=== PATIENT | male | born 1945 | race Caucasian/White ===

== ENCOUNTER → 2019-10-08 14:14 | Outpatient (CLI) | payer MEDICARE, OTHER, SELFPAY ==
[2019-10-08 18:52] LABS: Absolute Lymphocyte Count 2.04 X10^3/uL (0.83-4.51); Basophil# 0.02 X10^3/uL; Basophil% 0.3 % (0-1); Eosinophil# 0.02 X10^3/uL; Eosinophils% 0.3 % (0-5); Hematocrit 42.6 % (40-54); Hemoglobin 13.4 g/dL (13.0-16.5); Lymphocyte # 2.04 X10^3/ul (4.0); Lymphocyte % 26.1 % (19-41); Mean Corp Hgb Conc 31.5 g/dL (32-36); Mean Corpuscular Hgb 31.2 pg (27.0-32.0); Mean Corpuscular Volume 99.3 fL (80-94); Mean Platelet Vol. 9.5 fl (6.2-12.0); Monocyte# 0.77 X10^3/uL; Monocyte% 9.8 % (0-10); NRBC Flagged by Analyzer 0 % (0-5); Neutrophil # 4.95 X10^3/uL (2.7-7.7); Neutrophil % 63.2 % (47-70); Platelet Count 407 K/mm3 (150-450); RBC Distribution Width CV 12.7 % (11.6-14.6); Red Blood Count 4.29 M/mm3 (4.6-6.2); White Blood Count 7.8 K/mm3 (4.4-11.0)
[2019-10-08 18:56] LABS: ALB/GLOB Ratio 0.9 RATIO (0.9-2.4); AST(SGOT) 22 U/L (15-37); Alanine Aminotransfer ALT/SGPT 36 U/L (16-61); Albumin, Serum 3.8 g/dL (3.2-5.0); Alkaline Phosphatase 73 U/L (45-117); Anion Gap 8 (5-15); BUN 25 mg/dL (7-18); BUN/Creat Ratio 21.6 RATIO (10-20); Calcium,Total 9.7 mg/dL (8.5-10.1); Chloride 99 mmol/L (98-107); Creatinine, Serum 1.16 mg/dL (0.70-1.30); EST Glomerular Filtration Rate 66 mL/min (>60); Est Glom Filt Rate - Afr Amer 79 mL/min (>60); Globulin 4.4 g/dL (2.2-4.2); Glucose 112 mg/dL (74-106); Potassium 3.8 mmol/L (3.5-5.1); Protein, Total 8.2 g/dL (6.4-8.2); Rheumatoid Factor < 10.0 IU/mL (<15); Sodium Level 138 mmol/L (136-145)
[2019-10-09 09:12] LABS: Hepatitis B Surface Antibody Reactive; Hepatitis B Surface Antigen Non-Reactive (Nonreactive); Hepatitis C Antibody Non-Reactive (Nonreactive)
[2019-10-11 09:14] LABS: CCP IgG Antibodies 5 units (0-19); Hepatitis B Core AB IgM Negative (Negative)
== END ==
PROVIDERS: PCP Family Medicine; Referring Provider Internal Medicine Rheumatology; Visit Provider Internal Medicine Rheumatology
DX: M06.4 Inflammatory polyarthropathy (principal); M47.897 Other spondylosis, lumbosacral region; M21.41 Flat foot [pes planus] (acquired), right foot; K21.9 Gastro-esophageal reflux disease without esophagitis; I10 Essential (primary) hypertension; E78.5 Hyperlipidemia, unspecified; N40.1 Benign prostatic hyperplasia with lower urinary tract symptoms; G47.33 Obstructive sleep apnea (adult) (pediatric); I87.2 Venous insufficiency (chronic) (peripheral); Z98.84 Bariatric surgery status
CPT/HCPCS: 36415; 80053; 85025; 86140; 86200; 86431; 86705; 86706; 86803; 87340

== ENCOUNTER → 2019-12-03 09:08 | Outpatient (CLI) | payer MEDICARE, OTHER, SELFPAY ==
[2019-12-03 12:05] LABS: Absolute Neutrophil Count 4.1 X10^3/uL (2.0-7.7); Basophil# 0.02 X10^3/uL; Basophil% 0.3 % (0-1); Eosinophil# 0.18 X10^3/uL; Eosinophils% 2.4 % (0-5); Hematocrit 42.5 % (40-54); Hemoglobin 13.2 g/dL (13.0-16.5); Lymphocyte % 35.4 % (19-41); Mean Corp Hgb Conc 31.1 g/dL (32-36); Mean Corpuscular Hgb 31.4 pg (27.0-32.0); Mean Corpuscular Volume 101.2 fL (80-94); Mean Platelet Vol. 9.8 fl (6.2-12.0); Monocyte# 0.66 X10^3/uL; Monocyte% 8.7 % (0-10); NRBC Flagged by Analyzer 0 % (0-5); Neutrophil # 4.06 X10^3/uL (2.7-7.7); Neutrophil % 53.1 % (47-70); Platelet Count 295 K/mm3 (150-450); RBC Distribution Width SD 52.4 fl (35.1-43.9); White Blood Count 7.6 K/mm3 (4.4-11.0)
[2019-12-03 12:39] LABS: ALB/GLOB Ratio 1.1 RATIO (0.9-2.4); AST(SGOT) 28 U/L (15-37); Alanine Aminotransfer ALT/SGPT 42 U/L (16-61); Albumin, Serum 3.9 g/dL (3.2-5.0); Alkaline Phosphatase 58 U/L (45-117); Anion Gap 4 (5-15); BUN 23 mg/dL (7-18); Calcium,Total 9.1 mg/dL (8.5-10.1); Chloride 108 mmol/L (98-107); Creatinine, Serum 0.88 mg/dL (0.70-1.30); EST Glomerular Filtration Rate 90 mL/min (>60); Est Glom Filt Rate - Afr Amer 109 mL/min (>60); Globulin 3.7 g/dL (2.2-4.2); Glucose 89 mg/dL (74-106); Potassium 4.1 mmol/L (3.5-5.1); Protein, Total 7.6 g/dL (6.4-8.2); Sodium Level 140 mmol/L (136-145)
== END ==
PROVIDERS: PCP Family Medicine; Referring Provider Internal Medicine Rheumatology; Visit Provider Internal Medicine Rheumatology
DX: M06.4 Inflammatory polyarthropathy (principal); M47.897 Other spondylosis, lumbosacral region; M21.41 Flat foot [pes planus] (acquired), right foot; K21.9 Gastro-esophageal reflux disease without esophagitis; I10 Essential (primary) hypertension; E78.5 Hyperlipidemia, unspecified; N40.1 Benign prostatic hyperplasia with lower urinary tract symptoms; G47.33 Obstructive sleep apnea (adult) (pediatric); I87.2 Venous insufficiency (chronic) (peripheral); Z98.84 Bariatric surgery status
CPT/HCPCS: 36415; 80053; 85025

== ENCOUNTER → 2020-01-31 10:11 | Outpatient (CLI) | payer MEDICARE, OTHER, SELFPAY ==
[2020-01-31 12:16] LABS: Absolute Lymphocyte Count 2.38 X10^3/uL (0.83-4.51); Absolute Neutrophil Count 4.9 X10^3/uL (2.0-7.7); Basophil# 0.03 X10^3/uL; Basophil% 0.4 % (0-1); Eosinophil# 0.13 X10^3/uL; Eosinophils% 1.6 % (0-5); Hematocrit 42.9 % (40-54); Hemoglobin 13.8 g/dL (13.0-16.5); Lymphocyte # 2.38 X10^3/ul (4.0); Lymphocyte % 29.3 % (19-41); Mean Corp Hgb Conc 32.2 g/dL (32-36); Mean Corpuscular Hgb 32.5 pg (27.0-32.0); Mean Corpuscular Volume 100.9 fL (80-94); Mean Platelet Vol. 9.7 fl (6.2-12.0); Monocyte# 0.69 X10^3/uL; Monocyte% 8.5 % (0-10); NRBC Flagged by Analyzer 0.2 % (0-5); Neutrophil # 4.88 X10^3/uL (2.7-7.7); Platelet Count 321 K/mm3 (150-450); RBC Distribution Width CV 13.9 % (11.6-14.6); RBC Distribution Width SD 51.7 fl (35.1-43.9); Red Blood Count 4.25 M/mm3 (4.6-6.2); White Blood Count 8.1 K/mm3 (4.4-11.0)
[2020-01-31 12:32] LABS: AST(SGOT) 23 U/L (15-37); Alanine Aminotransfer ALT/SGPT 38 U/L (16-61); Alkaline Phosphatase 66 U/L (45-117); Anion Gap 6 (5-15); BUN 24 mg/dL (7-18); BUN/Creat Ratio 25.2 RATIO (10-20); Calcium,Total 9.7 mg/dL (8.5-10.1); Chloride 104 mmol/L (98-107); Creatinine, Serum 0.95 mg/dL (0.70-1.30); EST Glomerular Filtration Rate 82 mL/min (>60); Est Glom Filt Rate - Afr Amer 100 mL/min (>60); Glucose 98 mg/dL (74-106); Potassium 4.5 mmol/L (3.5-5.1); Sodium Level 141 mmol/L (136-145)
== END ==
PROVIDERS: PCP Family Medicine; Referring Provider Internal Medicine Rheumatology; Visit Provider Internal Medicine Rheumatology
DX: M06.4 Inflammatory polyarthropathy (principal); M47.897 Other spondylosis, lumbosacral region; M21.41 Flat foot [pes planus] (acquired), right foot; K21.9 Gastro-esophageal reflux disease without esophagitis; I10 Essential (primary) hypertension; E78.5 Hyperlipidemia, unspecified; N40.1 Benign prostatic hyperplasia with lower urinary tract symptoms; G47.33 Obstructive sleep apnea (adult) (pediatric); I87.2 Venous insufficiency (chronic) (peripheral); Z79.899 Other long term (current) drug therapy; Z98.84 Bariatric surgery status
CPT/HCPCS: 36415; 80053; 85025

== ENCOUNTER → 2020-04-13 06:17 | Outpatient (CLI) | payer MEDICARE, OTHER, SELFPAY ==
[2020-04-01 10:33] VITALS: BMI 44.7
--- NOTE | 2020-04-13 06:19 | ECHOCS_ITS ---
Reason For Study: AFib/Flutter Procedure This was a 2D Doppler, Color Flow transthoracic echocardiogram. Technically difficult study due to patient body habitus. Contrast injection performed. Exam performed in department. Left Ventricle Normal left ventricle. Mild concentric left ventricular hypertrophy. Left ventricular systolic function is normal. The estimated ejection fraction is 60 %. Right Ventricle Normal RV size. Normal systolic function. Atria Normal left atrium. Normal right atrium. Mitral Valve Normal mitral valve. Tricuspid Valve Normal tricuspid valve. Aortic Valve Trisinus/trileaflet aortic valve. Pulmonic Valve Normal pulmonic valve. Great Vessels Normal aortic root. The pulmonary artery is normal size. Normal inferior vena cava. Pericardium/Pleural No pericardial effusion. Medication 22 gauge I.V. with prn adaptor inserted into left arm. Diluted definity 3ml given slow IV push to enhance endocardial definition. MMode/2D Measurements & Calculations LVIDd: 4.8 cm IVSd: 1.3 cm Ao root diam: 4.0 cm LVIDs: 3.7 cm LVPWd: 1.3 cm LA dimension: 4.3 cm FS: 23.4 % LAV(MOD-bp): 84.4 ml LA A4 area: 27.3 cm2 RA A4 area: 18.5 cm2 LAV(MOD-bp) Indexed: 31.3 ml/m2 LAV(MOD-sp2): 73.7 ml LAV(MOD-sp4): 87.9 ml Time Measurements MV dec time: 0.23 sec Doppler Measurements & Calculations MV E max danielle: 116.1 cm/sec MV V2 max: 110.7 cm/sec MV P1/2t max danielle: 111.3 cm/sec MV A max danielle: 34.0 cm/sec MV max P.9 mmHg MV P1/2t: 112.8 msec MV E/A: 3.4 MV V2 mean: 53.7 cm/sec MV dec slope: 288.9 cm/sec2 MV mean P.4 mmHg MV V2 VTI: 32.7 cm MVA(P1/2t): 2.0 cm2 Ao V2 max: 167.3 cm/sec LV V1 max: 104.5 cm/sec PA V2 max: 87.6 cm/sec Ao max P.3 mmHg LV V1 max P.4 mmHg Interpretation Summary Normal left ventricle. Left ventricular systolic function is normal. The estimated ejection fraction is 60 %. Mild concentric left ventricular hypertrophy. Contrast injection was performed. Ordering Physician: Jayden Rodrigues Referring Physician: Arturo Turner Performed By: Mariusz Maier RCS
--- NOTE | 2020-04-13 15:43 | STRESSREP ---
Stress Test Report Pharmacologic myocardial perfusion stress test. 74-year-old man with a history of hypertension, premature ventricular complexes and atrial fibrillation. Stress protocol: Resting EKG demonstrates atrial fibrillation with a rate of 79 bpm occasional premature ventricular complexes noted. Resting blood pressure is 138/70 mmHg. 0.4 mg of regadenoson was infused per usual protocol followed by rapid intravenous and flush injection continuous EKG monitoring was performed. The maximum heart rate attained was 111 bpm which was 75% of max impacted heart rate the maximum workload was [address] changes were noted. Myocardial perfusion protocol. 14.8 mCi of technetium 99m sestamibi was injected at rest. 0.4 mg of regadenoson was infused per usual protocol peak infusion 44.6 mCi of technetium 99m sestamibi was injected stress images were obtained stress and rest images were reconstructed and compared in the short axis vertical long horizontal long axis. Gated images were also obtained for Perfusion SPECT analysis: Review of the stress images demonstrate normal uptake of tracer noted in all areas of the myocardium the resting images similarly demonstrate normal uptake of tracer noted in all areas of the myocardium. No reversibility is noted suggest ischemia no previous infarct is noted. Gated SPECT analysis: The gated ejection fraction is noted to be 51%. Conclusion: Normal pharmacologic myocardial perfusion stress test. Preserved ejection fraction.
== END ==
PROVIDERS: PCP Family Medicine; Referring Provider Internal Medicine Cardiovascular Disease; Visit Provider Internal Medicine Cardiovascular Disease
DX: I48.19 Other persistent atrial fibrillation (principal); R60.0 Localized edema; R94.31 Abnormal electrocardiogram [ECG] [EKG]
CPT/HCPCS: 78452; 93017; 93306; A9500; Q9957; A4216; C8929; J2785

== ENCOUNTER → 2020-04-22 10:08 | Outpatient (CLI) | payer MEDICARE, OTHER, SELFPAY ==
[2020-04-01 10:33] VITALS: BMI 44.7
[2020-04-22 12:19] LABS: Absolute Neutrophil Count 3.6 X10^3/uL (2.0-7.7); Basophil# 0.04 X10^3/uL; Basophil% 0.6 % (0-1); Eosinophil# 0.12 X10^3/uL; Eosinophils% 1.9 % (0-5); Hematocrit 39.7 % (40-54); Hemoglobin 12.7 g/dL (13.0-16.5); Mean Corpuscular Hgb 32.5 pg (27.0-32.0); Mean Corpuscular Volume 101.5 fL (80-94); Mean Platelet Vol. 10.8 fl (6.2-12.0); Monocyte# 0.67 X10^3/uL; Monocyte% 10.6 % (0-10); NRBC Flagged by Analyzer 0 % (0-5); Neutrophil # 3.59 X10^3/uL (2.7-7.7); Neutrophil % 56.6 % (47-70); Platelet Count 277 K/mm3 (150-450); RBC Distribution Width SD 47.8 fl (35.1-43.9); Red Blood Count 3.91 M/mm3 (4.6-6.2); White Blood Count 6.3 K/mm3 (4.4-11.0)
[2020-04-22 12:46] LABS: AST(SGOT) 20 U/L (15-37); Alanine Aminotransfer ALT/SGPT 27 U/L (16-61); Albumin, Serum 3.7 g/dL (3.2-5.0); Alkaline Phosphatase 72 U/L (45-117); Anion Gap 6 (5-15); BUN 17 mg/dL (7-18); BUN/Creat Ratio 19.4 RATIO (10-20); Calcium,Total 9.1 mg/dL (8.5-10.1); Chloride 109 mmol/L (98-107); Creatinine, Serum 0.88 mg/dL (0.70-1.30); EST Glomerular Filtration Rate 91 mL/min (>60); Est Glom Filt Rate - Afr Amer 110 mL/min (>60); Globulin 3.8 g/dL (2.2-4.2); Glucose 96 mg/dL (74-106); Potassium 3.9 mmol/L (3.5-5.1); Protein, Total 7.5 g/dL (6.4-8.2); Sodium Level 140 mmol/L (136-145)
== END ==
PROVIDERS: PCP Family Medicine; Referring Provider Internal Medicine Rheumatology; Visit Provider Internal Medicine Rheumatology
DX: M06.4 Inflammatory polyarthropathy (principal); M47.897 Other spondylosis, lumbosacral region; M21.41 Flat foot [pes planus] (acquired), right foot; K21.9 Gastro-esophageal reflux disease without esophagitis; I10 Essential (primary) hypertension; E78.5 Hyperlipidemia, unspecified; N40.1 Benign prostatic hyperplasia with lower urinary tract symptoms; G47.33 Obstructive sleep apnea (adult) (pediatric); I87.2 Venous insufficiency (chronic) (peripheral); Z79.899 Other long term (current) drug therapy
CPT/HCPCS: 36415; 80053; 85025

== ENCOUNTER → 2020-07-10 10:35 | Outpatient (CLI) | payer MEDICARE, OTHER, SELFPAY ==
[2020-04-01 10:33] VITALS: BMI 44.7
[2020-07-10 12:46] LABS: Absolute Lymphocyte Count 2.31 X10^3/uL (0.83-4.51); Absolute Neutrophil Count 4.8 X10^3/uL (2.0-7.7); Basophil# 0.05 X10^3/uL; Basophil% 0.6 % (0-1); Eosinophil# 0.15 X10^3/uL; Eosinophils% 1.8 % (0-5); Hematocrit 44.7 % (40-54); Hemoglobin 13.9 g/dL (13.0-16.5); Lymphocyte # 2.31 X10^3/ul (4.0); Lymphocyte % 28.1 % (19-41); Mean Corp Hgb Conc 31.1 g/dL (32-36); Mean Corpuscular Hgb 32.3 pg (27.0-32.0); Mean Corpuscular Volume 103.7 fL (80-94); Mean Platelet Vol. 10.1 fl (6.2-12.0); Monocyte# 0.86 X10^3/uL; Monocyte% 10.5 % (0-10); NRBC Flagged by Analyzer 0 % (0-5); Neutrophil # 4.82 X10^3/uL (2.7-7.7); Neutrophil % 58.6 % (47-70); Platelet Count 262 K/mm3 (150-450); RBC Distribution Width SD 50.1 fl (35.1-43.9); Red Blood Count 4.31 M/mm3 (4.6-6.2); White Blood Count 8.2 K/mm3 (4.4-11.0)
[2020-07-10 12:56] LABS: AST(SGOT) 28 U/L (15-37); Alanine Aminotransfer ALT/SGPT 28 U/L (16-61); Albumin, Serum 3.8 g/dL (3.2-5.0); Alkaline Phosphatase 74 U/L (45-117); Anion Gap 6 (5-15); BUN 31 mg/dL (7-18); Chloride 109 mmol/L (98-107); EST Glomerular Filtration Rate 78 mL/min (>60); Est Glom Filt Rate - Afr Amer 94 mL/min (>60); Globulin 3.8 g/dL (2.2-4.2); Glucose 89 mg/dL (74-106); Potassium 4.2 mmol/L (3.5-5.1); Protein, Total 7.6 g/dL (6.4-8.2); Sodium Level 141 mmol/L (136-145)
== END ==
PROVIDERS: PCP Family Medicine; Referring Provider Internal Medicine Rheumatology; Visit Provider Internal Medicine Rheumatology
DX: M06.4 Inflammatory polyarthropathy (principal); M47.897 Other spondylosis, lumbosacral region; M21.41 Flat foot [pes planus] (acquired), right foot; K21.9 Gastro-esophageal reflux disease without esophagitis; I10 Essential (primary) hypertension; E78.5 Hyperlipidemia, unspecified; N40.1 Benign prostatic hyperplasia with lower urinary tract symptoms; G47.33 Obstructive sleep apnea (adult) (pediatric); I87.2 Venous insufficiency (chronic) (peripheral); Z79.899 Other long term (current) drug therapy; Z98.84 Bariatric surgery status
CPT/HCPCS: 36415; 80053; 85025

== ENCOUNTER → 2020-10-10 10:00 | Outpatient (CLI) | payer MEDICARE, OTHER, SELFPAY ==
[2020-09-29 09:28] VITALS: BMI 44.7
[2020-10-10 10:27] LABS: Absolute Lymphocyte Count 1.85 X10^3/uL (0.83-4.51); Absolute Neutrophil Count 3.7 X10^3/uL (2.0-7.7); Basophil# 0.03 X10^3/uL; Basophil% 0.5 % (0-1); Eosinophil# 0.08 X10^3/uL; Eosinophils% 1.3 % (0-5); Hematocrit 41.1 % (40-54); Lymphocyte # 1.85 X10^3/ul (0.83-4.51); Lymphocyte % 29.1 % (19-41); Mean Corp Hgb Conc 31.6 g/dL (32-36); Mean Corpuscular Hgb 33.2 pg (27.0-32.0); Mean Corpuscular Volume 104.8 fL (80-94); Mean Platelet Vol. 9.3 fl (6.2-12.0); Monocyte# 0.63 X10^3/uL; Monocyte% 9.9 % (0-10); NRBC Flagged by Analyzer 0 % (0-5); Neutrophil # 3.74 X10^3/uL (2.7-7.7); Neutrophil % 58.7 % (47-70); Platelet Count 318 K/mm3 (150-450); RBC Distribution Width CV 13.8 % (11.6-14.6); RBC Distribution Width SD 53.1 fl (35.1-43.9); Red Blood Count 3.92 M/mm3 (4.6-6.2); White Blood Count 6.4 K/mm3 (4.4-11.0)
[2020-10-10 10:57] LABS: AST(SGOT) 24 U/L (15-37); Alanine Aminotransfer ALT/SGPT 34 U/L (16-61); Albumin, Serum 3.9 g/dL (3.2-5.0); Alkaline Phosphatase 71 U/L (45-117); Anion Gap 1 (5-15); BUN 23 mg/dL (7-18); BUN/Creat Ratio 23.9 RATIO (10-20); Calcium,Total 9.2 mg/dL (8.5-10.1); Chloride 110 mmol/L (98-107); Creatinine, Serum 0.96 mg/dL (0.70-1.30); EST Glomerular Filtration Rate 81 mL/min (>60); Est Glom Filt Rate - Afr Amer 98 mL/min (>60); Globulin 3.9 g/dL (2.2-4.2); Glucose 81 mg/dL (74-106); Potassium 4.1 mmol/L (3.5-5.1); Protein, Total 7.8 g/dL (6.4-8.2); Sodium Level 143 mmol/L (136-145)
== END ==
PROVIDERS: PCP Family Medicine; Visit Provider Internal Medicine Rheumatology
DX: M06.4 Inflammatory polyarthropathy (principal); M47.897 Other spondylosis, lumbosacral region; M21.41 Flat foot [pes planus] (acquired), right foot; K21.9 Gastro-esophageal reflux disease without esophagitis; I10 Essential (primary) hypertension; E78.5 Hyperlipidemia, unspecified; N40.1 Benign prostatic hyperplasia with lower urinary tract symptoms; G47.33 Obstructive sleep apnea (adult) (pediatric); I87.2 Venous insufficiency (chronic) (peripheral); Z79.899 Other long term (current) drug therapy; Z98.84 Bariatric surgery status
CPT/HCPCS: 36415; 80053; 85025

== ENCOUNTER → 2020-12-30 11:14 | Outpatient (CLI) | payer MEDICARE, OTHER, SELFPAY ==
[2020-09-29 09:28] VITALS: BMI 44.7
[2020-12-30 12:40] LABS: Absolute Lymphocyte Count 1.87 X10^3/uL (0.83-4.51); Absolute Neutrophil Count 6.8 X10^3/uL (2.0-7.7); Basophil# 0.03 X10^3/uL; Basophil% 0.3 % (0-1); Eosinophil# 0.12 X10^3/uL; Eosinophils% 1.2 % (0-5); Hemoglobin 13.3 g/dL (13.0-16.5); Lymphocyte # 1.87 X10^3/ul (0.83-4.51); Lymphocyte % 19.4 % (19-41); Mean Corp Hgb Conc 32.4 g/dL (32-36); Mean Corpuscular Hgb 32.8 pg (27.0-32.0); Mean Platelet Vol. 9.8 fl (6.2-12.0); Monocyte# 0.78 X10^3/uL; Monocyte% 8.1 % (0-10); NRBC Flagged by Analyzer 0 % (0-5); Neutrophil # 6.84 X10^3/uL (2.7-7.7); Neutrophil % 70.8 % (47-70); Platelet Count 247 K/mm3 (150-450); RBC Distribution Width CV 13.1 % (11.6-14.6); RBC Distribution Width SD 48.9 fl (35.1-43.9); Red Blood Count 4.06 M/mm3 (4.6-6.2); White Blood Count 9.7 K/mm3 (4.4-11.0)
[2020-12-30 13:12] LABS: AST(SGOT) 31 U/L (15-37); Alanine Aminotransfer ALT/SGPT 50 U/L (16-61); Albumin, Serum 4.1 g/dL (3.2-5.0); Alkaline Phosphatase 73 U/L (45-117); Anion Gap 7 (5-15); BUN 20 mg/dL (7-18); BUN/Creat Ratio 22.9 RATIO (10-20); Calcium,Total 9.7 mg/dL (8.5-10.1); Chloride 103 mmol/L (98-107); Creatinine, Serum 0.87 mg/dL (0.70-1.30); EST Glomerular Filtration Rate 91 mL/min (>60); Est Glom Filt Rate - Afr Amer 110 mL/min (>60); Glucose 98 mg/dL (74-106); Potassium 4.1 mmol/L (3.5-5.1); Protein, Total 8.1 g/dL (6.4-8.2); Sodium Level 141 mmol/L (136-145)
== END ==
PROVIDERS: PCP Family Medicine; Referring Provider Internal Medicine Rheumatology; Visit Provider Internal Medicine Rheumatology
DX: M06.4 Inflammatory polyarthropathy (principal); M47.897 Other spondylosis, lumbosacral region; M21.41 Flat foot [pes planus] (acquired), right foot; K21.9 Gastro-esophageal reflux disease without esophagitis; I10 Essential (primary) hypertension; E78.5 Hyperlipidemia, unspecified; N40.1 Benign prostatic hyperplasia with lower urinary tract symptoms; G47.33 Obstructive sleep apnea (adult) (pediatric); I87.2 Venous insufficiency (chronic) (peripheral); Z79.899 Other long term (current) drug therapy
CPT/HCPCS: 36415; 80053; 85025

== ENCOUNTER 2021-08-17 10:19 | Outpatient (CLI) | payer MEDICARE, OTHER, SELFPAY ==
[2021-08-17 12:03] LABS: Absolute Lymphocyte Count 1.86 X10^3/uL (0.83-4.51); Absolute Neutrophil Count 4.1 X10^3/uL (2.0-7.7); Basophil# 0.02 X10^3/uL; Basophil% 0.3 % (0-1); Eosinophil# 0.12 X10^3/uL; Eosinophils% 1.8 % (0-5); Hematocrit 42.9 % (40-54); Hemoglobin 13.9 g/dL (13.0-16.5); Lymphocyte # 1.86 X10^3/ul (0.83-4.51); Lymphocyte % 27.4 % (19-41); Mean Corp Hgb Conc 32.4 g/dL (32-36); Mean Corpuscular Hgb 33.1 pg (27.0-32.0); Mean Corpuscular Volume 102.1 fL (80-94); Mean Platelet Vol. 9.9 fl (6.2-12.0); Monocyte# 0.66 X10^3/uL; Monocyte% 9.7 % (0-10); NRBC Flagged by Analyzer 0 % (0-5); Neutrophil % 60.5 % (47-70); Platelet Count 253 K/mm3 (150-450); RBC Distribution Width CV 13.2 % (11.6-14.6); RBC Distribution Width SD 49.8 fl (35.1-43.9); White Blood Count 6.8 K/mm3 (4.4-11.0)
[2021-08-17 12:26] LABS: AST(SGOT) 28 U/L (15-37); Alanine Aminotransfer ALT/SGPT 41 U/L (16-61); Albumin, Serum 3.9 g/dL (3.2-5.0); Alkaline Phosphatase 69 U/L (45-117); Anion Gap 2 (5-15); BUN 27 mg/dL (7-18); BUN/Creat Ratio 26.7 RATIO (10-20); Calcium,Total 9.5 mg/dL (8.5-10.1); Chloride 108 mmol/L (98-107); Creatinine, Serum 1.01 mg/dL (0.70-1.30); EST Glomerular Filtration Rate 77 mL/min (>60); Est Glom Filt Rate - Afr Amer 93 mL/min (>60); Glucose 96 mg/dL (74-106); Potassium 4.4 mmol/L (3.5-5.1); Protein, Total 7.9 g/dL (6.4-8.2); Sodium Level 139 mmol/L (136-145)
== END 2021-08-17 23:59 | disposition home or self-care (01) ==
LOC: MTLAB 10:22
PROVIDERS: PCP Family Medicine; Referring Provider Internal Medicine Rheumatology; Visit Provider Internal Medicine Rheumatology
DX: M06.4 Inflammatory polyarthropathy (principal); M47.892 Other spondylosis, cervical region; M47.897 Other spondylosis, lumbosacral region; M65.342 Trigger finger, left ring finger; M21.41 Flat foot [pes planus] (acquired), right foot; I10 Essential (primary) hypertension; E78.5 Hyperlipidemia, unspecified; N40.1 Benign prostatic hyperplasia with lower urinary tract symptoms; G47.33 Obstructive sleep apnea (adult) (pediatric); I87.2 Venous insufficiency (chronic) (peripheral); K21.9 Gastro-esophageal reflux disease without esophagitis; Z79.899 Other long term (current) drug therapy
CPT/HCPCS: 36415; 80053; 85025

== ENCOUNTER → 2021-11-17 | Outpatient (CLI) | payer MEDICARE, OTHER, SELFPAY ==
[2021-11-17 12:03] LABS: Absolute Lymphocyte Count 1.49 X10^3/uL (0.83-4.51); Absolute Neutrophil Count 6.2 X10^3/uL (2.0-7.7); Basophil# 0.02 X10^3/uL; Basophil% 0.2 % (0-1); Eosinophil# 0.11 X10^3/uL; Eosinophils% 1.3 % (0-5); Hematocrit 39.5 % (40-54); Hemoglobin 12.6 g/dL (13.0-16.5); Lymphocyte # 1.49 X10^3/ul (0.83-4.51); Lymphocyte % 17.7 % (19-41); Mean Corp Hgb Conc 31.9 g/dL (32-36); Mean Corpuscular Hgb 33.1 pg (27.0-32.0); Mean Corpuscular Volume 103.7 fL (80-94); Mean Platelet Vol. 9.5 fl (6.2-12.0); Monocyte# 0.53 X10^3/uL; Monocyte% 6.3 % (0-10); NRBC Flagged by Analyzer 0 % (0-5); Neutrophil # 6.24 X10^3/uL (2.7-7.7); Neutrophil % 74.1 % (47-70); Platelet Count 249 K/mm3 (150-450); RBC Distribution Width CV 13.5 % (11.6-14.6); RBC Distribution Width SD 51.8 fl (35.1-43.9); Red Blood Count 3.81 M/mm3 (4.6-6.2); White Blood Count 8.4 K/mm3 (4.4-11.0)
[2021-11-17 12:37] LABS: AST(SGOT) 30 U/L (15-37); Alanine Aminotransfer ALT/SGPT 45 U/L (16-61); Albumin, Serum 3.5 g/dL (3.2-5.0); Alkaline Phosphatase 63 U/L (45-117); Anion Gap 3 (5-15); BUN 25 mg/dL (7-18); BUN/Creat Ratio 24.3 RATIO (10-20); Calcium,Total 8.9 mg/dL (8.5-10.1); Chloride 111 mmol/L (98-107); Creatinine, Serum 1.03 mg/dL (0.70-1.30); EST Glomerular Filtration Rate 75 mL/min (>60); Est Glom Filt Rate - Afr Amer 91 mL/min (>60); Globulin 3.6 g/dL (2.2-4.2); Glucose 102 mg/dL (74-106); Potassium 4.4 mmol/L (3.5-5.1); Protein, Total 7.1 g/dL (6.4-8.2); Sodium Level 141 mmol/L (136-145)
== END | disposition home or self-care (01) ==
PROVIDERS: PCP Family Medicine; Referring Provider Internal Medicine Rheumatology; Visit Provider Internal Medicine Rheumatology
DX: M06.4 Inflammatory polyarthropathy (principal); M47.892 Other spondylosis, cervical region; M47.897 Other spondylosis, lumbosacral region; M65.342 Trigger finger, left ring finger; M21.41 Flat foot [pes planus] (acquired), right foot; I10 Essential (primary) hypertension; E78.5 Hyperlipidemia, unspecified; N40.1 Benign prostatic hyperplasia with lower urinary tract symptoms; G47.33 Obstructive sleep apnea (adult) (pediatric); I87.2 Venous insufficiency (chronic) (peripheral); K21.9 Gastro-esophageal reflux disease without esophagitis; Z79.899 Other long term (current) drug therapy; Z98.84 Bariatric surgery status
CPT/HCPCS: 36415; 80053; 85025

== ENCOUNTER → 2022-02-15 | Outpatient (CLI) | payer MEDICARE, OTHER, SELFPAY ==
[2022-02-15 12:19] LABS: Absolute Lymphocyte Count 1.82 X10^3/uL (0.83-4.51); Absolute Neutrophil Count 6.6 X10^3/uL (2.0-7.7); Basophil# 0.02 X10^3/uL; Basophil% 0.2 % (0-1); Eosinophil# 0.07 X10^3/uL; Eosinophils% 0.8 % (0-5); Hematocrit 40.2 % (40-54); Hemoglobin 13.1 g/dL (13.0-16.5); Lymphocyte # 1.82 X10^3/ul (0.83-4.51); Lymphocyte % 19.7 % (19-41); Mean Corp Hgb Conc 32.6 g/dL (32-36); Mean Corpuscular Hgb 34.6 pg (27.0-32.0); Mean Corpuscular Volume 106.1 fL (80-94); Mean Platelet Vol. 9.8 fl (6.2-12.0); Monocyte# 0.71 X10^3/uL; Monocyte% 7.7 % (0-10); NRBC Flagged by Analyzer 0 % (0-5); Neutrophil # 6.61 X10^3/uL (2.7-7.7); Neutrophil % 71.4 % (47-70); Platelet Count 245 K/mm3 (150-450); RBC Distribution Width CV 13.1 % (11.6-14.6); RBC Distribution Width SD 50.8 fl (35.1-43.9); Red Blood Count 3.79 M/mm3 (4.6-6.2); White Blood Count 9.3 K/mm3 (4.4-11.0)
[2022-02-15 12:45] LABS: AST(SGOT) 26 U/L (15-37); Alanine Aminotransfer ALT/SGPT 35 U/L (16-61); Albumin, Serum 3.7 g/dL (3.2-5.0); Alkaline Phosphatase 59 U/L (45-117); Anion Gap 5 (5-15); BUN 35 mg/dL (7-18); BUN/Creat Ratio 33.3 RATIO (10-20); Calcium,Total 9.3 mg/dL (8.5-10.1); Chloride 109 mmol/L (98-107); Creatinine, Serum 1.05 mg/dL (0.70-1.30); EST Glomerular Filtration Rate 73 mL/min (>60); Est Glom Filt Rate - Afr Amer 89 mL/min (>60); Globulin 3.8 g/dL (2.2-4.2); Glucose 108 mg/dL (74-106); Potassium 4.6 mmol/L (3.5-5.1); Protein, Total 7.5 g/dL (6.4-8.2); Sodium Level 141 mmol/L (136-145)
== END | disposition home or self-care (01) ==
LOC: MTLAB 10:40
PROVIDERS: PCP Family Medicine; Referring Provider Internal Medicine Rheumatology; Visit Provider Internal Medicine Rheumatology
DX: M06.4 Inflammatory polyarthropathy (principal); M47.892 Other spondylosis, cervical region; M47.897 Other spondylosis, lumbosacral region; M65.342 Trigger finger, left ring finger; M21.41 Flat foot [pes planus] (acquired), right foot; I10 Essential (primary) hypertension; E78.5 Hyperlipidemia, unspecified; N40.1 Benign prostatic hyperplasia with lower urinary tract symptoms; G47.33 Obstructive sleep apnea (adult) (pediatric); I87.2 Venous insufficiency (chronic) (peripheral); K21.9 Gastro-esophageal reflux disease without esophagitis; Z79.899 Other long term (current) drug therapy; Z98.84 Bariatric surgery status
CPT/HCPCS: 36415; 80053; 85025

== ENCOUNTER → 2022-07-18 | Outpatient (CLI) | payer MEDICARE, OTHER, SELFPAY ==
[2022-07-18 09:58] LABS: Absolute Lymphocyte Count 2.66 X10^3/uL (0.83-4.51); Absolute Neutrophil Count 4.9 X10^3/uL (2.0-7.7); Basophil# 0.04 X10^3/uL; Basophil% 0.5 % (0-1); Eosinophil# 0.12 X10^3/uL; Eosinophils% 1.4 % (0-5); Hemoglobin 13.2 g/dL (13.0-16.5); Lymphocyte # 2.66 X10^3/ul (0.83-4.51); Lymphocyte % 31.5 % (19-41); Mean Corp Hgb Conc 31.4 g/dL (32-36); Mean Corpuscular Hgb 32.3 pg (27.0-32.0); Mean Corpuscular Volume 102.7 fL (80-94); Mean Platelet Vol. 9.1 fl (6.2-12.0); Monocyte# 0.74 X10^3/uL; Monocyte% 8.8 % (0-10); NRBC Flagged by Analyzer 0 % (0-5); Neutrophil # 4.86 X10^3/uL (2.7-7.7); Neutrophil % 57.6 % (47-70); Platelet Count 258 K/mm3 (150-450); RBC Distribution Width SD 49.6 fl (35.1-43.9); Red Blood Count 4.09 M/mm3 (4.6-6.2); White Blood Count 8.4 K/mm3 (4.4-11.0)
[2022-07-18 10:50] LABS: AST(SGOT) 36 U/L (15-37); Alanine Aminotransfer ALT/SGPT 53 U/L (16-61); Albumin, Serum 4.1 g/dL (3.2-5.0); Alkaline Phosphatase 64 U/L (45-117); Anion Gap 8 (5-15); BUN 43 mg/dL (7-18); BUN/Creat Ratio 29.7 RATIO (10-20); Calcium,Total 9.3 mg/dL (8.5-10.1); Chloride 105 mmol/L (98-107); Creatinine, Serum 1.45 mg/dL (0.70-1.30); EST Glomerular Filtration Rate 50 mL/min (>60); Est Glom Filt Rate - Afr Amer 61 mL/min (>60); Globulin 4.1 g/dL (2.2-4.2); Glucose 113 mg/dL (74-106); Potassium 4.8 mmol/L (3.5-5.1); Protein, Total 8.2 g/dL (6.4-8.2); Sodium Level 137 mmol/L (136-145)
== END | disposition home or self-care (01) ==
PROVIDERS: PCP Family Medicine; Referring Provider Internal Medicine Rheumatology; Visit Provider Internal Medicine Rheumatology
DX: M06.4 Inflammatory polyarthropathy (principal); Z79.899 Other long term (current) drug therapy
CPT/HCPCS: 36415; 80053; 85025

== ENCOUNTER → 2022-11-23 | Outpatient (CLI) | payer MEDICARE, OTHER, SELFPAY ==
[2022-11-23 13:06] LABS: Absolute Lymphocyte Count 2.21 X10^3/uL (0.83-4.51); Absolute Neutrophil Count 4.2 X10^3/uL (2.0-7.7); Basophil# 0.02 X10^3/uL; Basophil% 0.3 % (0-1); Eosinophil# 0.16 X10^3/uL; Eosinophils% 2.2 % (0-5); Hematocrit 41.3 % (40-54); Hemoglobin 13.1 g/dL (13.0-16.5); Lymphocyte # 2.21 X10^3/ul (0.83-4.51); Lymphocyte % 30.4 % (19-41); Mean Corp Hgb Conc 31.7 g/dL (32-36); Mean Corpuscular Hgb 33.1 pg (27.0-32.0); Mean Corpuscular Volume 104.3 fL (80-94); Mean Platelet Vol. 10.1 fl (6.2-12.0); Monocyte# 0.64 X10^3/uL; Monocyte% 8.8 % (0-10); NRBC Flagged by Analyzer 0 % (0-5); Neutrophil # 4.24 X10^3/uL (2.7-7.7); Neutrophil % 58.2 % (47-70); Platelet Count 271 K/mm3 (150-450); RBC Distribution Width CV 12.7 % (11.6-14.6); RBC Distribution Width SD 49.1 fl (35.1-43.9); Red Blood Count 3.96 M/mm3 (4.6-6.2); White Blood Count 7.3 K/mm3 (4.4-11.0)
[2022-11-23 13:31] LABS: AST(SGOT) 36 U/L (15-37); Alanine Aminotransfer ALT/SGPT 44 U/L (16-61); Albumin, Serum 4.1 g/dL (3.2-5.0); Alkaline Phosphatase 64 U/L (45-117); Anion Gap 5 (5-15); BUN 37 mg/dL (7-18); BUN/Creat Ratio 28.9 RATIO (10-20); Calcium,Total 9.7 mg/dL (8.5-10.1); Chloride 107 mmol/L (98-107); Creatinine, Serum 1.28 mg/dL (0.70-1.30); EST Glomerular Filtration Rate 58 mL/min (>60); Est Glom Filt Rate - Afr Amer 70 mL/min (>60); Glucose 100 mg/dL (74-106); Potassium 4.4 mmol/L (3.5-5.1); Protein, Total 8.1 g/dL (6.4-8.2); Sodium Level 140 mmol/L (136-145)
== END | disposition home or self-care (01) ==
LOC: MTLAB 10:40
PROVIDERS: Nurse Practitioner Family; PCP Family Medicine; Referring Provider Internal Medicine Rheumatology; Visit Provider Internal Medicine Rheumatology
DX: M06.4 Inflammatory polyarthropathy (principal); Z79.899 Other long term (current) drug therapy
CPT/HCPCS: 36415; 80053; 85025

== ENCOUNTER → 2023-01-26 | Outpatient (CLI) | payer MEDICARE, OTHER, SELFPAY ==
[2023-01-26 15:07] LABS: Absolute Lymphocyte Count 2.01 X10^3/uL (0.83-4.51); Absolute Neutrophil Count 3.7 X10^3/uL (2.0-7.7); Basophil# 0.02 X10^3/uL; Basophil% 0.3 % (0-1); Eosinophil# 0.16 X10^3/uL; Eosinophils% 2.5 % (0-5); Hematocrit 37.7 % (40-54); Hemoglobin 11.8 g/dL (13.0-16.5); Lymphocyte # 2.01 X10^3/ul (0.83-4.51); Lymphocyte % 30.8 % (19-41); Mean Corp Hgb Conc 31.3 g/dL (32-36); Mean Corpuscular Hgb 32.8 pg (27.0-32.0); Mean Corpuscular Volume 104.7 fL (80-94); Monocyte# 0.65 X10^3/uL; NRBC Flagged by Analyzer 0 % (0-5); Neutrophil # 3.67 X10^3/uL (2.7-7.7); Neutrophil % 56.2 % (47-70); Platelet Count 242 K/mm3 (150-450); RBC Distribution Width CV 13.2 % (11.6-14.6); RBC Distribution Width SD 50.7 fl (35.1-43.9); White Blood Count 6.5 K/mm3 (4.4-11.0)
[2023-01-26 15:49] LABS: ALB/GLOB Ratio 1.1 RATIO (0.9-2.4); AST(SGOT) 30 U/L (15-37); Alanine Aminotransfer ALT/SGPT 38 U/L (16-61); Alkaline Phosphatase 59 U/L (45-117); Anion Gap 4 (5-15); BUN 23 mg/dL (7-18); BUN/Creat Ratio 18.3 RATIO (10-20); Chloride 109 mmol/L (98-107); Creatinine, Serum 1.26 mg/dL (0.70-1.30); EST Glomerular Filtration Rate 59 mL/min (>60); Est Glom Filt Rate - Afr Amer 72 mL/min (>60); Globulin 3.5 g/dL (2.2-4.2); Glucose 98 mg/dL (74-106); Potassium 4.5 mmol/L (3.5-5.1); Protein, Total 7.5 g/dL (6.4-8.2); Sodium Level 138 mmol/L (136-145)
== END | disposition home or self-care (01) ==
LOC: MTLAB 12:44
PROVIDERS: PCP Family Medicine; Visit Provider Internal Medicine Rheumatology
DX: M06.4 Inflammatory polyarthropathy (principal); Z79.899 Other long term (current) drug therapy
CPT/HCPCS: 36415; 80053; 85025

== ENCOUNTER → 2023-04-18 | Outpatient (CLI) | payer MEDICARE, OTHER, SELFPAY ==
[2023-04-18 12:23] LABS: Absolute Lymphocyte Count 1.77 X10^3/uL (0.83-4.51); Absolute Neutrophil Count 4.1 X10^3/uL (2.0-7.7); Basophil# 0.01 X10^3/uL; Basophil% 0.1 % (0-1); Eosinophil# 0.09 X10^3/uL; Eosinophils% 1.3 % (0-5); Hematocrit 40.6 % (40-54); Hemoglobin 12.8 g/dL (13.0-16.5); Lymphocyte # 1.77 X10^3/ul (0.83-4.51); Lymphocyte % 26.3 % (19-41); Mean Corp Hgb Conc 31.5 g/dL (32-36); Mean Corpuscular Hgb 32.9 pg (27.0-32.0); Mean Corpuscular Volume 104.4 fL (80-94); Mean Platelet Vol. 9.5 fl (6.2-12.0); Monocyte% 10.4 % (0-10); NRBC Flagged by Analyzer 0 % (0-5); Neutrophil # 4.14 X10^3/uL (2.7-7.7); Neutrophil % 61.6 % (47-70); Platelet Count 287 K/mm3 (150-450); RBC Distribution Width SD 49.1 fl (35.1-43.9); Red Blood Count 3.89 M/mm3 (4.6-6.2); White Blood Count 6.7 K/mm3 (4.4-11.0)
[2023-04-18 13:06] LABS: ALB/GLOB Ratio 0.9 RATIO (0.9-2.4); AST(SGOT) 31 U/L (15-37); Alanine Aminotransfer ALT/SGPT 39 U/L (16-61); Albumin, Serum 3.6 g/dL (3.2-5.0); Alkaline Phosphatase 67 U/L (45-117); Anion Gap 4 (5-15); BUN 27 mg/dL (7-18); Calcium,Total 9.4 mg/dL (8.5-10.1); Chloride 112 mmol/L (98-107); Creatinine, Serum 1.35 mg/dL (0.70-1.30); EST Glomerular Filtration Rate 55 mL/min (>60); Est Glom Filt Rate - Afr Amer 66 mL/min (>60); Glucose 53 mg/dL (74-106); Potassium 4.5 mmol/L (3.5-5.1); Protein, Total 7.6 g/dL (6.4-8.2); Sodium Level 140 mmol/L (136-145)
== END | disposition home or self-care (01) ==
LOC: MTLAB 10:46
PROVIDERS: PCP Family Medicine; Referring Provider Internal Medicine Rheumatology; Visit Provider Internal Medicine Rheumatology
DX: M06.4 Inflammatory polyarthropathy (principal); I10 Essential (primary) hypertension; Z79.899 Other long term (current) drug therapy
CPT/HCPCS: 36415; 80053; 85025

== ENCOUNTER → 2023-11-15 | Outpatient (CLI) | payer MEDICARE, OTHER, SELFPAY ==
--- NOTE | 2023-11-15 13:41 | ECHOCS_ITS ---
Reason For Study: DYSPNEA Procedure This was a 2D Doppler, Color Flow transthoracic echocardiogram. The study was technically difficult. Exam performed in department. Left Ventricle Normal LV size. Left ventricular systolic function is normal. The left ventricular ejection fraction is 60 %. No regional wall motion abnormalities noted. Right Ventricle Normal RV size. Normal systolic function. Atria Normal left atrium. Normal right atrium. Mitral Valve Normal mitral valve. Tricuspid Valve Normal tricuspid valve. Aortic Valve Trisinus/trileaflet aortic valve. Mild focal aortic valve calcification. Pulmonic Valve Normal pulmonic valve. Great Vessels Normal aortic root. The pulmonary artery is normal size. Normal inferior vena cava. Pericardium/Pleural No pericardial effusion. Medication 22 gauge I.V. with prn adaptor inserted into right arm. Diluted definity 3ml given slow IV push to enhance endocardial definition. MMode/2D Measurements & Calculations LVIDd: 5.2 cm IVSd: 1.1 cm Ao root diam: 3.5 cm LVIDs: 3.7 cm LVPWd: 1.2 cm RVDd: 3.8 cm FS: 29.4 % LAV(MOD-bp): 58.6 ml LVAd ap4: 34.7 cm2 SV(MOD-sp4): 62.1 ml LAV(MOD-bp) Indexed: 21.6 ml/m2 LVLd ap4: 8.5 cm LAV(MOD-sp2): 57.1 ml EDV(MOD-sp4): 117.5 ml LAV(MOD-sp4): 61.5 ml EDV(sp4-el): 119.9 ml LVAs ap4: 21.6 cm2 LVLs ap4: 6.8 cm ESV(MOD-sp4): 55.4 ml ESV(sp4-el): 58.2 ml EF(MOD-sp4): 52.9 % EF(sp4-el): 51.4 % SV(sp4-el): 61.6 ml LA A4 area: 22.2 cm2 LA dimension(2D): 3.9 cm RA A4 area: 20.6 cm2 TAPSE: 2.1 cm Doppler Measurements & Calculations MV E max dustin: 112.5 cm/sec Lat Peak E' Dustin: 16.6 cm/sec Med Peak E' Dustin: 10.8 cm/sec E/E' lat: 6.8 E/E' med: 10.4 Ao V2 max: 196.8 cm/sec LV V1 max: 121.9 cm/sec PA V2 max: 98.3 cm/sec Ao max P.5 mmHg LV V1 max P.9 mmHg ECHO/Echo Complete W/ Contrast Interpretation Summary Normal LV size. Left ventricular systolic function is normal. The left ventricular ejection fraction is 60 %. Contrast injection was performed. Structurally normal valves. Ordering Physician: Jem Pathak/Jayden Rodrigues Referring Physician: PRICILA HARMON Performed By: Mary Crow RDCS
== END | disposition home or self-care (01) ==
LOC: CVS 13:40
PROVIDERS: PCP Family Medicine; Referring Provider Nurse Practitioner Family; Visit Provider Nurse Practitioner Family
DX: R06.09 Other forms of dyspnea (principal); I48.19 Other persistent atrial fibrillation
CPT/HCPCS: 93306; Q9957; A4216; C8929

== ENCOUNTER → 2025-01-17 | Outpatient (CLI) | payer MEDICARE, OTHER, SELFPAY ==
[2025-01-17 15:32] LABS: Hematocrit 37.2 % (40-54); Hemoglobin 11.8 g/dL (13.0-16.5); Immature Granulocytes Count 0.010 X10^3/uL (0.0-0.0); Mean Corp Hgb Conc 31.7 g/dL (32-36); Mean Corpuscular Volume 103.9 fL (80-94); Mean Platelet Vol. 10.0 fl (6.2-12.0); NRBC Flagged by Analyzer 0 % (0-5); Platelet Count 263 K/mm3 (150-450); RBC Distribution Width CV 13.6 % (11.6-14.6); RBC Distribution Width SD 52.1 fl (35.1-43.9); Red Blood Count 3.58 M/mm3 (4.6-6.2); White Blood Count 8.0 K/mm3 (4.4-11.0)
[2025-01-17 18:40] LABS: AST(SGOT) 38 U/L (<=37); Alanine Aminotransfer ALT/SGPT 34 U/L (<=46); Albumin, Serum 4.4 g/dL (3.4-4.8); Alkaline Phosphatase 64 U/L (40-129); Anion Gap 13 (5-15); BUN 24 mg/dL (4-19); BUN/Creat Ratio 22.0 RATIO (10-20); Calcium,Total 9.6 mg/dL (7.6-11.0); Carbon Dioxide 21.7 mmol/L (21.0-32.0); Chloride 105 mmol/L (98-108); Globulin 3.3 g/dL (2.2-4.2); Glucose 92 mg/dL (70-99); Potassium 4.6 mmol/L (3.3-5.1)
== END | disposition home or self-care (01) ==
LOC: MTLAB 12:40
PROVIDERS: PCP Family Medicine; Referring Provider Internal Medicine Rheumatology; Visit Provider Internal Medicine Rheumatology
DX: M06.4 Inflammatory polyarthropathy (principal); Z79.899 Other long term (current) drug therapy
CPT/HCPCS: 36415; 80053; 85025

== ENCOUNTER → 2025-04-12 | Outpatient (CLI) | payer MEDICARE, OTHER, SELFPAY ==
--- OUTSIDE RECORDS SUMMARY | 2025-04-12 09:56 | XMS RPT_ITS | CCD ---
Author Organization [facility] Care Team Providers Care Speed Reading Teacher Name Role Phone PROVIDER, UNKNOWN Referring Unavailable Harshad Spaulding Primary Care Unavailable Jem Rowland Attending Unavailable PROVIDER, UNKNOWN Referring Unavailable Harshad Spaulding Primary Care Unavailable Jem Rowland Attending Unavailable PROVIDER, UNKNOWN Referring Unavailable Harshad Spaulding Primary Care Unavailable Choco Mendoza Attending Unavailable Harshad Spaulding MD Primary Care Provider Dr. Harshad Spaulding Referring Provider Manish WILDLIFE TECHNICIAN, WILDLIFE TECHNICIAN-C Linda Attending Provider Dr. Josiah hCristine Primary Care Provider Dr. Josiah Christine Primary Care Provider Dr. Josiah Christine Referring Provider Lawson WILDLIFE TECHNICIAN, WILDLIFE TECHNICIAN-C Jem Leal Attending Provider Dr. Josiah Christine Primary Care Provider Dr. Josiah Christine Referring Provider Dr. Jayden Rodrigues Attending Provider Dr. Josiah Christine Primary Care Provider Dr. Josiah Christine Referring Provider Lawson WILDLIFE TECHNICIAN, WILDLIFE TECHNICIAN-C Jem Leal Attending Provider Josiah Christine MD Unavailable Dr. Montse Haynes MD Unavailable Bariatric, Summa Unavailable [facility] Unavailable Real HENRIQUEZ, Dr. Krishna ([facility]) A Unavail able Dr. Mariah Rodrigues MD Unavailable Gogoi (scribe), Hemanta Unavailable Unavaila ble [place] SUPERVISOR COLOR MAKING, Susie Unavailable Unavailable Johnny HENRIQUEZ, Harshad hCerry Unavailable Sindi WATSON, Ulises E Unavailable [phone] Shaw ARTHUR, Nikkie Unavailable Unavailable Gadiel SUPERVISOR COLOR MAKING, Elisha Unavailable Unavailable Alanna SERRANO, Elda Cherry Unavailable Unavaila ble Ramón FOOTWEAR SALES LEADER, Dominga Unavailable Unavailable Reggie SUPERVISOR COLOR MAKING, Lori M Unavailable Unavailab le [place] SUPERVISOR COLOR MAKING, Judy Campbell Unavailable Unavailab le Lisette SUPERVISOR COLOR MAKING, Pat N Unavailable Unavaila ble Zaugg SUPERVISOR COLOR MAKING, Hilary Unavailable Unavailable Unavailable Unavailable Mp SUPERVISOR COLOR MAKING, Erickson Unavailable Unavailable [facility] Unavailable [phone] MONTSE HAYNES MD Admitting Unavailable JOSIAH CHRISTINE Consulting Unavailable JOSIAH CHRISTINE Referring Unavailable MONTSE HAYNES MD Primary Care Unavailable MONTSE HAYNES MD Attending Unavailable PROVIDER, UNKNOWN Consulting Unavailable PROVIDER, UNKNOWN Consulting Unavailable PROVIDER, UNKNOWN Consulting Unavailable MONTSE HAYNES MD Attending Unavailable MONTSE HAYNES MD Admitting Unavailable MONTSE HAYNES MD Primary Care Unavailable JOSIAH CHRISTINE Consulting Unavailable ARASELI BUTLER DR Primary Care Unavailable ARASELI BUTLER DR Attending Unavailable ARASELI BUTLER DR Admitting Unavailable PROVIDER, UNKNOWN Consulting Unavailable PROVIDER, UNKNOWN Consulting Unavailable PROVIDER, UNKNOWN Consulting Unavailable KHARI CAMERON Admitting Unavailable KHARI CAMERON Primary Care Unavailable KHARI CAMERON Attending Unavailable JOSIAH CHRISTINE Primary Care Unavailable EDEN, JOSIAH Consulting Unavailable JOSIAH CHRISTINE Attending Unavailable JOSIAH CHRISTINE Admitting Unavailable PROVIDER, UNKNOWN Consulting Unavailable PROVIDER, UNKNOWN Consulting Unavailable PROVIDER, UNKNOWN Consulting Unavailable EDEN, JOSIAH Consulting Unavailable JOSIAH CHRISTINE Attending Unavailable EDEN, JOSIAH Admitting Unavailable JOSIAH CHRISTINE Primary Care Unavailable PROVIDER, UNKNOWN Consulting Unavailable PROVIDER, UNKNOWN Consulting Unavailable PROVIDER, UNKNOWN Consulting Unavailable EDEN, JOSIAH Consulting Unavailable JOSIAH CHRISTINE Attending Unavailable EDEN, JOSIAH Admitting Unavailable JOSIAH CHRISTINE Primary Care Unavailable PROVIDER, UNKNOWN Consulting Unavailable PROVIDER, UNKNOWN Consulting Unavailable PROVIDER, UNKNOWN Consulting Unavailable MONTSE HAYNES MD Primary Care Unavailable MONTSE HAYNES MD Attending Unavailable MONTSE HAYNES MD Admitting Unavailable MONTSE HAYNES MD Admitting Unavailable MONTSE HAYNES MD Primary Care Unavailable MONTSE HAYNES MD Attending Unavailable MONTSE HAYNES MD Admitting Unavailable MONTSE HAYNES MD Primary Care Unavailable MONTSE HAYNES MD Attending Unavailable MONTSE HAYNES MD Admitting Unavailable JOSIAH CHRISTINE Consulting Unavailable MONTSE HAYNES MD Primary Care Unavailable MONTSE HAYNES MD Attending Unavailable PROVIDER, UNKNOWN Consulting Unavailable PROVIDER, UNKNOWN Consulting Unavailable PROVIDER, UNKNOWN Consulting Unavailable Beba Kaplan Unavailable Unavailable Jayden Rodrigues Attending Unavailable Josiah Christine Primary Care Unavailable Josiah Christine Referring Unavailable Montse Haynes Attending Unavailable Montse Haynes Referring Unavailable Josiah Christine Primary Care Unavailable Eden HENRIQUEZ, Dr. Rahman Primary Care Physician [place] HENRIQUEZ, Dr. Willard Attending Physician [place] HENRIQUEZ, Dr. Willard Referring Provider Allergies Allergy Classification Reported Allergen(s) Allergy Type Date of Onset Reaction(s) Facility (1 source) Adhesive Tape Propensity to adverse reactions to drug 7 Rash [facility] (1 source) HYDROcodone Drug Allergy 7 Itching [facility] (20 sources) oxyCODONE Drug Allergy 6 Itching [facility] (1 source) oxybutynin Drug Allergy [facility] (1 source) oxyCODONE Drug Allergy [facility] (1 source) oxyCODONE Drug Allergy 5 [facility] Repository Medications Current Medications Medication Drug Class(es) Dates Sig (Normalized) Sig (Original) acetaminophen 500 mg oral tablet (20 sources) Start: 04-24-2023 take 2 tablets by mouth every six hours as needed Start: 04-24-2023 take 1000 mg by mout h every six hours Acetaminophen Active 1000 MG PO EVERY 6 HOURS April 24, 2023 11:22am Start: 03-30-2020 End: 04-24-2023 take 1 tablet by mouth every six hours as needed Acetaminophen 500 mg tablet Discontinued 500 mg PO EVERY 6 HOURS as needed March 30, 2020 1:00am April 24, 2023 12:23pm take 2 tablets by mo uth every six hours as needed for pain acetaminophen (TYLENOL) 325 MG tablet Take 650 mg by mouth every 6 hours as needed for Pain 0 Active Comment on above: Medication taken as needed. amoxicillin 500 mg oral capsule (3 sources) Penicillin-class Antibacterial Start: 04-24-2023 take 4 capsules by mouth once as needed Start: 04-24-2023 take 2000 mg by mouth once Kaylin xicillin Active 2000 MG PO ONCE April 24, 2023 12:00am take 1 capsule by mo [facility] three times daily amoxicillin (AMOXIL) 500 MG capsule Indications: BEFORE DENTAL PROCEDURE Take 500 mg by mouth 3 times daily Indications: BEFORE DENTAL PROCEDURE 0 Active atorvastatin 40 mg oral tablet (20 sources) HMG-CoA Reductase Inhibitor Start: 12-23-2024 atorvastatin 40 mg tablet ; 1 (one) Tablet daily for 0 days Quantity: 90 {Tablet} Refills: 0 Ordered: 23-Dec-2024 MD Josiah Christine Start: 23-Dec-2024 Comments: Mail order. Start: 09-23-2024 atorvastatin 4 0 mg tablet ; 1 (one) Tablet daily for 0 days Quantity: 90 {Tablet} Refills: 0 Ordered: 23-Sep-2024 MD Josiah Christine Start: 23-Sep-2024 Comments: Mail order. Start: 06-24-2024 atorvastatin 4 0 mg tablet ; 1 (one) Tablet daily for 0 days Quantity: 90 {Tablet} Refills: 0 Ordered: 24-Jun-2024 MD Josiah Christine Start: 24-Jun-2024 Comments: Mail order. Start: 03-25-2024 atorvastatin 4 0 mg tablet ; 1 (one) Tablet daily for 0 days Quantity: 90 {Tablet} Refills: 0 Ordered: 25-Mar-2024 MD Josiah Christine Start: 25-Mar-2024 Comments: Mail order. Start: 12-25-2023 atorvastatin 4 0 mg tablet ; 1 (one) Tablet daily for 0 days Quantity: 90 {Tablet} Refills: 0 Ordered: 25-Dec-2023 MD Josiah Christine Start: 25-Dec-2023 Comments: Mail order. Start: 03-30-2020 atorvastatin 4 0 mg tablet ; 1 (one) Tablet daily for 0 days Quantity: 90 {Tablet} Refills: 0 Ordered: 26-Sep-2023 MD Josiah Christine Start: 26-Sep-2023 Comments: [facility] at[facility] (LIPITOR) 40 MG tablet Indications: cholesterol Take 40 mg by mouth daily Indications: cholesterol 0 Active Comment on above: Mail order. biotin 5 mg oral capsule (20 sources) Start: 03-30-2020 take 1 capsule by mo [facility] once daily Start: 05-30-2017 take 5000 ug by mout once daily BIOTIN PO Indications: Supplement Take 5,000 mcg by mouth daily 0 05/30/2017 Active take 1 capsule by [facility] once daily Biotin 5000 MCG Oral Capsule ; 1 daily (5000 MCG) calcium citrate 1040 mg oral tablet (10 sources) Start: 06-25-2024 take 2 tablets by [facility] once daily Start: 03-30-2020 End: 06-25-2024 take 2 tablets by mouth three times daily Calcium Citrate 250 mg calcium tablet Discontinued 500 mg PO THREE TIMES A DAY March 30, 2020 1:00am June 25, 2024 12:07pm Start: 03-30-2020 take 500 mg by mouth three times daily Calcium Citrate Active 500 MG PO THREE TIMES A DAY March 30, 2020 12:00am Start: 05-30-2017 take 500 mg by mouth three times daily CALCIUM CITRATE PO Indications: Supplement Take 500 mg by mouth 3 times daily 0 05/30/2017 Active cholecalciferol 0.125 mg ora l capsule (20 sources) Vitamin D Start: 06-25-2024 take 1 capsule by [facility] twice daily Start: 09-29-2020 End: 06-25-2024 take 1 capsule by mouth once daily Cholecalciferol (Vitamin D3) 125 mcg (5,000 unit) capsule Discontinued 125 ug PO DAILY September 29, 2020 12:00am June 25, 2024 12:07pm take 1 tablet by mouth once Sugar min D3 1.25 MG (36090 UT) Oral Tablet ; 1 daily (1.25 MG (84470 UT)) CPAP Machine MISC (1 source) CPAP Machine MIS C Indications: NEIL 12.6 by Does not apply route Indications: NEIL 12.6 0 Active 24 hr dilTIAZem hydrochloride 240 mg extended release oral capsule (20 sources) Calcium Channel Diamond Start: End: take 1 capsule by mouth once daily Start: 04-01-2020 End: 06-20-2022 take 1 capsule by mouth once daily Diltiazem Hcl 180 mg capsule,extended release 24hr Discontinued 180 mg PO DAILY 90 March 07, 2022 1:18pm June 20, 2022 2:26pm enalapril maleate 20 mg oral tablet (20 sources) Angiotensin Converting Enzyme Inhibitor Start: 12-25-2024 enalapril maleate 20 mg tablet ; 1 (one) Tablet two times daily for 0 days Quantity: 180 {Tablet} Refills: 1 Ordered: 25-Dec-2024 MD Josiah Christine Start: 25-Dec-2024 Comments: Mail order. Start: 07-24-2023 enalapril male ate 20 mg tablet ; 1 (one) Tablet two times daily for 0 days Quantity: 180 {Tablet} Refills: 1 Ordered: 28-Jun-2024 MD Josiah Christine Start: 28-Jun-2024 Comments: Mail order. Start: 04-24-2023 End: 10-24-2023 take 1 tablet by mouth once daily in the evening Enalapril Maleate 20 mg tablet Discontinued 20 mg PO EVERY EVENING April 24, 2023 12:17pm October 24, 2023 11:03am Start: 03-30-2020 End: 04-24-2023 take 1 tablet by mouth twice daily Enalapril Maleate 20 mg tablet Discontinued 20 mg PO TWICE A DAY March 30, 2020 1:00am April 24, 2023 12:23pm take 1 tablet by asim th twice daily enalapril (VASOTEC) 20 MG tablet Indications: HTN Take 20 mg by mouth 2 times daily Indications: HTN 0 Active Comment on above: Mail order. famotidine 20 mg oral tablet (20 sources) Histamine-2 Receptor Antagonist Start: 03-30-2020 famotidine 20 mg tablet ; 1 (one) Tablet two times daily for 0 days Quantity: 180 {Tablet} Refills: 3 Ordered: 26-Jan-2024 MD Josiah Christine Start: 26-Jan-2024 Comments: Mail order. End: 10-28-2021 take 1 tablet by mouth once daily Famotidine 40 MG Oral Tablet ; 1 daily (40 MG) End: 28-Oct-2021 Status: Discontinued Comment on above: Mail order. folic acid 1 mg oral tablet (20 sources) Start: 10-24-2023 take 1 tablet by asim th twice daily Start: 04-24-2023 End: 10-24-2023 take 1 tablet by mouth once daily Folic Acid 1 mg tablet Discontinued 1 mg PO DAILY April 24, 2023 1:00am October 24, 2023 11:03am Start: 03-30-2020 End: 06-20-2022 take 2 tablets by mouth once daily Folic Acid 1 mg tablet Discontinued 2 mg PO DAILY March 30, 2020 1:00am June 20, 2022 2:02pm Start: 03-30-2020 End: 06-20-2022 take 2 mg by mouth once daily Folic Acid Discontinued 2 MG PO DAILY March 30, 2020 12:00am June 20, 2022 1:02pm furosemide 20 mg oral tablet (20 sources) Loop Diuretic Start: 04-24-2023 End: 08-22-2023 take 1 tablet by mouth once daily Start: 06-20-2022 End: 04-24-2023 take 2 tablets by mouth once daily Furosemide 20 mg tablet Discontinued 40 mg PO DAILY 180 90 June 20, 2022 2:28pm April 24, 2023 12:35pm Start: 06-20-2022 End: 04-24-2023 take 40 mg by mouth once daily Furosemide Discontinued 40 MG PO DAILY 180 90 June 20, 2022 1:28pm April 24, 2023 11:35am Start: 06-20-2022 End: 06-20-2022 take 2 tablets by mouth every other day Furosemide Discontinued 40 MG PO DAILY June 20, 2022 1:17pm June 20, 2022 1:29pm take 2 tabs qod Start: 06-20-2022 End: 06-20-2022 take 2 tablets by mouth every other day Furosemide 20 mg tablet Discontinued 40 mg PO DAILY June 20, 2022 2:17pm June 20, 2022 2:29pm take 2 tabs qod Start: 06-03-2022 End: 06-20-2022 take 1 tablet by mouth every other day Furosemide 20 mg tablet Discontinued 20 mg PO every other day June 03, 2022 1:00am June 20, 2022 2:03pm pt takes at night due to BPH: decreased by PCP Start: 04-01-2020 End: 06-03-2022 Furosemide (Lasix) 40 mg tab let Discontinued 40 mg PO .COMPLEX 90 3 September 29, 2020 9:46am June 03, 2022 4:39pm 40 mg PO; Alternating 40mg and 20mg every other day; Start: 03-30-2020 End: 04-01-2020 take 1 tablet by mouth three times daily as needed Furosemide 20 mg tablet Discontinued 20 mg PO THREE TIMES A DAY as needed March 30, 2020 1:00am April 01, 2020 12:08pm Start: 03-08-2017 End: 03-08-2017 take 1 tablet by mouth twice daily Furosemide 20 MG Oral Tablet ; 1 (one) Tablet two times daily for 0 days Quantity: 180 {Tablet} Refills: 3 Ordered: 08-Mar-2017 MD Harshad Spaulding Start: 08-Mar-2017 End: 08-Mar-2017 Status: Discontinued Comments: Mail order. Start: 07-09-2014 End: 07-23-2014 take 1 tablet by mouth twice daily FUROSEMIDE, 20MG (Oral Tablet) ; 1 (one) Tablet two times daily for 0 days Quantity: 180 {Tablet} Refills: 3 Ordered: 09-Jul-2014 MD Harshad Spaulding Start: 09-Jul-2014 End: 23-Jul-2014 Status: Inactive Comments: Mail order. Comment on above: Medication taken as needed. Mail order. hydroxychloroquine sulfate 200 mg oral tablet (20 sources) Antimalarial, Antirheumatic Agent Start: 023 take 1 tablet by mouth twice daily mecobalamin 5 mg oral lozenge (7 sources) Start: 020 take 5000 ug by mouth every week Mecobalamin (Vitamin B12) Active 5000 MCG PO EVERY WEEK March 30, 2020 12:00am allow to dissolve in mouth OR may chew lightly before swallowing Mecobalamin (Vitamin B12) 5,000 mcg lozenge (2 sources) Start: 025 take 5000 ug by mouth once Start: 03-30-2020 End: 06-25-2024 take 5000 ug by mouth every week Mecobalamin (Vitamin B12) 5,000 mcg lozenge Discontinued 5000 ug PO EVERY WEEK March 30, 2020 1:00am June 25, 2024 12:07pm allow to dissolve in mouth OR may chew lightly before swallowing methotrexate 2.5 mg oral tab let (20 sources) Folate Analog Metabolic Inhibitor Start: 04-24-2023 Start: 04-24-2023 take 15 mg by mouth every week Methotrexate Sodium Active 15 MG PO EVERY WEEK April 24, 2023 12:00am Start: 03-30-2020 End: 06-20-2022 Methotrexate Sodium 2.5 mg t ablet Discontinued 15 mg PO EVERY WEEK March 30, 2020 1:00am June 20, 2022 2:02pm Start: 03-30-2020 End: 06-20-2022 take 15 mg by mouth every week Methotrexate Sodium Dis continued 15 MG PO EVERY WEEK March 30, 2020 12:00am June 20, 2022 1:02pm take 6 tablets by mo ut every week Methotrexate 2.5 MG Oral Tablet ; 6 weekly on Mondays (2.5 MG) Ijhwvevo-Vnf-Jbslm-Vit K-Lycop (Men's 50 Plus Multivitamin) 400-20-370 mcg tablet (8 sources) Start: 03-30-2020 take 50-400 tablets by mouth twice daily Mhljnrff-Gde-Shjtn-Vit K-Lycop (Men's 50 Plus Multivitamin) 400-20-370 mcg tablet Active 1 TABLET PO TWICE A DAY March 30, 2020 11:54am give with meal/snack Start: 03-30-2020 take 50-400 tablets by mouth twice daily Start: 03-30-2020 take 50-400 tablets by mouth twice daily Czdbiuhu-Ybs-Jiqcb-Vit K-Lycop (Men's 50 Plus Multivitamin) 400-20-370 mcg tablet Active 1 TABLET PO TWICE A DAY March 30, 2020 12:00am give with meal/snack Start: 03-30-2020 take 50-400 tablets by mouth twice daily Spckypgp-Hqe-Vnvso-Vit K-Lycop (Men's 50 Plus Multivitamin) 400-20-370 mcg tablet Active 1 TABLET PO TWICE A DAY March 30, 2020 1:00am give with meal/snack Multivitamins Oral Tablet (20 sources) take 1 tablet by mouth twice daily Multivitamins Oral Tablet ; 1 two times daily Comments: Mens 50+ Comment on above: Mens 50+ oxyCODONE hydrochloride 5 mg oral tablet (20 sources) Opioid Agonist Start: 02-22-2024 oxyCODONE 5 mg tablet ; 1 (one) tablet q 6hrs prn pain for 0 days Quantity: 40 {Tablet} Refills: 0 Ordered: 25-Nov-2024 MD Josiah Christine Start: 25-Nov-2024 Comments: OARRS11/25/2024 oxyCODONE 5 mg t ablet ; (5 mg) Status: Inactive Comments: 1-2 every 4 hrs as needed Comment on above: OARRS1 1-2 every 4 hrs as n eeded OARRS11/25/2024 Pediatric Multivitamins-Iron (MULTIPLE VITAMINS-IRON PO) (1 source) take 2 tablets by mouth once daily Pediatric Multivitamins-Iron (MULTIPLE VITAMINS-IRON PO) Indications: Supplement Take 2 tablets by mouth daily 0 Active PEDIATRIC MULTIVITAMINS-IRON PO (1 source) Start: 7 take 1 tablet by mouth twice daily PEDIATRIC MULTIVITAMINS-IRON PO Indications: supplement Take 1 tablet by mouth 2 times daily 0 03/02/2017 Active predniSONE 10 mg oral tablet (20 sources) Start: 3 take 1 tablet by mouth once daily as needed Start: 09-09-2019 End: 09-16-2019 take 2 tablets by mouth twice daily predniSONE 10 MG Oral Tablet ; 2 (two) Tablet two times daily for 7 days Quantity: 14 {Tablet} Refills: 0 Ordered: 09-Sep-2019 MD Harshad Spaulding Start: 09-Sep-2019 End: 16-Sep-2019 Status: Inactive predniSONE Comme nts: RA- PRN Comment on above: RA- PRN spironolactone 25 mg oral tablet (20 sources) Aldosterone Antagonist Start: 07-30-2021 End: 07-22-2024 terazosin 5 mg oral capsule (20 sources) alpha-Adrenergic Diamond Start: 11-24-2021 End: 10-27-2022 Terazosin Active 0 .ROUTE .COMPLEX 180 October 27, 2022 8:22am TAKE 2 CAPSULES (10 MG) AT BEDTIME Start: 09-29-2020 End: 10-16-2024 Start: 09-29-2020 End: 11-24-2021 take 10 mg by mouth at bedtime Terazosin Discontinued 10 MG PO AT BEDTIME 180 September 29, 2020 8:53am November 24, 2021 12:06pm Start: 03-05-2020 End: 10-27-2022 take 1 capsule by mouth at bedtime Terazosin 5 mg capsule Discontinued 5 mg PO AT BEDTIME March 30, 2020 1:00am September 29, 2020 9:52am Start: 08-12-2015 End: 08-12-2015 take 1 capsule by mouth once daily TERAZOSIN HCL, 10MG (Oral Capsule) ; 1 (one) Capsule daily for 0 days Quantity: 90 {Capsule} Refills: 3 Ordered: 12-Aug-2015 MD Harshad Spaulding Start: 12-Aug-2015 End: 12-Aug-2015 Status: Discontinued Comments: Mail order. future fill take 1 capsule by [facility] once daily terazosin (HYTRIN) 5 MG capsule Indications: BPH Take 5 mg by mouth nightly Indications: BPH 0 Active Comment on above: Mail order. Mail order. future f ill traMADol hydrochloride 50 mg oral tablet (20 sources) Opioid Agonist Start: 11-01-19 End: 10-29-19 take 1 tablet by mouth every six hours as needed Comment on above: Medication taken as needed. Medication taken as needed. RA vitamin b12 1 mg sublingual tablet (20 sources) Vitamin B12 Start: 03-02-20 Cyanocobalamin (VITAMIN B-12) 1000 MCG SUBL Indications: supplement Place 1,000 mcg under the tongue once a week 0 03/02/2017 Active Vitamin B-12 500 MCG Oral Lozenge ; 1 per week on Monday (500 MCG) VITAMIN D, CHOLECALCIFEROL, PO (1 source) Start: 03-23-2017 VITAMIN D, CHO LECALCIFEROL, PO Indications: SUPPLEMENT Take 4,000 Int'l Units by mouth daily 0 03/23/2017 Active Completed/Discontinued Medications Medication Drug Class(es) Dates Sig (Normalized) Sig (Original) amLODIPine 10 mg oral tablet (20 sources) Dihydropyridine Calcium Channel Diamond Start: 02-20-2020 End: 09-02-2020 take 1 tablet by mouth once daily Amlodipine 10 mg tablet Discontinued 10 mg PO DAILY March 30, 2020 1:00am April 01, 2020 12:01pm take 1 tablet by mouth once ambar y amLODIPine (NORVASC) 10 MG tablet Indications: HTN Take 10 mg by mouth daily Indications: HTN 0 Active Comment on above: Mail order. apixaban 5 mg oral tablet (20 sources) Factor Xa Inhibitor Start: 0 End: 5 take 1 tablet by mouth twice daily Apixaban (Eliquis) 5 mg tablet Discontinued 5 mg PO TWICE A DAY 180 3 July 31, 2023 8:00am September 05, 2024 2:27pm aspirin 81 mg delayed release oral tablet (20 sources) Platelet Aggregation Inhibitor, Nonsteroidal Anti-inflammatory Drug Start: 0 End: 0 Aspirin (Adult Low Dose Aspirin) 81 mg tablet,delayed release (DR/EC) Discontinued 81 mg PO DAILY March 30, 2020 1:00am April 01, 2020 12:08pm take 1 tablet by mouth once ambar y BABY ASPIRIN, 81MG (Oral Tablet Chewable) ; 1 daily (81 MG) Status: Inactive celecoxib 200 mg oral capsule (20 sources) Nonsteroidal Anti-inflammatory Drug Start: 03-08-2017 End: 03-08-2017 take 1 capsule by mouth once daily CeleBREX 200 MG Oral Capsule ; 1 (one) Capsule daily for 0 days Quantity: 1 {Capsule} Refills: 0 Ordered: 08-Mar-2017 MD Harshad Spaulding Start: 08-Mar-2017 End: 08-Mar-2017 Status: Discontinued Comments: Mail order. PLEASE CANCEL THIS RX AND ALL REFILLS Comment on above: Mail order. PLEASE CANCEL THIS RX AND AL L REFILLS cephalexin 500 mg oral capsule (12 sources) Cephalosporin Antibacterial Start: 07-15-2024 End: 07-25-2024 cephALEXin 500 mg capsule ; 2 (two) capsule bid for 10 days Quantity: 40 {Capsule} Refills: 0 Ordered: 15-Jul-2024 MD Josiah Christine Start: 15-Jul-2024 End: 25-Jul-2024 Status: Inactive diclofenac sodium 0.01 mg/mg topical gel (20 sources) Nonsteroidal Anti-inflammatory Drug Start: 03-30-2020 End: 04-01-2020 apply 2 g topically four times daily as needed Diclofenac Sodium 1 % gel Discontinued 2 g TOPICAL 4 TIMES DAILY as needed March 30, 2020 1:00am April 01, 2020 11:36am apply to single elbow, wrist or hand; for hand includes palm/fingers/back of hand Start: 03-30-2020 End: 04-01-2020 apply 2 g topically four times daily Diclofenac Sodium Discontinued 2 GM TOPICAL 4 TIMES DAILY March 30, 2020 12:00am April 01, 2020 10:36am apply to single elbow, wrist or hand; for hand includes palm/fingers/back of hand Start: 11-01-2019 End: 10-28-2021 Diclofenac Sodium 1 % Transd ermal Gel ; 1 (one) Application four times daily, as needed for 0 days Quantity: 1 {Tube} Refills: 5 Ordered: 01-Nov-2019 MD Josiah Christine Start: 01-Nov-2019 End: 28-Oct-2021 Status: Discontinued Comments: Medication taken as needed. This order discontinued per [facility]. Comment on above: Medication taken as needed. This order discontinued per [facility]. docusate sodium 100 mg oral capsule (20 sources) DOCUSATE SODIUM, 100MG (Oral Capsule) ; 1 as needed (100 MG) Status: Inactive Comments: Medication taken as needed. take 2 capsules by mouth once da [facility] docusate sodium (COLACE) 100 MG capsule Indications: constipation Take 200 mg by mouth daily 0 Active Comment on above: Medication taken as needed. FISH OIL + D3, [id number] (Oral Capsule) (20 sources) take 1 capsule by mouth once daily FISH OIL + D3, [id number] (Oral Capsule) ; 1 daily (2344-9651 MG-UNIT) Status: Inactive fluconazole 100 mg oral tablet (20 sources) Azole Antifungal Start: 03-09-20 End: 03-14-20 16 take 1 tablet by mouth once daily Fluconazole 100 MG Oral Tablet ; 1 (one) Tablet daily for 5 days Quantity: 5 {Tablet} Refills: 0 Ordered: 09-Mar-2016 MD Harshad Spaulding Start: 09-Mar-2016 End: 14-Mar-2016 Status: Inactive Comments: CANCEL THIS RX -- WRONG PATIENT Comment on above: CANCEL THIS RX -- WR KHUSHI PATIENT GLUCOSAMINE CHONDROITIN COMPLX (Oral Tablet) (20 sources) take 1 tablet by mouth twice daily GLUCOSAMINE CHONDROITIN COMPLX (Oral Tablet) ; 1 two times daily Status: Inactive leflunomide 10 mg oral tablet (5 sources) Antirheumatic Agent Start: 06-20-19 23 End: 09-24-19 23 take 1 tablet by mouth once daily Leflunomide (Arava) 10 mg tablet Discontinued 10 mg PO DAILY June 20, 2022 1:00am September 23, 2022 1:16pm losartan potassium 100 mg oral tablet (20 sources) Angiotensin 2 Receptor Diamond Start: 03-09-20 16 End: 03-09-20 16 take 1 tablet by mouth once daily Losartan Potassium 100 MG Oral Tablet ; 1 (one) Tablet daily for 0 days Quantity: 90 {Tablet} Refills: 3 Ordered: 09-Mar-2016 MD Harshad Spaulding Start: 09-Mar-2016 End: 09-Mar-2016 Status: Discontinued Comments: Mail order. future fill Comment on above: Mail order. future f ill nizatidine 300 mg oral capsule (20 sources) Histamine-2 Receptor Antagonist Start: 09-09-19 20 End: 09-26-19 20 take 1 capsule by mouth once daily Nizatidine 300 MG Oral Capsule ; 1 (one) Capsule daily for 0 days Quantity: 90 {Capsule} Refills: 2 Ordered: 26-Sep-2019 MAGGIE Mondragon Start: 09-Sep-2019 End: 26-Sep-2019 Status: Inactive Comments: Mail order. pharmacist: requested replacement for famotidine Comment on above: Mail order. pharmaci st: requested replacement for famotidine oxybutynin chloride 5 mg oral tablet (20 sources) Cholinergic Muscarinic Antagonist Start: 11-09-19 18 End: 11-19-19 18 take 1 tablet by mouth three times daily as needed Oxybutynin Chloride 5 MG Oral Tablet ; 1 (one) Tablet three times daily PRN overactive for 10 days Quantity: 30 {Tablet} Refills: 0 Ordered: 08-Nov-2017 MD Harshad Spaulding Start: 08-Nov-2017 End: 18-Nov-2017 Status: Inactive pantoprazole 40 mg delayed release oral tablet (20 sources) Proton Pump Inhibitor Start: 09-26-19 End: 03-05-20 take 1 tablet by mouth once daily Pantoprazole Sodium 40 MG Oral Tablet Delayed Release ; 1 (one) Tablet DR daily for 0 days Quantity: 90 {Tablet} Refills: 3 Ordered: 05-Mar-2020 MAGGIE Mondragon Start: 26-Sep-2019 End: 05-Mar-2020 Status: Inactive Comments: Mail order. take 40 mg by mouth once daily before breakfast pantoprazole sodium (PROTONIX) 40 MG PAC K packet Indications: GERD Take 40 mg by mouth every morning (before breakfast) Indications: GERD 0 Active Comment on above: Mail order. phentermine hydrochloride 37.5 mg oral tablet (20 sources) Sympathomimetic Amine Anorectic Start: 08-12-19 16 End: 08-12-19 16 take 1 tablet by mouth once daily PHENTERMINE HCL, 37.5MG (Oral Tablet) ; 1 (one) Tablet once daily for 0 days Quantity: 28 {Tablet} Refills: 0 Ordered: 12-Aug-2015 MD Harshad Spaulding Start: 12-Aug-2015 End: 12-Aug-2015 Status: Discontinued Comments: weeks - of , BMI=51OV 05/27/2015 Comment on above: weeks -, BMI =51OV 05/27/2015 psyllium 400 mg oral capsule (20 sources) Psyllium 400 MG Oral Capsule ; 200mg two times daily (400 MG) Status: Inactive tamsulosin hydrochloride 0.4 mg oral capsule (20 sources) alpha-Adrenergic Diamond Start: 09-26-19 End: 09-26-19 19 take 1 capsule by mouth once daily in the evening Tamsulosin HCl 0.4 MG Oral Capsule ; 1 (one) Capsule daily in the evening for 0 days Quantity: 90 {Capsule} Refills: 3 Ordered: 25-Sep-2018 MD Harshad Spaulding Start: 25-Sep-2018 End: 25-Sep-2018 Status: Discontinued Comments: Mail order. rimma Comment on above: Mail order. rimma Problems Active Problems Problem Classification Problem Date Documented Da te Episodic/Chronic Cardiac dysrhythmias (20 sources) Atrial fibrillation; Translations: [Unspecified atrial fibrillation] Onset: Chronic Cardiac dysrhythmias (20 sources) Palpitations; Translations: [Palpitations] 10-27-2022 Episodic Chronic kidney disease (20 sources) Chronic kidney disease stage 3; Translations: [Chronic kidney disease, Stage III (moderate)] 05-23-2024 Chronic Conditions associated with dizziness or vertigo (20 sources) Dizziness; Translations: [Dizziness and giddiness] 09-02-2020 Episodic Diabetes mellitus without complication (2 sources) Prediabetes; Translations: [Prediabetes] Onset: 8 Disorders of lipid metabolism (20 sources) Other hyperlipidemia; Translations: [Hyperlipidemia] Onset: 8 04-06-2016 Chronic Esophageal disorders (20 sources) Gastroesophageal reflux disease; Translations: [Gastro-esophageal reflux disease without esophagitis] Onset: 6 05-05-2016 Chronic Essential hypertension (20 sources) Essential (primary) hypertension; Translations: [Essential hypertension] Onset: 7 11-02-2016 Chronic Gastritis and duodenitis (20 sources) Gastritis; Translations: [Gastritis, unspecified, without bleeding] 03-28-2019 Episodic Genitourinary symptoms and ill-defined conditions (20 sources) Delay when starting to pass urine; Translations: [Hesitancy of micturition] 09-25-2018 Episodic Hemorrhoids (20 sources) External hemorrhoids; Translations: [Residual hemorrhoidal skin tags] 08-31-2023 Episodic Hyperplasia of prostate (20 sources) Benign prostatic hyperplasia; Translations: [Benign prostatic hyperplasia without lower urinary tract symptoms] 10-27-2022 Chronic Immunizations and screening for infectious disease (20 sources) Needs influenza immunization; Translations: [Encounter for immunization] 02-19-2015 Episodic Osteoarthritis (20 sources) Arthritis; Translations: [Unspecified osteoarthritis, unspecified site] Onset: 09-25-2018 Chronic Other diseases of bladder and urethra (20 sources) Overactive bladder; Translations: [Overactive bladder] 03-28-2019 Chronic Other diseases of veins and lymphatics (8 sources) Lymphedema; Translations: [Lymphedema, not elsewhere classified] 04-01-2020 Chronic Other gastrointestinal disorders (2 sources) Intestinal malabsorption, unspecified; Translations: [Intestinal malabsorption, unspecified] Onset: 8 Chronic Other gastrointestinal disorders (1 source) Intestinal malabsorption 02-22-2017 Chronic Other gastrointestinal disorders (20 sources) History of bypass of stomach; Translations: [Bariatric surgery status] 10-27-2022 Episodic Other lower respiratory disease (20 sources) Orthopnea; Translations: [Orthopnea] 10-27-2022 Episodic Other lower respiratory disease (20 sources) Dyspnea; Translations: [Shortness of breath] 10-27-2022 Episodic Other non-traumatic joint disorders (20 sources) Polyarthropathy; Translations: [Polyarthritis, unspecified] 10-27-2022 Chronic Other non-traumatic joint disorders (20 sources) Swelling of hand; Translations: [Effusion, left hand] 10-27-2022 Episodic Other non-traumatic joint disorders (20 sources) Hip pain; Translations: [Pain in unspecified hip] 02-01-2024 Episodic Other nutritional; endocrine; and metabolic disorders (2 sources) Morbid (severe) obesity due to excess calories; Translations: [Morbid (severe) obesity due to excess calories] Onset: 8 Chronic Other nutritional; endocrine; and metabolic disorders (2 sources) Body mass index (BMI) 36.0-36.9, adult; Translations: [Body mass index (BMI) 36.0-36.9, adult] Onset: 8 Chronic Other nutritional; endocrine; and metabolic disorders (20 sources) Morbid obesity; Translations: [Morbid (severe) obesity due to excess calories] 04-06-2016 Chronic Comment on above: s/p Gastric Bypass 1 Other nutritional; endocrine; and metabolic disorders (20 sources) Body mass index 30+ - obesity; Translations: [Body mass index (BMI) 39.0-39.9, adult] Onset: 9 09-20-2018 Chronic Other nutritional; endocrine; and metabolic disorders (20 sources) Obesity; Translations: [Obesity, unspecified] 03-28-2019 Chronic Other screening for suspected conditions (not mental disorders or infectious disease) (20 sources) Patient encounter status; Translations: [Encounter for screening for malignant neoplasm of prostate] 09-24-2019 Episodic Residual codes; unclassified (2 sources) Dependence on other enabling machines and devices; Translations: [Dependence on other enabling machines and devices] Onset: 8 Chronic Residual codes; unclassified (2 sources) Obstructive sleep apnea (adult) (pediatric); Translations: [Obstructive sleep apnea (adult) (pediatric)] Onset: 8 Chronic Residual codes; unclassified (20 sources) Obstructive sleep apnea syndrome; Translations: [Obstructive sleep apnea (adult) (pediatric)] Onset: 7 07-18-2016 Chronic Residual codes; unclassified (20 sources) Edema of foot; Translations: [Localized edema] 03-28-2019 Episodic Rheumatoid arthritis and related disease (20 sources) Rheumatoid arthritis; Translations: [Rheumatoid arthritis, unspecified] Onset: 5 10-27-2022 Chronic Skin and subcutaneous tissue infections (20 sources) Cellulitis; Translations: [Cellulitis, unspecified] 07-15-2024 Episodic Spondylosis; intervertebral disc disorders; other back problems (20 sources) Lumbar radiculopathy; Translations: [Radiculopathy, lumbar region] Onset: 4 10-27-2022 Episodic Unclassified (2 sources) Other hyperlipidemia; Translations: [Other hyperlipidemia] Onset: 8 Unclassified (20 sources) Status post gastric bypass for obesity (Z98.84) 02-14-2018 Unclassified (20 sources) [facility] Well Adult - In general the patient feels well with minor complaints, has good energy level and is sleeping well. The patient has a balanced diet. The patient exercises 3 - 4 times per week (active w yard work) and sleeps 8 (7-9) hours per night. The patient denies having trouble with bathing, dressing/grooming, toileting, preparing meals and ambulating. The patient denies having trouble with grocery shopping, driving, use of telephone, housework, laundry, preparing/taking medications and finances. The patient has a Healthcare Power of [employer] and a Living Will. Note for [facility] Well Adult: down 9 lbs reviewed by [facility] 10-27-2022 Unclassified (20 sources) Breathing trouble - The onset of the breathing trouble has been sudden and has been occurring in an intermittent pattern for 2 days. The course has been constant. The breathing trouble is mild to moderate. It is described as shortness of breath. The breathing trouble occurs with normal activities, occurs at rest, occurs when lying down and wakes the patient from sleep. There has been no associated anxiety, aspiration of food/foreign body, chest pain, coughing, cyanosis, fever / chills, hemoptysis, hives, kyphosis, mucoid/mucopurulent sputum, muscle weakness, orthopnea, pallor, palpitations, paroxysmal nocturnal dyspnea, past history of allergies, past history of anemia, past history of chronic lung disease, past history of cigarette smoking, past history of endotracheal intubation, past history of heart disease, past history of hypertension, pink frothy sputum, scoliosis, swelling of calf, swelling of feet, tingling and numbness in fingers, trauma, weight loss or wheezing. Note for Breathing trouble: did home coivd this am and was negative 05-19-2022 Unclassified (20 sources) [facility] Routine follow-up - The patient is here for follow-up of hypertension, hyperlipidemia, obesity, GERD and BPH. The patient always takes the prescribed medications. No side effects noted. The patient has low activity level and no regular program (been trying to do more yard work lately, does do some stretches). The patient's out of office blood pressure checks occur rarely and dietary compliance is fairly good usually adhering to recommendations (trying to watch his diet more). The patient states that there is no recent angina or dyspnea, there are no vision changes or weakness, weight has decreased (2 lb since ALEJANDRA) and headaches have been noticed occasionally. Note for Routine chronic follow-up: ALEJANDRA 09/09/2019Last KAMRAN, RF, CBC, ESR, Uric Acid 09/09/2019.PSA 09/25/2018.CMP and Lipid 03/14/2019. 09-26-2019 Unclassified (20 sources) [facility] Routine follow-up - The patient is here for follow-up of hypertension, hyperlipidemia, obesity and NEIL. The patient has low activity level and no regular program. The patient's out of office blood pressure checks occur rarely and dietary compliance is fairly good usually adhering to recommendations. The patient states that there is no recent angina or dyspnea, weight has increased (2lbs) and they do not have headaches. Note for Routine chronic follow-up: ALEJANDRA 09/25/18last labs 09/25/18 psa07/20/18 lip 03-28-2019 Unclassified (20 sources) Obesity follow-up - The patient is compliant with diet. The patient has no structured exercise. The patient occasionally keeps a food diary. The patient does not take any weight loss medication.. The patient is pleased with progress on their diet. 11-09-2017 Unclassified (20 sources) [facility] Rout[facility] Follow up - The patient is here for follow-up of hypertension, hyperlipidemia, arthritis and BPH. The patient always takes the prescribed medications. No side effects noted. (Does not need refills.) The patient has low activity level and no regular program. The patient's out of office blood pressure checks occur rarely and dietary compliance is fairly good usually adhering to recommendations. The patient states that weight has increased (Up 9 pounds.). Note for Routine chronic follow-up: Last routine office visit, cmp and cbc 12/2014. Last lipid 08/2014. Up to date with pneumococcal and influenza vaccines. 04-16-2015 Unclassified (18 sources) Follow up for multiple chronic conditions - The patient is here for follow-up of a-fib, arthritis (RA), GERD, hyperlipidemia, hypertension and other condition(s) (BPH). The patient always takes the prescribed medications. No side effects noted. The patient has low activity level and no regular exercise program. The patient's out of office blood pressure checks occur rarely and dietary compliance is fairly good usually adhering to recommendations. The patient states that there is no recent angina or dyspnea, weight has decreased (down 1 lb) and headaches are rarely noted (sinus DAMON sometimes). Note for Multiple chronic conditions follow-up: reviewed by B 05-23-2024 Unclassified (4 sources) [facility] Well Adult - In general the patient feels well with no complaints. The patient has a balanced diet. The patient exercises 3 - 4 times per week ([place] fit program through [facility]) and sleeps 8 hours per night. The patient denies having trouble with bathing, dressing/grooming, toileting, preparing meals and ambulating. The patient denies having trouble with grocery shopping, driving, use of telephone, housework, laundry, preparing/taking medications and finances. Note for [facility] Well Adult: reviewed by [facility] 11-25-2024 Past or Other Problems Problem Classification Problem Date Documented Da te Episodic/Chronic Diabetes mellitus with complications (1 source) Type 2 diabetes mellitus in obese Onset: 01-18-2017 Resolved: 02-09-2017 02-09-2017 Chronic Diabetes mellitus without complication (1 source) Prediabetes 04-06-2016 Episodic Nutritional deficiencies (5 sources) Deficiency of multiple nutrient elements; Translations: [Deficiency of nutrient element, unspecified] Onset: 09-26-2017 02-22-2017 Episodic Other gastrointestinal disorders (2 sources) Bariatric surgery status; Translations: [Bariatric surgery status] Onset: 09-26-2017 Episodic Other non-traumatic joint disorders (1 source) Knee pain 04-06-2016 Episodic Other non-traumatic joint disorders (1 source) Pain in left hip; Translations: [Pain in left hip] Onset: 02-20-2024 Episodic Other nutritional; endocrine; and metabolic disorders (1 source) Body mass index 40+ - severely obese Onset: 06-20-2016 Resolved: 03-17-2017 03-17-2017 Chronic Unclassified (20 sources) [facility] Well Adult - In general the patient feels well with no complaints, has good energy level and is sleeping well. The patient has a balanced diet and takes supplemental vitamins. The patient exercises weekly (1 to 2) and sleeps 7 (8) hours per night. The patient denies having trouble with bathing, dressing/grooming, toileting, preparing meals and ambulating (uses a cane.). The patient denies having trouble with grocery shopping, driving, use of telephone, housework, laundry, preparing/taking medications and finances. The patient has a Healthcare Power of Rail[employer] and a Living Will. Note for [facility] Well Adult: reviewed by [facility] 10-28-2021 Unclassified (20 sources) Follow up consultation - The patient is here to follow-up after Emergency Room/Urgent [facility] ([facility]) on : (08/30/20). Follow up visit with no current symptoms. 09-02-2020 Unclassified (20 sources) [ADDITIONAL REASON] Transition into care - The patient is transitioning into care from an emergency room and a summary of care was reviewed. 09-02-2020 Unclassified (20 sources) [facility] Well Adult - In general the patient feels well with minor complaints (arthritis pain-is improving with methotrexate, feels tired), has decreased energy level and is sleeping well. The patient has a balanced diet and takes supplemental vitamins. The patient does not exercise and sleeps 8 hours per night. The patient denies having trouble with bathing, dressing/grooming, toileting, preparing meals and ambulating. The patient denies having trouble with grocery shopping, driving, use of telephone, housework, laundry, preparing/taking medications and finances. The patient has a Healthcare Power of [employer] and a Living Will. Note for [facility] Well Adult: ALEJANDRA 09/26/2019Labs printed to review today. 03-05-2020 Unclassified (20 sources) [ADDITIONAL REASON] Transition into care - The patient is transitioning into care from another physician (Rheumatology 10/08/2019) and a summary of care was reviewed. 03-05-2020 Unclassified (20 sources) Hand pain - The onset of the hand pain has been gradual and has been occurring in an intermittent pattern for 1 week. The course has been increasing. The hand pain is characterized as a mild to moderate sharp stabbing. The hand pain is described as being located in the long finger (in between and around). The hand pain is aggravated by any movement. The pain has been relieved by nothing (tried putting heat on it which helps some). The symptoms have been associated with painful ROM, decreased ROM and difficulty with grasping. There have been no previous diagnostic tests. There has been no previous evaluations. There has been no previous occupational therapy. There have been no previous surgeries. Note for Hand pain: pt thinks carpal tunnelnumbness in hands as wellsaid they have been uncomfortable for months but the pain just started a week ago 09-09-2019 Unclassified (20 sources) [facility] Well Adult - In general the patient feels well with minor complaints, has good energy level and is sleeping well. The patient has a balanced diet and takes supplemental vitamins. The patient does not exercise and sleeps 8 hours per night. The patient denies having trouble with bathing, dressing/grooming, toileting, preparing meals and ambulating. The patient denies having trouble with grocery shopping, driving, use of telephone, housework, laundry, preparing/taking medications and finances. The patient has a Healthcare Power of Rail[employer] and a Living Will. Note for [facility] Well Adult: ALEJANDRA 04/18/2018His last cmp and lipid panel was checked back in 2015. 20lb weight gain since 04/2018.Patient had his colonoscopy back in 2013. Which was normal. His blood pressure today is elevated at 148/70. Patient reports of a normal hearing level. Denies any unusual chest pain or SOB. He reports of normal bowel movements. Otherwise, no other questions or concerns. 09-25-2018 Unclassified (20 sources) Obesity follow-up - The patient is partially compliant with diet. The patient exercises through a walking program. The patient exercises 2 times per week. The patient does not keep a food diary. The patient does not take any weight loss medication.. 04-20-2018 Unclassified (20 sources) Post-operative - Patient is 4 months post-operative. There have been no post operative complications. Post-operative pain has been mild. Pain medications include Percocet (hardly ever took them). The patient is not taking any prophylaxis for DVT as DVT prophylaxis treatment. Weight-bearing status: 100% weight-bearing. Patient has been compliant with post-operative instructions. 07-12-2017 Unclassified (20 sources) Obesity follow-up - The patient is compliant with diet. The patient's current diet is the LCD 1200 (pt does protein count). The patient has no structured exercise (pt walks some, pt is less than 3 weeks post surgery). The patient does not take any weight loss medication.. The patient is pleased with progress on their diet. 03-09-2017 Unclassified (20 sources) Obesity follow-up - The patient is compliant with diet. The patient's current diet is the LCD 1500. The patient has no structured exercise. The patient does not keep a food diary. The patient does not take any weight loss medication.. The patient is pleased with progress on their diet. Note for Obesity follow-up: Pt is waiting to get approved for gastric bypass surgery. 06-23-2016 Unclassified (20 sources) Obesity follow-up - The patient is partially compliant with diet. The patient has no structured exercise. The patient does not keep a food diary. The patient does not take any weight loss medication.. 03-10-2016 Unclassified (20 sources) Obesity follow-up - The patient is partially compliant with diet. The patient's current diet is the LCD 1200. The patient exercises at home (tries to work outside more). The patient has no structured exercise. The patient does not keep a food diary. The patient does not take any weight loss medication.. 11-12-2015 Unclassified (20 sources) Obesity follow-up - The patient is partially compliant with diet. The patient's current diet is the LCD 1500. The patient has no structured exercise (starting to work outside a lot). The patient does not keep a food diary. The patient currently takes phentermine. The patient takes their medication every day (ran out of meds 2 weeks ago). The patient is pleased with progress on their diet. 08-13-2015 Unclassified (20 sources) Obesity follow-up - The patient is partially compliant with diet. The patient's current diet is the VLCD. The patient has no structured exercise. The patient does not keep a food diary. The patient currently takes phentermine. The patient takes their medication every day. The patient is pleased with progress on their diet. Note for Obesity follow-up: Tolerating the phentermine well at this time. Still have some insomnia and evening. 06-24-2015 Unclassified (20 sources) Obesity follow-up - The patient is not compliant with diet. The patient's current diet is the LCD 1500. The patient has no structured exercise. The patient does not keep a food diary. The patient does not take any weight loss medication.. 05-28-2015 Unclassified (20 sources) [facility] Routine Follow up - The patient is here for follow-up of hypertension (Last rtn visit 08/12/14. Lipid and CMP 08/22/14.), hyperlipidemia, arthritis and BPH. The patient always takes the prescribed medications. No side effects noted. The patient has low activity level and no regular program. The patient's out of office blood pressure checks occur rarely and dietary compliance is fairly good usually adhering to recommendations. The patient states that breathing effort is stable, there is no recent angina or dyspnea, there are no vision changes or weakness, pain is generally stable, weight has increased (4#), mood is unchanged and they do not have headaches. 12-16-2014 Unclassified (20 sources) [ADDITIONAL REASON] Preoperative Clearance - Surgical procedure(s) planned: other (Septoplasty; submucous resection turbinate). Date of procedure: (12/23/14) Surgeon: (Dr. Fadi Russ) and Location of procedure: ([facility]) There have been no problems with general anesthesia or blood/blood products. Prosthetics include eye glasses. Note for Pre-operative clearance: Patient needs to have an antibiotic prescribed to take prior to the surgery. 12-16-2014 Unclassified (20 sources) New Patient - Patient is a former patient of Dr. Hearn. He is here to establish care today. 08-14-2014 Unclassified (20 sources) [ADDITIONAL REASON] [facility] Routine Follow up - The patient is here for follow-up of hypertension (Lipid and CMP 08/21/13. ), hyperlipidemia and arthritis. The patient always takes the prescribed medications. No side effects noted. The patient has a sedentary lifestyle. The patient's out of office blood pressure checks occur rarely and dietary compliance is fairly good usually adhering to recommendations. The patient states that breathing effort is stable, there is no recent angina or dyspnea, there are no vision changes or weakness, mood is unchanged and they do not have headaches. 08-14-2014 Unclassified (20 sources) [ADDITIONAL REASON] Transition into care - The patient is transitioning into care from another physician and a summary of care was reviewed . 08-14-2014 Unclassified (14 sources) Transition into care - The patient is transitioning into care from an emergency room and a summary of care was reviewed. 09-02-2020 Unclassified (14 sources) [ADDITIONAL REASON] Follow up consultation - The patient is here to follow-up after Emergency Room[facility] on : (08/30/20). Follow up visit with no current symptoms. 09-02-2020 Unclassified (12 sources) Transition into care - The patient is transitioning into care from another physician (Rheumatology 10/08/2019) and a summary of care was reviewed. 03-05-2020 Unclassified (12 sources) [ADDITIONAL REASON] MCR Well Adult - In general the patient feels well with minor complaints (arthritis pain-is improving with methotrexate, feels tired), has decreased energy level and is sleeping well. The patient has a balanced diet and takes supplemental vitamins. The patient does not exercise and sleeps 8 hours per night. The patient denies having trouble with bathing, dressing/grooming, toileting, preparing meals and ambulating. The patient denies having trouble with grocery shopping, driving, use of telephone, housework, laundry, preparing/taking medications and finances. The patient has a Healthcare Power of [employer] and a Living Will. Note for MCR Well Adult: ALEJANDRA 09/26/2019Labs printed to review today. 03-05-2020 Unclassified (12 sources) Preoperative Clearance - Surgical procedure(s) planned: other (Septoplasty; submucous resection turbinate). Date of procedure: (12/23/14) Surgeon: (Dr. Fadi Russ) and Location of procedure: ([facility]) There have been no problems with general anesthesia or blood/blood products. Prosthetics include eye glasses. Note for Pre-operative clearance: Patient needs to have an antibiotic prescribed to take prior to the surgery. 12-16-2014 Unclassified (12 sources) [ADDITIONAL REASON] [facility] Routine Follow up - The patient is here for follow-up of hypertension (Last rtn visit 08/12/14. Lipid and CMP 08/22/14.), hyperlipidemia, arthritis and BPH. The patient always takes the prescribed medications. No side effects noted. The patient has low activity level and no regular program. The patient's out of office blood pressure checks occur rarely and dietary compliance is fairly good usually adhering to recommendations. The patient states that breathing effort is stable, there is no recent angina or dyspnea, there are no vision changes or weakness, pain is generally stable, weight has increased (4#), mood is unchanged and they do not have headaches. 12-16-2014 Unclassified (8 sources) Transition into care - The patient is transitioning into care from another physician and a summary of care was reviewed . 08-14-2014 Unclassified (10 sources) [ADDITIONAL REASON] New Patient - Patient is a former patient of Dr. Hearn. He is here to establish care today. 08-14-2014 Unclassified (20 sources) Rectal pain - Pt voicing c/o hemorrhoids. No bleeding, no pain. He had previous hemorrhoid surgery. 08-31-2023 Unclassified (20 sources) MCR Well Adult - In general the patient feels well with no complaints, has good energy level and is sleeping well. The patient has a balanced diet and takes supplemental vitamins. The patient exercises weekly ([employer] [facility] twice a week.) and sleeps 7 hours per night. The patient denies having trouble with bathing, dressing/grooming, toileting, preparing meals and ambulating. The patient denies having trouble with grocery shopping, driving, use of telephone, housework, laundry, preparing/taking medications and finances. The patient has a Healthcare Power of [employer] and a Living Will. 11-21-2023 Unclassified (2 sources) [facility] Routine Follow up - The patient is here for follow-up of hypertension (Lipid and CMP 08/21/13. ), hyperlipidemia and arthritis. The patient always takes the prescribed medications. No side effects noted. The patient has a sedentary lifestyle. The patient's out of office blood pressure checks occur rarely and dietary compliance is fairly good usually adhering to recommendations. The patient states that breathing effort is stable, there is no recent angina or dyspnea, there are no vision changes or weakness, mood is unchanged and they do not have headaches. 08-14-2014 Unclassified (20 sources) Hip pain - The onset of the hip pain has been gradual following no specific incident and has been occurring in a persistent pattern for 1 month. The course has been gradually worsening. The hip pain is described as being a mild to moderate dull aching located in the hip (left). The hip pain radiates to the left groin. The pain is aggravated by general physical activity. Relieving factors include medication. The symptoms have been associated with limping and difficulty arising from chair. There have been no previous diagnostic tests. Note for Hip pain: patient states he had left groin pain but was told by araseli butler in the past that means hip pain reviewed by [facility] 02-01-2024 Unclassified (20 sources) Hip pain - Note for Hip pain: Pt seen in office 02/01/[address] Butler, does not feel it is a hip problem per xray. Sent to PT. Pt just started this week. Monday started w/ pain on right side. reviewed by [facility] 02-22-2024 Unclassified (12 sources) Edema - The edema has been occurring for 1 month . The edema occurs gradually. It affects the right lower extremity. There were no precipitating factors. Associated symptoms include redness (tight). Note for Edema: reviewed by [facility] 07-15-2024 Results Test Name Value Interpretation Reference Range Facility Absolute lymphocyte countOrd ered By: Montse Haynes on 01-17-2025 Lymphocytes Auto (Unsp spec) [#/Vol] 1.80 10*3/uL 0.83-4.51 [facility] Absolute neutrophil countOrd ered By: Montse Haynes on 01-17-2025 Neutrophils (Bld) [#/Vol] 5.3 10*3/uL 2.0-7.7 [facility] Anion gap in Serum or Plasma Ordered By: Montse Haynes on 01-17-2025 Anion gap [Moles/Vol] 13 mmol/L 5-15 [facility] Automated lymphocyte count a s percentage of total leukocytesOrdered By: Montse Haynes on 01-17-2025 Lymphocytes/100 WBC Auto (Unsp spec) 22.6 % - [facility] BUN/creatinine ratioOrdered By: Montse Haynes on 01-17-2025 Urea nitrogen/Creatinine [Mass ratio] 22.0 mg/mg High 10-20 [facility] Basophil percentageOrdered B y: Montse Haynes on 01-17-2025 Basophils/100 WBC (Bld) 0.4 % 0-1 [facility] Bilirubin, totalOrdered By: Montse Haynes on 01-17-2025 Bilirubin [Mass/Vol] 0.71 mg/dL 0.00-1.30 [facility] CBC W/Diff, Automatedon 09-0 5-2024 Absolute Lymph 1.80 X10 3/uL Normal 0.83-4.51 [facility] Comment on above: Performed By: #### L 500.4050, L100.0100 #### [facility] [address] [place], [address] Absolute Neut 5.3 X10 3/uL Normal 2.0-7.7 [facility] Comment on above: Performed By: #### L 500.4050, L100.0100 #### [facility] [address] [place], [address] Basophils/100 WBC (Bld) 0.4 % Normal 0-1 [facility] Comment on above: Performed By: #### L 500.4050, L100.0100 #### [facility] [address] [place], [address] Eosinophils/100 WBC (Bld) 1.3 % Normal 0-5 [facility] Comment on above: Performed By: #### L 500.4050, L100.0100 #### [facility] [address] [place], [address] Erythrocyte distribution width (RBC) [Ratio] 13.6 % Normal 11.6-14.6 [facility] Comment on above: Performed By: #### L 500.4050, L100.0100 #### [facility] [address] [place], [address] Hematocrit (Bld) [Volume fraction] 37.2 % Low 40-54 [facility] Comment on above: Performed By: #### L 500.4050, L100.0100 #### [facility] [address] [place], [address] Hemoglobin (Bld) [Mass/Vol] 11.8 g/dL Low 13.0-16.5 [facility] Comment on above: Performed By: #### L 500.4050, L100.0100 #### [facility] [address] [place], [address] IG% 0.100 Normal 0.0-0.9 [facility] Comment on above: Result Comment: IG% - Immature Granulocytes (promyelocytes, myelocytes and metamyelocytes) > 1% indicates that a LEFT SHIFT is Present. Performed By: #### L 500.4050, L100.0100 #### [facility] [address] [place], [address] Lymphocytes/100 WBC (Bld) 22.6 % Normal 19-41 [facility] Comment on above: Performed By: #### L 500.4050, L100.0100 #### [facility] [address] [place], [address] MCH (RBC) [Entitic mass] 33.0 pg High 27.0-32.0 [facility] Comment on above: Performed By: #### L 500.4050, L100.0100 #### [facility] [address] [place], [address] MCHC (RBC) [Mass/Vol] 31.7 g/dL Low 32-36 [facility] Comment on above: Performed By: #### L 500.4050, L100.0100 #### [facility] [address] [place], [address] MCV (RBC) [Entitic vol] 103.9 fL High 80-94 [facility] Comment on above: Performed By: #### L 500.4050, L100.0100 #### [facility] [address] [place], [address] Monocytes/100 WBC (Bld) 8.9 % Normal 0-10 [facility] Comment on above: Performed By: #### L 500.4050, L100.0100 #### [facility] [address] [place], [address] Neutrophils/100 WBC (Bld) 66.7 % Normal 47-70 [facility] Comment on above: Performed By: #### L 500.4050, L100.0100 #### [facility] [address] [place], [address] Nucleated RBC (Bld) [#/Vol] 0 10*3/uL Normal 0-5 [facility] Comment on above: Performed By: #### L 500.4050, L100.0100 #### [facility] [address] [place], [address] Platelet mean volume (Bld) [Entitic vol] 10.0 fL Normal 6.2-12.0 [facility] Comment on above: Performed By: #### L 500.4050, L100.0100 #### [facility] [address] [place], [address] Platelets (Bld) [#/Vol] 263 10*3/uL Normal 150-450 [facility] Comment on above: Performed By: #### L 500.4050, L100.0100 #### [facility] [address] [place], [address] RBC (Bld) [#/Vol] 3.58 10*6/uL Low 4.6-6.2 [facility] Comment on above: Performed By: #### L 500.4050, L100.0100 #### [facility] [address] [place], [address] RDW SD 52.1 fl High 35.1-43.9 [facility] Comment on above: Performed By: #### L 500.4050, L100.0100 #### [facility] [address] [place], [address] WBC (Bld) [#/Vol] 8.0 10*3/uL Normal 4.4-11.0 [facility] Comment on above: Performed By: #### L 500.4050, L100.0100 #### [facility] [address] [place], [address] Carbon dioxide, total [Moles /volume] in Central venous bloodOrdered By: Montse Haynes on 01-17-2025 CO2 [Moles/Vol] 21.7 mmol/L 21.0-32.0 [facility] Chloride assayOrdered By: Roscoe Haynes on 01-17-2025 Chloride [Moles/Vol] 105 mmol/L 98-108 [facility] Comprehensive Metabolic Prof ilon 01-17-2025 Albumin [Mass/Vol] 4.4 g/dL Normal 3.4-4.8 [facility] Comment on above: Performed By: #### L 500.4050, L100.0100 #### [facility] [address] [place], [address] Albumin/Globulin [Mass ratio] 1.3 {ratio} Normal 0.9-2.4 [facility] Comment on above: Performed By: #### L 500.4050, L100.0100 #### [facility] [address] [place], [address] ALK PHOS 64 U/L Normal 40-129 [facility] Comment on above: Performed By: #### L 500.4050, L100.0100 #### [facility] [address] [place], [address] ALT [Catalytic activity/Vol] 34 U/L Normal <=46 [facility] Comment on above: Performed By: #### L 500.4050, L100.0100 #### [facility] [address] [place], [address] AST [Catalytic activity/Vol] 38 U/L Normal <=37 [facility] Comment on above: Performed By: #### L 500.4050, L100.0100 #### [facility] [address] [place], [address] Bilirubin [Mass/Vol] 0.71 mg/dL Normal 0.00-1.30 [facility] Comment on above: Performed By: #### L 500.4050, L100.0100 #### [facility] [address] [place], [address] BUN/CRE 22.0 RATIO High 10-20 [facility] Comment on above: Performed By: #### L 500.4050, L100.0100 #### [facility] [address] [place], [address] Calcium [Mass/Vol] 9.6 mg/dL Normal 7.6-11.0 [facility] Comment on above: Performed By: #### L 500.4050, L100.0100 #### [facility] [address] [place], [address] Chloride [Moles/Vol] 105 mmol/L Normal 98-108 [facility] Comment on above: Performed By: #### L 500.4050, L100.0100 #### [facility] [address] [place], [address] CO2 [Moles/Vol] 21.7 mmol/L Normal 21.0-32.0 [facility] Comment on above: Performed By: #### L 500.4050, L100.0100 #### [facility] [address] [place], [address] Creatinine [Mass/Vol] 1.08 mg/dL Normal 0.70-1.20 [facility] Comment on above: Performed By: #### L 500.4050, L100.0100 #### [facility] [address] [place], [address] GAP 13 Normal 5-15 [facility] Comment on above: Performed By: #### L 500.4050, L100.0100 #### [facility] [address] [place], [address] GFR/1.73 sq M.predicted among non-blacks MDRD (S/P/Bld) [Vol rate/Area] 70 mL/min/{1.73_m2} Normal >60 [facility] Comment on above: Result Comment: mL/m in/1.73m2 CKD-EPI Creatinine Equation (2020) Performed By: #### L 500.4050, L100.0100 #### [facility] [address] [place], [address] Globulin (S) [Mass/Vol] 3.3 g/dL Normal 2.2-4.2 [facility] Comment on above: Performed By: #### L 500.4050, L100.0100 #### [facility] [address] [place], [address] Glucose [Mass/Vol] 92 mg/dL Normal 70-99 [facility] Comment on above: Performed By: #### L 500.4050, L100.0100 #### [facility] [address] [place], [address] Potassium [Moles/Vol] 4.6 mmol/L Normal 3.3-5.1 [facility] Comment on above: Performed By: #### L 500.4050, L100.0100 #### [facility] [address] [place], [address] Sodium [Moles/Vol] 140 mmol/L Normal 133-145 [facility] Comment on above: Performed By: #### L 500.4050, L100.0100 #### [facility] [address] [place], [address] T PROT 7.6 g/dL Normal 5.9-8.4 [facility] Comment on above: Performed By: #### L 500.4050, L100.0100 #### [facility] [address] [place], [place], [address] Urea nitrogen [Mass/Vol] 24 mg/dL High 4-19 [facility] Comment on above: Performed By: #### L 500.4050, L100.0100 #### [facility] [address] [place], [address] Eosinophil percentageOrdered By: Montse Haynes on 01-17-2025 Eosinophils/100 WBC (Bld) 1.3 % 0-5 [facility] Erythrocyte distribution wid th ratioOrdered By: Montse Haynes on 01-17-2025 Erythrocyte distribution width (RBC) [Ratio] 13.6 % 11.6-14.6 [facility] Erythrocyte distribution wid th standard deviationOrdered By: Montse Haynes on 01-17-2025 Erythrocyte distribution width (RBC) [Ratio] 52.1 fl High 35.1-43.9 [facility] Glomerular filtration rate ( GFR) estimation/1.73 sq m using serum, plasma, or whole bOrdered By: Montse Haynes on 01-17-2025 GFR/1.73 sq M.predicted among non-blacks MDRD (S/P/Bld) [Vol rate/Area] 70 mL/min/{1.73_m2} >60 [facility] Comment on above: mL/min/1.73m2 CKD-EP I Creatinine Equation (2020) Hematocrit Auto (Bld) [Volum e fraction]Ordered By: Montse Haynes on 01-17-2025 Hematocrit (Bld) [Volume fraction] 37.2 % Low 40-54 [facility] Hemoglobin measurementOrdere d By: Montse Haynes on 01-17-2025 Hemoglobin (Bld) [Mass/Vol] 11.8 g/dL Low 13.0-16.5 [facility] Immature granulocytes/100 WB C Auto (Bld)Ordered By: Montse Haynes on 01-17-2025 Immature granulocytes/100 WBC (Bld) 0.100 % 0.0-0.9 [facility] Comment on above: IG% - Immature Granu locytes (promyelocytes, myelocytes and metamyelocytes) > 1% indicates that a LEFT SHIFT is Present. Laboratory - Chemistry and C hemistry - challengeOrdered By: Montse Haynes on 01-17-2025 AST [Catalytic activity/Vol] 38 U/L <38 [facility] MCV (mean corpuscular volume ) determinationOrdered By: Montse Haynes on 01-17-2025 MCV (RBC) [Entitic vol] 103.9 fL High 80-94 [facility] Mean corpuscular hemoglobin (MCH) determinationOrdered By: Montse Haynes on 01-17-2025 MCH (RBC) [Entitic mass] 33.0 pg High 27.0-32.0 [facility] Mean corpuscular hemoglobin concentration (MCHC) determinationOrdered By: Montse Haynes on 01-17-2025 MCHC (RBC) [Mass/Vol] 31.7 g/dL Low 32-36 [facility] Mean platelet volume determi nationOrdered By: Montse Haynes on 01-17-2025 Platelet mean volume (Bld) [Entitic vol] 10.0 fL 6.2-12.0 [facility] Monocyte percentageOrdered B y: Montse Haynes on 01-17-2025 Monocytes/100 WBC (Bld) 8.9 % 0-10 [facility] Neutrophil percentageOrdered By: Montse Haynes on 01-17-2025 Neutrophils/100 WBC (Bld) 66.7 % 47-70 [facility] Nucleated red blood cell per centageOrdered By: Montse Haynes on 01-17-2025 Nucleated RBC/100 WBC (Bld) [Ratio] 0 % 0-5 [facility] Platelet countOrdered By: Roscoe Haynes on 01-17-2025 Platelets (Bld) [#/Vol] 263 10*3/uL 150-450 [facility] Potassium measurement (mass/ volume)Ordered By: Montse Haynes on 01-17-2025 Potassium (Unsp spec) [Mass/Vol] 4.6 mmol/L 3.3-5.1 [facility] RBC Auto (Bld) [#/Vol]Ordere d By: Montse Haynes on 01-17-2025 RBC (Bld) [#/Vol] 3.58 10*6/uL Low 4.6-6.2 [facility] Serum creatinine measurement (mass/volume)Ordered By: Montse Haynes on 01-17-2025 Creatinine [Mass/Vol] 1.08 mg/dL 0.70-1.20 [facility] Serum globulin measurementOr dered By: Montse Haynes on 01-17-2025 Globulin (S) [Mass/Vol] 3.3 g/dL 2.2-4.2 [facility] Serum glucose measurement (m ass/volume)Ordered By: Montse Haynes on 01-17-2025 Glucose [Mass/Vol] 92 mg/dL 70-99 [facility] Serum or plasma alanine zavala otransferase (ALT) measurementOrdered By: Montse Haynes on 01-17-2025 ALT [Catalytic activity/Vol] 34 U/L <47 [facility] Serum or plasma albumin kale urement (mass/volume)Ordered By: Montse Haynes on 01-17-2025 Albumin [Mass/Vol] 4.4 g/dL 3.4-4.8 [facility] Serum or plasma albumin/glob ulin mass ratioOrdered By: Montse Haynes on 01-17-2025 Albumin/Globulin [Mass ratio] 1.3 {ratio} 0.9-2.4 [facility] Serum or plasma alkaline marlen sphatase measurementOrdered By: Montse Haynes on 01-17-2025 ALP [Catalytic activity/Vol] 64 U/L 40-129 [facility] Serum or plasma calcium kale urement (mass/volume)Ordered By: Montse Haynes on 01-17-2025 Calcium [Mass/Vol] 9.6 mg/dL 7.6-11.0 [facility] Serum or plasma urea nitroge n measurement (mass/volume)Ordered By: Montse Haynes on 01-17-2025 Urea nitrogen [Mass/Vol] 24 mg/dL High 4-19 [facility] Sodium levelOrdered By: Jess Haynes on 01-17-2025 Sodium [Moles/Vol] 140 mmol/L 133-145 [facility] Total proteinOrdered By: Mabel Haynes on 01-17-2025 Protein [Mass/Vol] 7.6 g/dL 5.9-8.4 [facility] White blood cell (WBC) count Ordered By: Montse Haynes on 01-17-2025 WBC (Bld) [#/Vol] 8.0 10*3/uL 4.4-11.0 [facility] COMPREHENSIVE METABOLIC PANE Matthieu 11-19-2024 Albumin [Mass/Vol] 4.3 g/dL Normal 3.6-5.1 [facility] Comment on above: Performed By: #### 1 0231, 5363, 7600 #### [facility] [place] [address] [employer] Specialist: Ethan Calixto MD Albumin/Globulin [Mass ratio] 1.5 {ratio} Normal 1.0-2.5 [facility] Comment on above: Performed By: #### 1 0231, 5363, 7600 #### [facility] [place] [address] [employer] Specialist: Ethan Calixto MD ALP [Catalytic activity/Vol] 50 U/L Normal 35-144 [facility] Comment on above: Performed By: #### 1 0231, 5363, 7600 #### [facility] [place] [address] [employer] Specialist: Ethan Calixto MD ALT [Catalytic activity/Vol] 33 U/L Normal 9-46 [facility] Comment on above: Performed By: #### 1 0231, 5363, 7600 #### [facility] [place] [address] [employer] Specialist: Ethan Calixto MD AST [Catalytic activity/Vol] 39 U/L High 10-35 [facility] Comment on above: Performed By: #### 1 0231, 5363, 7600 #### [facility] [place] [address] [employer] Specialist: Ethan Calixto MD Bilirubin [Mass/Vol] 0.8 mg/dL Normal 0.2-1.2 [facility] Comment on above: Performed By: #### 1 230, 5363, 7600 #### [facility] [address], [address] [place], [place] [address] Accounts Receivable Specialist: Ethan Calixto MD BUN/CREATININE RATIO SEE NOTE: Normal 6-22 [facility] Comment on above: Result Comment: Not Reported: BUN and Creatinine are within reference range. Performed By: #### 1 230, 5363, 7600 #### [facility] [place] [address] [employer] Rece[employer] Specialist: Ethan Calixto MD Calcium [Mass/Vol] 9.2 mg/dL Normal 8.6-10.3 [facility] Comment on above: Performed By: #### 1 230, 5363, 7600 #### [facility] [place] [address] [employer] Receivable Specialist: Ethan Calixto MD Chloride [Moles/Vol] 107 mmol/L Normal 98-110 Q[facility] t [facility] Comment on above: Performed By: #### 1 230, 5363, 7600 #### [facility] [place] [address] [employer] Rece[employer] Specialist: Ethan Calixto MD CO2 [Moles/Vol] 23 mmol/L Normal 20-32 [facility] Comment on above: Performed By: #### 1 230, 5363, 7600 #### [facility] of [place] [address] [employer] Rece[employer] Specialist: Ethan Calixto MD Creatinine [Mass/Vol] 1.10 mg/dL Normal 0.70-1.[address] [facility] Comment on above: Performed By: #### 1 023, 5363, 7600 #### [facility] of [place] [address] [employer] Rece[employer] Specialist: Ethan Calixto MD GFR/1.73 sq M.predicted among non-blacks MDRD (S/P/Bld) [Vol rate/Area] 69 mL/min/{1.73_m2} Normal > OR = 60 [facility] Comment on above: Performed By: #### 1 0231, 5363, 7600 #### [facility] of [address], [address] [place] [address] Accounts Receivable Specialist: Ethan Calixto MD Globulin (S) [Mass/Vol] 2.8 g/dL Normal 1.9-3.7 [facility] Comment on above: Performed By: #### 1 023, 5363, 7600 #### [facility] [place] [address] [employer] Receivable Specialist: Ethan Calixto MD Glucose [Mass/Vol] 91 mg/dL Normal 65-99 [facility] Comment on above: Result Comment: Fasting reference interval Performed By: #### 1 230, 5363, 7600 #### [facility] [place] [address] [employer] Receivable Specialist: Ethan Calixto MD Potassium [Moles/Vol] 4.3 mmol/L Normal 3.5-5.[address] [facility] [address] [facility] [address] [facility] Comment on above: Performed By: #### 1 023, 5363, 7600 #### [facility] [place] [address] Accounts Receivable Specialist: Ethan Calixto MD Protein [Mass/Vol] 7.1 g/dL Normal 6.1-8.1 [facility] Comment on above: Performed By: #### 1 023, 5363, 7600 #### [facility] [place] [address] Accounts Receivable Specialist: Ethan Calixto MD Sodium [Moles/Vol] 140 mmol/L Normal 135-146 [facility] Comment on above: Performed By: #### 1 023, 5363, 7600 #### [facility] [place] [address] Accounts Receivable Specialist: Ethan Calixto MD Urea nitrogen [Mass/Vol] 24 mg/dL Normal 7-25 [facility] Comment on above: Performed By: #### 1 0231, 5363, 7600 #### [facility] [address], [address] [place] [address] Account[employer] Receivable Specialist: Ethan Calixto MD LIPID PANEL, [facility] 07-0 Cholesterol [Mass/Vol] 139 mg/dL Normal <200 Qu est [facility] Comment on above: Performed By: #### 1 0231, 5363, 7600 #### [facility] [address], [address] [place] [address] Account[employer] Receivable Specialist: Ethan Calixto MD Cholesterol in HDL [Mass/Vol] 76 mg/dL Normal > OR = 40 [facility] Comment on above: Performed By: #### 1 0231, 5363, 7600 #### [facility] [address], [address] [place] [address] Account[employer] Rece[employer] Specialist: Ethan Calixto MD Cholesterol in LDL [Mass/Vol] 50 mg/dL Normal [facility] Comment on above: Result Comment: Refe rence range: <100 Desirable range <100 mg/dL for primary prevention; <70 mg/dL for patients with CHD or diabetic patients with > or = 2 CHD risk factors. LDL-C is now calculated using the Gary-Trupti calculation, which is a validated novel method providing better accuracy than the Friedewald equation in the estimation of LDL-C. Gary GARCIA et al. MARYLIN. 2013;310(19): 1149-8152 (http://education.NeuroQuest.ArtSetters/faq/NOS709) Performed By: #### 1 0231, 5363, 7600 #### [facility] [address], [address] [place] [address] Accounts Receivable Specialist: Ethan Calixto MD Cholesterol.total/Chol esterol in HDL [Mass ratio] 1.8 {ratio} Normal <5.0 [facility] Comment on above: Performed By: #### 1 0231, 5363, 7600 #### [facility] [address], [address] [place] [address] Accounts Receivable Specialist: Ethan Calixto MD NON HDL CHOLESTEROL 63 mg/dL (calc) Normal <130 [facility] Comment on above: Result Comment: For patients with diabetes plus 1 major ASCVD risk factor, treating to a non-HDL-C goal of <100 mg/dL (LDL-C of <70 mg/dL) is considered a therapeutic option. Performed By: #### 1 0231, 5310, 3330 #### [facility] [address], [address] [place] [address] Accounts Receivable Specialist: Ethan Calixto MD Triglyceride [Mass/Vol] 51 mg/dL Normal <150 [facility] Comment on above: Performed By: #### 1 0231, 5381, 7530 #### [facility] [address], [address] [place] [address] Account[employer] Receivable Specialist: Ethan Calixto MD PSA, TOTALon 11-19-2024 PSA, TOTAL 1.88 ng/mL Normal < OR = 4.00 [facility] Comment on above: Result Comment: The total PSA value from this assay system is standardized against the WHO standard. The test result will be approximately 20% lower when compared to the equimolar-standardized total PSA (Josiah Jesse). Comparison of serial PSA results should be interpreted with this fact in mind. This test was performed using the Siemens chemiluminescent method. Values obtained from different assay methods cannot be used interchangeably. PSA levels, regardless of value, should not be interpreted as absolute evidence of the presence or absence of disease. Performed By: #### 1 0231, 5319, 7380 #### [facility] [address], [address] [place] [address] Accounts Receivable Specialist: Ethan Calixto MD Laboratory - Chemistry and C hemistry - challengeon 11-18-2024 Albumin [Mass/Vol] 4.3 g/dL Normal 3.6 - 5.1 g/dL [facility] Albumin/Globulin [Mass ratio] 1.5 {ratio} Normal 1.0 - 2.5 [facility], [facility] ALP [Catalytic activity/Vol] 50 U/L Normal 35 - 144 U/L [facility], [facility]. ALT [Catalytic activity/Vol] 33 U/L Normal 9 - 46 U/L [facility], [facility].; [facility], [facility]. AST [Catalytic activity/Vol] 39 U/L Abnormal 10 - 35 U/L [facility], [facility].; [facility], [facility]. Bilirubin [Mass/Vol] 0.8 mg/dL Normal 0.2 - 1 .2 mg/dL [facility], [facility].; [facility], [facility]. Calcium [Mass/Vol] 9.2 mg/dL Normal 8.6 - 10. 3 mg/dL [facility], [facility].; [facility], [facility]. Chloride [Moles/Vol] 107 mmol/L Normal 98 - 11 0 mmol/L [facility], [facility].; [facility], [facility]. Cholesterol [Mass/Vol] 139 mg/dL Normal [facility], [facility].; [facility], [facility] Cholesterol in HDL [Mass/Vol] 76 mg/dL Normal [facility], [facility].; [facility], [facility]. Cholesterol in LDL [Mass/Vol] 50 mg/dL Normal [facility], [facility].; [facility], [facility]. CO2 [Moles/Vol] 23 mmol/L Normal 20 - 32 mmol/L [facility], [facility].; [facility], [facility]. Creatinine [Mass/Vol] 1.10 mg/dL Normal 0.70 - 1.28 mg/dL [facility], [facility].; [facility], [facility]. GFR/1.73 sq M.predicted among non-blacks MDRD (S/P/Bld) [Vol rate/Area] 69 mL/min/{1.73_m2} Normal [facility], [facility].; [place] [employer] [facility] Glucose [Mass/Vol] 91 mg/dL Normal 65 - 99 mg/dL [facility], [facility].; [facility], [facility]. Potassium [Moles/Vol] 4.3 mmol/L Normal 3.5 - 5.3 mmol/L [facility], [facility].; [facility], [facility]. Protein [Mass/Vol] 7.1 g/dL Normal 6.1 - 8.1 g/dL [facility] [employer] [employer] [facility] [place] [facility] [facility]. Sodium [Moles/Vol] 140 mmol/L Normal 135 - 146 mmol/L [facility] [employer] [employer] [facility].; [place] [facility] [facility] [employer] [employer] [facility]. Triglyceride [Mass/Vol] 51 mg/dL Normal [facility] [employer] [facility].; [place] [employer] [facility], [employer]. Urea nitrogen [Mass/Vol] 24 mg/dL Normal 7 - 25 mg/dL [facility] [employer] [employer] [facility].; [facility] [employer] [facility]. No Panel Informationon 11-18 BUN/CREATININE RATIO SEE NOTE: Normal 6 - 22 [facility].; [place] [facility] [facility] [employer] [employer] [facility]. CHOL/HDLC RATIO 1.8 Normal [facility] [employer] [employer] [facility]. GLOBULIN 2.8 Normal 1.9 - 3.7 [facility] [employer] [employer] [facility] [place] [facility] [facility] [employer] [employer] [facility]. NON HDL CHOLESTEROL 63 Normal [facility].; [place] [facility] [facility] HospitalC[facility]ando PSA, TOTAL 1.88 ng/mL Normal [facility] [employer] [employer] [facility].; [place] [employer] [facility] [employer] [facility]. CBC + DIFFon 10-25-2024 Baso # 0.01 x10EE3/UL Normal 0.00 - 0.10 [facility] Comment on above: Performed By: #### 2 14586 #### [facility],[address] [place] [address] Basophils/100 WBC (Bld) 0.2 % Normal 0.0 - 2.0 [facility] Comment on above: Performed By: #### 2 74993 #### [facility],[address] [place] [address] CBC + DIFF Normal [facility] Comment on above: Result Comment: CBC- COMPLETE BLOOD COUNT Performed By: #### 2 80257 #### [place] [address] EO # 0.17 x10EE3/UL Normal 0.00 - 0.50 [facility] Comment on above: Performed By: #### 2 71428 #### [facility],[address] [place], [place] [id number] Eosinophils/100 WBC (Bld) 2.8 % Normal 0.0 - 7.0 [facility] Comment on above: Performed By: #### 2 05456 #### [facility],[address] [place] [address] Erythrocyte distribution width (RBC) [Ratio] 13.8 % Normal 12.0 - 15.6 [facility] Comment on above: Performed By: #### 2 33928 #### [facility],[address] [place] [address] Hematocrit (Bld) [Volume fraction] 37.3 % Low 40.0 - 52.0 [facility] Comment on above: Performed By: #### 2 96214 #### [facility],[address] [place] [address] Hemoglobin (Bld) [Mass/Vol] 12.6 g/dL Low 13.0 - 17.5 [facility] Comment on above: Performed By: #### 2 97242 #### [facility],[address] [place] [address]262 Lymph # 1.96 x10EE3/UL Normal 0.80 - 2.80 [facility] Comment on above: Performed By: #### 2 30350 #### [address] [address] Lymphocytes/100 WBC (Bld) 32.9 % Normal 20.0 - 45.0 [facility] Comment on above: Performed By: #### 2 77315 #### [address] [address] MANUAL DIFF N/A Normal [facility] Comment on above: Performed By: #### 2 86931 #### [facility],[address] [place] [address]337 MCH (RBC) [Entitic mass] 35 pg High 27 - 33 [facility] Comment on above: Performed By: #### 2 37502 #### [facility],[address] [place] [address] 18401 MCHC 34 X10 3 Normal 32 - 36 [facility] Comment on above: Performed By: #### 2 01360 #### [facility],[address] [place] [address] 93869 MCV (RBC) [Entitic vol] 102 fL High 81 - 98 [facility] Comment on above: Performed By: #### 2 98512 #### [facility],[address] [place] [address] 11033 [place] # 0.64 x10EE3/UL Normal 0.20 - 1.00 [facility] Comment on above: Performed By: #### 2 64568 #### [facility],[address] [place] [address] 08221 MONOS % 10.7 % High 0.0 - 10.0 [facility] Comment on above: Performed By: #### 2 46364 #### [facility],[address] [place] [address] 99328 Morphology German (Bld) [Interp] N/A Normal [facility] Comment on above: Performed By: #### 2 91170 #### [facility],[address] [place] [address]7521 Neut # 3.18 x10EE3/UL Normal 1.50 - 7.10 [facility] Comment on above: Performed By: #### 2 78777 #### [facility],[address] [place] [address]28[address] Neutrophils/100 WBC (Bld) 53.3 % Normal 46.0 - 76.0 [facility] Comment on above: Performed By: #### 2 06665 #### [facility],[address] [place] [address] 49002 PLATELET 288 x10EE3/UL Normal 150 - 450 [facility] Comment on above: Performed By: #### 2 85776 #### [facility],[address] [place] [address] 54787 Platelet mean volume (Bld) [Entitic vol] 7.6 fL Normal 6.4 - 10.5 [facility] Comment on above: Result Comment: AUTO MATED DIFFERENTIAL Performed By: #### 2 26932 #### [facility],[address] [place] [address] 94047 RBC 3.64 x 10EE6/UL Low 4.50 - 6.00 [facility] Comment on above: Performed By: #### 2 82582 #### [facility],[address] [place] [address] 23159 WBC 6.0 x 10EE3/UL Normal 4.5 - 10.8 [facility] Comment on above: Performed By: #### 2 50367 #### [facility],[address] [place], [place] [phone] CMP with eGFRon 10-25-2024 AGE 78 years Normal [facility] Comment on above: Performed By: #### 2 99958 #### [facility],[address] [place] [address] 67810 Albumin [Mass/Vol] 3.9 g/dL Normal 3.4 - 5.0 [facility] Comment on above: Performed By: #### 2 96334 #### [facility],[address] [place] [address] 47957 Albumin/Globulin [Mass ratio] 1.0 {ratio} Normal 0.9 - 1.6 [facility] Comment on above: Performed By: #### 2 68834 #### [facility],[address] [place] [address] 70621 ALK PHOS 63 U/L Normal 46 - 116 [facility] Comment on above: Performed By: #### 2 97057 #### [facility],[address] [place] [address] 08805 ALT [Catalytic activity/Vol] 41 U/L Normal 16 - 63 [facility] Comment on above: Performed By: #### 2 26608 #### [facility],[address] [place] [address] 28789 Anion gap [Moles/Vol] 15 mmol/L Normal 10 - 20 [facility] Comment on above: Performed By: #### 2 38242 #### [facility],[address] [place] [address] 27097 AST [Catalytic activity/Vol] 31 U/L Normal 15 - 37 [facility] Comment on above: Performed By: #### 2 31020 #### [facility],[address] [place] [address] 20646 B/C RATIO 22 ratio Normal 0 - 30 [facility] Comment on above: Performed By: #### 2 61125 #### [facility],[address] [place] [address] 09166 Bilirubin [Mass/Vol] 0.8 mg/dL Normal 0.2 - 1.0 [facility] Comment on above: Performed By: #### 2 32653 #### [facility],[address] [place] [address] 21262 Calcium [Mass/Vol] 8.9 mg/dL Normal 8.5 - 10.1 [facility] Comment on above: Performed By: #### 2 86208 #### [facility],[address] [place] [address] 58215 Chloride [Moles/Vol] 107 mmol/L Normal 98 - 107 [facility] Comment on above: Performed By: #### 2 40089 #### [facility],[address] [place] [address] 95903 CMP with eGFR Normal [facility] Comment on above: Result Comment: COMP REHENSIVE METABOLIC PANEL Performed By: #### 2 09412 #### [facility],[address] [place] [address] 28711 CO2 [Moles/Vol] 24.2 mmol/L Normal 21.0 - 32.0 [facility] Comment on above: Performed By: #### 2 70438 #### [facility],[address] [place] [address] 02743 Creatinine [Mass/Vol] 1.19 mg/dL Normal 0.70 - 1.30 [facility] Comment on above: Performed By: #### 2 47565 #### [facility],[address] [place] [address] 48144 eGFR 59 ML/MINUTE Low 60 - 999 [facility] Comment on above: Performed By: #### 2 16774 #### [facility],[address] [place] [address] 36849 GFR/1.73 sq M.predicted among non-blacks MDRD (S/P/Bld) [Vol rate/Area] mL/min/{1.73_m2} Normal 60 - 999 [facility] Comment on above: Result Comment: ACCO RDING TO THE NATIONAL KIDNEY DISEASE EDUCATION PROGRAM(NKDE), A NORMAL eGFR IS A VALUE GREATER THAN OR EQUAL TO 60 ML/MIN/1.73 SQ METERS. CHRONIC KIDNEY DISEASE: <60mL/MIN/1.73 SQ METERS KIDNEY FAILURE: <15mL/MIN/1.73 SQ METERS THIS TEST SHOULD ONLY BE USED FOR PATIENTS 18 YEARS OF AGE AND OLDER. Performed By: #### 2 11201 #### [facility],[address] [place] [address] 57043 Globulin (S) [Mass/Vol] 4.0 g/dL High 1.5 - 3.8 [facility] Comment on above: Performed By: #### 2 98630 #### [facility],[address] [place] [address] 47999 Glucose [Mass/Vol] 66 mg/dL Low 74 - 106 [facility] Comment on above: Performed By: #### 2 92990 #### [facility],[address] [place] [address] 65331 Potassium [Moles/Vol] 4.2 mmol/L Normal 3.5 - 5.1 [facility] Comment on above: Performed By: #### 2 03750 #### [facility],[address] [place] [address] 13097 Protein [Mass/Vol] 7.9 g/dL Normal 6.4 - 8.2 [facility] Comment on above: Performed By: #### 2 24842 #### [facility],[address] [place] [address] Sodium [Moles/Vol] 142 mmol/L Normal 136 - 145 [facility] Comment on above: Performed By: #### 2 02247 #### [facility],[address] [place] [address] Urea nitrogen [Mass/Vol] 26 mg/dL High 7 - 18 [facility] Comment on above: Performed By: #### 2 38852 #### [facility],[address] [place] [address] CBC + DIFFon 07-26-2024 Baso # 0.01 x10EE3/UL Normal 0.00 - 0.10 [facility] Comment on above: Performed By: #### 2 57449 #### [facility],[address] [place] [address] 39378 Basophils/100 WBC (Bld) 0.2 % Normal 0.0 - 2.0 [facility] Comment on above: Performed By: #### 2 53488 #### [facility],[address] [place] [address] 67648 CBC + DIFF Normal [facility] Comment on above: Result Comment: CBC- COMPLETE BLOOD COUNT Performed By: #### 2 76653 #### [facility],[address] [place] [address] 93927 EO # 0.16 x10EE3/UL Normal 0.00 - 0.50 [facility] Comment on above: Performed By: #### 2 96967 #### [facility],[address] [place] [address] 47063 Eosinophils/100 WBC (Bld) 2.8 % Normal 0.0 - 7.0 [facility] Comment on above: Performed By: #### 2 03876 #### [facility],[address] [place] [address] Erythrocyte distribution width (RBC) [Ratio] 14.1 % Normal 12.0 - 15.6 [facility] Comment on above: Performed By: #### 2 76973 #### [facility],[address] [place] [address] 65078 Hematocrit (Bld) [Volume fraction] 37.4 % Low 40.0 - 52.0 [facility] Comment on above: Performed By: #### 2 54187 #### [place] [address] Hemoglobin (Bld) [Mass/Vol] 12.2 g/dL Low 13.0 - 17.5 [facility] Comment on above: Performed By: #### 2 08127 #### [facility],[address] [place] [address] 38208 Lymph # 1.67 x10EE3/UL Normal 0.80 - 2.80 [facility] Comment on above: Performed By: #### 2 91711 #### [facility],[address] [place] [address] 69729 Lymphocytes/100 WBC (Bld) 30.1 % Normal 20.0 - 45.0 [facility] Comment on above: Performed By: #### 2 72630 #### [facility],[address] [place] [address] 99305 MANUAL DIFF N/A Normal [facility] Comment on above: Performed By: #### 2 03699 #### [facility],[address] [place] [address] 99950 MCH (RBC) [Entitic mass] 33 pg Normal 27 - 33 [facility] Comment on above: Performed By: #### 2 47208 #### [facility],[address] [place] [address] 81648 MCHC 33 X10 3 Normal 32 - 36 [facility] Comment on above: Performed By: #### 2 95634 #### [facility],[address] [place] [address] 51235 MCV (RBC) [Entitic vol] 102 fL High 81 - 98 [facility] Comment on above: Performed By: #### 2 16919 #### [facility],[address] [place] [address] 15299 [place] # 0.27 x10EE3/UL Normal 0.20 - 1.00 [facility] [facility] Comment on above: Performed By: #### 2 27342 #### [facility],[address] [place] [address] 62529 MONOS % 4.9 % Normal 0.0 - 10.0 [facility] Comment on above: Performed By: #### 2 56469 #### [facility],[address] [place] [address] 61141 Morphology German (Bld) [Interp] N/A Normal [facility] Comment on above: Performed By: #### 2 81323 #### [facility],[address] [place] [address] 33194 Neut # 3.43 x10EE3/UL Normal 1.50 - 7.10 [facility] Comment on above: Performed By: #### 2 99752 #### [facility],[address] [place] [address] 50698 Neutrophils/100 WBC (Bld) 61.9 % Normal 46.0 - 76.0 [facility] Comment on above: Performed By: #### 2 76669 #### [facility],[address] [place] [address] 80793 PLATELET 302 x10EE3/UL Normal 150 - 450 [facility] Comment on above: Performed By: #### 2 03511 #### [facility],[address] [place] [address] 06240 Platelet mean volume (Bld) [Entitic vol] 7.2 fL Normal 6.4 - 10.5 [facility] Comment on above: Result Comment: AUTO MATED DIFFERENTIAL Performed By: #### 2 15269 #### [facility],[address] [place] [address] 34683 RBC 3.68 x 10EE6/UL Low 4.50 - 6.00 [facility] Comment on above: Performed By: #### 2 96149 #### [facility],[address] [place] [address] 36197 WBC 5.5 x 10EE3/UL Normal 4.5 - 10.8 [facility] Comment on above: Performed By: #### 2 05854 #### [facility],[address] [place] [address] 67674 CMP with eGFRon 07-26-2024 AGE 78 years Normal [facility] Comment on above: Performed By: #### 2 91945 #### [facility],[address] [place] [address] 64471 Albumin [Mass/Vol] 3.8 g/dL Normal 3.4 - 5.0 [facility] Comment on above: Performed By: #### 2 49015 #### [facility],[address] [place] [address] 43030 Albumin/Globulin [Mass ratio] 1.1 {ratio} Normal 0.9 - 1.6 [facility] Comment on above: Performed By: #### 2 26626 #### [facility],[address] [place] [address] 91627 ALK PHOS 68 U/L Normal 46 - 116 [facility] Comment on above: Performed By: #### 2 23598 #### [facility],[address] [place] [address] 27064 ALT [Catalytic activity/Vol] 47 U/L Normal 16 - 63 [facility] Comment on above: Performed By: #### 2 30252 #### [facility],[address] [place] [address] 39965 Anion gap [Moles/Vol] 11 mmol/L Normal 10 - 20 [facility] Comment on above: Performed By: #### 2 63537 #### [facility],[address] [place] [address] 10869 AST [Catalytic activity/Vol] 39 U/L High 15 - 37 [facility] Comment on above: Performed By: #### 2 14293 #### [facility],[address] [place] [address] 06876 B/C RATIO 18 ratio Normal 0 - 30 [facility] Comment on above: Performed By: #### 2 87754 #### [facility],[address] [place] [address] 22933 Bilirubin [Mass/Vol] 0.8 mg/dL Normal 0.2 - 1.0 [facility] Comment on above: Performed By: #### 2 33472 #### [facility],[address] [place] [address] 30658 Calcium [Mass/Vol] 8.8 mg/dL Normal 8.5 - 10.1 [facility] Comment on above: Performed By: #### 2 66546 #### [facility],[address] [place] [address] 69623 Chloride [Moles/Vol] 108 mmol/L High 98 - 107 [facility] Comment on above: Performed By: #### 2 47674 #### [facility],[address] [place] [address] 43460 CMP with eGFR Normal [facility] Comment on above: Result Comment: COMP REHENSIVE METABOLIC PANEL Performed By: #### 2 44422 #### [facility],[address] [place] [address] 43612 CO2 [Moles/Vol] 25.6 mmol/L Normal 21.0 - 32.0 [facility] Comment on above: Performed By: #### 2 32777 #### [facility],[address] [place] [address] 88354 Creatinine [Mass/Vol] 1.24 mg/dL Normal 0.70 - 1.30 [facility] Comment on above: Performed By: #### 2 78928 #### [facility],[address] [place] [address] 55467 eGFR 57 ML/MINUTE Low 60 - 999 [facility] Comment on above: Performed By: #### 2 46860 #### [facility],[address] [place] [address] 17928 GFR/1.73 sq M.predicted among non-blacks MDRD (S/P/Bld) [Vol rate/Area] mL/min/{1.73_m2} Normal 60 - 999 [facility] Comment on above: Result Comment: ACCO RDING TO THE NATIONAL KIDNEY DISEASE EDUCATION PROGRAM(NKDE), A NORMAL eGFR IS A VALUE GREATER THAN OR EQUAL TO 60 ML/MIN/1.73 SQ METERS. CHRONIC KIDNEY DISEASE: <60mL/MIN/1.73 SQ METERS KIDNEY FAILURE: <15mL/MIN/1.73 SQ METERS THIS TEST SHOULD ONLY BE USED FOR PATIENTS 18 YEARS OF AGE AND OLDER. Performed By: #### 2 76040 #### [facility],[address] [place] [address] 57356 Globulin (S) [Mass/Vol] 3.6 g/dL Normal 1.5 - 3.8 [facility] Comment on above: Performed By: #### 2 18146 #### [facility],[address] [place] [address] 02611 Glucose [Mass/Vol] 142 mg/dL High 74 - 106 [facility] Comment on above: Performed By: #### 2 56204 #### [facility],[address] [place] [address] 31744 Potassium [Moles/Vol] 4.7 mmol/L Normal 3.5 - 5.1 [facility] Comment on above: Performed By: #### 2 08066 #### [facility],[address] [place] [address] 19514 Protein [Mass/Vol] 7.4 g/dL Normal 6.4 - 8.2 [facility] Comment on above: Performed By: #### 2 98176 #### [facility],[address] [place], [place] [phone] Sodium [Moles/Vol] 140 mmol/L Normal 136 - 145 [facility] Comment on above: Performed By: #### 2 04370 #### [facility],[address] [place], [place] [phone] Urea nitrogen [Mass/Vol] 22 mg/dL High 7 - 18 [facility] Comment on above: Performed By: #### 2 36188 #### [facility],[address] [place] [address] 92945 Cardiology Visit Reporton Cardiology Visit Report [facility] [address] [place] [address] OFFICE VISIT Date of Service: 06/25/24 MR#: [id number] Acct: [id number] Name: HERIBERTO HUYNH II Rep #: [id number] : 1945 Provider: Dr. Jayden Rodrigues MD Age/Sex: 78/M Location: [facility] Status: Signed HPI HPI History of Present Illness Details: This is a pleasant 78-year-old man that presents to the office today for a cardiovascular visit. He has a history of persistent atrial fibrillation, hypertension, hyperlipidemia, rheumatoid arthritis and previous history of PVCs and gastric bypass surgery. In 2003, he had a nuclear stress test which was abnormal and he underwent a right and left heart catheterization and renal arteriogram all of which were normal. He was seen PCP and was noted to have an irregular heartbeat which was unbeknownst to him. He was noted to be in atrial fibrillation with a ventricular response rate of 94 bpm. He was started on Eliquis. He has done quite well on the above regimen since his last echocardiogram in November 2023 demonstrated an ejection fraction of 60%. He denies chest, arm, jaw, or neck discomfort. He denies palpitations. He states bilateral lower extremity edema. He denies claudication. He continues shortness of breath with activity, but improved since April 2022. This is an ongoing issue and not worsening. He denies shortness of breath at rest, orthopnea, or PND. He denies chronic cough. He denies significant, sudden weight gain. He denies lightheadedness, dizziness, near-syncope, or syncope. He denies blood in urine, blood in stool, or epistaxis. He denies fever or chills. He denies myalgia. He states fatigue and weakness that he attributes to history of rheumatoid arthritis. Intake Vital Signs 04/24/23 11:11 10/24/23 10:55 06/25/24 10:58 Height 6 ft 1 in 6 ft 1 in 6 ft 1 in Weight: 344 lb 329 lb BMI 45.3 43.4 BP 144/82 H 120/84 H Blood Pressure Location Lt brachial Lt brachial Position Sitting Sitting Respiration 18 16 Pulse 95 110 H Pulse Source NIBP Monitor Intake Visit Reasons: 1 Y FU [employer] Required: No Accompanied by: Self Is patient in pain?: No Allergies oxycodone (From OxyContin) Allergy (Intermediate, Verified 06/25/24 11:03) itching Medications ???Medication ???Instructions ???Recorded ???Confirmed ???Type atorvastatin 40 mg tablet 40 mg PO QHS 03/30/20 06/25/24 His tory biotin 5 mg capsule 5 mg PO DAILY 03/30/20 06/25/24 Hi story famotidine 20 mg tablet 20 mg PO BID 03/30/20 06/25/24 His tory raolphotkkzw-npl-ltupx acid-vit 1 tab PO BID 03/30/20 06/25/24 His tory K-lycop 400 mcg-20 mcg-370 mcg tablet (Men's 50 Plus Multivitamin) tramadol 50 mg tablet 50 mg PO Q6H PRN 03/30/20 06/25/24 History hydroxychloroquine 200 mg tablet 200 mg PO BID 09/23/22 06/25/24 Hi story acetaminophen 500 mg tablet 1,000 mg PO Q6H PRN 04/24/2306/25 History amoxicillin 500 mg capsule 2,000 mg PO ONCE PRN 04/24/2306/15 History methotrexate sodium 2.5 mg tablet 15 mg PO QWEEK 04/24/23 06/25/24 History prednisone 10 mg tablet 10 mg PO DAILY PRN 04/24/23 History spironolactone 25 mg tablet See Rx Instructions .Route 4 06/25/24 Rx .COMPLEX #90 tabs apixaban 5 mg tablet (Eliquis) 5 mg PO BID #180 TABLETS 07/31/23 06/25/24 Rx furosemide 20 mg tablet 20 mg PO DAILY 90 days #90 tabs 06/25/24 Rx diltiazem HCl 240 mg 240 mg PO DAILY #90 caps 10/04/23 06/25/24 Rx capsule,extended release 24 hr enalapril maleate 20 mg tablet 20 mg PO BID 10/24/23 06/25/24 His tory folic acid 1 mg tablet 1 mg PO BID 10/24/23 06/25/24 Hist ory terazosin 5 mg capsule See Rx Instructions .Route 4 06/25/24 Rx .COMPLEX #180 caps calcium citrate 500 mg PO QDAY 06/25/24 06/25/24 H istory cholecalciferol (vitamin D3) 125 125 mcg PO BID 06/25/24 06/25/24 H istory mcg (5,000 unit) capsule mecobalamin (vitamin B12) 5,000 5,000 mcg PO .3x/week 06/25/2404/08 History mcg lozenge oxycodone 5 mg tablet 5 mg PO Q6 PRN pain 06/25/2406/25 History Have you fallen in the past year?: No PFSH Medical History New onset atrial fibrillation (03/05/20) Morbid obesity Hyperlipidemia Essential hypertension Polyarticular arthritis BPH (benign prostatic hyperplasia) NEIL on CPAP GERD (gastroesophageal reflux disease) Surgical History History of right and left heart catheterization (01/22/04) History of gastric bypass (02/20/17) History of nasal septoplasty History of total right knee replacement (2017) History of total left knee replacement (2010) History of cholecystectomy History of r (more content not included)... Normal [facility] CBC + DIFFon 06-07-2024 Baso # 0.02 x10EE3/UL Normal 0.00 - 0.10 [facility] Comment on above: Performed By: #### 2 52555 #### [facility],[address] [place] [address] Basophils/100 WBC (Bld) 0.3 % Normal 0.0 - 2.0 [facility] Comment on above: Performed By: #### 2 16539 #### [facility],[address] [place] [address] CBC + DIFF Normal [facility] Comment on above: Result Comment: CBC- COMPLETE BLOOD COUNT Performed By: #### 2 96890 #### [facility],[address] [place] [address] EO # 0.20 x10EE3/UL Normal 0.00 - 0.50 [facility] Comment on above: Performed By: #### 2 95397 #### [facility],[address] [place] [address] 84375 Eosinophils/100 WBC (Bld) 2.5 % Normal 0.0 - 7.0 [facility] Comment on above: Performed By: #### 2 78387 #### [facility],[address] [place] [address] Erythrocyte distribution width (RBC) [Ratio] 13.4 % Normal 12.0 - 15.6 [facility] Comment on above: Performed By: #### 2 36215 #### [facility],[address] [place] [address] Hematocrit (Bld) [Volume fraction] 37.7 % Low 40.0 - 52.0 [facility] Comment on above: Performed By: #### 2 46005 #### [facility],[address] [place] [address] 12353 Hemoglobin (Bld) [Mass/Vol] 12.3 g/dL Low 13.0 - 17.5 [facility] Comment on above: Performed By: #### 2 32986 #### [facility],[address] [place], [place] [phone] Lymph # 2.20 x10EE3/UL Normal 0.80 - 2.80 [facility] Comment on above: Performed By: #### 2 01134 #### [facility],[address] [place] [address] Lymphocytes/100 WBC (Bld) 27.4 % Normal 20.0 - 45.0 [facility] Comment on above: Performed By: #### 2 15336 #### [facility],[address] [place], [place] [phone] MANUAL DIFF N/A Normal [facility] Comment on above: Performed By: #### 2 05222 #### [facility],[address] [place] [address] 46650 MCH (RBC) [Entitic mass] 34 pg High 27 - 33 [facility] Comment on above: Performed By: #### 2 75521 #### [facility],[address] [place] [address] 35815 MCHC 33 X10 3 Normal 32 - 36 [facility] Comment on above: Performed By: #### 2 99741 #### [facility],[address] [place] [address] 89353 MCV (RBC) [Entitic vol] 103 fL High 81 - 98 [facility] Comment on above: Performed By: #### 2 00260 #### [facility],[address] [place] [address] 92949 [place] # 0.72 x10EE3/UL Normal 0.20 - 1.00 [facility] Comment on above: Performed By: #### 2 58002 #### [facility],[address] [place] [address] 27928 MONOS % 8.9 % Normal 0.0 - 10.0 [facility] Comment on above: Performed By: #### 2 21664 #### [facility],[address] [place] [address] 09644 Morphology German (Bld) [Interp] N/A Normal [facility] Comment on above: Performed By: #### 2 80131 #### [facility],[address] [place] [address] 64363 Neut # 4.91 x10EE3/UL Normal 1.50 - 7.10 [facility] Comment on above: Performed By: #### 2 11822 #### [facility],[address] [place], [place] [phone] Neutrophils/100 WBC (Bld) 60.9 % Normal 46.0 - 76.0 [facility] Comment on above: Performed By: #### 2 00871 #### [facility],[address] [place], [place] [phone] PLATELET 303 x10EE3/UL Normal 150 - 450 [facility] Comment on above: Performed By: #### 2 05018 #### [facility],[address] [place] [address] 75979 Platelet mean volume (Bld) [Entitic vol] 7.9 fL Normal 6.4 - 10.5 [facility] Comment on above: Result Comment: AUTO MATED DIFFERENTIAL Performed By: #### 2 37016 #### [facility],[address] [place] [address] 49125 RBC 3.67 x 10EE6/UL Low 4.50 - 6.00 [facility] Comment on above: Performed By: #### 2 21799 #### [facility],[address] [place] [address] 33262 WBC 8.1 x 10EE3/UL Normal 4.5 - 10.8 [facility] Comment on above: Performed By: #### 2 12795 #### [facility],[address] [place] [address] 98557 CMP with eGFRon 06-07-2024 AGE 78 years Normal [facility] Comment on above: Performed By: #### 2 78429 #### [facility],[address] [place] [address] 54598 Albumin [Mass/Vol] 3.8 g/dL Normal 3.4 - 5.0 [facility] Comment on above: Performed By: #### 2 60759 #### [facility],[address] [place] [address] 81336 Albumin/Globulin [Mass ratio] 1.0 {ratio} Normal 0.9 - 1.6 [facility] Comment on above: Performed By: #### 2 06232 #### [facility],[address] [place] [address] 47703 ALK PHOS 87 U/L Normal 46 - 116 [facility] Comment on above: Performed By: #### 2 48153 #### [facility],[address] [place] [address] 42327 ALT [Catalytic activity/Vol] 39 U/L Normal 16 - 63 [facility] Comment on above: Performed By: #### 2 83782 #### [facility],[address] [place] [address] 57299 Anion gap [Moles/Vol] 14 mmol/L Normal 10 - 20 [facility] Comment on above: Performed By: #### 2 88263 #### [facility],[address] [place] [address] 54429 AST [Catalytic activity/Vol] 42 U/L High 15 - 37 [facility] Comment on above: Performed By: #### 2 89022 #### [facility],[address] [place], [place] [phone] B/C RATIO 19 ratio Normal 0 - 30 [facility] Comment on above: Performed By: #### 2 95603 #### [facility],[address] [place] [address] 15244 Bilirubin [Mass/Vol] 0.9 mg/dL Normal 0.2 - 1.0 [facility] Comment on above: Performed By: #### 2 30157 #### [facility],[address] [place], [place] [phone] Calcium [Mass/Vol] 8.8 mg/dL Normal 8.5 - 10.1 [facility] Comment on above: Performed By: #### 2 77652 #### [facility],[address] [place], [place] [phone] Chloride [Moles/Vol] 107 mmol/L Normal 98 - 107 [facility] Comment on above: Performed By: #### 2 13417 #### [facility],[address] [place], [place] [phone] CMP with eGFR Normal [facility] Comment on above: Result Comment: COMP REHENSIVE METABOLIC PANEL Performed By: #### 2 36974 #### [facility],[address] [place] [address] 17006 CO2 [Moles/Vol] 27.0 mmol/L Normal 21.0 - 32.0 [facility] Comment on above: Performed By: #### 2 18181 #### [facility],[address] [place] [address] 72121 Creatinine [Mass/Vol] 1.23 mg/dL Normal 0.70 - 1.30 [facility] Comment on above: Performed By: #### 2 25200 #### [facility],[address] [place], [place] [phone] eGFR 57 ML/MINUTE Low 60 - 999 [facility] Comment on above: Performed By: #### 2 31631 #### [facility],[address] [place] [address] 01374 GFR/1.73 sq M.predicted among non-blacks MDRD (S/P/Bld) [Vol rate/Area] mL/min/{1.73_m2} Normal 60 - 999 [facility] Comment on above: Result Comment: ACCO RDING TO THE NATIONAL KIDNEY DISEASE EDUCATION PROGRAM(NKDE), A NORMAL eGFR IS A VALUE GREATER THAN OR EQUAL TO 60 ML/MIN/1.73 SQ METERS. CHRONIC KIDNEY DISEASE: <60mL/MIN/1.73 SQ METERS KIDNEY FAILURE: <15mL/MIN/1.73 SQ METERS THIS TEST SHOULD ONLY BE USED FOR PATIENTS 18 YEARS OF AGE AND OLDER. Performed By: #### 2 95983 #### [facility],[address] [place] [address] 11372 Globulin (S) [Mass/Vol] 3.8 g/dL Normal 1.5 - 3.8 [facility] Comment on above: Performed By: #### 2 54556 #### [facility],[address] [place] [address] 60021 Glucose [Mass/Vol] 97 mg/dL Normal 74 - 106 [facility] Comment on above: Performed By: #### 2 77703 #### [facility],[address] [place] [address] 41195 Potassium [Moles/Vol] 4.6 mmol/L Normal 3.5 - 5.1 [facility] Comment on above: Performed By: #### 2 22394 #### [facility],[address] [place] [address] 07905 Protein [Mass/Vol] 7.6 g/dL Normal 6.4 - 8.2 [facility] Comment on above: Performed By: #### 2 01926 #### [facility],[address] [place] [address] 85201 Sodium [Moles/Vol] 143 mmol/L Normal 136 - 145 [facility] Comment on above: Performed By: #### 2 47475 #### [facility],[address] [place] [address] 56250 Urea nitrogen [Mass/Vol] 23 mg/dL High 7 - 18 [facility] Comment on above: Performed By: #### 2 31104 #### [facility],[address] [place] [address] 33745 CBC + DIFFon 04-04-2024 Baso # 0.01 x10EE3/UL Normal 0.00 - 0.10 [facility] Comment on above: Performed By: #### 2 08425 #### [facility],[address] [place] [address] 44365 Basophils/100 WBC (Bld) 0.2 % Normal 0.0 - 2.0 [facility] Comment on above: Performed By: #### 2 71553 #### [facility],[address] [place] [address] 13921 CBC + DIFF Normal [facility] Comment on above: Result Comment: CBC- COMPLETE BLOOD COUNT Performed By: #### 2 08913 #### [facility],[address] [place] [address] 40130 EO # 0.15 x10EE3/UL Normal 0.00 - 0.50 [facility] Comment on above: Performed By: #### 2 65497 #### [facility],[address] [place] [address] 21532 Eosinophils/100 WBC (Bld) 2.2 % Normal 0.0 - 7.0 [facility] Comment on above: Performed By: #### 2 22698 #### [facility],[address] [place] [address] 24201 Erythrocyte distribution width (RBC) [Ratio] 13.3 % Normal 12.0 - 15.6 [facility] Comment on above: Performed By: #### 2 83319 #### [facility],[address] [place] [address] 97022 Hematocrit (Bld) [Volume fraction] 39.4 % Low 40.0 - 52.0 [facility] Comment on above: Performed By: #### 2 41329 #### [facility],[address] [place] [address] Hemoglobin (Bld) [Mass/Vol] 12.6 g/dL Low 13.0 - 17.5 [facility] Comment on above: Performed By: #### 2 30616 #### [facility],[address] [place] [address] Lymph # 2.27 x10EE3/UL Normal 0.80 - 2.80 [facility] Comment on above: Performed By: #### 2 41778 #### [facility],[address] [place] [address] Lymphocytes/100 WBC (Bld) 33.1 % Normal 20.0 - 45.0 [facility] Comment on above: Performed By: #### 2 43571 #### [facility],[address] [place] [address] MANUAL DIFF N/A Normal [facility] Comment on above: Performed By: #### 2 02036 #### [facility],[address] [place] [address] MCH (RBC) [Entitic mass] 33 pg Normal 27 - 33 [facility] Comment on above: Performed By: #### 2 07051 #### [facility],[address] [place] [address] MCHC 32 X10 3 Normal 32 - 36 [facility] Comment on above: Performed By: #### 2 68438 #### [facility],[address] [place], [place] [id number] MCV (RBC) [Entitic vol] 103 fL High 81 - 98 [facility] Comment on above: Performed By: #### 2 87596 #### [facility],[address] [place] [address] [place] # 0.48 x10EE3/UL Normal 0.20 - 1.00 [facility] Comment on above: Performed By: #### 2 32827 #### [facility],[address] [place] [address] 61051 MONOS % 7.0 % Normal 0.0 - 10.0 [facility] Comment on above: Performed By: #### 2 04152 #### [facility],[address] [place] [address] 27213 Morphology German (Bld) [Interp] N/A Normal [facility] Comment on above: Performed By: #### 2 18106 #### [facility],[address] [place] [address] 36413 Neut # 3.94 x10EE3/UL Normal 1.50 - 7.10 [facility] Comment on above: Performed By: #### 2 53109 #### [facility],[address] [place] [address] 48903 Neutrophils/100 WBC (Bld) 57.6 % Normal 46.0 - 76.0 [facility] Comment on above: Performed By: #### 2 24536 #### [facility],[address] [place] [address] 70939 PLATELET 270 x10EE3/UL Normal 150 - 450 [facility] Comment on above: Performed By: #### 2 32570 #### [facility],[address] [place] [address] 68315 Platelet mean volume (Bld) [Entitic vol] 7.9 fL Normal 6.4 - 10.5 [facility] Comment on above: Result Comment: AUTO MATED DIFFERENTIAL Performed By: #### 2 99065 #### [facility],[address] [place] [address] 78797 RBC 3.82 x 10EE6/UL Low 4.50 - 6.00 [facility] Comment on above: Performed By: #### 2 08051 #### [facility],[address] [place] [address] 06727 WBC 6.9 x 10EE3/UL Normal 4.5 - 10.8 [facility] Comment on above: Performed By: #### 2 13200 #### [facility],[address] [place] [address] 82545 CMP with eGFRon 04-04-2024 AGE 78 years Normal [facility] Comment on above: Performed By: #### 2 27987 #### [facility],[address] [place] [address] 53627 Albumin [Mass/Vol] 4.1 g/dL Normal 3.4 - 5.0 [facility] Comment on above: Performed By: #### 2 23809 #### [facility],[address] [place], [place] [phone] Albumin/Globulin [Mass ratio] 1.1 {ratio} Normal 0.9 - 1.6 [facility] Comment on above: Performed By: #### 2 54065 #### [facility],[address] [place] [address] 54292 ALK PHOS 68 U/L Normal 46 - 116 [facility] Comment on above: Performed By: #### 2 05649 #### [facility],[address] [place] [address] 40671 ALT [Catalytic activity/Vol] 37 U/L Normal 16 - 63 [facility] Comment on above: Performed By: #### 2 75632 #### [facility],[address] [place] [address] 10002 Anion gap [Moles/Vol] 16 mmol/L Normal 10 - 20 [facility] Comment on above: Performed By: #### 2 29531 #### [facility],[address] [place] [address] 54807 AST [Catalytic activity/Vol] 37 U/L Normal 15 - 37 [facility] Comment on above: Performed By: #### 2 44530 #### [facility],[address] [place] [address] 18092 B/C RATIO 19 ratio Normal 0 - 30 [facility] Comment on above: Performed By: #### 2 82825 #### [facility],[address] [place], [place] [phone] Bilirubin [Mass/Vol] 0.9 mg/dL Normal 0.2 - 1.0 [facility] Comment on above: Performed By: #### 2 26887 #### [facility],[address] [place] [address] Calcium [Mass/Vol] 9.7 mg/dL Normal 8.5 - 10.1 [facility] Comment on above: Performed By: #### 2 16026 #### [facility],[address] [place] [address] Chloride [Moles/Vol] 105 mmol/L Normal 98 - 107 [facility] Comment on above: Performed By: #### 2 12090 #### [facility],[address] [place] [address] CMP with eGFR Normal [facility] Comment on above: Result Comment: COMP REHENSIVE METABOLIC PANEL Performed By: #### 2 18406 #### [facility],[address] [place], [place] [phone] CO2 [Moles/Vol] 25.2 mmol/L Normal 21.0 - 32.0 [facility] Comment on above: Performed By: #### 2 48989 #### [facility],[address] [place], [place] [phone] Creatinine [Mass/Vol] 1.37 mg/dL High 0.70 - 1.30 [facility] Comment on above: Performed By: #### 2 41788 #### [facility],[address] [place], [place] [phone] eGFR 50 ML/MINUTE Low 60 - 999 [facility] Comment on above: Performed By: #### 2 17151 #### [facility],[address] [place] [address] 09163 GFR/1.73 sq M.predicted among non-blacks MDRD (S/P/Bld) [Vol rate/Area] mL/min/{1.73_m2} Normal 60 - 999 [facility] Comment on above: Result Comment: ACCO RDING TO THE NATIONAL KIDNEY DISEASE EDUCATION PROGRAM(NKDE), A NORMAL eGFR IS A VALUE GREATER THAN OR EQUAL TO 60 ML/MIN/1.73 SQ METERS. CHRONIC KIDNEY DISEASE: <60mL/MIN/1.73 SQ METERS KIDNEY FAILURE: <15mL/MIN/1.73 SQ METERS THIS TEST SHOULD ONLY BE USED FOR PATIENTS 18 YEARS OF AGE AND OLDER. Performed By: #### 2 51577 #### [address] [address] Globulin (S) [Mass/Vol] 3.9 g/dL High 1.5 - 3.8 [facility] Comment on above: Performed By: #### 2 83910 #### [address] [address] Glucose [Mass/Vol] 128 mg/dL High 74 - 106 [facility] Comment on above: Performed By: #### 2 19372 #### [address] [address] Potassium [Moles/Vol] 4.4 mmol/L Normal 3.5 - 5.1 [facility] Comment on above: Performed By: #### 2 11079 #### [address] [address] Protein [Mass/Vol] 8.0 g/dL Normal 6.4 - 8.2 [facility] Comment on above: Performed By: #### 2 55383 #### [address] [address] Sodium [Moles/Vol] 142 mmol/L Normal 136 - 145 [facility] Comment on above: Performed By: #### 2 72194 #### [address],[place] [address] Urea nitrogen [Mass/Vol] 26 mg/dL High 7 - 18 [facility] Comment on above: Performed By: #### 2 48406 #### [facility],[address] [place] [address] 97285 MR LUMBAR SP WO CONTRASTon 1 MR LUMBAR SP WO CONTRAST [address] [address] Patient: HERIBERTO HUYNH Phone#: : 1945 Age: 78 Gender: M Pt. Type: Out Account: [id number] Location: [facility] Ordering: JOSIAH CHRISTINE Exam Date: 03/05/2024/13:24 Family Phys: Charge Code: [id number] Physician: Laurel Order #: [id number] Dose#: PROCEDURE: MRI LUMBAR SPINE WITHOUT CONTRAST COMPARISON: None. INDICATIONS: Chronic lumbar radiculopathy TECHNIQUE: A variety of imaging planes and parameters were utilized for visualization of suspected pathology. FINDINGS: PARASPINAL AREA: Normal with no visible mass. BONES: No fracture, pars defect, or osseous lesion. Bony hypertrophy is present at the articular facets at multiple levels. CORD/CAUDA EQUINA: Normal caliber, contour, and signal intensity. LUMBAR DISC LEVELS: L1-L2: Mild annular disc bulging is present. There is mild bilateral foraminal narrowing. L2-L3: Disc degeneration disc space narrowing is present. There is annular disc bulging. There is moderate right foraminal narrowing. There is moderate to severe left foraminal narrowing. There is moderate to severe spinal canal narrowing. There is bony hypertrophy at the articular facettes. L3-L4: Disc degeneration is present. There is annular disc bulging. Articular facet hypertrophy is present. There is thickening of the ligamentum flavum. There is severe narrowing of the spinal canal. There is moderate bilateral foraminal narrowing. L4-L5: Annular disc bulging is present. There is focal broad-based disc bulging centrally and to the right. Bony hypertrophy is present at the articular facettes. There is thickening of the ligamentum flavum. There is moderate narrowing of the foramina bilaterally. L5-S1: Broad-based disc bulging is present centrally and to the right. There is bony hypertrophy at the articular facettes. There is moderate to severe right foraminal narrowing. There is moderate left foraminal narrowing. CONCLUSION: 1. Severe degenerative changes are present at multiple levels. 2. Foraminal stenosis is present most severe at L2-3, L3-4 and L4-5. 3. Right foraminal narrowing is most marked at the L3-4, L4-5 and L5-S1 levels. 4. Left foraminal narrowing is most marked at L2-3, L3-4, L4-5 levels. Continued Report - Page 2 of 2 Patient: HERIBERTO HUYNH Phone#: : 1945 Age: 78 Gender: M Pt. Type: Out Account: [id number] Location: 052 Ordering: [employer] Exam Date: 03/05/2024/13:24 Family Phys: Charge Code: [id number] Physician: Laurel Order #: [id number] Dose#: Dictated by: Kym Foster MD on 03/06/2024 at 8:23 Approved by: Kym Foster MD on 03/06/2024 at 8:28 Normal [facility] LUMBO SACRAL COMPLETE MIN 4 VIEWSon 02-22-2024 LUMBO SACRAL COMPLETE MIN 4 VIEWS [place] [address] Patient: HERIBERTO HUYNH Phone#: : 1945 Age: 78 Gender: M Pt. Type: Out Account: [id number] Location: 052 Ordering: [employer] Exam Date: 02/22/2024/12:03 Family Phys: Charge Code: [id number] Physician: Laurel Order #: [id number] Dose#: PROCEDURE: X-RAY LUMBAR SPINE COMPLETE MIN 4 VIEWS COMPARISON: None. INDICATIONS: Hip pain. FINDINGS: BONES: Degenerative changes of the spine are present. There is mild curvature of the spine to the right. Osteophytes are present at the endplates. DISC SPACES: Disc space narrowing is present at multiple levels. Vacuum phenomenon is present. PARASPINOUS: Calcification of the aorta is present without aneurysmal dilatation. Surgical clips are present in the right upper abdomen. Surgical sutures present in the right lower abdomen. OTHER: Negative. CONCLUSION: 1. Moderate degenerative changes of the spine are present. Dictated by: Kym Foster MD on 02/22/2024 at 14:32 Approved by: Kym Foster MD on 02/22/2024 at 14:57 Normal [facility] CBC + DIFFon 02-05-2024 Baso # 0.03 x10EE3/UL Normal 0.00 - 0.10 [facility] Comment on above: Performed By: #### 2 59299 #### [facility],[address] [place] [address] Basophils/100 WBC (Bld) 0.3 % Normal 0.0 - 2.0 [facility] Comment on above: Performed By: #### 2 82743 #### [facility],[address] [place] [address] CBC + DIFF Normal [facility] Comment on above: Result Comment: CBC- COMPLETE BLOOD COUNT Performed By: #### 2 47635 #### [facility],[address] [place] [address] EO # 0.07 x10EE3/UL Normal 0.00 - 0.50 [facility] Comment on above: Performed By: #### 2 96749 #### [facility],[address] [place] [address] Eosinophils/100 WBC (Bld) 0.9 % Normal 0.0 - 7.0 [facility] Comment on above: Performed By: #### 2 37558 #### [facility],[address] [place] [address] Erythrocyte distribution width (RBC) [Ratio] 13.8 % Normal 12.0 - 15.6 [facility] Comment on above: Performed By: #### 2 85043 #### [facility],[address] [place] [address] 31660 Hematocrit (Bld) [Volume fraction] 40.3 % Normal 40.0 - 52.0 [facility] Comment on above: Performed By: #### 2 16895 #### [facility],[address] [place] [address] 83372 Hemoglobin (Bld) [Mass/Vol] 13.2 g/dL Normal 13.0 - 17.5 [facility] Comment on above: Performed By: #### 2 71056 #### [facility],[address] [place] [address] 83993 Lymph # 2.27 x10EE3/UL Normal 0.80 - 2.80 [facility] Comment on above: Performed By: #### 2 63643 #### [facility],[address] [place] [address] 60941 Lymphocytes/100 WBC (Bld) 28.0 % Normal 20.0 - 45.0 [facility] Comment on above: Performed By: #### 2 51388 #### [facility],[address] [place] [address] 43205 MANUAL DIFF N/A Normal [facility] Comment on above: Performed By: #### 2 50286 #### [facility],[address] [place] [address] 05027 MCH (RBC) [Entitic mass] 33 pg Normal 27 - 33 [facility] Comment on above: Performed By: #### 2 74844 #### [facility],[address] [place] [address] 76020 MCHC 33 X10 3 Normal 32 - 36 [facility] Comment on above: Performed By: #### 2 38431 #### [facility],[address] [place] [address] 05481 MCV (RBC) [Entitic vol] 101 fL High 81 - 98 [facility] Comment on above: Performed By: #### 2 75547 #### [facility],[address] [place] [address]250 [place] # 0.78 x10EE3/UL Normal 0.20 - 1.00 [facility] Comment on above: Performed By: #### 2 64866 #### [facility],[address] [place] [address] 44715 MONOS % 9.6 % Normal 0.0 - 10.0 [facility] Comment on above: Performed By: #### 2 95051 #### [facility],[address] [place] [address] 99453 Morphology German (Bld) [Interp] N/A Normal [facility] Comment on above: Performed By: #### 2 40181 #### [facility],[address] [place] [address] 33833 Neut # 4.96 x10EE3/UL Normal 1.50 - 7.10 [facility] Comment on above: Performed By: #### 2 74523 #### [facility],[address] [place] [address] 36390 Neutrophils/100 WBC (Bld) 61.1 % Normal 46.0 - 76.0 [facility] Comment on above: Performed By: #### 2 83658 #### [facility],[address] [place] [address] 44664 PLATELET 290 x10EE3/UL Normal 150 - 450 [facility] Comment on above: Performed By: #### 2 11828 #### [facility],[address] [place] [address] 05963 Platelet mean volume (Bld) [Entitic vol] 8.1 fL Normal 6.4 - 10.5 [facility] Comment on above: Result Comment: AUTO MATED DIFFERENTIAL Performed By: #### 2 49387 #### [facility],[address] [place] [address] 60744 RBC 3.99 x 10EE6/UL Low 4.50 - 6.00 [facility] Comment on above: Performed By: #### 2 98648 #### [facility],[address] [place] [address] 45931 WBC 8.1 x 10EE3/UL Normal 4.5 - 10.8 [facility] Comment on above: Performed By: #### 2 41349 #### [facility],[address] [place] [address] 31665 CMP with eGFRon 02-05-2024 AGE 78 years Normal [facility] Comment on above: Performed By: #### 2 82615 #### [facility],[address] [place] [address] 63985 Albumin [Mass/Vol] 4.1 g/dL Normal 3.4 - 5.0 [facility] Comment on above: Performed By: #### 2 94815 #### [facility],[address] [place] [address] 98845 Albumin/Globulin [Mass ratio] 1.0 {ratio} Normal 0.9 - 1.6 [facility] Comment on above: Performed By: #### 2 06124 #### [facility],[address] [place] [address] 56495 ALK PHOS 68 U/L Normal 46 - 116 [facility] Comment on above: Performed By: #### 2 05136 #### [facility],[address] [place] [address] 91426 ALT [Catalytic activity/Vol] 33 U/L Normal 16 - 63 [facility] Comment on above: Performed By: #### 2 29773 #### [facility],[address] [place] [address] 21416 Anion gap [Moles/Vol] 11 mmol/L Normal 10 - 20 [facility] Comment on above: Performed By: #### 2 60119 #### [facility],[address] [place] [address] 50748 AST [Catalytic activity/Vol] 32 U/L Normal 15 - 37 [facility] Comment on above: Performed By: #### 2 30776 #### [facility],[address] [place] [address] 61313 B/C RATIO 18 ratio Normal 0 - 30 [facility] Comment on above: Performed By: #### 2 08980 #### [facility],[address] [place] [address] 11104 Bilirubin [Mass/Vol] 0.6 mg/dL Normal 0.2 - 1.0 [facility] Comment on above: Performed By: #### 2 34409 #### [facility],[address] [place] [address] 13599 Calcium [Mass/Vol] 9.2 mg/dL Normal 8.5 - 10.1 [facility] Comment on above: Performed By: #### 2 80089 #### [facility],[address] [place] [address] 09795 Chloride [Moles/Vol] 105 mmol/L Normal 98 - 107 [facility] Comment on above: Performed By: #### 2 72775 #### [facility],[address] [place] [address] 03928 CMP with eGFR Normal [facility] Comment on above: Result Comment: COMP REHENSIVE METABOLIC PANEL Performed By: #### 2 26851 #### [facility],[address] [place] [address] 13845 CO2 [Moles/Vol] 28.6 mmol/L Normal 21.0 - 32.0 [facility] Comment on above: Performed By: #### 2 67419 #### [facility],[address] [place] [address] 03338 Creatinine [Mass/Vol] 1.33 mg/dL High 0.70 - 1.30 [facility] Comment on above: Performed By: #### 2 63402 #### [facility],[address] [place] [address] 29001 eGFR 52 ML/MINUTE Low 60 - 999 [facility] Comment on above: Performed By: #### 2 98131 #### [facility],[address] [place] [address] 19459 GFR/1.73 sq M.predicted among non-blacks MDRD (S/P/Bld) [Vol rate/Area] mL/min/{1.73_m2} Normal 60 - 999 [facility] Comment on above: Result Comment: ACCO RDING TO THE NATIONAL KIDNEY DISEASE EDUCATION PROGRAM(NKDE), A NORMAL eGFR IS A VALUE GREATER THAN OR EQUAL TO 60 ML/MIN/1.73 SQ METERS. CHRONIC KIDNEY DISEASE: <60mL/MIN/1.73 SQ METERS KIDNEY FAILURE: <15mL/MIN/1.73 SQ METERS THIS TEST SHOULD ONLY BE USED FOR PATIENTS 18 YEARS OF AGE AND OLDER. Performed By: #### 2 60685 #### [facility],[address] [place] [address] 23822 Globulin (S) [Mass/Vol] 4.0 g/dL High 1.5 - 3.8 [facility] Comment on above: Performed By: #### 2 14371 #### [facility],[address] [place] [address] 20112 Glucose [Mass/Vol] 107 mg/dL High 74 - 106 [facility] Comment on above: Performed By: #### 2 72141 #### [facility],[address] [place] [address] 16902 Potassium [Moles/Vol] 4.5 mmol/L Normal 3.5 - 5.1 [facility] Comment on above: Performed By: #### 2 55804 #### [facility],[address] [place] [address] 47263 Protein [Mass/Vol] 8.1 g/dL Normal 6.4 - 8.2 [facility] Comment on above: Performed By: #### 2 97966 #### [facility],[address] [place] [address] 22151 Sodium [Moles/Vol] 140 mmol/L Normal 136 - 145 [facility] Comment on above: Performed By: #### 2 34117 #### [facility],[address] [place] [address] 34741 Urea nitrogen [Mass/Vol] 24 mg/dL High 7 - 18 [facility] Comment on above: Performed By: #### 2 63589 #### [facility],[address] [place] [address] 51154 HIP COMPLETE LT MIN 2 VIEWS W/PELVISon 02-01-2024 HIP COMPLETE LT MIN 2 VIEWS W/PELVIS [place] [address] Patient: HERIBERTO HUYNH Phone#: : 1945 Age: 78 Gender: M Pt. Type: Out Account: [id number] Location: [facility] Ordering: JOSAIH CHRISTINE Exam Date: 02/01/2024/11:21 Family Phys: Charge Code: [id number] Physician: Laurel Order #: [id number] Dose#: PROCEDURE: X-RAY HIP LT COMPLETE MIN 2 VIEWS W/PELVIS COMPARISON: None. INDICATIONS: Hip pain. FINDINGS: BONES: Degenerative changes are present at the spine, SI joints and hip joints. SOFT TISSUES: Soft tissue calcification is present inferior to the right ischium. EFFUSION: None visible. OTHER: Negative. CONCLUSION: 1. Degenerative changes are present. There is no evidence of acute bone abnormality. Dictated by: Kym Foster MD on 02/01/2024 at 13:47 Approved by: Kym Foster MD on 02/01/2024 at 13:50 Normal [facility] CMP with eGFRon 11-24-2023 AGE 77 years Normal [facility] Comment on above: Performed By: #### 2 71725 #### [facility],[address] [place] [address] 91375 Albumin [Mass/Vol] 3.9 g/dL Normal 3.4 - 5.0 [facility] Comment on above: Performed By: #### 2 82821 #### [facility],[address] [place] [address] 69475 Albumin/Globulin [Mass ratio] 1.1 {ratio} Normal 0.9 - 1.6 [facility] Comment on above: Performed By: #### 2 60775 #### [facility],[address] [place] [address] 20446 ALK PHOS 57 U/L Normal 46 - 116 [facility] Comment on above: Performed By: #### 2 23744 #### [facility],[address] [place] [address] 70392 ALT [Catalytic activity/Vol] 42 U/L Normal 16 - 63 [facility] Comment on above: Performed By: #### 2 92829 #### [facility],[address] [place] [address] 68751 Anion gap [Moles/Vol] 13 mmol/L Normal 10 - 20 [facility] Comment on above: Performed By: #### 2 10367 #### [facility],[address] [place] [id number] AST [Catalytic activity/Vol] 36 U/L Normal 15 - 37 [facility] Comment on above: Performed By: #### 2 [id number] #### [facility],[address] [place] [address] 94310 B/C RATIO 27 ratio Normal 0 - 30 [facility] Comment on above: Performed By: #### 2 [id number] #### [facility],[address] [place] [address] 85908 Bilirubin [Mass/Vol] 0.8 mg/dL Normal 0.2 - 1.0 [facility] Comment on above: Performed By: #### 2 [id number] #### [facility],[address] [place] [address] 99038 Calcium [Mass/Vol] 9.1 mg/dL Normal 8.5 - 10.1 [facility] Comment on above: Performed By: #### 2 [id number] #### [facility],[address] [place] [address] 03476 Chloride [Moles/Vol] 105 mmol/L Normal 98 - 107 [facility] Comment on above: Performed By: #### 2 [id number] #### [facility],[address] [place] [address] 91114 CMP with eGFR Normal [facility] Comment on above: Result Comment: COMP REHENSIVE METABOLIC PANEL Performed By: #### 2 [id number] #### [facility],[address] [place] [address] 16193 CO2 [Moles/Vol] 25.1 mmol/L Normal 21.0 - 32.0 [facility] Comment on above: Performed By: #### 2 [id number] #### [facility],[address] [place] [address] 11059 Creatinine [Mass/Vol] 1.15 mg/dL Normal 0.70 - 1.30 [facility] Comment on above: Performed By: #### 2 [id number] #### [facility],[address] [place] [address] 74311 GFR/1.73 sq M.predicted among non-blacks MDRD (S/P/Bld) [Vol rate/Area] mL/min/{1.73_m2} Normal 60 - 999 [facility] Comment on above: Performed By: #### 2 [id number] #### [facility],[address] [place] [address] 61054 Result Comment: ACCO RDING TO THE NATIONAL KIDNEY DISEASE EDUCATION PROGRAM(NKDE), A NORMAL eGFR IS A VALUE GREATER THAN OR EQUAL TO 60 ML/MIN/1.73 SQ METERS. CHRONIC KIDNEY DISEASE: <60mL/MIN/1.73 SQ METERS KIDNEY FAILURE: <15mL/MIN/1.73 SQ METERS THIS TEST SHOULD ONLY BE USED FOR PATIENTS 18 YEARS OF AGE AND OLDER. Globulin (S) [Mass/Vol] 3.7 g/dL Normal 1.5 - 3.8 [facility] Comment on above: Performed By: #### 2 [id number] #### [facility],[address] [place] [address] 31765 Glucose [Mass/Vol] 101 mg/dL Normal 74 - 106 [facility] Comment on above: Performed By: #### 2 [id number] #### [facility],[address] [place] [address] 66528 Potassium [Moles/Vol] 4.4 mmol/L Normal 3.5 - 5.1 [facility] Comment on above: Performed By: #### 2 88466 #### [facility],[address] [place] [address] 91925 Protein [Mass/Vol] 7.6 g/dL Normal 6.4 - 8.2 [facility] Comment on above: Performed By: #### 2 54714 #### [facility],[address] [place] [address] 60481 Sodium [Moles/Vol] 139 mmol/L Normal 136 - 145 [facility] Comment on above: Performed By: #### 2 74101 #### [facility],[address] [place] [address] 63730 Urea nitrogen [Mass/Vol] 31 mg/dL High 7 - 18 [facility] Comment on above: Performed By: #### 2 25543 #### [facility],[address] [place] [address] 43711 FOLATESon 11-24-2023 FOLATES 78.3 ng/ml High 8.6 - 58.9 [facility] Comment on above: Performed By: #### 2 [id number] #### [facility],[address] [place] [address] 55976 IRONon 11-24-2023 Iron [Mass/Vol] 115 ug/dL Normal 65 - 175 [facility] Comment on above: Performed By: #### 2 96523 #### [facility],[address] [place] [address] 20352 LIPID PROFILEon 11-24-2023 Cholesterol [Mass/Vol] 137 mg/dL Normal 0 - 240 [facility] Comment on above: Performed By: #### 2 [id number] #### [facility],[address] [place] [address] 21959 Cholesterol in HDL [Mass/Vol] 81 mg/dL High 40 - 60 [facility] Comment on above: Performed By: #### 2 [id number] #### [facility],[address] [place] [address] 58920 Cholesterol in LDL [Mass/Vol] 46 mg/dL Normal 0 - 129 [facility] Comment on above: Performed By: #### 2 07900 #### [facility],[address] [place] [address] 02854 Cholesterol.total/Chol esterol in HDL [Mass ratio] 1.7 {ratio} Normal 0.0 - 5.0 [facility] Comment on above: Performed By: #### 2 68532 #### [facility],[address] [place] [address] 14701 Lipid 1996 panel Normal [facility] Comment on above: Result Comment: LIPI D PROFILE Performed By: #### 2 [id number] #### [facility],[address] [place] [address] 72830 Triglyceride [Mass/Vol] 51 mg/dL Normal 0 - 150 [facility] Comment on above: Performed By: #### 2 60711 #### [facility],[address] [place] [address] 32270 MAGNESIUMon 11-24-2023 Magnesium [Mass/Vol] 2.1 mg/dL Normal 1.8 - 2.4 [facility] Comment on above: Performed By: #### 2 [id number] #### [facility],[address] [place] [address] 59975 Absolute lymphocyte countOrd ered By: Montse Haynes on 04-18-2023 Lymphocytes Auto (Unsp spec) [#/Vol] 1.77 10*3/uL 0.83-4.51 [facility] Basophil percentageOrdered B y: Montse Haynes on 04-18-2023 Basophils/100 WBC (Bld) 0.1 % 0-1 [facility] Bilirubin [Mass/Vol] 0.60 mg/dL 0.20-1.00 [facility] Comment on above: For patients on eltr ombopag therapy, use of Dimension [place] TBIL is not recommended. Chloride [Moles/Vol] 112 mmol/L 98-107 [facility] Eosinophils/100 WBC (Bld) 1.3 % 0-5 [facility] Glucose [Mass/Vol] 53 mg/dL 74-106 [facility] Neutrophils (Bld) [#/Vol] 4.1 10*3/uL 2.0-7.7 [facility] Neutrophils/100 WBC (Bld) 61.6 % 47-70 [facility] Potassium [Moles/Vol] 4.5 mmol/L 3.5-5.1 [facility] Protein [Mass/Vol] 7.6 g/dL 6.4-8.2 [facility] Sodium [Moles/Vol] 140 mmol/L 136-145 [facility] WBC (Bld) [#/Vol] 6.7 10*3/uL 4.4-11.0 [facility] Blood erythrocytes count (nu mber/volume)Ordered By: Montse Haynes on 04-18-2023 RBC (Bld) [#/Vol] 3.89 10*6/uL 4.6-6.2 [facility] Blood hemoglobin measurement (mass/volume)Ordered By: Montse Haynes on 04-18-2023 Hemoglobin (Bld) [Mass/Vol] 12.8 g/dL 13.0-16.5 [facility] Blood lymphocytes/100 leukoc ytesOrdered By: Montse Haynes on 04-18-2023 Lymphocytes/100 WBC (Bld) 26.3 % 19-41 [facility] Blood monocytes/100 leukocyt esOrdered By: Montse Haynes on 04-18-2023 Monocytes/100 WBC (Bld) 10.4 % 0-10 [facility] Blood platelet mean volumeOr dered By: Montse Haynes on 04-18-2023 Platelet mean volume (Bld) [Entitic vol] 9.5 fL 6.2-12.0 [facility] Determination of erythrocyte mean corpuscular volume (MCV)Ordered By: Montse Haynes on 04-18-2023 MCV (RBC) [Entitic vol] 104.4 fL 80-94 [facility] Hematocrit Auto (Bld) [Volum e fraction]Ordered By: Montse Haynes on 04-18-2023 Hematocrit (Bld) [Volume fraction] 40.6 % 40-54 [facility] Laboratory - Chemistry and C hemistry - challengeOrdered By: [facility]2023 ALP [Catalytic activity/Vol] 67 U/L 45-117 [facility] ALT [Catalytic activity/Vol] 39 U/L 16-61 [facility] CO2 [Moles/Vol] 24.0 mmol/L 21.0-32.0 [facility] Globulin (S) [Mass/Vol] 4.0 g/dL 2.2-4.2 [facility] Urea nitrogen/Creatinine [Mass ratio] 20.0 mg/mg 10-20 [facility] Laboratory - Hematology and Cell countsOrdered By: Montsekristin Haynes on 04-18-2023 Erythrocyte distribution width (RBC) [Entitic vol] 49.1 fL 35.1-43.9 [facility] Erythrocyte distribution width (RBC) [Ratio] 13.0 % 11.6-14.6 [facility] Immature granulocytes/100 WBC (Bld) 0.300 % 0.0-0.9 [facility] Comment on above: IG% - Immature Granu locytes (promyelocytes, myelocytes and metamyelocytes) > 1% indicates that a LEFT SHIFT is Present. MCH (RBC) [Entitic mass] 32.9 pg 27.0-32.0 [facility] Nucleated RBC/100 WBC (Bld) [Ratio] 0 % 0-5 [facility] MCHC Auto (RBC) [Mass/Vol]Or dered By: Montse Haynes on 04-18-2023 MCHC (RBC) [Mass/Vol] 31.5 g/dL 32-36 [facility] No Panel InformationOrdered By: Montse Haynes on 04-18-2023 Estimated GFR (MDRD) Amer 66 mL/min >60 [facility] Comment on above: GFR Calc Estimated GFR (MDRD) Non-Af Amer 55 mL/min >60 [facility] Comment on above: Non- GFR Calc Platelets bldOrdered By: Mabel Haynes on 04-18-2023 Platelets (Bld) [#/Vol] 287 10*3/uL 150-450 [facility] Serum or plasma albumin kale urement (mass/volume)Ordered By: Montse Haynes on 04-18-2023 Albumin [Mass/Vol] 3.6 g/dL 3.2-5.0 [facility] Serum or plasma albumin/glob ulin mass ratioOrdered By: Montse Haynes on 04-18-2023 Albumin/Globulin [Mass ratio] 0.9 {ratio} 0.9-2.4 [facility] Serum or plasma calcium kale urement (mass/volume)Ordered By: Montse Haynes on 04-18-2023 Calcium [Mass/Vol] 9.4 mg/dL 8.5-10.1 [facility] Serum or plasma creatinine m easurement (mass/volume)Ordered By: Montse Haynes on 04-18-2023 Creatinine [Mass/Vol] 1.35 mg/dL 0.70-1.30 [facility] Comment on above: The validity of the calculated GFR & GFRAA in patients over 70 years has not been determined. Clinical correlation is essential. Serum or plasma urea nitroge n measurement (mass/volume)Ordered By: Montse Haynes on 04-18-2023 Urea nitrogen [Mass/Vol] 27 mg/dL 7-18 [facility] Thin prep Papanicolaou smear with manual screeningOrdered By: Montse Haynes on 04-18-2023 Thin prep Papanicolaou smear with manual screening 31 U/L 15-37 [facility] Thin prep Papanicolaou smear with manual screening 4 5-15 [facility] Absolute lymphocyte countOrd ered By: Montse Haynes on 01-26-2023 Lymphocytes Auto (Unsp spec) [#/Vol] 2.01 10*3/uL 0.83-4.51 [facility] Basophil percentageOrdered B y: Montse Haynes on 01-26-2023 Basophils/100 WBC (Bld) 0.3 % 0-1 [facility] Bilirubin [Mass/Vol] 1.00 mg/dL 0.20-1.00 [facility] Comment on above: For patients on eltr ombopag therapy, use of Dimension [place] TBIL is not recommended. Chloride [Moles/Vol] 109 mmol/L 98-107 [facility] Eosinophils/100 WBC (Bld) 2.5 % 0-5 [facility] Glucose [Mass/Vol] 98 mg/dL 74-106 [facility] Neutrophils (Bld) [#/Vol] 3.7 10*3/uL 2.0-7.7 [facility] Neutrophils/100 WBC (Bld) 56.2 % 47-70 [facility] Potassium [Moles/Vol] 4.5 mmol/L 3.5-5.1 [facility] Protein [Mass/Vol] 7.5 g/dL 6.4-8.2 [facility] Sodium [Moles/Vol] 138 mmol/L 136-145 [facility] WBC (Bld) [#/Vol] 6.5 10*3/uL 4.4-11.0 [facility] Blood erythrocytes count (nu mber/volume)Ordered By: Montse aHynes on 01-26-2023 RBC (Bld) [#/Vol] 3.60 10*6/uL 4.6-6.2 [facility] Blood hemoglobin measurement (mass/volume)Ordered By: Montse Haynes on 01-26-2023 Hemoglobin (Bld) [Mass/Vol] 11.8 g/dL 13.0-16.5 [facility] Blood lymphocytes/100 leukoc ytesOrdered By: Montse Haynes on 01-26-2023 Lymphocytes/100 WBC (Bld) 30.8 % 19-41 [facility] Blood monocytes/100 leukocyt esOrdered By: Montse Haynes on 01-26-2023 Monocytes/100 WBC (Bld) 10.0 % 0-10 [facility] Blood platelet mean volumeOr dered By: Montse Haynes on 01-26-2023 Platelet mean volume (Bld) [Entitic vol] 10.0 fL 6.2-12.0 [facility] Determination of erythrocyte mean corpuscular volume (MCV)Ordered By: Montse Haynes on 01-26-2023 MCV (RBC) [Entitic vol] 104.7 fL 80-94 [facility] Hematocrit Auto (Bld) [Volum e fraction]Ordered By: Montse Haynes on 01-26-2023 Hematocrit (Bld) [Volume fraction] 37.7 % 40-54 [facility] Laboratory - Chemistry and C hemistry - challengeOrdered By: [facility] on 01-26-2023 ALP [Catalytic activity/Vol] 59 U/L 45-117 [facility] ALT [Catalytic activity/Vol] 38 U/L 16-61 [facility] CO2 [Moles/Vol] 25.0 mmol/L 21.0-32.0 [facility] Globulin (S) [Mass/Vol] 3.5 g/dL 2.2-4.2 [facility] Urea nitrogen/Creatinine [Mass ratio] 18.3 mg/mg 10-20 [facility] Laboratory - Hematology and Cell countsOrdered By: Montsekristin Haynes on 01-26-2023 Erythrocyte distribution width (RBC) [Entitic vol] 50.7 fL 35.1-43.9 [facility] Erythrocyte distribution width (RBC) [Ratio] 13.2 % 11.6-14.6 [facility] Immature granulocytes/100 WBC (Bld) 0.200 % 0.0-0.9 [facility] Comment on above: IG% - Immature Granu locytes (promyelocytes, myelocytes and metamyelocytes) > 1% indicates that a LEFT SHIFT is Present. MCH (RBC) [Entitic mass] 32.8 pg 27.0-32.0 [facility] Nucleated RBC/100 WBC (Bld) [Ratio] 0 % 0-5 [facility] MCHC Auto (RBC) [Mass/Vol]Or dered By: Montse Haynes on 01-26-2023 MCHC (RBC) [Mass/Vol] 31.3 g/dL 32-36 [facility] No Panel InformationOrdered By: Montse Haynes on 01-26-2023 Estimated GFR (MDRD) Amer 72 mL/min >60 [facility] Comment on above: GFR Calc Estimated GFR (MDRD) Non-Af Amer 59 mL/min >60 [facility] Comment on above: Non- GFR Calc Platelets bldOrdered By: Mabel Haynes on 01-26-2023 Platelets (Bld) [#/Vol] 242 10*3/uL 150-450 [facility] Serum or plasma albumin kale urement (mass/volume)Ordered By: Montse Haynes on 01-26-2023 Albumin [Mass/Vol] 4.0 g/dL 3.2-5.0 [facility] Serum or plasma albumin/glob ulin mass ratioOrdered By: Montse Haynes on 01-26-2023 Albumin/Globulin [Mass ratio] 1.1 {ratio} 0.9-2.4 [facility] Serum or plasma calcium kale urement (mass/volume)Ordered By: Montse Haynes on 01-26-2023 Calcium [Mass/Vol] 9.0 mg/dL 8.5-10.1 [facility] Serum or plasma creatinine m easurement (mass/volume)Ordered By: Montse Haynes on 01-26-2023 Creatinine [Mass/Vol] 1.26 mg/dL 0.70-1.30 [facility] Comment on above: The validity of the calculated GFR & GFRAA in patients over 70 years has not been determined. Clinical correlation is essential. Serum or plasma urea nitroge n measurement (mass/volume)Ordered By: Montse Haynes on 01-26-2023 Urea nitrogen [Mass/Vol] 23 mg/dL 7-18 [facility] Thin prep Papanicolaou smear with manual screeningOrdered By: Montse Haynes on 01-26-2023 Thin prep Papanicolaou smear with manual screening 30 U/L 15-37 [facility] Thin prep Papanicolaou smear with manual screening 4 5-15 [facility] Absolute lymphocyte countOrd ered By: Jem Pathak on 11-23-2022 Lymphocytes Auto (Unsp spec) [#/Vol] 2.21 10*3/uL 0.83-4.51 [facility] Basophil percentageOrdered B y: Jem Pathak on 11-23-2022 Basophils/100 WBC (Bld) 0.3 % 0-1 [facility] Bilirubin [Mass/Vol] 0.90 mg/dL 0.20-1.00 [facility] Comment on above: For patients on eltr ombopag therapy, use of Dimension [place] TBIL is not recommended. Chloride [Moles/Vol] 107 mmol/L 98-107 [facility] Eosinophils/100 WBC (Bld) 2.2 % 0-5 [facility] Glucose [Mass/Vol] 100 mg/dL 74-106 [facility] Comment on above: Fasting Glucose resu lt from 100 to 125 mg/dL suggests IMPAIRED HOMEOSTASIS per A.D.A. criteria. Neutrophils (Bld) [#/Vol] 4.2 10*3/uL 2.0-7.7 [facility] Neutrophils/100 WBC (Bld) 58.2 % 47-70 [facility] Potassium [Moles/Vol] 4.4 mmol/L 3.5-5.1 [facility] Protein [Mass/Vol] 8.1 g/dL 6.4-8.2 [facility] Sodium [Moles/Vol] 140 mmol/L 136-145 [facility] WBC (Bld) [#/Vol] 7.3 10*3/uL 4.4-11.0 [facility] Blood erythrocytes count (nu mber/volume)Ordered By: Jem Pathak on 11-23-2022 RBC (Bld) [#/Vol] 3.96 10*6/uL 4.6-6.2 [facility] Blood hemoglobin measurement (mass/volume)Ordered By: Jem Pathak on 11-23-2022 Hemoglobin (Bld) [Mass/Vol] 13.1 g/dL 13.0-16.5 [facility] Blood lymphocytes/100 leukoc ytesOrdered By: Jem Pathak on 11-23-2022 Lymphocytes/100 WBC (Bld) 30.4 % 19-41 [facility] Blood monocytes/100 leukocyt esOrdered By: Jem Pathak on 11-23-2022 Monocytes/100 WBC (Bld) 8.8 % 0-10 [facility] Blood platelet mean volumeOr dered By: Jem Pathak on 11-23-2022 Platelet mean volume (Bld) [Entitic vol] 10.1 fL 6.2-12.0 [facility] Determination of erythrocyte mean corpuscular volume (MCV)Ordered By: Jem Pathak on 11-23-2022 MCV (RBC) [Entitic vol] 104.3 fL 80-94 [facility] Hematocrit Auto (Bld) [Volum e fraction]Ordered By: Jem Pathak on 11-23-2022 Hematocrit (Bld) [Volume fraction] 41.3 % 40-54 [facility] Laboratory - Chemistry and C hemistry - challengeOrdered By: Jem Pathak on 11-23-2022 ALP [Catalytic activity/Vol] 64 U/L 45-117 [facility] ALT [Catalytic activity/Vol] 44 U/L 16-61 [facility] CO2 [Moles/Vol] 28.0 mmol/L 21.0-32.0 [facility] Globulin (S) [Mass/Vol] 4.0 g/dL 2.2-4.2 [facility] Urea nitrogen/Creatinine [Mass ratio] 28.9 mg/mg 10-20 [facility] Laboratory - Hematology and Cell countsOrdered By: Jem Pathak on 11-23-2022 Erythrocyte distribution width (RBC) [Entitic vol] 49.1 fL 35.1-43.9 [facility] Erythrocyte distribution width (RBC) [Ratio] 12.7 % 11.6-14.6 [facility] Immature granulocytes/100 WBC (Bld) 0.100 % 0.0-0.9 [facility] Comment on above: IG% - Immature Granu locytes (promyelocytes, myelocytes and metamyelocytes) > 1% indicates that a LEFT SHIFT is Present. MCH (RBC) [Entitic mass] 33.1 pg 27.0-32.0 [facility] Nucleated RBC/100 WBC (Bld) [Ratio] 0 % 0-5 [facility] MCHC Auto (RBC) [Mass/Vol]Or dered By: Jem Pathak on 11-23-2022 MCHC (RBC) [Mass/Vol] 31.7 g/dL 32-36 [facility] No Panel InformationOrdered By: Jem Pathak on 11-23-2022 Estimated GFR (MDRD) Amer 70 mL/min >60 [facility] Comment on above: GFR Calc Estimated GFR (MDRD) Non-Af Amer 58 mL/min >60 [facility] Comment on above: Non- GFR Calc Platelets bldOrdered By: Kevon Pathak on 11-23-2022 Platelets (Bld) [#/Vol] 271 10*3/uL 150-450 [facility] Serum or plasma albumin kale urement (mass/volume)Ordered By: Jem Pathak on 11-23-2022 Albumin [Mass/Vol] 4.1 g/dL 3.2-5.0 [facility] Serum or plasma albumin/glob ulin mass ratioOrdered By: Jem Pathak on 11-23-2022 Albumin/Globulin [Mass ratio] 1.0 {ratio} 0.9-2.4 [facility] Serum or plasma calcium kale urement (mass/volume)Ordered By: Jem Pathak on 11-23-2022 Calcium [Mass/Vol] 9.7 mg/dL 8.5-10.1 [facility] Serum or plasma creatinine m easurement (mass/volume)Ordered By: Jem Pathak on 11-23-2022 Creatinine [Mass/Vol] 1.28 mg/dL 0.70-1.30 [facility] Comment on above: The validity of the calculated GFR & GFRAA in patients over 70 years has not been determined. Clinical correlation is essential. Serum or plasma urea nitroge n measurement (mass/volume)Ordered By: Jem Pathak on 11-23-2022 Urea nitrogen [Mass/Vol] 37 mg/dL 7-18 [facility] Thin prep Papanicolaou smear with manual screeningOrdered By: Jem Pathak on 11-23-2022 Thin prep Papanicolaou smear with manual screening 36 U/L 15-37 [facility] Thin prep Papanicolaou smear with manual screening 5 5-15 [facility] Laboratory - Chemistry and C hemistry - challengeon 10-13-2022 25-hydroxyvitamin D3 [Mass/Vol] 56.90 ng/mL Normal 30.00 - 100 ng/mL [facility] Albumin [Mass/Vol] 4.1 g/dL Normal 3.4 - 5.0 g/dL [facility]. Albumin [Mass/Vol] 1.4 g/dL Normal 0.9 - 1.6 [facility]. ALP [Catalytic activity/Vol] 58 U/L Normal 46 - 116 U/L [facility]. ALT [Catalytic activity/Vol] 45 U/L Normal 16 - 63 U/L [facility] [employer] [facility]. Anion gap [Moles/Vol] 16 mmol/L Normal 10 - 2 0 mmol/L [facility].; [facility]. AST [Catalytic activity/Vol] 32 U/L Normal 15 - 37 U/L [facility] [employer] [facility]. Bilirubin [Mass/Vol] 0.7 mg/dL Normal 0.2 - 1 .0 mg/dL [facility] [employer] [employer] [facility] Calcium [Mass/Vol] 9.6 mg/dL Normal 8.5 - 10. 1 mg/dL [facility] [employer] [employer] [facility]. Chloride [Moles/Vol] 106 mmol/L Normal 98 - 10 7 mmol/L [facility]; [facility] [employer] [facility]. Cholesterol [Mass/Vol] 141 mg/dL Normal 0 - 2 40 mg/dL [facility].; [facility], [facility]. Cholesterol in HDL [Mass or moles/Vol] 74 mg/dL Abnormal 40 - 60 mg/dL [facility].; [facility]. Cholesterol in LDL [Mass/Vol] 52 mg/dL Normal 0 - 129 mg/dL [facility].; [facility] [employer] [employer] [facility]. Cholesterol.total/Chol esterol in HDL [Mass ratio] 1.9 {ratio} Normal 0.0 - 5.0 [facility].; [facility] [employer] [facility]. CO2 [Moles/Vol] 26.0 mmol/L Normal 21.0 - 32.0 mmol/L [facility].; [facility], [facility] Cobalamin (Vitamin B12) [Mass/Vol] 508 pg/mL Normal 193 - 986 pg/mL [facility].; [facility], [facility] Comprehensive metabolic 2000 panel CMP with eGFR Normal [facility]; [facility], [facility] Creatinine [Mass/Vol] 1.19 mg/dL Normal 0.70 - 1.30 mg/dL [facility]; [facility], [facility] Folate (RBC) [Mass/Vol] 82.9 ng/mL Abnormal 8.6 - 58.9 ng/mL [facility]; [facility], [facility]. Folate [Mass/Vol] FOLATES Normal [facility]; [facility], [facility] GFR/1.73 sq M.predicted among blacks MDRD (S/P/Bld) [Vol rate/Area] mL/min/{1.73_m2} Normal 60 - 999 {ML/MINUTE} [facility].; [facility], [facility]. GFR/1.73 sq M.predicted MDRD (S/P/Bld) [Vol rate/Area] 60 {ML/MINUTE} Normal 60 - 999 {ML/MINUTE} [facility].; [facility], [facility]. Globulin (S) [Mass/Vol] 2.9 g/dL Normal 1.5 - 3.8 g/dL [facility]; [facility], [facility]. Glucose [Mass/Vol] 96 mg/dL Normal 74 - 106 mg/dL [facility]; [facility], [facility]. Iron [Mass/Vol] 92 ug/dL Normal 65 - 175 ug/dL [facility]; [facility], [facility] Lipid 1996 panel LIPID PROFILE Normal [facility]; [facility], [facility] Magnesium [Mass/Vol] 2.2 mg/dL Normal 1.8 - 2 .4 mg/dL [facility]; [facility], [facility] Potassium [Moles/Vol] 5.3 mmol/L Abnormal 3.5 - 5.1 mmol/L [facility]; [facility], [facility] Prostate specific Ag [Mass/Vol] 2.06 ng/mL Normal 0.00 - 4.00 ng/mL [facility]; [facility] Protein [Mass/Vol] 7.0 g/dL Normal 6.4 - 8.2 g/dL [facility]; [facility] Sodium [Moles/Vol] 143 mmol/L Normal 136 - 145 mmol/L [facility]; [facility] [employer] [facility] Triglyceride [Mass/Vol] 73 mg/dL Normal 0 - 150 mg/dL [facility]; [facility] [employer] [facility] Urea nitrogen [Mass/Vol] 26 mg/dL Abnormal 7 - 18 mg/dL [facility]; [facility] Urea nitrogen/Creatinine [Mass ratio] 22 {ratio} Normal 0 - 30 {ratio} [facility]; [facility] [employer] [facility] Laboratory - Hematology and Cell countson 10-13-2022 Basophils (Bld) [#/Vol] 0.00 {3/UL} Normal 0.00 - 0.10 {3/UL} [facility]; [facility] [employer] [facility] Work Phone: Basophils/100 WBC (Bld) 0.5 % Normal 0.0 - 2.0 % [facility]; [facility] [employer] [facility] Work Phone: CBC W Auto Differential panel (Bld) CBC + DIFF Normal [facility]; [place] [employer] [facility] Work Phone: Eosinophils (Bld) [#/Vol] 0.10 {3/UL} Normal 0.00 - 0.50 {3/UL} [facility] [employer] [facility]; [place] [employer] [facility] Work Phone: Eosinophils/100 WBC (Bld) 1.9 % Normal 0.0 - 7.0 % [facility]; [facility] [employer] [employer] [facility] Work Phone: Erythrocyte distribution width (RBC) [Ratio] 13.5 % Normal 12.0 - 15.6 % [facility] [employer] [facility]; [place] [employer] [facility] Work Phone: Hematocrit (Bld) [Volume fraction] 37.0 % Abnormal 40.0 - 52.0 % [facility]; [facility] [employer] [facility] Work Phone: Hemoglobin (Bld) [Mass/Vol] 12.0 g/dL Abnormal 13.0 - 17.5 g/dL [facility]; [facility] [employer] [facility] Work Phone: [phone] Lymphocytes (Bld) [#/Vol] 1.60 {3/UL} Normal 0.80 - 2.80 {3/UL} [facility]; [facility] Work Phone: [phone] Lymphocytes/100 WBC (Bld) 27.0 % Normal 20.0 - 45.0 % [facility]; [facility] [employer] [facility] Work Phone: MCH (RBC) [Entitic mass] 33 pg Normal 27 - 33 pg [facility]; [facility] Work Phone: MCHC (RBC) [Mass/Vol] 33 {X10_3} Normal 32 - 3 6 {X10_3} [facility]; [facility] Work Phone: MCV (RBC) [Entitic vol] 102 fL Abnormal 81 - 98 fL [facility]; [facility] [employer] [facility] Work Phone: Monocytes (Bld) [#/Vol] 0.50 {3/UL} Normal 0.20 - 1.00 {3/UL} [facility]; [facility] Work Phone: Monocytes/100 WBC (Bld) 9.5 % Normal 0.0 - 10.0 % [facility]; [facility] Work Phone: Morphology German (Bld) [Interp] N/A Normal [facility]; [facility] Work Phone: Neutrophils (Bld) [#/Vol] 3.50 {3/UL} Normal 1.50 - 7.10 {3/UL} [facility] [employer]. Work Phone: Neutrophils/100 WBC (Bld) 61.1 % Normal 46.0 - 76.0 % [facility].; [place] [employer]. Work Phone: Platelet mean volume (Bld) [Entitic vol] 7.9 fL Normal 6.4 - 10.[address] [facility]; [place] [employer]. Work Phone: Platelets (Bld) [#/Vol] 296 {3/UL} Normal 150 - 450 {3/UL} [facility] [employer].; [place] [employer]. Work Phone: RBC (Bld) [#/Vol] 3.65 {6/UL} Abnormal 4.50 - 6.0 0 {6/UL} [facility].; [employer]. Work Phone: WBC (Bld) [#/Vol] 5.7 {3/UL} Normal 4.5 - 10.8 {3/UL} [facility] [employer].; [employer]. Work Phone: No Panel Informationon 10-13 AGE 76 {years} Normal [facility].; [employer]. ERROR DUE TO DILUTION Normal [facility].; [employer] MANUAL DIFF N/A Normal [facility].; [employer]. Work Phone: Absolute lymphocyte countOrd ered By: Dr. Haynes on 07-18-2022 Lymphocytes Auto (Unsp spec) [#/Vol] 2.66 10*3/uL 0.83-4.51 [facility] Basophil percentageOrdered B y: Dr. Haynes on 07-18-2022 Basophils/100 WBC (Bld) 0.5 % 0-1 [facility] Bilirubin [Mass/Vol] 0.70 mg/dL 0.20-1.00 [facility] Comment on above: For patients on eltr ombopag therapy, use of Dimension [place] TBIL is not recommended. Chloride [Moles/Vol] 105 mmol/L 98-107 [facility] Eosinophils/100 WBC (Bld) 1.4 % 0-5 [facility] Glucose [Mass/Vol] 113 mg/dL 74-106 [facility] Comment on above: Fasting Glucose resu lt from 100 to 125 mg/dL suggests IMPAIRED HOMEOSTASIS per A.D.A. criteria. Neutrophils (Bld) [#/Vol] 4.9 10*3/uL 2.0-7.7 [facility] Neutrophils/100 WBC (Bld) 57.6 % 47-70 [facility] Potassium [Moles/Vol] 4.8 mmol/L 3.5-5.1 [facility] Protein [Mass/Vol] 8.2 g/dL 6.4-8.2 [facility] Sodium [Moles/Vol] 137 mmol/L 136-145 [facility] WBC (Bld) [#/Vol] 8.4 10*3/uL 4.4-11.0 [facility] Blood erythrocytes count (nu mber/volume)Ordered By: Dr. Haynes on 07-18-2022 RBC (Bld) [#/Vol] 4.09 10*6/uL 4.6-6.2 [facility] Blood hemoglobin measurement (mass/volume)Ordered By: Dr. Haynes on 07-18-2022 Hemoglobin (Bld) [Mass/Vol] 13.2 g/dL 13.0-16.5 [facility] Blood lymphocytes/100 leukoc ytesOrdered By: Dr. Haynes on 07-18-2022 Lymphocytes/100 WBC (Bld) 31.5 % 19-41 [facility] Blood monocytes/100 leukocyt esOrdered By: Dr. Haynes on 07-18-2022 Monocytes/100 WBC (Bld) 8.8 % 0-10 [facility] Blood platelet mean volumeOr dered By: Dr. Haynes on 07-18-2022 Platelet mean volume (Bld) [Entitic vol] 9.1 fL 6.2-12.0 [facility] Determination of erythrocyte mean corpuscular volume (MCV)Ordered By: Dr. Haynes on 07-18-2022 MCV (RBC) [Entitic vol] 102.7 fL 80-94 [facility] Hematocrit Auto (Bld) [Volum e fraction]Ordered By: Dr. Haynes on 07-18-2022 Hematocrit (Bld) [Volume fraction] 42.0 % 40-54 [facility] Laboratory - Chemistry and C hemistry - challengeOrdered By: Dr. Haynes on 07-18-2022 ALP [Catalytic activity/Vol] 64 U/L 45-117 [facility] ALT [Catalytic activity/Vol] 53 U/L 16-61 [facility] CO2 [Moles/Vol] 24.0 mmol/L 21.0-32.0 [facility] Globulin (S) [Mass/Vol] 4.1 g/dL 2.2-4.2 [facility] Urea nitrogen/Creatinine [Mass ratio] 29.7 mg/mg 10-20 [facility] Laboratory - Hematology and Cell countsOrdered By: Dr. Haynes on 07-18-2022 Erythrocyte distribution width (RBC) [Entitic vol] 49.6 fL 35.1-43.9 [facility] Erythrocyte distribution width (RBC) [Ratio] 13.0 % 11.6-14.6 [facility] Immature granulocytes/100 WBC (Bld) 0.200 % 0.0-0.9 [facility] Comment on above: IG% - Immature Granu locytes (promyelocytes, myelocytes and metamyelocytes) > 1% indicates that a LEFT SHIFT is Present. MCH (RBC) [Entitic mass] 32.3 pg 27.0-32.0 [facility] Nucleated RBC/100 WBC (Bld) [Ratio] 0 % 0-5 [facility] MCHC Auto (RBC) [Mass/Vol]Or dered By: Dr. Haynes on 07-18-2022 MCHC (RBC) [Mass/Vol] 31.4 g/dL 32-36 [facility] No Panel InformationOrdered By: Dr. Haynes on 07-18-2022 Estimated GFR (MDRD) Amer 61 mL/min >60 [facility] Comment on above: GFR Calc Estimated GFR (MDRD) Non-Af Amer 50 mL/min >60 [facility] Comment on above: Non- GFR Calc Platelets bldOrdered By: Dr. Haynes on 07-18-2022 Platelets (Bld) [#/Vol] 258 10*3/uL 150-450 [facility] Serum or plasma albumin kale urement (mass/volume)Ordered By: Dr. Haynes on 07-18-2022 Albumin [Mass/Vol] 4.1 g/dL 3.2-5.0 [facility] Serum or plasma albumin/glob ulin mass ratioOrdered By: Dr. Haynes on 07-18-2022 Albumin/Globulin [Mass ratio] 1.0 {ratio} 0.9-2.4 [facility] Serum or plasma calcium kale urement (mass/volume)Ordered By: Dr. Haynes on 07-18-2022 Calcium [Mass/Vol] 9.3 mg/dL 8.5-10.1 [facility] Serum or plasma creatinine m easurement (mass/volume)Ordered By: Dr. Haynes on 07-18-2022 Creatinine [Mass/Vol] 1.45 mg/dL 0.70-1.30 [facility] Comment on above: The validity of the calculated GFR & GFRAA in patients over 70 years has not been determined. Clinical correlation is essential. Serum or plasma urea nitroge n measurement (mass/volume)Ordered By: Dr. Haynes on 07-18-2022 Urea nitrogen [Mass/Vol] 43 mg/dL 7-18 [facility] Thin prep Papanicolaou smear with manual screeningOrdered By: Dr. Haynes on 07-18-2022 Thin prep Papanicolaou smear with manual screening 36 U/L 15-37 [facility] Thin prep Papanicolaou smear with manual screening 8 5-15 [facility] Laboratory - Chemistry and C hemistry - challengeon 05-19-2022 Albumin [Mass/Vol] 3.8 g/dL Normal 3.4 - 5.0 g/dL [facility], [facility].; [facility] Albumin [Mass/Vol] 1.0 g/dL Normal 0.9 - 1.6 [facility].; [facility], [facility]. ALP [Catalytic activity/Vol] 79 U/L Normal 46 - 116 U/L [facility].; [facility]. ALT [Catalytic activity/Vol] 25 U/L Normal 16 - 63 U/L [facility].; [facility], [facility]. Anion gap [Moles/Vol] 16 mmol/L Normal 10 - 2 0 mmol/L [facility].; [facility]. AST [Catalytic activity/Vol] 28 U/L Normal 15 - 37 U/L [facility].; [facility], [facility] Bilirubin [Mass/Vol] 1.2 mg/dL Abnormal 0.2 - 1 .0 mg/dL [facility]; [facility], [facility] Calcium [Mass/Vol] 9.1 mg/dL Normal 8.5 - 10. 1 mg/dL [facility]; [facility], [facility] Chloride [Moles/Vol] 104 mmol/L Normal 98 - 10 7 mmol/L [facility]; [facility], [facility]. CO2 [Moles/Vol] 23.9 mmol/L Normal 21.0 - 32.0 mmol/L [facility]; [facility], [facility] Comprehensive metabolic 2000 panel CMP with eGFR Normal [facility]; [facility], [facility] Creatinine [Mass/Vol] 1.00 mg/dL Normal 0.70 - 1.30 mg/dL [facility].; [facility], [facility]. GFR/1.73 sq M.predicted among blacks MDRD (S/P/Bld) [Vol rate/Area] mL/min/{1.73_m2} Normal 60 - 999 {ML/MINUTE} [facility], [facility].; [facility]. GFR/1.73 sq M.predicted MDRD (S/P/Bld) [Vol rate/Area] mL/min/{1.73_m2} Normal 60 - 999 {ML/MINUTE} [facility], [facility].; [facility], [facility]. Globulin (S) [Mass/Vol] 3.9 g/dL Abnormal 1.5 - 3.8 g/dL [facility].; [facility], [facility]. Glucose [Mass/Vol] 91 mg/dL Normal 74 - 106 mg/dL [facility].; [facility], [facility] Potassium [Moles/Vol] 4.2 mmol/L Normal 3.5 - 5.1 mmol/L [facility].; [facility], [facility] Protein [Mass/Vol] 7.7 g/dL Normal 6.4 - 8.2 g/dL [facility].; [facility], [facility] Sodium [Moles/Vol] 140 mmol/L Normal 136 - 145 mmol/L [facility].; [facility], [facility] Urea nitrogen (U) [Mass/Vol] 1929 pg/mL Abnormal 0 - 450 pg/mL [facility].; [facility], [facility] Urea nitrogen [Mass/Vol] 17 mg/dL Normal 7 - 18 mg/dL [facility] [employer] [employer] [facility].; [facility], [facility] Urea nitrogen/Creatinine [Mass ratio] 17 {ratio} Normal 0 - 30 {ratio} [facility].; [facility] Laboratory - Hematology and Cell countson 05-19-2022 Basophils (Bld) [#/Vol] 0.00 {3/UL} Normal 0.00 - 0.10 {3/UL} [facility]; [facility], [facility] Basophils/100 WBC (Bld) 0.5 % Normal 0.0 - 2.0 % [facility].; [facility], [facility] CBC W Auto Differential panel (Bld) CBC + DIFF Normal [facility].; [facility], [facility] Eosinophils (Bld) [#/Vol] 0.10 {3/UL} Normal 0.00 - 0.50 {3/UL} [facility].; [facility], [facility] Eosinophils/100 WBC (Bld) 0.6 % Normal 0.0 - 7.0 % [facility].; [facility], [facility] Erythrocyte distribution width (RBC) [Ratio] 13.4 % Normal 12.0 - 15.6 % [facility].; [facility] Hematocrit (Bld) [Volume fraction] 37.4 % Abnormal 40.0 - 52.0 % [facility], [facility].; [place] [employer], [facility]. Hemoglobin (Bld) [Mass/Vol] 12.5 g/dL Abnormal 13.0 - 17.5 g/dL [facility], [facility].; [place] [employer], [facility]. Lymphocytes (Bld) [#/Vol] 1.50 {3/UL} Normal 0.80 - 2.80 {3/UL} [place] [employer], [facility].; [employer] Lymphocytes/100 WBC (Bld) 15.3 % Abnormal 20.0 - 45.0 % [place] [employer], [employer], [employer]. MCH (RBC) [Entitic mass] 33 pg Normal 27 - 33 pg [place] [employer] [facility].; [employer], [employer]. MCHC (RBC) [Mass/Vol] 33 {X10_3} Normal 32 - 3 6 {X10_3} [place] [employer].; [employer], [employer]. MCV (RBC) [Entitic vol] 100 fL Abnormal 81 - 98 fL [place] [employer] [facility].; [employer], [employer]. Monocytes (Bld) [#/Vol] 1.00 {3/UL} Normal 0.20 - 1.00 {3/UL} [place] [employer], [facility].; [employer] Monocytes/100 WBC (Bld) 10.1 % Abnormal 0.0 - 10.0 % [place] [employer], [facility].; [employer], [employer]. Morphology German (Bld) [Interp] N/A Normal [place] [employer] [facility].; [employer], [facility]. Neutrophils (Bld) [#/Vol] 7.10 {3/UL} Normal 1.50 - 7.10 {3/UL} [employer], [employer].; [employer] Neutrophils/100 WBC (Bld) 73.5 % Normal 46.0 - 76.0 % [place] [employer], [employer].; [employer] Platelet mean volume (Bld) [Entitic vol] 8.6 fL Normal 6.4 - 10.5 fL [employer] [facility].; [employer]. Platelets (Bld) [#/Vol] 251 {3/UL} Normal 150 - 450 {3/UL} [place] [employer].; [employer]. RBC (Bld) [#/Vol] 3.73 {6/UL} Abnormal 4.50 - 6.0 0 {6/UL} [place] [employer].; [employer]. WBC (Bld) [#/Vol] 9.7 {3/UL} Normal 4.5 - 10.8 {3/UL} [employer] No Panel Informationon 05-19 AGE 76 {years} Normal [place] [employer].; [employer] MANUAL DIFF N/A Normal [place] [facility] [facility].; [employer]. Absolute lymphocyte counton 02-15-2022 Lymphocytes Auto (Unsp spec) [#/Vol] 1.82 10*3/uL 0.83-4.51 [facility] Work Phone: Basophil percentageon 2021 Basophils/100 WBC (Bld) 0.2 % 0-1 [facility] Work Phone: Bilirubin [Mass/Vol] 0.90 mg/dL 0.20-1.00 [facility] Work Phone: Comment on above: For patients on eltr ombopag therapy, use of Dimension [place] TBIL is not recommended. Chloride [Moles/Vol] 109 mmol/L 98-107 [facility] Work Phone: Eosinophils/100 WBC (Bld) 0.8 % 0-5 [facility] Work Phone: Glucose [Mass/Vol] 108 mg/dL 74-106 [facility] Work Phone: Comment on above: Fasting Glucose resu lt from 100 to 125 mg/dL suggests IMPAIRED HOMEOSTASIS per A.D.A. criteria. Neutrophils (Bld) [#/Vol] 6.6 10*3/uL 2.0-7.7 [facility] Work Phone: Neutrophils/100 WBC (Bld) 71.4 % 47-70 [facility] Work Phone: Potassium [Moles/Vol] 4.6 mmol/L 3.5-5.1 [facility] Work Phone: Protein [Mass/Vol] 7.5 g/dL 6.4-8.2 [facility] Work Phone: Sodium [Moles/Vol] 141 mmol/L 136-145 [facility] Work Phone: WBC (Bld) [#/Vol] 9.3 10*3/uL 4.4-11.0 [facility] Work Phone: Blood erythrocytes count (nu mber/volume)on 02-15-2022 RBC (Bld) [#/Vol] 3.79 10*6/uL 4.6-6.2 [facility] Work Phone: Blood hemoglobin measurement (mass/volume)on 02-15-2022 Hemoglobin (Bld) [Mass/Vol] 13.1 g/dL 13.0-16.5 [facility] Work Phone: Blood lymphocytes/100 leukoc yteson 02-15-2022 Lymphocytes/100 WBC (Bld) 19.7 % 19-41 [facility] Work Phone: Blood monocytes/100 leukocyt eson 02-15-2022 Monocytes/100 WBC (Bld) 7.7 % 0-10 [facility] Work Phone: Blood platelet mean volumeon 02-15-2022 Platelet mean volume (Bld) [Entitic vol] 9.8 fL 6.2-12.0 [facility] Work Phone: Determination of erythrocyte mean corpuscular volume (MCV)on 02-15-2022 MCV (RBC) [Entitic vol] 106.1 fL 80-94 [facility] Work Phone: Hematocrit Auto (Bld) [Volum e fraction]on 02-15-2022 Hematocrit (Bld) [Volume fraction] 40.2 % 40-54 [facility] Work Phone: [phone] Laboratory - Chemistry and C hemistry - challengeon 02-15-2022 ALP [Catalytic activity/Vol] 59 U/L 45-117 [facility] Work Phone: ALT [Catalytic activity/Vol] 35 U/L 16-61 [facility] Work Phone: [phone] CO2 [Moles/Vol] 27.0 mmol/L 21.0-32.0 [facility] Work Phone: [phone] Globulin (S) [Mass/Vol] 3.8 g/dL 2.2-4.2 [facility] Work Phone: [phone] Urea nitrogen/Creatinine [Mass ratio] 33.3 mg/mg 10-20 [facility] Work Phone: [phone] Laboratory - Hematology and Cell countson 02-15-2022 Erythrocyte distribution width (RBC) [Entitic vol] 50.8 fL 35.1-43.9 [facility] Work Phone: [phone] Erythrocyte distribution width (RBC) [Ratio] 13.1 % 11.6-14.6 [facility] Work Phone: [phone] Immature granulocytes/100 WBC (Bld) 0.200 % 0.0-0.9 [facility] Work Phone: [phone] Comment on above: IG% - Immature Granu locytes (promyelocytes, myelocytes and metamyelocytes) > 1% indicates that a LEFT SHIFT is Present. MCH (RBC) [Entitic mass] 34.6 pg 27.0-32.0 [facility] Work Phone: [phone] Nucleated RBC/100 WBC (Bld) [Ratio] 0 % 0-5 [facility] Work Phone: [phone] MCHC Auto (RBC) [Mass/Vol]on 02-15-2022 MCHC (RBC) [Mass/Vol] 32.6 g/dL 32-36 [facility] Work Phone: No Panel Informationon 10-04 -2022 Estimated GFR (MDRD) Amer 89 mL/min >60 [facility] Work Phone: Comment on above: GFR Calc Estimated GFR (MDRD) Non-Af Amer 73 mL/min >60 [facility] Work Phone: Comment on above: Non- GFR Calc Platelets bldon 02-15-2022 Platelets (Bld) [#/Vol] 245 10*3/uL 150-450 [facility] Work Phone: Serum or plasma albumin kale urement (mass/volume)on 02-15-2022 Albumin [Mass/Vol] 3.7 g/dL 3.2-5.0 [facility] Work Phone: Serum or plasma albumin/glob ulin mass ratioon 02-15-2022 Albumin/Globulin [Mass ratio] 1.0 {ratio} 0.9-2.4 [facility] Work Phone: Serum or plasma calcium akle urement (mass/volume)on 02-15-2022 Calcium [Mass/Vol] 9.3 mg/dL 8.5-10.1 [facility] Work Phone: Serum or plasma creatinine m easurement (mass/volume)on 02-15-2022 Creatinine [Mass/Vol] 1.05 mg/dL 0.70-1.30 [facility] Work Phone: Comment on above: The validity of the calculated GFR & GFRAA in patients over 70 years has not been determined. Clinical correlation is essential. Serum or plasma urea nitroge n measurement (mass/volume)on 02-15-2022 Urea nitrogen [Mass/Vol] 35 mg/dL 7-18 [facility] Work Phone: Thin prep Papanicolaou smear with manual screeningon 02-15-2022 Thin prep Papanicolaou smear with manual screening 26 U/L 15-37 [facility] Work Phone: Thin prep Papanicolaou smear with manual screening 5 5-15 [facility] Work Phone: [phone] Absolute lymphocyte counton 11-17-2021 Lymphocytes Auto (Unsp spec) [#/Vol] 1.49 10*3/uL 0.83-4.51 [facility] Work Phone: Basophil percentageon 2021 Basophils/100 WBC (Bld) 0.2 % 0-1 [facility] Work Phone: [phone] Bilirubin [Mass/Vol] 0.80 mg/dL 0.20-1.00 [facility] Work Phone: Comment on above: For patients on eltr ombopag therapy, use of Dimension [place] TBIL is not recommended. Chloride [Moles/Vol] 111 mmol/L 98-107 [facility] Work Phone: [phone] Eosinophils/100 WBC (Bld) 1.3 % 0-5 [facility] Work Phone: Glucose [Mass/Vol] 102 mg/dL 74-106 [facility] Work Phone: Comment on above: Fasting Glucose resu lt from 100 to 125 mg/dL suggests IMPAIRED HOMEOSTASIS per A.D.A. criteria. Neutrophils (Bld) [#/Vol] 6.2 10*3/uL 2.0-7.7 [facility] Work Phone: [phone] Neutrophils/100 WBC (Bld) 74.1 % 47-70 [facility] Work Phone: [phone] Potassium [Moles/Vol] 4.4 mmol/L 3.5-5.1 [facility] [place] Work Phone: [phone] Protein [Mass/Vol] 7.1 g/dL 6.4-8.2 [facility] Work Phone: Sodium [Moles/Vol] 141 mmol/L 136-145 [facility] Work Phone: [phone] WBC (Bld) [#/Vol] 8.4 10*3/uL 4.4-11.0 [facility] Work Phone: Blood erythrocytes count (nu mber/volume)on 11-17-2021 RBC (Bld) [#/Vol] 3.81 10*6/uL 4.6-6.2 [facility] Work Phone: Blood hemoglobin measurement (mass/volume)on 11-17-2021 Hemoglobin (Bld) [Mass/Vol] 12.6 g/dL 13.0-16.5 [facility] Work Phone: Blood lymphocytes/100 leukoc yteson 11-17-2021 Lymphocytes/100 WBC (Bld) 17.7 % 19-41 [facility] Work Phone: Blood monocytes/100 leukocyt eson 11-17-2021 Monocytes/100 WBC (Bld) 6.3 % 0-10 [facility] Work Phone: Blood platelet mean volumeon 11-17-2021 Platelet mean volume (Bld) [Entitic vol] 9.5 fL 6.2-12.0 [facility] Work Phone: Determination of erythrocyte mean corpuscular volume (MCV)on 11-17-2021 MCV (RBC) [Entitic vol] 103.7 fL 80-94 [facility] Work Phone: Hematocrit Auto (Bld) [Volum e fraction]on 11-17-2021 Hematocrit (Bld) [Volume fraction] 39.5 % 40-54 [facility] Work Phone: Laboratory - Chemistry and C hemistry - challengeon 11-17-2021 ALP [Catalytic activity/Vol] 63 U/L 45-117 [facility] Work Phone: ALT [Catalytic activity/Vol] 45 U/L 16-61 [facility] Work Phone: CO2 [Moles/Vol] 27.0 mmol/L 21.0-32.0 [facility] Work Phone: Globulin (S) [Mass/Vol] 3.6 g/dL 2.2-4.2 [facility] Work Phone: Urea nitrogen/Creatinine [Mass ratio] 24.3 mg/mg 10-20 [facility] Work Phone: Laboratory - Hematology and Cell countson 11-17-2021 Erythrocyte distribution width (RBC) [Entitic vol] 51.8 fL 35.1-43.9 [facility] Work Phone: Erythrocyte distribution width (RBC) [Ratio] 13.5 % 11.6-14.6 [facility] Work Phone: Immature granulocytes/100 WBC (Bld) 0.400 % 0.0-0.9 [facility] Work Phone: Comment on above: IG% - Immature Granu locytes (promyelocytes, myelocytes and metamyelocytes) > 1% indicates that a LEFT SHIFT is Present. MCH (RBC) [Entitic mass] 33.1 pg 27.0-32.0 [facility] Work Phone: Nucleated RBC/100 WBC (Bld) [Ratio] 0 % 0-5 [facility] Work Phone: MCHC Auto (RBC) [Mass/Vol]on 11-17-2021 MCHC (RBC) [Mass/Vol] 31.9 g/dL 32-36 [facility] [place] Work Phone: No Panel Informationon 11-17 Estimated GFR (MDRD) Amer 91 mL/min >60 [facility] Work Phone: Comment on above: GFR Calc Estimated GFR (MDRD) Non-Af Amer 75 mL/min >60 [facility] Work Phone: Comment on above: Non- GFR Calc Platelets bldon 11-17-2021 Platelets (Bld) [#/Vol] 249 10*3/uL 150-450 [facility] Work Phone: Serum or plasma albumin kale urement (mass/volume)on 11-17-2021 Albumin [Mass/Vol] 3.5 g/dL 3.2-5.0 [facility] Work Phone: Serum or plasma albumin/glob ulin mass ratioon 11-17-2021 Albumin/Globulin [Mass ratio] 1.0 {ratio} 0.9-2.4 [facility] Work Phone: Serum or plasma calcium kale urement (mass/volume)on 11-17-2021 Calcium [Mass/Vol] 8.9 mg/dL 8.5-10.1 [facility] Work Phone: Serum or plasma creatinine m easurement (mass/volume)on 11-17-2021 Creatinine [Mass/Vol] 1.03 mg/dL 0.70-1.30 [facility] [place] Work Phone: Comment on above: The validity of the calculated GFR & GFRAA in patients over 70 years has not been determined. Clinical correlation is essential. Serum or plasma urea nitroge n measurement (mass/volume)on 11-17-2021 Urea nitrogen [Mass/Vol] 25 mg/dL 7-18 [facility] Work Phone: Thin prep Papanicolaou smear with manual screeningon 11-17-2021 Thin prep Papanicolaou smear with manual screening 30 U/L 15-37 [facility] Work Phone: Thin prep Papanicolaou smear with manual screening 3 5-15 [facility] Work Phone: Laboratory - Chemistry and C hemistry - challengeon 10-19-2021 Albumin [Mass/Vol] 4.3 g/dL Normal 3.6 - 5.1 g/dL [facility], [facility].; [facility], [facility]. Albumin/Globulin [Mass ratio] 1.6 {ratio} Normal 1.0 - 2.5 [facility], [facility]; [facility], [facility]. ALP [Catalytic activity/Vol] 56 U/L Normal 35 - 144 U/L [facility], [facility].; [facility], [facility]. ALT [Catalytic activity/Vol] 26 U/L Normal 9 - 46 U/L [facility], [facility].; [place] [facility], [facility]. AST [Catalytic activity/Vol] 27 U/L Normal 10 - 35 U/L [facility], [facility].; [facility], [facility]. Bilirubin [Mass/Vol] 1.0 mg/dL Normal 0.2 - 1 .2 mg/dL [facility], [facility].; [facility], [facility]. Calcium [Mass/Vol] 9.1 mg/dL Normal 8.6 - 10. 3 mg/dL [facility], [facility].; [facility], [facility]. Chloride [Moles/Vol] 106 mmol/L Normal 98 - 11 0 mmol/L [facility], [facility].; [facility] Cholesterol [Mass/Vol] 133 mg/dL Normal [facility], [facility] Cholesterol in HDL [Mass/Vol] 68 mg/dL Normal [facility], [facility].; [facility], [facility]. Cholesterol in LDL [Mass/Vol] 49 mg/dL Normal [facility], [facility].; [facility], [facility]. CO2 [Moles/Vol] 25 mmol/L Normal 20 - 32 mmol/L [facility], [facility].; [facility] Creatinine [Mass/Vol] 0.97 mg/dL Normal 0.70 - 1.18 mg/dL [facility], [facility].; [facility] GFR/1.73 sq M.predicted among blacks MDRD (S/P/Bld) [Vol rate/Area] 89 mL/min/{1.73_m2} Normal [facility], [facility].; [facility] Glucose [Mass/Vol] 95 mg/dL Normal 65 - 99 mg/dL [facility], [facility].; [facility] Potassium [Moles/Vol] 4.4 mmol/L Normal 3.5 - 5.3 mmol/L [facility], [facility].; [facility] Protein [Mass/Vol] 7.0 g/dL Normal 6.1 - 8.1 g/dL [facility], [facility].; [facility] Sodium [Moles/Vol] 141 mmol/L Normal 135 - 146 mmol/L [facility], [facility].; [facility] Triglyceride [Mass/Vol] 80 mg/dL Normal [facility]; [facility] Urea nitrogen [Mass/Vol] 26 mg/dL Abnormal 7 - 25 mg/dL [facility]; [facility] Urea nitrogen/Creatinine [Mass ratio] 27 mg/mg Abnormal 6 - 22 [facility]; [facility] No Panel Informationon 10-19 CHOL/HDLC RATIO 2.[address] [facility]; [facility] eGFR NON-AFR. SLOVENIAN 77 Normal [facility]; [facility] GLOBULIN 2.7 Normal 1.9 - 3.7 [facility]; [facility] NON HDL CHOLESTEROL 65 Normal [facility]; [facility] PSA, TOTAL 2.06 ng/mL Normal [facility]; [facility] Absolute lymphocyte counton 08-17-2021 Lymphocytes Auto (Unsp spec) [#/Vol] 1.86 10*3/uL 0.83-4.51 [facility] Work Phone: [phone] Basophil percentageon 2021 Basophils/100 WBC (Bld) 0.3 % 0-1 [facility] Work Phone: [phone] Bilirubin [Mass/Vol] 1.00 mg/dL 0.20-1.00 [facility] Work Phone: [phone] Comment on above: For patients on eltr ombopag therapy, use of Dimension [place] TBIL is not recommended. Chloride [Moles/Vol] 108 mmol/L 98-107 [facility] Work Phone: [phone] Eosinophils/100 WBC (Bld) 1.8 % 0-5 [facility] Work Phone: [phone] Glucose [Mass/Vol] 96 mg/dL 74-106 [facility] Work Phone: [phone] Neutrophils (Bld) [#/Vol] 4.1 10*3/uL 2.0-7.7 [facility] Work Phone: [phone] Neutrophils/100 WBC (Bld) 60.5 % 47-70 [facility] Work Phone: Potassium [Moles/Vol] 4.4 mmol/L 3.5-5.1 [facility] Work Phone: Protein [Mass/Vol] 7.9 g/dL 6.4-8.2 [facility] Work Phone: Sodium [Moles/Vol] 139 mmol/L 136-145 [facility] Work Phone: WBC (Bld) [#/Vol] 6.8 10*3/uL 4.4-11.0 [facility] Work Phone: Blood erythrocytes count (nu mber/volume)on 08-17-2021 RBC (Bld) [#/Vol] 4.20 10*6/uL 4.6-6.2 [facility] Work Phone: Blood hemoglobin measurement (mass/volume)on 08-17-2021 Hemoglobin (Bld) [Mass/Vol] 13.9 g/dL 13.0-16.5 [facility] Work Phone: Blood lymphocytes/100 leukoc yteson 08-17-2021 Lymphocytes/100 WBC (Bld) 27.4 % 19-41 [facility] Work Phone: Blood monocytes/100 leukocyt eson 08-17-2021 Monocytes/100 WBC (Bld) 9.7 % 0-10 [facility] Work Phone: Blood platelet mean volumeon 08-17-2021 Platelet mean volume (Bld) [Entitic vol] 9.9 fL 6.2-12.0 [facility] Work Phone: Determination of erythrocyte mean corpuscular volume (MCV)on 08-17-2021 MCV (RBC) [Entitic vol] 102.1 fL 80-94 [facility] Work Phone: Hematocrit Auto (Bld) [Volum e fraction]on 08-17-2021 Hematocrit (Bld) [Volume fraction] 42.9 % 40-54 [facility] Work Phone: Laboratory - Chemistry and C hemistry - challengeon 08-17-2021 ALP [Catalytic activity/Vol] 69 U/L 45-117 [facility] Work Phone: [phone] ALT [Catalytic activity/Vol] 41 U/L 16-61 [facility] Work Phone: [phone] CO2 [Moles/Vol] 29.0 mmol/L 21.0-32.0 [facility] Work Phone: [phone] Globulin (S) [Mass/Vol] 4.0 g/dL 2.2-4.2 [facility] Work Phone: [phone] Urea nitrogen/Creatinine [Mass ratio] 26.7 mg/mg 10-20 [facility] Work Phone: [phone] Laboratory - Hematology and Cell countson 08-17-2021 Erythrocyte distribution width (RBC) [Entitic vol] 49.8 fL 35.1-43.9 [facility] Work Phone: [phone] Erythrocyte distribution width (RBC) [Ratio] 13.2 % 11.6-14.6 [facility] Work Phone: [phone] Immature granulocytes/100 WBC (Bld) 0.300 % 0.0-0.9 [facility] Work Phone: Comment on above: IG% - Immature Granu locytes (promyelocytes, myelocytes and metamyelocytes) > 1% indicates that a LEFT SHIFT is Present. MCH (RBC) [Entitic mass] 33.1 pg 27.0-32.0 [facility] Work Phone: Nucleated RBC/100 WBC (Bld) [Ratio] 0 % 0-5 [facility] Work Phone: [phone] MCHC Auto (RBC) [Mass/Vol]on 08-17-2021 MCHC (RBC) [Mass/Vol] 32.4 g/dL 32-36 [facility] Work Phone: No Panel Informationon 08-17 Estimated GFR (MDRD) Amer 93 mL/min >60 [facility] Work Phone: Comment on above: GFR Calc Estimated GFR (MDRD) Non-Af Amer 77 mL/min >60 [facility] Work Phone: Comment on above: Non- GFR Calc Platelets bldon 08-17-2021 Platelets (Bld) [#/Vol] 253 10*3/uL 150-450 [facility] Work Phone: Serum or plasma albumin kale urement (mass/volume)on 08-17-2021 Albumin [Mass/Vol] 3.9 g/dL 3.2-5.0 [facility] Work Phone: Serum or plasma albumin/glob ulin mass ratioon 08-17-2021 Albumin/Globulin [Mass ratio] 1.0 {ratio} 0.9-2.4 [facility] Work Phone: Serum or plasma calcium kale urement (mass/volume)on 08-17-2021 Calcium [Mass/Vol] 9.5 mg/dL 8.5-10.1 [facility] Work Phone: Serum or plasma creatinine m easurement (mass/volume)on 08-17-2021 Creatinine [Mass/Vol] 1.01 mg/dL 0.70-1.30 [facility] Work Phone: Comment on above: The validity of the calculated GFR & GFRAA in patients over 70 years has not been determined. Clinical correlation is essential. Serum or plasma urea nitroge n measurement (mass/volume)on 08-17-2021 Urea nitrogen [Mass/Vol] 27 mg/dL 7-18 [facility] Work Phone: Thin prep Papanicolaou smear with manual screeningon 08-17-2021 Thin prep Papanicolaou smear with manual screening 28 U/L 15-37 [facility] Work Phone: Thin prep Papanicolaou smear with manual screening 2 5-15 [facility] Work Phone: Laboratory - Chemistry and C hemistry - challengeon 02-27-2020 Albumin [Mass/Vol] 4.4 g/dL Normal 3.6 - 5.1 g/dL [facility], [facility].; [place] [facility] Albumin/Globulin [Mass ratio] 1.5 {ratio} Normal 1.0 - 2.5 [facility], [facility].; [place] [facility] ALP [Catalytic activity/Vol] 61 U/L Normal 35 - 144 U/L [facility], [facility].; [place] [employer] ALT [Catalytic activity/Vol] 22 U/L Normal 9 - 46 U/L [facility] [place] [employer] AST [Catalytic activity/Vol] 22 U/L Normal 10 - 35 U/L [place] [facility], [facility].; [place] [employer] Bilirubin [Mass/Vol] 1.1 mg/dL Normal 0.2 - 1 .2 mg/dL [facility], [facility].; [place] [employer] Calcium [Mass/Vol] 9.8 mg/dL Normal 8.6 - 10. 3 mg/dL [place] [facility], [facility].; [place] [employer] Chloride [Moles/Vol] 105 mmol/L Normal 98 - 11 0 mmol/L [facility], [facility].; [employer] Cholesterol [Mass/Vol] 129 mg/dL Normal [facility], [facility].; [place] [employer] Cholesterol in HDL [Mass/Vol] 61 mg/dL Normal [place] [employer] [place] [employer] Cholesterol in LDL [Mass/Vol] 50 mg/dL Normal [place] [employer] [place] [employer] CO2 [Moles/Vol] 24 mmol/L Normal 20 - 32 mmol/L [place] [facility], [facility].; [place] [employer] Cobalamin (Vitamin B12) [Mass/Vol] 499 pg/mL Normal 200 - 1100 pg/mL [place] [facility], [facility].; [employer] Creatinine [Mass/Vol] 0.80 mg/dL Normal 0.70 - 1.18 mg/dL [place] [facility], [facility].; [facility] Folate [Mass/Vol] ng/mL Normal [facility].; [facility], [facility]. GFR/1.73 sq M.predicted among blacks MDRD (S/P/Bld) [Vol rate/Area] 103 mL/min/{1.73_m2} Normal [facility].; [facility], [facility] Glucose [Mass/Vol] 102 mg/dL Abnormal 65 - 99 mg/dL [facility].; [facility], [facility]. Magnesium [Mass/Vol] 1.9 mg/dL Normal 1.5 - 2 .5 mg/dL [facility].; [facility], [facility]. Potassium [Moles/Vol] 4.3 mmol/L Normal 3.5 - 5.3 mmol/L [facility].; [facility], [facility]. Protein [Mass/Vol] 7.3 g/dL Normal 6.1 - 8.1 g/dL [facility].; [facility], [facility]. Sodium [Moles/Vol] 140 mmol/L Normal 135 - 146 mmol/L [facility].; [facility], [facility]. Triglyceride [Mass/Vol] 93 mg/dL Normal [facility]; [facility], [facility]. Urea nitrogen [Mass/Vol] 20 mg/dL Normal 7 - 25 mg/dL [facility].; [facility], [facility]. Laboratory - Hematology and Cell countson 02-27-2020 Basophils (Bld) [#/Vol] 0.019 10*3/uL Normal 0 - 200 {cells/uL} [facility].; [place] [employer], [facility]. Basophils/100 WBC (Bld) 0.3 % Normal [facility].; [facility], [facility]. Eosinophils (Bld) [#/Vol] 0.128 10*3/uL Normal 15 - 500 {cells/uL} [facility] [employer] [employer] [facility].; [place] [facility], [facility]. Eosinophils/100 WBC (Bld) 2.0 % Normal [facility].; [facility], [facility] Erythrocyte distribution width (RBC) [Ratio] 12.6 % Normal 11.0 - 15.0 % [facility] [employer] [facility].; [facility] [employer] [facility]. Hematocrit (Bld) [Volume fraction] 40.6 % Normal 38.5 - 50.0 % [facility] [employer] [employer] [facility].; [facility], [facility]. Hemoglobin (Bld) [Mass/Vol] 13.9 g/dL Normal 13.2 - 17.1 g/dL [facility], [facility].; [facility], [facility]. Lymphocytes (Bld) [#/Vol] 2.285 10*3/uL Normal 850 - 3900 {cells/uL} [facility] [employer] [employer] [facility].; [place] [facility], [facility]. Lymphocytes/100 WBC (Bld) 35.7 % Normal [facility] [employer] [employer] [facility].; [facility], [facility]. MCH (RBC) [Entitic mass] 32.9 pg Normal 27.0 - 33.[address] [facility] [employer] [facility].; [place] [facility], [facility]. MCHC (RBC) [Mass/Vol] 34.2 g/dL Normal 32.0 - 36.0 g/dL [facility] [employer] [employer] [facility].; [place] [facility], [facility]. MCV (RBC) [Entitic vol] 96.0 fL Normal 80.0 - 100.[address] [facility] [employer] [facility].; [place] [facility], [facility]. Monocytes (Bld) [#/Vol] 0.576 10*3/uL Normal 200 - 950 {cells/uL} [facility] [employer] [facility].; [place] [employer], [facility]. Monocytes/100 WBC (Bld) 9.0 % Normal [facility].; [facility], [facility]. Neutrophils (Bld) [#/Vol] 3.392 10*3/uL Normal 1500 - 7800 {cells/uL} [facility].; [place] [employer], [facility]. Neutrophils/100 WBC (Bld) 53 % Normal [facility] [employer] [employer] [facility].; [place] [employer] [facility], [facility]. Platelet mean volume (Bld) [Entitic vol] 10.4 fL Normal 7.5 - 12.[address] [facility], [facility].; [place] [employer], [facility]. Platelets (Bld) [#/Vol] 276 10*3/uL Normal 140 - 400 [facility].; [place] [employer], [facility]. RBC (Bld) [#/Vol] 4.23 10*6/uL Normal 4.20 - 5.8 0 {Million/uL } [facility]; [facility] [employer] [facility] WBC (Bld) [#/Vol] 6.4 10*3/uL Normal 3.8 - 10.8 [facility]; [facility] [employer] [facility] No Panel Informationon 02-26 BUN/CREATININE RATIO NOT APPLICABLE Normal 6 - 22 [facility]; [facility] [employer] [facility] CHOL/HDLC RATIO 2.[address] [facility]; [facility] [employer] [facility] eGFR NON-AFR. SLOVENIAN 89 Normal [facility]; [facility] [employer] [facility] GLOBULIN 2.9 Normal 1.9 - 3.7 [facility]; [facility] [employer] [facility] IRON, TOTAL 139 ug/dL Normal 50 - 180 ug/dL [facility]; [facility] [employer] [facility] NON HDL CHOLESTEROL 68 Normal [facility]; [facility] [employer] [employer] [facility] VITAMIN B1 (THIAMINE), BLOOD, LC/MS/MS 197 nmol/L Abnormal 78 - 185 nmol/L [facility]; [facility] [employer] [facility] VITAMIN D,25-OH,TOTAL,IA 45 ng/mL Normal 30 - 100 ng/mL [facility]; [facility] [employer] [facility] Laboratory - Chemistry and C hemistry - challengeon 09-09-2019 Urate [Mass/Vol] 4.9 mg/dL Normal 4.0 - 8.0 mg/dL [facility]; [facility] [employer] [facility] Laboratory - Hematology and Cell countson 09-09-2019 Basophils (Bld) [#/Vol] 0.032 10*3/uL Normal 0 - 200 {cells/uL} [facility]; [facility] [employer] [facility] Basophils/100 WBC (Bld) 0.4 % Normal [facility]; [facility], [facility] Eosinophils (Bld) [#/Vol] 0.079 10*3/uL Normal 15 - 500 {cells/uL} [facility]; [facility] [employer] [employer] Eosinophils/100 WBC (Bld) 1.0 % Normal [facility]; [facility], [facility] Erythrocyte distribution width (RBC) [Ratio] 11.9 % Normal 11.0 - 15.0 % [facility]; [facility], [facility] Hematocrit (Bld) [Volume fraction] 41.1 % Normal 38.5 - 50.0 % [facility].; [facility], [facility] Hemoglobin (Bld) [Mass/Vol] 13.4 g/dL Normal 13.2 - 17.1 g/dL [facility].; [facility], [facility] Lymphocytes (Bld) [#/Vol] 2.433 10*3/uL Normal 850 - 3900 {cells/uL} [facility]; [facility], [facility] Lymphocytes/100 WBC (Bld) 30.8 % Normal [facility]; [facility], [facility] MCH (RBC) [Entitic mass] 31.4 pg Normal 27.0 - 33.0 pg [facility].; [facility], [facility]. MCHC (RBC) [Mass/Vol] 32.6 g/dL Normal 32.0 - 36.0 g/dL [facility].; [facility], [facility]. MCV (RBC) [Entitic vol] 96.3 fL Normal 80.0 - 100.0 fL [facility]; [facility], [facility] Monocytes (Bld) [#/Vol] 0.79 10*3/uL Normal 200 - 950 {cells/uL} [facility].; [facility], [facility] Monocytes/100 WBC (Bld) 10.0 % Normal [facility].; [facility], [facility] Neutrophils (Bld) [#/Vol] 4.566 10*3/uL Normal 1500 - 7800 {cells/uL} [facility].; [facility], [facility] Neutrophils/100 WBC (Bld) 57.8 % Normal [facility].; [facility], [facility] Platelet mean volume (Bld) [Entitic vol] 9.9 fL Normal 7.5 - 12.5 fL [facility]; [employer]. Platelets (Bld) [#/Vol] 304 10*3/uL Normal 140 - 400 [place] [employer] RBC (Bld) [#/Vol] 4.27 10*6/uL Normal 4.20 - 5.8 0 {Million/uL } [place] [employer]. WBC (Bld) [#/Vol] 7.9 10*3/uL Normal 3.8 - 10.8 [place] [employer]. No Panel Informationon 09-08 KAMRAN SCREEN, IFA Negative Normal [facility].; [employer] RHEUMATOID FACTOR <[address] [facility]; [employer] SED RATE BY MODIFIED WESTERGREN 17 mm/h Normal [place] [employer]; [employer]. HISTORY PHYSICALon 0 HISTORY PHYSICAL HNO ID: [id number] Author: Heriberto Gross Service: Gastroenterology Author Type: Physician Type: HANDP Filed: 05/27/2019 2:16 PM Note Text: PROCEDURAL SEDATION HISTORY AND PHYSICAL EXAM SERVICE DATE: 05/27/2019 SERVICE TIME: 2:16 PM Subjective HPI: This is a 73 year old male who presents with personal history of colon polyps and family history of colon cancer PAST ANESTHESIA HISTORY: No history of adverse event PAST MEDICAL HISTORY Diagnosis Date - Benign neoplasm of colon - Essential hypertension, benign - Family history of malignant neoplasm of gastrointestinal tract - Hereditary corneal dystrophy, unspecified - Hyperpotassemia - Internal hemorrhoids with other complication - NEIL on CPAP - Other and unspecified hyperlipidemia - Other premature beats - PMH - PAST MEDICAL HISTORY OF HEPATITIS A IN 1973 - PMH - PAST MEDICAL HISTORY OF fx of right 5th metacarpal 1978,1980 - PMH - PAST MEDICAL HISTORY OF Spincterotomy in 1990 PAST SURGICAL HISTORY Procedure Laterality Date - APPENDECTOMY 1966 [facility] Colonoscopy - COLONOSCOPY W/BX 08/07/08 - LEFT HEART CATH,PERCUTANEOUS 2003 - PAST SURGICAL HISTORY OF Hydrocele repair in 1951 - PAST SURGICAL HISTORY OF hemorrhoidectomy 1985 - PAST SURGICAL HISTORY OF sphincterotomy - REMOVAL GALLBLADDER 2005. - HANH-EN-Y GASTRIC BYPASS COLONIC CONDUIT 2017 summa - SEPTOPLASTY 2015 - TOTAL KNEE REPLACEMENT Right 2018 - TOTAL KNEE REPLACEMENT Left 12/20/2010 Prior to Admission medications as of 05/27/19 1327 Medication Sig Last Dose Taking famotidine (PEPCID) 40 mg tablet Take 40 mg by mouth once daily. 05/26/2019 at Unknown time Yes cyanocobalamin (VITAMIN B-12) 500 mcg tab tab(s) Take by mouth once daily. 05/26/2019 at Unknown time Yes Calcium Citrate 250 mg calcium tab Take 500 tablets by mouth. 05/26/2019 at Unknown time Yes biotin 5,000 mcg ODT Take by mouth. 05/26/2019 at Unknown time Yes CPAP 05/26/2019 at Unknown time Yes enalapril (VASOTEC) 20 mg tablet Take 20 mg by mouth twice daily. 05/26/2019 at Unknown time Yes atorvastatin (LIPITOR) 40 mg tablet Take 40 mg by mouth once daily. 05/26/2019 at Unknown time Yes Docusate Sodium 100 mg tab Take by mouth as needed. 05/26/2019 at Unknown time Yes MULTIVITS-MINERALS/FA/LY COPENE (MEN'S DAILY MULTIVIT-MINERAL ORAL) Take by mouth. Past Week at Unknown time Yes TERAZOSIN HCL (TERAZOSIN ORAL) Take by mouth once daily. 05/27/2019 at Unknown time Yes ACETAMINOPHEN 500 MG TAB takes 2 tabs daily Past Week at Unknown time Yes vitamin D3-folic acid 5,000 unit- 1 mg tab Take by mouth. Unknown at Unknown time FUROSEMIDE (LASIX ORAL) Take by mouth as needed. up to 60 mg as needed and per pt weight Unknown at Unknown time celecoxib (CELEBREX) 200 mg capsule Take 200 mg by mouth once daily. Unknown at Unknown time AMOXICILLIN, BULK, MISC as needed. 05/02/2019 GLUC/CHND/OM3/DHA/EPA/FI SH/STR (GLUCOSAMINE CHONDROITIN PLUS ORAL) Take by mouth twice daily. Unknown at Unknown time Wyatt-3 Fatty Acids-Vitamin E (FISH OIL) 1,000 mg cap Take 1 capsule by mouth twice daily. Unknown at Unknown time AMLODIPINE BESYLATE (AMLODIPINE ORAL) Take by mouth once daily. 05/26/2019 losartan potassium(COZAAR 100 MG TAB) Take one(1) tablet daily. Unknown at Unknown time ASPIRIN 81 MG TAB Take one(1) tablet daily. 05/23/2019 ALLERGIES Allergen Reactions - Oxycontin [Oxycodon* Itching Itching but no rash. This happened after knee replacement. Objective PHYSICAL EXAM: The remainder of the physical exam is noncontributory. AIRWAY: Airway Visualization of Uvula: Yes Mouth opening greater than 2 fingerbreadths: Yes Neck Full Range of Motion: Yes LUNGS: Lungs clear to auscultation, Good diaphragmatic excursion CARDIAC: Normal S1 and S2; no rubs, murmurs, or gallops Assessment/Plan ASA Class: ASA Class:: Patient with mild systemic disease Active Problems: * No active hospital problems. * Resolved Problems: * No resolved hospital problems. * Provisional Diagnosis/Treatment Plan: Personal history of colon polyps family history of colon cancer/colonoscopy SEDATION GOAL: Moderate SIGNATURE: Heriberto Gross MD PATIENT NAME: Heriberto Huynh DATE: May 27, 2019 TIME: 2:16 PM PAGER: [facility] NURSING PROGon 05-27-2019 NURSING PROG HNO ID: [id number] Author: Addie Henson RN Service: Nursing Author Type: Registered Nurse Type: Nursing Progress Note Filed: 05/27/2019 3:37 PM Note Text: Patient did not experience a fall prior to discharge. Patient did not experience a burn prior to discharge. Addie Henson RN [facility] NURSING PROG HNO ID: [id number] Author: Addie Henson RN Service: Nursing Author Type: Registered Nurse Type: Nursing Progress Note Filed: 05/27/2019 3:19 PM Note Text: Dr. Gross at the bedside with patient and patient's spouse to discuss colonoscopy findings and recommendations. Addie Henson RN [facility] NURSING PROG HNO ID: [id number] Author: Charline Hunter RN Service: Nursing Author Type: Registered Nurse Type: Nursing Progress Note Filed: 05/27/2019 2:40 PM Note Text: Patient did not experience a fall within the Intraoperative area. Patient did not experience a burn within the Intraoperative area. Charline Hunter RN [facility] NURSING PROG HNO ID: [id number] Author: Addie Winters) MAGGIE Henson Service: Nursing Author Type: Registered Nurse Type: Nursing Progress Note Filed: 05/27/2019 2:14 PM Note Text: [facility] PRE-OP NURSING HAND OFF NOTE SBAR Hand off given to Prudence Perdomo RN. Hand off was communicated verbally and at the patient's bedside and all questions were answered. FALLS/MCCLOUD Patient did not experience a fall within the Preoperative area. Patient did not experience a burn within the Preoperative area. Addie Henson RN [facility] PT EDon 05-27-2019 PT ED HNO ID: [id number] Author: Addie LeonRn) MAGGIE Henson Service: Nursing Author Type: Registered Nurse Type: Patient Education Filed: 05/27/2019 3:11 PM Note Text: POST OP LEARNING RESPONSE INSTRUCTION PROVIDED TO: Patient and Spouse METHOD OF INSTRUCTION: Written instruction - handouts Verbal instruction PATIENT / FAMILY RESPONSE: Verbalizes understanding of: INFECTION MANAGEMENT-Signs and symptoms of an infection and importance of contacting the physician PHYSICAL RESTRICTIONS-Physical restrictions and recommendations after discharge from the hospital POST-PROCEDURE INSTRUCTIONS-Correct actions to take to reduce post procedure complications PATIENT SAFETY PRINCIPLES WORSENING CONDITION-Signs and symptoms of a worsening condition that warrant a call to the physician FOLLOW-UP PLAN: Patient instructed to call with any further issues Follow up phone call. SUPPLEMENTAL MATERIAL: Post sedation instructions given Procedure discharge instructions REFERRAL (RECOMMENDATION): None Electronically Signed By: Addie Henson RN In Department: AMBULATORY SURGERY [facility] PT ED HNO ID: [id number] Author: Addie LeonRnAmy Henson RN Service: Nursing Author Type: Registered Nurse Type: Patient Education Filed: 05/27/2019 1:24 PM Note Text: PRE OP LEARNING ASSESSMENT PROCEDURE/SURGERY: GI PROCEDURES: Colonoscopy READINESS TO LEARN COGNITIVE ABILITY: Alert and oriented MOTIVATION TO LEARN: Eager FAMILY SUPPORT: High - Very involved in pt care PATIENT LEARNS BEST BY: Verbal Instruction FACTORS AFFECTING LEARNING: None PHYSICAL LIMITATIONS AFFECTING LEARNING: None Electronically Signed By: Addie Henson RN In Department: AMBULATORY SURGERY [facility] CNOVon 04-24-2019 [facility] -------- HERIBERTO HUYNH ([id number]) 1945 M Date Time Provider Department 04/24/19 9:20 AM JONATHAN PARISH During your visit today, we recorded the following information about you: Pulse Blood pressure Weight Height 64/minute 159/81 147 kg 1.854 m Jonathan Parish RN [employer]OR SERVICES MANAGER 04/24/2019 6:46 PM Signed Heriberto Huynh a 73 year old male who is returning for surveillance colonoscopy. He has a personal history of polyps and a family history of colon cancer in that his mother had the disease in the ascending colon. His PCP is Dr. Adithya Spaulding. The patient was seen by Dr. Gross for surveillance colonoscopy 05/12/14. The procedure report has been reviewed and findings as follows: Impression:?- Diverticulosis in the sigmoid colon. Five year surveillance was recommended. The patient has undergone a Hanh-en-Y since his last colonoscopy (2017) and right knee replacement. The patient also has a history of HTN, HLD, NEIL (using CPAP). Presenting complaint: The patient denies change in bowel habits, rectal bleeding or abdominal pain. Having a bowel movement once a day. The patient had been on pantoprazole, now only taking famotidine 40mg daily. No nausea or dyspepsia. No dysphagia. REVIEW OF SYSTEMS: GENERAL: No unplanned weight loss HEENT: Negative for frequent or significant headaches, No changes in hearing or vision, no nose bleeds or other nasal problems NECK: Negative for lumps, goiter, pain and significant neck swelling RESPIRATORY: Recovering from recent lower respiratory CARDIOVASCULAR: No chest pain or palpitation. HTN and HLD. GI: The patient states that his appetite has been good. He does get hungry. There has been no nausea, no vomiting. He denies dysphagia and denies odynophagia. There has not been indigestion or heartburn. There has not been regurgitation. Bowel habits have been regular. There has not been diarrhea. There has not been constipation. The patient denies rectal bleeding. There has not been melena. No abdominal pain. MUSCULOSKELETAL: Right knee replacement. Recent PT for back pain - compressed disk. PSYCH: Negative for sleep disturbance, mood disorder and recent psychosocial stressors. HEMATOLOGY/LYMPHOLOGY Negative for prolonged bleeding, bruising easily or swollen nodes ENDOCRINE: No thyroid or diabetes. NEURO: No history of headaches, syncope, paralysis, seizures or tremors All other reviewed and negative other than HPI. PAST MEDICAL HISTORY Diagnosis Date - Benign neoplasm of colon - Benign neoplasm of colon - Essential hypertension, benign - Family history of malignant neoplasm of gastrointestinal tract - Hereditary corneal dystrophy, unspecified - Hyperpotassemia - Internal hemorrhoids with other complication - NEIL on CPAP - Other and unspecified hyperlipidemia - Other premature beats - Other specified contraceptive management - PMH - PAST MEDICAL HISTORY OF HEPATITIS A IN 1973 - PMH - PAST MEDICAL HISTORY OF fx of right 5th metacarpal 1978,1980 - PMH - PAST MEDICAL HISTORY OF Spincterotomy in 1990 PAST SURGICAL HISTORY Procedure Laterality Date - APPENDECTOMY 1966 - COLONOSCOP W/ OR W/O [facility] SPEC 05/12/14 Colonoscopy - COLONOSCOPY W/BX 08/07/08 - LEFT HEART CATH,PERCUTANEOUS - PAST SURGICAL HISTORY OF Hydrocele repair in 1951 - PAST SURGICAL HISTORY OF cholelithiasis - PAST SURGICAL HISTORY OF hemorrhoidectomy 1985 - PAST SURGICAL HISTORY OF sphincterotomy - PAST SURGICAL HISTORY OF 12/20/2010. Total left knee replacement - REMOVAL GALLBLADDER 2005. FAMILY HISTORY Problem Relation Age of Onset - Cancer Mother ovarian/colon - Coronary Artery Disease Father - Diabetes Father Current Outpatient Medications Medication Sig Dispense Refill - FUROSEMIDE (LASIX ORAL) Take by mouth as needed. up to 60 mg as needed and per pt weight - CPAP - celecoxib (CELEBREX) 200 mg capsule Take 200 mg by mouth once daily. - enalapril (VASOTEC) 20 mg tablet Take 20 mg by mouth twice daily. - atorvastatin (LIPITOR) 40 mg tablet Take 40 mg by mouth once daily. - AMOXICILLIN, BULK, MISC as needed. - Docusate Sodium 100 mg tab Take by mouth as needed. - MULTIVITS-MINERALS/FA/LY COPENE (MEN'S DAILY MULTIVIT-MINERAL ORAL) Take by mouth. - GLUC/CHND/OM3/DHA/EPA/FI SH/STR (GLUCOSAMINE CHONDROITIN PLUS ORAL) Take by mouth twice daily. - Wyatt-3 Fatty Acids-Vitamin E (FISH OIL) 1,000 mg cap Take 1 capsule by mouth twice daily. - TERAZOSIN HCL (TERAZOSIN ORAL) Take by mouth once daily. - AMLODIPINE BESYLATE (AMLODIPINE ORAL) Take by mouth once daily. - losartan potassium(COZAAR 100 MG TAB) Take one(1) tablet daily. 0 - ACETAMINOPHEN 500 MG TAB takes 2 tabs daily 0 - ASPIRIN 81 MG TAB Take one(1) tablet daily. 0 No current facility-administered medications for this visit. SOCIAL HISTORY: Patient is . He quit smoking in 1981. Heriberto reports his alcohol use as very rarely. PHYSICAL EXAMINATION: Blood pressure 159/81, pulse 64, height 185.4 cm (6' 1), weight (!) 147 kg (324 lb). General Appearance: Well appearing, alert, in no acute distress, well-hydrated, well nourished. Skin: Skin color, texture, turgor normal, no suspicious rashes or lesions. Head: Normocephalic, no masses, lesions or abnormalities. Eyes: Anicteric sclera. Oropharynx: Lips, mucosa, and tongue normal. Neck: Supple, no adenopathy. Lungs: lungs clear to auscultation. No wheezing, rhonchi, rales. Heart: RRR without murmur. Abdomen: Abdomen soft, non-tender. Bowel sounds normal. No masses, organomegaly. Extremities: No deformities, edema, skin discoloration, clubbing or cyanosis. Musculoskeletal: No joint swelling, deformity, or tenderness. Peripheral Pulses: Normal. Neurologic: Gait normal. Sensation grossly intact. Impression: history of polyps 2)family history of colon cancer. Plan: This patient will be scheduled for a colonoscopy using magnesium citrate/ dulcolax as the prep. The preparation, as well as the procedure, has been explained in detail. The risks, benefits, anticipated outcomes and possible complications, including failure to complete the endoscopy and perforation, were mentioned. I explained the procedure in understandable terms and the patient was given printed material concerning the planned procedure. The patient had the opportunity to ask questions concerning the planned procedure. The patient freely consents to the planned procedure. The patient is asked to call with any questions for concerns, or should there be any change in health status between now and the scheduled procedure. I have personally interviewed and examined this patient. I have read the information the MA documented in this encounter. I spent 30 minutes in the visit, with more than 50% of the total [id number] time of the visit in counseling / coordination of care. Jonathan Parish RN [employer]NICOLE Parish RN [employer]NICOLE 04/24/2019 9:45 AM Signed Please follow the provided instructions for colonoscopy. You will be using Magnesium citrate and Dulcolax both days of the prep. Your procedure will be with Dr. Gross, on May 20. The endoscopy staff will call you the day before the procedure with specific on arrival time. (Monday for Monday procedures). Referring Provider: HARSHAD SPAULDING [[id number]] Allergies As of Date: 04/24/2019 Noted Allergy Reaction OXYCONTIN (OXYCODONE HCL) 04/15/2011 9 - Itching Comments: Itching but no rash. This happened after knee replacement. Date Reviewed: 04/24/2019 Reviewed by: Heriberto Gross - Fully Assessed Reason for Visit: Consult [502] Cmt: colonoscopy Primary Visit Diagnosis:History of colonic polyps [Z86.010] Other Visit Diagnosis:Family history of colon cancer in mother [Z80.0] Order(s):[place] IV ([place]) [[id number]] Order #: [id number]: 1 FUTURE IV DISCONTINUE [[id number]] Order #: [id number]: 1 FUTURE INSERT IV ([place]) [[id number]] Order #: [id number]: 1 COLONOSCOPY, SCREENING, HIGH RISK [[id number]] Order #: [id number] FUTURE Prescriptions as of 04/24/2019 Sig: FAMOTIDINE 40 MG TABLET Take 40 mg by mouth once ambar* VITAMIN D3 5,000 UNIT-FOLIC A* Take by mouth. CYANOCOBALAMIN (VIT B-12) 500* Take by mouth once daily. CALCIUM CITRATE 250 MG TABLET Take 500 tablets by mouth. BIOTIN 5,000 MCG DISINTEGRATI* Take by mouth. LASIX ORAL Take by mouth as needed. up * ENALAPRIL MALEATE 20 MG TABLET Take 20 mg by mouth twice luba* ATORVASTATIN 40 MG TABLET Take 40 mg by mouth once ambar* MEN'S DAILY MULTIVIT-MINERAL * Take by mouth. TERAZOSIN ORAL Take by mouth once daily. AMLODIPINE ORAL Take by mouth once daily. * ACETAMINOPHEN 500 MG TABLET takes 2 tabs daily * ASPIRIN 81 MG TABLET Take one(1) tablet daily. CPAP CELECOXIB 200 MG CAPSULE Take 200 mg by mouth once luba* AMOXICILLIN (BULK) MISC as needed. DOCUSATE SODIUM 100 MG TABLET Take by mouth as needed. GLUCOSAMINE CHONDROITIN PLUS * Take by mouth twice daily. OMEGA-3 FATTY ACIDS-VITAMIN E* Take 1 capsule by mouth twice* * COZAAR 100 MG TABLET Take one(1) tablet daily. 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] 07/14/2006 IRRITATED//INFLAMED SEBORRHEIC KERATOSES [L82.*07/14/2006 BENIGN JACOB SKIN TRUNK [D23.5] 07/14/2006 TINEA///DERMATOPHYTOSIS OF FOOT [B35.3] 07/14/2006 XEROSIS////SEBACEOUS GLAND DIS NEC [L73.8] 07/14/2006 04/17/2011 KERATODERMA, ACQUIRED [L85.1] 07/14/2006 CHR SOLAR SKIN DAMAGE NOS [L57.8] 07/14/2006 SKIN HYPERTRO/ATROPH NOS [L91.9, L90.9] 07/14/2006 SOLAR LENGINES////DYSCHROMIA OTHER [L81.9] 07/14/2006 09/03/2012 VIRAL WARTS NOS [B07.9] 03/15/2007 SEBORRHEIC KERATOSIS NOS [L82.1] 03/15/2007 WILLTET ANGIOMA///NEVUS, NON-NEOPLASTIC [I78.1] 03/19/2008 HYPERPOTASSEMIA [E87.5] CORNEAL DYSTROPHY NOS [H18.50] BENIGN NEOPLASM LG BOWEL [D12.6] FAMILY HX GI MALIGNANCY [Z80.0] 08/07/2008 Skin Tags 04/24/2009 Other Psoriasis [L40.8] 04/24/2009 Actinic skin damage [L57.8] 04/17/2011 Xerosis cutis [L85.3] 04/17/2011 Melanocytic nevi of trunk [D22.5] 09/03/2012 Solar Lentigines [L81.4] 09/03/2012 Other instructions from your clinician: Please follow the provided instructions for colonoscopy. You will be using Magnesium citrate and Dulcolax both days of the prep. Your procedure will be with Dr. Gross, on May 20. The endoscopy staff will call you the day before the procedure with specific on arrival time. (Monday for Monday procedures). Encounter Status:Closed by JONATHAN PARISH CNP on 04/24/19 Normal [facility] HISTORY PHYSICALon HISTORY PHYSICAL HNO ID: [id number] Author: Jonathan Parish Service: ? Author Type: Nurse Practitioner Type: HANDP Filed: 04/24/2019 6:46 PM Note Text: Heriberto Godwinnt a 73 year old male who is returning for surveillance colonoscopy. He has a personal history of polyps and a family history of colon cancer in that his mother had the disease in the ascending colon. His PCP is Dr. Adithya Spaulding. The patient was seen by Dr. Gross for surveillance colonoscopy 05/12/14. The procedure report has been reviewed and findings as follows: Impression:?- Diverticulosis in the sigmoid colon. Five year surveillance was recommended. The patient has undergone a Hanh-en-Y since his last colonoscopy (2016) and right knee replacement. The patient also has a history of HTN, HLD, NEIL (using CPAP). Presenting complaint: The patient denies change in bowel habits, rectal bleeding or abdominal pain. Having a bowel movement once a day. The patient had been on pantoprazole, now only taking famotidine 40mg daily. No nausea or dyspepsia. No dysphagia. REVIEW OF SYSTEMS: GENERAL: No unplanned weight loss HEENT: Negative for frequent or significant headaches, No changes in hearing or vision, no nose bleeds or other nasal problems NECK: Negative for lumps, goiter, pain and significant neck swelling RESPIRATORY: Recovering from recent lower respiratory CARDIOVASCULAR: No chest pain or palpitation. HTN and HLD. GI: The patient states that his appetite has been good. He does get hungry. There has been no nausea, no vomiting. He denies dysphagia and denies odynophagia. There has not been indigestion or heartburn. There has not been regurgitation. Bowel habits have been regular. There has not been diarrhea. There has not been constipation. The patient denies rectal bleeding. There has not been melena. No abdominal pain. MUSCULOSKELETAL: Right knee replacement. Recent PT for back pain - compressed disk. PSYCH: Negative for sleep disturbance, mood disorder and recent psychosocial stressors. HEMATOLOGY/LYMPHOLOGY Negative for prolonged bleeding, bruising easily or swollen nodes ENDOCRINE: No thyroid or diabetes. NEURO: No history of headaches, syncope, paralysis, seizures or tremors All other reviewed and negative other than HPI. PAST MEDICAL HISTORY Diagnosis Date - Benign neoplasm of colon - Benign neoplasm of colon - Essential hypertension, benign - Family history of malignant neoplasm of gastrointestinal tract - Hereditary corneal dystrophy, unspecified - Hyperpotassemia - Internal hemorrhoids with other complication - NEIL on CPAP - Other and unspecified hyperlipidemia - Other premature beats - Other specified contraceptive management - PMH - PAST MEDICAL HISTORY OF HEPATITIS A IN 1973 - PMH - PAST MEDICAL HISTORY OF fx of right 5th metacarpal 1978,1980 - PMH - PAST MEDICAL HISTORY OF Spincterotomy in 1990 PAST SURGICAL HISTORY Procedure Laterality Date - APPENDECTOMY 1966 - COLONOSCOP W/ OR W/O BRSH SPEC 05/12/14 Colonoscopy - COLONOSCOPY W/BX 08/07/08 - LEFT HEART CATH,PERCUTANEOUS - PAST SURGICAL HISTORY OF Hydrocele repair in 1951 - PAST SURGICAL HISTORY OF cholelithiasis - PAST SURGICAL HISTORY OF hemorrhoidectomy 1985 - PAST SURGICAL HISTORY OF sphincterotomy - PAST SURGICAL HISTORY OF 12/20/2010. Total left knee replacement - REMOVAL GALLBLADDER 2005. FAMILY HISTORY Problem Relation Age of Onset - Cancer Mother ovarian/colon - Coronary Artery Disease Father - Diabetes Father Current Outpatient Medications Medication Sig Dispense Refill - FUROSEMIDE (LASIX ORAL) Take by mouth as needed. up to 60 mg as needed and per pt weight - CPAP - celecoxib (CELEBREX) 200 mg capsule Take 200 mg by mouth once daily. - enalapril (VASOTEC) 20 mg tablet Take 20 mg by mouth twice daily. - atorvastatin (LIPITOR) 40 mg tablet Take 40 mg by mouth once daily. - AMOXICILLIN, BULK, MISC as needed. - Docusate Sodium 100 mg tab Take by mouth as needed. - MULTIVITS-MINERALS/FA/LY COPENE (MEN'S DAILY MULTIVIT-MINERAL ORAL) Take by mouth. - GLUC/CHND/OM3/DHA/EPA/FI SH/STR (GLUCOSAMINE CHONDROITIN PLUS ORAL) Take by mouth twice daily. - Wyatt-3 Fatty Acids-Vitamin E (FISH OIL) 1,000 mg cap Take 1 capsule by mouth twice daily. - TERAZOSIN HCL (TERAZOSIN ORAL) Take by mouth once daily. - AMLODIPINE BESYLATE (AMLODIPINE ORAL) Take by mouth once daily. - losartan potassium(COZAAR 100 MG TAB) Take one(1) tablet daily. 0 - ACETAMINOPHEN 500 MG TAB takes 2 tabs daily 0 - ASPIRIN 81 MG TAB Take one(1) tablet daily. 0 No current facility-administered medications for this visit. SOCIAL HISTORY: Patient is . He quit smoking in 1981. Heriberto reports his alcohol use as very rarely. PHYSICAL EXAMINATION: Blood pressure 159/81, pulse 64, height 185.4 cm (6' 1), weight (!) 147 kg (324 lb). General Appearance: Well appearing, alert, in no acute distress, well-hydrated, well nourished. Skin: Skin color, texture, turgor normal, no suspicious rashes or lesions. Head: Normocephalic, no masses, lesions or abnormalities. Eyes: Anicteric sclera. Oropharynx: Lips, mucosa, and tongue normal. Neck: Supple, no adenopathy. Lungs: lungs clear to auscultation. No wheezing, rhonchi, rales. Heart: RRR without murmur. Abdomen: Abdomen soft, non-tender. Bowel sounds normal. No masses, organomegaly. Extremities: No deformities, edema, skin discoloration, clubbing or cyanosis. Musculoskeletal: No joint swelling, deformity, or tenderness. Peripheral Pulses: Normal. Neurologic: Gait normal. Sensation grossly intact. Impression: history of polyps 2)family history of colon cancer. Plan: This patient will be scheduled for a colonoscopy using magnesium citrate/ dulcolax as the prep. The preparation, as well as the procedure, has been explained in detail. The risks, benefits, anticipated outcomes and possible complications, including failure to complete the endoscopy and perforation, were mentioned. I explained the procedure in understandable terms and the patient was given printed material concerning the planned procedure. The patient had the opportunity to ask questions concerning the planned procedure. The patient freely consents to the planned procedure. The patient is asked to call with any questions for concerns, or should there be any change in health status between now and the scheduled procedure. I have personally interviewed and examined this patient. I have read the information the MA documented in this encounter. I spent 30 minutes in the visit, with more than 50% of the total [id number] time of the visit in counseling / coordination of care. Jonathan Parish RN [employer]DONOR SERVICES MANAGER Normal [facility] HOSP 04-24-2019 HOSP Patient:Jerman Huynh MRN: Height:6' 1(1.854 m) Weight:No patient weight recorded within the last 30 days. Outpatient Medications as of 05/27/19: famotidine (PEPCID) 40 mg tablet vitamin D3-folic acid 5,000 unit- 1 mg tab cyanocobalamin (VITAMIN B-12) 500 mcg tab tab(s) Calcium Citrate 250 mg calcium tab biotin 5,000 mcg ODT FUROSEMIDE (LASIX ORAL) CPAP celecoxib (CELEBREX) 200 mg capsule enalapril (VASOTEC) 20 mg tablet atorvastatin (LIPITOR) 40 mg tablet AMOXICILLIN, BULK, MISC Docusate Sodium 100 mg tab MULTIVITS-MINERALS/FA/LY COPENE (MEN'S DAILY MULTIVIT-MINERAL ORAL) GLUC/CHND/OM3/DHA/EPA/FI SH/STR (GLUCOSAMINE CHONDROITIN PLUS ORAL) Wyatt-3 Fatty Acids-Vitamin E (FISH OIL) 1,000 mg cap TERAZOSIN HCL (TERAZOSIN ORAL) AMLODIPINE BESYLATE (AMLODIPINE ORAL) losartan potassium(COZAAR 100 MG TAB) ACETAMINOPHEN 500 MG TAB ASPIRIN 81 MG TAB Admission/Clinic Administered Medications as of 05/27/19: lactated ringers infusion Problem List: ACTINIC KERATOSES (Premalignant AK's) [L57.0] IRRITATED//INFLAMED SEBORRHEIC KERATOSES [L82.0] Benign neoplasm of skin of trunk, except scrotum [D23.5] TINEA///DERMATOPHYTOSIS OF FOOT [B35.3] 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] Unspecified hypertrophic and atrophic condition of skin [L91.9, L90.9] Viral warts, unspecified [B07.9] Other seborrheic keratosis [L82.1] WILLETT ANGIOMA///NEVUS, NON-NEOPLASTIC [I78.1] 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, unspecified [H18.50] Benign neoplasm of colon [D12.6] Family history of malignant neoplasm of gastrointestinal tract [Z80.0] Skin tags [] Other psoriasis [L40.8] Actinic skin damage [L57.8] Xerosis cutis [L85.3] Melanocytic nevi of trunk [D22.5] Solar Lentigines [L81.4] Allergies: Oxycontin [Oxycodone Hcl] Date Verified: 05/27/19 Lab Values No results within the last 30 days for the following basenames: K,HCT No progress notes entered within the past 30 days Normal [facility] Vitamin B1, Whole Blon 03-19 Vitamin B1 (TDP), WB Normal 84.0-213.0 [facility] Reference Lab Comment on above: Result Comment: 203. 7 This assay measures the concentration of thiamine diphosphate (TDP), the primary active form of vitamin B1. Approximately 90 percent of vitamin B1 present in whole blood is TDP. Thiamine and thiamine monophosphate, which comprise the remaining 10 percent, are not measured. This test was developed and its performance characteristics determined by [facility] Pathology and Laboratory Medicine [place] [facility] It has not been cleared or approved by the FDA. [facility] is regulated under CLIA as qualified to perform high complexity testing. This test is used for clinical purposes. It should not be regarded as investigational or for research. Performed By: #### B 1WB #### [facility] [address] [address] Folate, Serumon 03-15-2019 Folate [Mass/Vol] ng/mL Normal >4.7 [facility] Reference Lab Comment on above: Performed By: #### S ERFOL #### [facility] Routine Lab [address] [address] #### ZINC #### [facility] [address] [address] Zincon 03-15-2019 Zinc 76 ug/dL Normal 55-150 [facility] Reference Lab Comment on above: Performed By: #### S ERFOL #### [facility] Routine Lab [address] [address] #### ZINC #### [facility] [employer] [facility] [address] [id number] Laboratory - Chemistry and C hemistry - challengeon 09-25-2018 Prostate specific Ag [Mass/Vol] 2.7 ng/mL Normal [facility] Vitamin B1,Whole Bldon 09-19 Vitamin B1 Whole Bld 154 nmol/L Normal 70-180 [facility] Reference Lab Zincon 09-14-2018 Zinc 104 ug/dL Normal 55-150 [facility] Reference Lab Comment on above: Performed By: #### Z INC #### [facility] [employer] [facility] [address] [address] Zincon 04-02-2018 Zinc 90 ug/dL Normal 55-150 [facility] Reference Lab Comment on above: Performed By: #### Z INC #### [facility] [employer] Chemistry [address] [id number] Final Surgical Pathology Rep the medical center 07-27-2017 Final Surgical Pathology Report . Pathology ReportsAccession: Collected Date/Time: Received Date/Time: Pathologist:[id number] 07/24/2017 14:24 EDT 07/25/2017 14:24 EDT MD LIS HENDERSON Final Surgical Pathology ReportDIAGNOSIS:RIGHT KNEE, REPLACEMENT: - OSTEOARTHRITIS WITH IRREGULAR PITTED ARTICULAR SURFACE AND EBURNATION. - NEGATIVE FOR INFLAMMATION OR NEOPLASIA.COMMENT:[facility]# [id number] INFORMATION:RIGHT KNEE OSTEOARTHRITISSPECIMEN:A BONE, RIGHT KNEEGROSS DESCRIPTION:_Received in formalin labeled with the patient's name are multiple convex and concave fragmented portions of ferrell-yellow bone and soft tissue aggregating 8 x 8 x 3.5 cm. The articular surfaces are focally eburnated and the cartilage is focally nodular. The underlying bone is yellow and dense to trabecular. Director Clinical Pharmacology section(s) are submitted following decalcification in one cassette.Dictated by GUSTAVO VALENCIA ([facility])MICROSCOPIC DESCRIPTION:Slides reviewed._Electronically Signed byPathology Report verified by [facility] Hospital[facility]ronically signed by LIS HENDERSON MDSign out Date: 07/27/2017 12:55Performing Lab: [facility], [address] [place] [id number] [facility] Normal [facility] ([place]) Comment on above: Performed By: #### S PFR ####[facility] [place] [id number] Laboratory - Chemistry and C hemistry - challengeon 01-20-2016 Albumin [Mass/Vol] 4.4 g/dL Normal 3.4 - 4.8 g/dL [place] [employer] [facility] [employer] Albumin [Mass/Vol] 1.3 g/dL Normal 0.9 - 1.6 [place] [employer] ALP [Catalytic activity/Vol] 46 U/L Normal 38 - 126 U/L [facility] [employer] ALT [Catalytic activity/Vol] 23 U/L Normal 10 - 40 U/L [employer] Anion gap [Moles/Vol] 13 mmol/L Normal 10 - 2 0 mmol/L [facility] [employer] AST [Catalytic activity/Vol] 20 U/L Normal 13 - 39 U/L [employer] Bilirubin [Mass/Vol] 0.5 mg/dL Normal 0.0 - 1 .5 mg/dL [facility] [employer] Calcium [Mass/Vol] 9.8 mg/dL Normal 8.6 - 10. 2 mg/dL [employer] Chloride [Moles/Vol] 101 mmol/L Normal 98 - 10 7 mmol/L [employer] Cholesterol [Mass/Vol] 147 mg/dL Normal 0 - 2 00 mg/dL [employer] Cholesterol in HDL [Mass or moles/Vol] 44 mg/dL Normal 40 - 60 mg/dL [employer] Cholesterol in LDL [Mass/Vol] 74 mg/dL Normal 0 - 129 mg/dL [employer] Cholesterol.total/Chol esterol in HDL [Mass ratio] 3.3 {ratio} Normal 0.0 - 5.0 [facility].; [facility], [facility] CO2 [Moles/Vol] 28.0 mmol/L Normal 21.0 - 31.0 mmol/L [facility].; [facility], [facility]. Comprehensive metabolic 2000 panel CMP with eGFR Normal [facility]; [facility], [facility] Creatinine [Mass/Vol] 0.9 mg/dL Normal 0.7 - 1.3 mg/dL [facility].; [facility], [facility]. GFR/1.73 sq M.predicted among blacks MDRD (S/P/Bld) [Vol rate/Area] mL/min/{1.73_m2} Normal 60 - 999 {ML/MINUTE} [facility].; [facility], [facility]. GFR/1.73 sq M.predicted MDRD (S/P/Bld) [Vol rate/Area] mL/min/{1.73_m2} Normal 60 - 999 {ML/MINUTE} [facility].; [facility], [facility]. Globulin (S) [Mass/Vol] 3.4 g/dL Normal 1.5 - 3.8 g/dL [facility].; [facility], [facility]. Glucose [Mass/Vol] 107 mg/dL Abnormal 74 - 106 mg/dL [facility], [facility].; [facility], [facility]. Lipid 1996 panel LIPID PROFILE Normal [facility]; [facility], [facility] Potassium [Moles/Vol] 4.4 mmol/L Normal 3.5 - 5.1 mmol/L [facility].; [facility], [facility] Protein [Mass/Vol] 7.8 g/dL Normal 6.4 - 8.3 g/dL [facility], [facility].; [facility], [facility]. Sodium [Moles/Vol] 138 mmol/L Normal 136 - 145 mmol/L [facility], [facility].; [facility], [facility]. Triglyceride [Mass/Vol] 143 mg/dL Normal 0 - 150 mg/dL [facility], [facility].; [facility] Urea nitrogen [Mass/Vol] 27 mg/dL Abnormal 6 - 20 mg/dL [facility] [employer] [employer] [facility]; [place] [employer] Urea nitrogen/Creatinine [Mass ratio] 30 {ratio} Normal 0 - 30 {ratio} [facility] [employer] [employer] [facility]; [employer] No Panel Informationon 01-19 AGE 70 {years} Normal [facility]; [employer] Laboratory - Chemistry and C hemistry - challengeon 06-18-2015 Albumin [Mass/Vol] 4.4 g/dL Normal 3.4 - 4.8 g/dL [facility] [employer] [employer] [facility]; [employer] Work Phone: Albumin [Mass/Vol] 1.2 g/dL Normal 0.9 - 1.6 [facility] [employer] [employer] [facility]; [employer] Work Phone: ALP [Catalytic activity/Vol] 49 U/L Normal 38 - 126 U/L [facility] [employer] [employer] [facility]; [employer] Work Phone: ALT [Catalytic activity/Vol] 21 U/L Normal 10 - 40 U/L [place] [employer] [facility]; [employer]. Work Phone: Anion gap [Moles/Vol] 11 mmol/L Normal 10 - 2 0 mmol/L [facility] [employer] [facility]; [employer] Work Phone: AST [Catalytic activity/Vol] 22 U/L Normal 13 - 39 U/L [facility]; [employer] Work Phone: Bilirubin [Mass/Vol] 0.6 mg/dL Normal 0.0 - 1 .5 mg/dL [place] [employer] [facility]; [employer] Work Phone: Calcium [Mass/Vol] 9.8 mg/dL Normal 8.6 - 10. 2 mg/dL [facility]; [employer] Work Phone: Chloride [Moles/Vol] 102 mmol/L Normal 98 - 10 7 mmol/L [facility]; [facility] [employer] [facility] Work Phone: Cholesterol [Mass/Vol] 119 mg/dL Normal 0 - 2 00 mg/dL [facility]; [facility] [employer] [facility] Work Phone: Cholesterol in HDL [Mass or moles/Vol] 46 mg/dL Normal 40 - 60 mg/dL [facility]; [facility] [employer] [facility] Work Phone: Cholesterol in LDL [Mass/Vol] 55 mg/dL Normal 0 - 129 mg/dL [facility]; [facility] [employer] [facility] Work Phone: Cholesterol.total/Chol esterol in HDL [Mass ratio] 2.6 {ratio} Normal 0.0 - 5.0 [facility]; [facility] [employer] [facility] Work Phone: CO2 [Moles/Vol] 25.0 mmol/L Normal 13.0 - 29.0 mmol/L [facility]; [facility] [employer] [facility] Work Phone: Comprehensive metabolic 2000 panel CMP with eGFR Normal [facility]; [facility] [employer] [employer] [facility] Work Phone: Creatinine [Mass/Vol] 1.0 mg/dL Normal 0.7 - 1.3 mg/dL [facility]; [facility] [employer] [facility] Work Phone: GFR/1.73 sq M.predicted among blacks MDRD (S/P/Bld) [Vol rate/Area] mL/min/{1.73_m2} Normal 60 - 999 {ML/MINUTE} [facility]; [facility] [employer] [facility] Work Phone: GFR/1.73 sq M.predicted MDRD (S/P/Bld) [Vol rate/Area] mL/min/{1.73_m2} Normal 60 - 999 {ML/MINUTE} [facility]; [facility] Work Phone: Globulin (S) [Mass/Vol] 3.6 g/dL Normal 1.5 - 3.8 g/dL [facility]; [facility] Work Phone: Glucose [Mass/Vol] 100 mg/dL Normal 74 - 106 mg/dL [facility]; [facility] Work Phone: Lipid 1996 panel LIPID PROFILE Normal [facility]; [facility] [employer] [employer] [facility] Work Phone: Potassium [Moles/Vol] 4.6 mmol/L Normal 3.5 - 5.1 mmol/L [facility]; [facility] [employer] [facility] Work Phone: Protein [Mass/Vol] 8.0 g/dL Normal 6.4 - 8.3 g/dL [facility]; [facility] [employer] [facility] Work Phone: Sodium [Moles/Vol] 133 mmol/L Abnormal 136 - 145 mmol/L [facility]; [facility] [employer] [facility] Work Phone: Triglyceride [Mass/Vol] 89 mg/dL Normal 0 - 150 mg/dL [facility]; [facility] [employer] [facility] Work Phone: Urea nitrogen [Mass/Vol] 29 mg/dL Abnormal 6 - 20 mg/dL [facility]; [facility] [employer] [facility] Work Phone: Urea nitrogen/Creatinine [Mass ratio] 29 {ratio} Normal 0 - 30 {ratio} [facility]; [facility] [employer] [facility] Work Phone: No Panel Informationon 06-18 AGE 69 {years} Normal [facility]; [facility] [employer] [facility] Work Phone: Laboratory - Chemistry and C hemistry - challengeon 12-15-2014 Albumin [Mass/Vol] 4.5 g/dL Normal 3.4 - 4.8 g/dL [facility].; [facility] Albumin [Mass/Vol] 1.5 g/dL Normal 0.9 - 1.6 [facility]; [facility]. ALP [Catalytic activity/Vol] 42 U/L Normal 38 - 126 U/L [facility].; [facility], [facility] ALT [Catalytic activity/Vol] 20 U/L Normal 10 - 40 U/L [facility].; [facility] Anion gap [Moles/Vol] 8 mmol/L Abnormal 10 - 2 0 mmol/L [facility]; [facility]. AST [Catalytic activity/Vol] 16 U/L Normal 13 - 39 U/L [facility]; [facility], [facility]. Bilirubin [Mass/Vol] 0.6 mg/dL Normal 0.0 - 1 .5 mg/dL [facility]; [facility], [facility] Calcium [Mass/Vol] 9.7 mg/dL Normal 8.6 - 10. 2 mg/dL [facility]; [facility], [facility]. Chloride [Moles/Vol] 106 mmol/L Normal 98 - 10 7 mmol/L [facility]; [facility], [facility]. CO2 [Moles/Vol] 26.0 mmol/L Normal 13.0 - 29.0 mmol/L [facility].; [facility], [facility] Comprehensive metabolic 2000 panel CMP with eGFR Normal [facility].; [facility] Creatinine [Mass/Vol] 0.9 mg/dL Normal 0.7 - 1.3 mg/dL [facility].; [facility], [facility]. GFR/1.73 sq M.predicted among blacks MDRD (S/P/Bld) [Vol rate/Area] mL/min/{1.73_m2} Normal 60 - 999 {ML/MINUTE} [facility].; [facility], [facility]. GFR/1.73 sq M.predicted MDRD (S/P/Bld) [Vol rate/Area] mL/min/{1.73_m2} Normal 60 - 999 {ML/MINUTE} [facility] [employer] [employer] [facility].; [place] [employer] [facility] [employer] [facility]. Globulin (S) [Mass/Vol] 3.0 g/dL Normal 1.5 - 3.8 g/dL [facility] [employer] [facility].; [place] [employer] [facility], [facility]. Glucose [Mass/Vol] 108 mg/dL Abnormal 74 - 106 mg/dL [facility] [employer] [facility].; [facility] [facility] [employer] [employer] [facility] Potassium [Moles/Vol] 4.1 mmol/L Normal 3.5 - 5.1 mmol/L [facility].; [facility] Protein [Mass/Vol] 7.5 g/dL Normal 6.4 - 8.3 g/dL [facility].; [place] [employer] [facility], [facility]. Sodium [Moles/Vol] 136 mmol/L Normal 136 - 145 mmol/L [facility].; [place] [employer] [facility] Urea nitrogen [Mass/Vol] 24 mg/dL Abnormal 6 - 20 mg/dL [facility].; [place] [employer] [facility]. Urea nitrogen/Creatinine [Mass ratio] 27 {ratio} Normal 0 - 30 {ratio} [facility].; [employer]. Laboratory - Hematology and Cell countson 12-15-2014 Basophils (Bld) [#/Vol] 0.10 {3/UL} Normal 0.00 - 0.10 {3/UL} [facility].; [place] [employer] [facility] Basophils/100 WBC (Bld) 0.9 % Normal 0.0 - 2.0 % [facility].; [employer] [facility]. CBC W Auto Differential panel (Bld) CBC Normal [facility].; [place] [employer] [facility] Eosinophils (Bld) [#/Vol] 0.20 {3/UL} Normal 0.00 - 0.50 {3/UL} [facility].; [place] [employer] [facility], [facility]. Eosinophils/100 WBC (Bld) 2.1 % Normal 0.0 - 7.0 % [facility].; [place] [employer] [facility] Erythrocyte distribution width (RBC) [Ratio] 13.5 % Normal 12.0 - 15.6 % [facility].; [employer], [facility]. Hematocrit (Bld) [Volume fraction] 38.5 % Abnormal 40.0 - 52.0 % [place] [employer] [facility].; [employer], [facility]. Hemoglobin (Bld) [Mass/Vol] 13.1 g/dL Normal 13.0 - 17.5 g/dL [facility], [facility].; [employer], [employer]. Lymphocytes (Bld) [#/Vol] 2.50 {3/UL} Normal 0.80 - 2.80 {3/UL} [place] [employer] [facility].; [employer], [facility]. Lymphocytes/100 WBC (Bld) 30.2 % Normal 20.0 - 45.0 % [place] [employer].; [employer], [employer]. MCH (RBC) [Entitic mass] 32 pg Normal 27 - 33 pg [place] [employer], [facility].; [employer], [employer]. MCHC (RBC) [Mass/Vol] 34 {X10_3} Normal 32 - 3 6 {X10_3} [place] [employer], [facility].; [employer], [employer]. MCV (RBC) [Entitic vol] 93 fL Normal 81 - 98 fL [employer].; [employer], [employer]. Monocytes (Bld) [#/Vol] 0.90 {3/UL} Normal 0.20 - 1.00 {3/UL} [employer], [facility].; [employer], [employer]. Monocytes/100 WBC (Bld) 10.3 % Abnormal 0.0 - 10.0 % [place] [employer].; [employer], [employer]. Morphology German (Bld) [Interp] N/A Normal [place] [employer] [facility].; [employer], [facility]. Neutrophils (Bld) [#/Vol] 4.70 {3/UL} Normal 1.50 - 7.10 {3/UL} [employer], [employer].; [employer] Neutrophils/100 WBC (Bld) 56.5 % Normal 46.0 - 76.0 % [employer], [employer].; [employer] Platelet mean volume (Bld) [Entitic vol] 8.3 fL Normal 6.4 - 10.5 fL [employer]. Platelets (Bld) [#/Vol] 213 {3/UL} Normal 150 - 450 {3/UL} [employer].; [employer], [employer]. RBC (Bld) [#/Vol] 4.13 {6/UL} Abnormal 4.50 - 6.0 0 {6/UL} [employer]. WBC (Bld) [#/Vol] 8.3 {3/UL} Normal 4.5 - 10.8 {3/UL} [employer].; [employer]. No Panel Informationon 12-15 AGE 68 {years} Normal [employer]. MANUAL DIFF N/A Normal [place] [employer].; [employer]. Laboratory - Chemistry and C hemistry - challengeon 08-22-2014 Albumin [Mass/Vol] 4.5 g/dL Normal 3.4 - 4.8 g/dL [place] [employer].; [employer], [employer]. Albumin [Mass/Vol] 1.3 g/dL Normal 0.9 - 1.6 [employer].; [employer]. ALP [Catalytic activity/Vol] 39 U/L Normal 38 - 126 U/L [employer].; [employer], [employer]. ALT [Catalytic activity/Vol] 23 U/L Normal 10 - 40 U/L [employer].; [employer], [employer]. AST [Catalytic activity/Vol] 21 U/L Normal 13 - 39 U/L [employer].; [employer]. Bilirubin [Mass/Vol] 0.7 mg/dL Normal 0.0 - 1 .5 mg/dL [employer].; [employer], [employer]. Calcium [Mass/Vol] 10.0 mg/dL Normal 8.6 - 10. 2 mg/dL [employer], [employer].; [employer], [employer]. Chloride [Moles/Vol] 103 mmol/L Normal 98 - 10 7 mmol/L [employer].; [employer], [employer]. Cholesterol [Mass/Vol] 151 mg/dL Normal 0 - 2 00 mg/dL [facility].; [facility], [facility] Cholesterol in HDL [Mass or moles/Vol] 47 mg/dL Normal 40 - 60 mg/dL [facility]; [facility] Cholesterol in LDL [Mass/Vol] 83 mg/dL Normal 0 - 129 mg/dL [facility].; [facility], [facility] Cholesterol.total/Chol esterol in HDL [Mass ratio] 3.2 {ratio} Normal 0.0 - 5.0 [facility]; [facility] CO2 [Moles/Vol] 26.0 mmol/L Normal 13.0 - 29.0 mmol/L [facility]; [facility], [facility] Comprehensive metabolic 2000 panel CMP with eGFR Normal [facility]; [facility], [facility] Creatinine [Mass/Vol] 0.9 mg/dL Normal 0.7 - 1.3 mg/dL [facility]; [facility], [facility]. GFR/1.73 sq M.predicted among blacks MDRD (S/P/Bld) [Vol rate/Area] mL/min/{1.73_m2} Normal 60 - 999 {ML/MINUTE} [facility].; [facility], [facility]. GFR/1.73 sq M.predicted MDRD (S/P/Bld) [Vol rate/Area] mL/min/{1.73_m2} Normal 60 - 999 {ML/MINUTE} [facility], [facility].; [facility], [facility]. Globulin (S) [Mass/Vol] 3.4 g/dL Normal 1.5 - 3.8 g/dL [facility].; [facility], [facility]. Glucose [Mass/Vol] 99 mg/dL Normal 74 - 106 mg/dL [facility]; [facility], [facility] Lipid 1996 panel LIPID PROFILE Normal [facility]; [facility], [facility] Potassium [Moles/Vol] 4.5 mmol/L Normal 3.5 - 5.1 mmol/L [facility]; [facility] Protein [Mass/Vol] 7.9 g/dL Normal 6.4 - 8.3 g/dL [facility].; [facility] Sodium [Moles/Vol] 138 mmol/L Normal 136 - 145 mmol/L [facility]; [facility] Triglyceride [Mass/Vol] 106 mg/dL Normal 0 - 150 mg/dL [facility]; [facility] Urea nitrogen [Mass/Vol] 23 mg/dL Abnormal 6 - 20 mg/dL [facility]; [facility] Urea nitrogen/Creatinine [Mass ratio] 26 {ratio} Normal 0 - 30 {ratio} [facility]; [place] [employer] [facility] Laboratory - Molecular patho logyon 08-22-2014 F5 gene targeted mutation analysis [facility] (Bld/Tiss) FACTOR V LEIDEN MUTATION Normal [facility] Care[facility]; [place] [employer] [facility] No Panel Informationon 08-22 AGE 68 {years} Normal [facility]; [place] [employer] Laboratory - Chemistry and C hemistry - challengeon 08-21-2013 Albumin [Mass/Vol] 4.4 g/dL Normal 3.4 - 4.8 g/dL [facility]; [place] [employer] [facility] Work Phone: Albumin [Mass/Vol] 1.4 g/dL Normal 0.9 - 1.6 [facility]; [place] [employer] [facility] Work Phone: ALP [Catalytic activity/Vol] 42 U/L Normal 38 - 126 U/L [facility]; [place] [employer] Work Phone: ALT [Catalytic activity/Vol] 25 U/L Normal 10 - 40 U/L [facility]; [place] [employer] [facility] Work Phone: AST [Catalytic activity/Vol] 18 U/L Normal 13 - 39 U/L [facility]; [place] [employer] Work Phone: Bilirubin [Mass/Vol] 0.5 mg/dL Normal 0.0 - 1 .5 mg/dL [facility]; [facility] Work Phone: Calcium [Mass/Vol] 9.4 mg/dL Normal 8.6 - 10. 2 mg/dL [facility]; [facility] Work Phone: Chloride [Moles/Vol] 103 mmol/L Normal 98 - 10 7 mmol/L [facility]; [facility] Work Phone: Cholesterol [Mass/Vol] 128 mg/dL Normal 0 - 2 00 mg/dL [facility]; [facility] Work Phone: Cholesterol in HDL [Mass or moles/Vol] 40 mg/dL Normal 40 - 60 mg/dL [facility]; [facility] Work Phone: Cholesterol in LDL [Mass/Vol] 75 mg/dL Normal 0 - 129 mg/dL [facility]; [facility] Work Phone: Cholesterol.total/Chol esterol in HDL [Mass ratio] 3.2 {ratio} Normal 0.0 - 5.0 [facility]; [facility] Work Phone: CO2 [Moles/Vol] 29.0 mmol/L Normal 13.0 - 29.0 mmol/L [facility]; [facility] [employer] [facility] Work Phone: Comprehensive metabolic 2000 panel CMP with eGFR Normal [facility]; [facility] Work Phone: Creatinine [Mass/Vol] 0.9 mg/dL Normal 0.7 - 1.3 mg/dL [facility]; [facility] Work Phone: GFR/1.73 sq M.predicted among blacks MDRD (S/P/Bld) [Vol rate/Area] mL/min/{1.73_m2} Normal 60 - 999 {ML/MINUTE} [facility]; [facility] Work Phone: GFR/1.73 sq M.predicted MDRD (S/P/Bld) [Vol rate/Area] mL/min/{1.73_m2} Normal 60 - 999 {ML/MINUTE} [facility].; [facility] Work Phone: Globulin (S) [Mass/Vol] 3.2 g/dL Normal 1.5 - 3.8 g/dL [facility]; [facility] Work Phone: Glucose [Mass/Vol] 107 mg/dL Abnormal 74 - 106 mg/dL [facility]; [place] [employer] [facility] Work Phone: Lipid 1996 panel LIPID PROFILE Normal [facility]; [facility] [employer] [facility] Work Phone: Potassium [Moles/Vol] 4.1 mmol/L Normal 3.5 - 5.1 mmol/L [facility]; [facility] Work Phone: Protein [Mass/Vol] 7.6 g/dL Normal 6.4 - 8.3 g/dL [facility]; [place] [employer] [facility] Work Phone: Sodium [Moles/Vol] 136 mmol/L Normal 136 - 145 mmol/L [facility] [employer] [facility]; [place] [employer] [facility] HospitalC[facility] Work Phone: Triglyceride [Mass/Vol] 65 mg/dL Normal 0 - 150 mg/dL [facility] [employer] [facility]; [place] [employer] [facility] HospitalC[facility] Work Phone: Urea nitrogen [Mass/Vol] 27 mg/dL Abnormal 6 - 20 mg/dL [facility]; [place] [employer] [facility] Work Phone: Urea nitrogen/Creatinine [Mass ratio] 30 {ratio} Normal 0 - 30 {ratio} [facility], [facility].; [employer] [facility], [employer] Work Phone: No Panel Informationon 08-21 AGE 67 {years} Normal [facility].; [facility], Inc[employer] Work Phone: Vital Signs Date Time Vital Sign Value Performing Clinician Facility 11-25-2024 10:13-0400 Body height 185.42 cm Erickson Gresham SO [facility], [facility].; [employer] [facility], [employer]. 11-25-2024 10:13-0400 Body mass index (BMI) [Ratio] 44.59 kg/m2 Erickson Gresham SUPERVISOR [employer] [facility], [facility].; [place] [employer] [facility], [facility]. 11-25-2024 10:13-0400 Body surface area Derived from formula 2.69 m2 Erickson Gresham SO [facility], Inc.; [place] [employer] [facility], [facility]. 11-25-2024 10:13-040 Body weight 153.32 kg Erickson Gresham SUPERVISOR [employer] [facility], [facility].; [employer], [employer]. 11-25-2024 10:13-0400 Diastolic blood pressure 82 mm[Hg] Erickson Gresham SUPERVISOR [employer]OR [employer]KING [facility], [facility].; [employer]Quali[employer] [facility], [employer]. Comment on above: Patient Position: Sitting; Cuff Location : Left Arm; Cuff Size: Standard 11-25-2024 10:13-0400 Heart rate 99 /min Erickson Gresham SUPERVISOR [employer] [facility], Inc.; [employer], [employer]. Comment on above: Pattern: Regular 11-25-2024 10:13-0400 Systolic blood pressure 146 mm[Hg] Erickson Gresham LPN [facility], Inc.; [employer], [employer]. Comment on above: Patient Position: Sitting; Cuff Location : Left Arm; Cuff Size: Standard 07-15-2024 13:23-0500 Body height 185.42 cm Josiah Christine MD Work Phone: [facility], [facility].; [employer] 07-15-2024 13:23-0500 Body mass index (BMI) [Ratio] 43.93 kg/m2 Josiah Christine MD Work Phone: [employer].; [employer]. 07-15-2024 13:23-0500 Body surface area Derived from formula 2.67 m2 Josiah Christine MD Work Phone: [employer].; [employer] 07-15-2024 13:23-0500 Body weight 151.05 kg Josiah Christine MD Work Phone: [employer].; [employer]. 07-15-2024 13:23-0500 Heart rate 114 /min Josiah Christine MD Work Phone: [employer].; [employer]. Comment on above: Pattern: Regular 05-23-2024 10:04-0500 Body height 185.42 cm Josiah Christine MD Work Phone: [employer].; [employer]. 05-23-2024 10:04-0500 Body mass index (BMI) [Ratio] 44.73 kg/m2 Josiah Christine MD Work Phone: [employer].; [employer]. 05-23-2024 10:04-0500 Body surface area Derived from formula 2.69 m2 Josiah Christine MD Work Phone: [employer].; [employer]. 05-23-2024 10:04-0500 Body weight 153.77 kg Josiah Christine MD Work Phone: [employer].; [employer]. 05-23-2024 10:04-0500 Diastolic blood pressure 72 mm[Hg] Josiah Christine MD Work Phone: [employer].; [employer]. Comment on above: Patient Position: Sitting; Cuff Location : Left Arm; Cuff Size: Standard 05-23-2024 10:04-0500 Heart rate 97 /min Josiah Christine MD Work Phone: [employer].; [employer]. Comment on above: Pattern: Regular 05-23-2024 10:04-0500 Systolic blood pressure 142 mm[Hg] Josiah Christine MD Work Phone: [facility].; [facility]. Comment on above: Patient Position: Sitting; Cuff Location : Left Arm; Cuff Size: Standard 02-22-2024 10:56-0400 Body height 185.42 cm Erickson Gresham [facility], [facility].; [facility] [employer] [facility]. 02-22-2024 10:56-0400 Body mass index (BMI) [Ratio] 44.86 kg/m2 Ericksonkarolina Gresham [facility], [facility].; [facility]. 02-22-2024 10:56-0400 Body surface area Derived from formula 2.7 m2 Ericksonkarolina Gresham [facility].; [facility]. 02-22-2024 10:56-0400 Body weight 154.22 kg Erickson Mp [facility], [facility].; [facility] [employer] [facility]. 02-22-2024 10:56-0400 Diastolic blood pressure 69 mm[Hg] Erickson Gresham [facility], [facility].; [place] [employer] [facility]. Comment on above: Patient Position: Sitting; Cuff Location : Left Arm; Cuff Size: Standard 02-22-2024 10:56-0400 Heart rate 139 /min Ericksonkarolina Gresham [facility], [facility].; [employer] [facility]. Comment on above: Pattern: Regular 02-22-2024 10:56-0400 Systolic blood pressure 116 mm[Hg] Erickson Gresham [facility], [facility].; [place] [employer] [facility]. Comment on above: Patient Position: Sitting; Cuff Location : Left Arm; Cuff Size: Standard 02-01-2024 10:40-0400 Body height 185.42 cm Elisha Ramesh SUPERVISOR COLOR MAKING [facility], [facility].; [place] [employer]. 02-01-2024 10:40-0400 Body mass index (BMI) [Ratio] 45.25 kg/m2 Elisha Ramesh SUPERVISOR [employer] [facility].; [place] [employer]. 02-01-2024 10:40-0400 Body surface area Derived from formula 2.71 m2 Elisha Ramesh LPN [facility], [facility].; [place] [employer] [facility], [facility]. 02-01-2024 10:40-0400 Body weight 155.58 kg Elisha Ramesh LPN [facility], [facility].; [employer] [facility]. 02-01-2024 10:40-0400 Diastolic blood pressure 81 mm[Hg] Elisha Ramesh LPN [facility].; [employer]. Comment on above: Patient Position: Sitting; Cuff Location : Left Arm; Cuff Size: Standard 02-01-2024 10:40-0400 Heart rate 92 /min Elisha Ramesh LPN [facility], [facility].; [employer]. Comment on above: Pattern: Regular 02-01-2024 10:40-0400 Systolic blood pressure 162 mm[Hg] Elisha Ramesh LPN [facility], [facility].; [employer], [employer]. Comment on above: Patient Position: Sitting; Cuff Location : Left Arm; Cuff Size: Standard 11-21-2023 10:22-0400 Body height 185.42 cm Josiah Christine MD Work Phone: [place] [employer] [facility].; [employer]. 11-21-2023 10:22-0400 Body mass index (BMI) [Ratio] 44.33 kg/m2 Josiah Christine MD Work Phone: [place] [employer] [facility].; [employer] [facility]. 11-21-2023 10:22-0400 Body surface area Derived from formula 2.68 m2 Josiah Christine MD Work Phone: [employer]Quali[employer] [facility].; [employer]. 11-21-2023 10:22-0400 Body weight 152.41 kg Josiah Christine MD Work Phone: [place] [employer].; [employer]. 11-21-2023 10:22-0400 Diastolic blood pressure 78 mm[Hg] Josiah Christine MD Work Phone: [place] [employer].; [employer]. Comment on above: Patient Position: Sitting; Cuff Location : Left Arm; Cuff Size: Large 11-21-2023 10:22-0400 Heart rate 102 /min Josiah Christine MD Work Phone: [facility].; [facility] [employer] [facility]. Comment on above: Pattern: Regular 11-21-2023 10:22-0400 Systolic blood pressure 132 mm[Hg] Josiah Christine MD Work Phone: [facility], [facility].; [place] [employer] [facility]. Comment on above: Patient Position: Sitting; Cuff Location : Left Arm; Cuff Size: Large 08-31-2023 13:31-0400 Body height 185.42 cm Erickson Velozcaro RIZZO [facility], [facility].; [facility], [facility]. 08-31-2023 13:31-0400 Body mass index (BMI) [Ratio] 44.07 kg/m2 Erickson Velozon SUPERVISOR COLOR [employer]KING [facility], [facility].; [facility], [facility]. 08-31-2023 13:31-0400 Body surface area Derived from formula 2.68 m2 Erickson Velozon SUPERVISOR COLOR MAKING [facility], [facility].; [employer] [facility], [facility]. 08-31-2023 13:31-0400 Body weight 151.5 kg Erickson Gresham SUPERVISOR COLOR MAKING [facility], [facility].; [place] [employer] [facility], [facility]. 08-31-2023 13:31-0400 Diastolic blood pressure 83 mm[Hg] Erickson Velozon SUPERVISOR COLOR MAKING [facility], [facility].; [employer] [facility], [employer]. Comment on above: Patient Position: Sitting; Cuff Location : Left Arm; Cuff Size: Standard 08-31-2023 13:31-0400 Heart rate 118 /min Erickson Velozon SUPERVISOR COLOR MAKING [facility], [facility].; [employer] [facility], [employer]. Comment on above: Pattern: Regular 08-31-2023 13:31-0400 Systolic blood pressure 138 mm[Hg] Erickson Mpcaro RIZZO [facility], Inc.; [employer], [employer]. Comment on above: Patient Position: Sitting; Cuff Location : Left Arm; Cuff Size: Standard 04-24-2023 11:11-0500 Body height 185.[address] Josiah Christine Work Phone: [facility] 04-24-2023 11:11-0500 Body mass index (BMI) [Ratio] 44.4 kg/m2 Dr. Josiah Christine Work Phone: [facility] 04-24-2023 11:11-0500 Body weight 152.[address] Josiah Christine Work Phone: [facility] 04-24-2023 11:11-0500 Diastolic blood pressure 74 mm[Hg] Dr. Josiah Christine Work Phone: [facility] 04-24-2023 11:11-0500 Heart rate 85 /min Dr. Josiah Christine Work Phone: [facility] 04-24-2023 11:11-0500 Respiratory rate 18 /min Dr. Josiah Christine Work Phone: [facility] 04-24-2023 11:11-0500 Systolic blood pressure 121 mm[Hg] Dr. Josiah Christine Work Phone: [facility] 10-27-2022 10:10-0400 Body height 185.42 cm Elisha Ramesh LPN [facility], [facility]. 10-27-2022 10:10-0400 Body mass index (BMI) [Ratio] 46.31 kg/m2 Elisha Ramesh LPN [facility], [facility]. 10-27-2022 10:10-0400 Body surface area Derived from formula 2.73 m2 Elisha Ramesh LPN [facility], [facility]. 10-27-2022 10:10-0400 Body weight 159.21 kg Elisha Ramesh LPN [facility], [facility]. 10-27-2022 10:10-0400 Diastolic blood pressure 84 mm[Hg] Elisha Ramesh LPN [facility], [facility]. Comment on above: Patient Position: Sitting; Cuff Location : Left Arm; Cuff Size: Standard 10-27-2022 10:10-0400 Heart rate 90 /min Elsiha [facility]ames[facility] L[facility]. Comment on above: Pattern: Regular 10-27-2022 10:10-0400 Systolic blood pressure 140 mm[Hg] Elisha Ramesh LPN [facility].; [facility] Comment on above: Patient Position: Sitting; Cuff Location : Left Arm; Cuff Size: Standard 09-23-2022 13:17-0400 Body weight 154.[address] Josiah Christine Work Phone: 2(946)040-959863 [address] 09-23-2022 13:17-0400 Diastolic blood pressure 77 mm[Hg] Dr. Josiah Christine Work Phone: 4(968)[phone] [place] [address] 09-23-2022 13:17-0400 Heart rate 103 /min Dr. Josiah Christine Work Phone: 5(594)595-202929 [place] [address] 09-23-2022 13:17-0400 Respiratory rate 20 /min Dr. Josiah Christine Work Phone: 8(450)901-339763 [address] 09-23-2022 13:17-0400 Systolic blood pressure 143 mm[Hg] Dr. Josiah Christine Work Phone: 9(959)850-773363 [address] 09-23-2022 08:41-0400 Body height 185.[address] Josiah Christine Work Phone: 5(441)[phone] [place] [address] 06-20-2022 12:47-0500 Body height 185.[address] Josiah Christine Work Phone: 0(180)[phone] [place] [address] 06-20-2022 12:47-0500 Body mass index (BMI) [Ratio] 45.5 kg/m2 Dr. Josiah Christine Work Phone: 1(507)[phone] [address] 06-20-2022 12:47-0500 Body weight 156.[address] Josiah Christine Work Phone: 4(128)[phone] [place] [address] 06-20-2022 12:47-0500 Diastolic blood pressure 88 mm[Hg] Dr. Josiah Christine Work Phone: 0(962)[phone] [address] 06-20-2022 12:47-0500 Heart rate 104 /min Dr. Josiah Christine Work Phone: 2(266)[phone] [address] 06-20-2022 12:47-0500 Respiratory rate 22 /min Dr. Josiah Christine Work Phone: [facility] 06-20-2022 12:47-0500 SaO2% (BldA) [Mass fraction] 97 % Dr. Josiah Christine Work Phone: [facility] 06-20-2022 12:47-0500 Systolic blood pressure 121 mm[Hg] Dr. Josiah Christine Work Phone: [facility] 05-19-2022 11:07-0500 Body height 185.42 cm Nikkie Squires MA [facility] [employer] [facility].; [employer] [facility] 05-19-2022 11:07-0500 Body mass index (BMI) [Ratio] 47.55 kg/m2 Nikkie Squires MA [facility] [employer] [facility].; [employer] 05-19-2022 11:07-0500 Body surface area Derived from formula 2.76 m[address]kie Squires MA [facility] [employer] [facility].; [employer]. 05-19-2022 11:07-0500 Body weight 163.47 kg Nikkie Squires MA [facility].; [employer]. 05-19-2022 11:07-0500 Diastolic blood pressure 98 mm[Hg] Nikkie Squires MA [facility] [employer] [facility].; [employer]. Comment on above: Patient Position: Sitting; Cuff Location : Left Arm; Cuff Size: Standard 05-19-2022 11:07-0500 Heart rate 120 /min Nikkie Squires MA [facility].; [employer]. Comment on above: Pattern: Regular 05-19-2022 11:07-0500 Inhaled oxygen concentration 20 % Nikkie Squires MA [employer] [facility].; [employer]. Comment on above: Room air 05-19-2022 11:07-0500 Inhaled oxygen concentration 21 % Nikkie Squires MA [facility].; [employer]. Comment on above: Room air 05-19-2022 11:07-0500 SaO2% (BldA) [Mass fraction] 96 % Nikkie Squires MA [employer].; [employer]. 05-19-2022 11:07-0500 Systolic blood pressure 163 mm[Hg] Nkikie Squires MA [place] [employer].; [employer]. Comment on above: Patient Position: Sitting; Cuff Location : Left Arm; Cuff Size: Standard 10-28-2021 10:49-0400 Body height 185.42 cm Josiah Christine MD Work Phone: [employer] [place]; [employer]. 10-28-2021 10:49-0400 Body mass index (BMI) [Ratio] 44.99 kg/m2 Josiah Christine MD Work Phone: [employer] [place]; [employer]. 10-28-2021 10:49-0400 Body surface area Derived from formula 2.7 m2 Josiah Christine MD Work Phone: [employer] [place]; [employer]. 10-28-2021 10:49-0400 Body weight 154.68 kg Josiah Christine MD Work Phone: [place] [employer]. 10-28-2021 10:49-0400 Diastolic blood pressure 78 mm[Hg] Josiah Christine MD Work Phone: [place] [employer].; [employer]. Comment on above: Patient Position: Sitting; Cuff Location : Left Arm; Cuff Size: Standard 10-28-2021 10:49-0400 Systolic blood pressure 127 mm[Hg] Josiah Christine MD Work Phone: [place] [employer].; [employer]. Comment on above: Patient Position: Sitting; Cuff Location : Left Arm; Cuff Size: Standard 06-29-2021 12:58-0500 Diastolic blood pressure 78 mm[Hg] Dr. Harshad Spaulding Work Phone: [facility] Work Phone: 06-29-2021 12:58-0500 Systolic blood pressure 122 mm[Hg] Dr. Harshad Spaulding Work Phone: [facility] Work Phone: 06-29-2021 12:30-0500 Body height 185.[address] Harshad Spaulding Work Phone: [facility] Work Phone: 06-29-2021 12:30-0500 Body mass index (BMI) [Ratio] 45.3 kg/m2 Dr. Harshad Spaulding Work Phone: [facility] Work Phone: 06-29-2021 12:30-0500 Body weight 155.[address] Harshad Spaulding Work Phone: [facility] Work Phone: 06-29-2021 12:30-0500 Heart rate 92 /min Dr. Harshad Spaulding Work Phone: [facility] Work Phone: 06-29-2021 12:30-0500 Respiratory rate 18 /min Dr. Harshad Spaulding Work Phone: [facility] Work Phone: 09-02-2020 10:57-0400 Body height 185.42 cm Elisha Ramesh LPN [facility], [facility].; [facility]. 09-02-2020 10:57-0400 Body mass index (BMI) [Ratio] 44.59 kg/m2 Elisha Ramesh LPN [facility] 09-02-2020 10:57-0400 Body surface area Derived from formula 2.69 m2 Elisha Ramesh LPN [facility], [facility].; [employer] [facility], [facility]. 09-02-2020 10:57-0400 Body weight 153.32 kg Elisha Ramesh LPN [facility], [facility].; [facility], [facility]. 09-02-2020 10:57-0400 Diastolic blood pressure 73 mm[Hg] Elisha Ramesh LPN [facility], [facility]. Comment on above: Patient Position: Sitting; Cuff Location : Left Arm; Cuff Size: Standard 09-02-2020 10:57-0400 Heart rate 105 /min Elisha Ramesh LPN [place] [employer] [facility] [employer] [employer] [facility].; [employer]. Comment on above: Pattern: Regular 09-02-2020 10:57-0400 Systolic blood pressure 148 mm[Hg] Elisha Ramesh LPN [facility] [employer] [facility].; [employer]. Comment on above: Patient Position: Sitting; Cuff Location : Left Arm; Cuff Size: Standard 03-05-2020 11:15-0400 Body height 185.42 cm Elda Mondragon RN [employer].; [employer]. 03-05-2020 11:15-0400 Body mass index (BMI) [Ratio] 44.99 kg/m2 Elda Mondragon RN [employer].; [employer]. 03-05-2020 11:15-0400 Body surface area Derived from formula 2.7 m2 Elda Mondragon RN [employer].; [employer]. 03-05-2020 11:15-0400 Body weight 154.68 kg Elda Mondragon RN [employer].; [employer]. 03-05-2020 11:15-0400 Diastolic blood pressure 80 mm[Hg] Elda Mondragon RN [employer].; [employer]. Comment on above: Patient Position: Sitting; Cuff Location : Left Arm; Cuff Size: Large 03-05-2020 11:15-0400 Heart rate 85 /min Elda Mondragon RN [employer].; [employer]. Comment on above: Pattern: Regular 03-05-2020 11:15-0400 Systolic blood pressure 144 mm[Hg] Elda Mondragon RN [employer].; [employer]. Comment on above: Patient Position: Sitting; Cuff Location : Left Arm; Cuff Size: Large 09-26-2019 09:29-0400 Body height 185.42 cm Elda Mondragon RN [employer].; [employer]. 09-26-2019 09:29-0400 Body mass index (BMI) [Ratio] 43.67 kg/m2 Elda Mondragon RN [facility], [facility].; [employer] [facility]. 09-26-2019 09:29-0400 Body surface area Derived from formula 2.67 m2 Elda Mondragon RN [facility] [employer] [facility].; [employer]. 09-26-2019 09:29-0400 Body weight 150.14 kg Elda Mondragon RN [facility] [employer] [facility].; [employer]. 09-26-2019 09:29-0400 Diastolic blood pressure 82 mm[Hg] Elda Mondragon RN [place] [employer] [facility] [employer] [employer] [facility].; [employer], [employer]. Comment on above: Patient Position: Sitting; Cuff Location : Left Arm; Cuff Size: Large 09-26-2019 09:29-0400 Heart rate 94 /min Elda Mondragon RN [place] [employer] [facility].; [employer]. Comment on above: Pattern: Regular 09-26-2019 09:29-0400 Systolic blood pressure 151 mm[Hg] Elda Mondragon RN [place] [employer] [facility] Hospital[facility] [employer] [facility].; [employer]. Comment on above: Patient Position: Sitting; Cuff Location : Left Arm; Cuff Size: Large 09-09-2019 13:06-0400 Body height 185.42 cm Elisha Ramesh LPN [place] [employer] [facility], [facility].; [employer]. 09-09-2019 13:06-0400 Body mass index (BMI) [Ratio] 43.93 kg/m2 Elisha Ramesh LPN [place] [employer] [facility] [employer] Inc.; [employer]. 09-09-2019 13:06-0400 Body surface area Derived from formula 2.67 m2 Elisha Ramesh LPN [place] [employer] [facility] [employer] [facility].; [employer]. 09-09-2019 13:06-0400 Body weight 151.05 kg Elisha Ramesh LPN [place] [employer] [facility] [employer] [facility].; [employer]. 03-28-2019 14:48-0500 Body height 185.42 cm Elisha Ramesh LPN [place] [employer] [facility], [facility].; [employer]. 03-28-2019 14:48-0500 Body mass index (BMI) [Ratio] 42.61 kg/m2 Elisha Ramesh LPN [employer].; [employer] 03-28-2019 14:48-0500 Body surface area Derived from formula 2.64 m2 Elisha Ramesh LPN [place] [employer] 03-28-2019 14:48-0500 Body weight 146.51 kg Elisha Ramesh LPN [employer].; [employer] 03-28-2019 14:48-0500 Diastolic blood pressure 79 mm[Hg] Elisha Ramesh LPN [employer], [employer].; [employer]. Comment on above: Patient Position: Sitting; Cuff Location : Left Arm; Cuff Size: Standard 03-28-2019 14:48-0500 Heart rate 72 /min Elisha Ramesh LPN [employer] [facility], [facility].; [employer]. Comment on above: Pattern: Regular 03-28-2019 14:48-0500 Systolic blood pressure 167 mm[Hg] Elisha Ramesh LPN [employer]. Comment on above: Patient Position: Sitting; Cuff Location : Left Arm; Cuff Size: Standard 09-25-2018 14:44-0400 Body height 185.42 cm Susie Calhoun LPN [employer].; [employer] 09-25-2018 14:44-0400 Body mass index (BMI) [Ratio] 42.35 kg/m2 Susie Calhoun LPN [employer].; [employer] 09-25-2018 14:44-0400 Body surface area Derived from formula 2.63 m2 Susie Calhoun LPN [employer].; [employer], [employer]. 09-25-2018 14:44-0400 Body weight 145.61 kg Susie Calhoun LPN [employer], [employer].; [employer]. 09-25-2018 14:44-0400 Diastolic blood pressure 70 mm[Hg] Susie Calhoun LPN [employer]. Comment on above: Patient Position: Sitting; Cuff Location : Left Arm; Cuff Size: Standard 09-25-2018 14:44-0400 Heart rate 70 /min Susie Calhoun LPN [employer].; [employer]. Comment on above: Pattern: Regular 09-25-2018 14:44-0400 Systolic blood pressure 148 mm[Hg] Susie Calhoun LPN [employer].; [employer]. Comment on above: Patient Position: Sitting; Cuff Location : Left Arm; Cuff Size: Standard 04-18-2018 09:54-0500 Body height 185.42 cm Harshad Spaulding MD Work Phone: [employer].; [employer]. 04-18-2018 09:54-0500 Body mass index (BMI) [Ratio] 39.83 kg/m2 Harshad Spaulding MD Work Phone: [employer].; [employer]. 04-18-2018 09:54-0500 Body surface area Derived from formula 2.56 m2 Harshad Spaulding MD Work Phone: [employer].; [employer]. 04-18-2018 09:54-0500 Body weight 136.94 kg Harshad Spaulding MD Work Phone: [employer].; [employer]. 04-18-2018 09:54-0500 Diastolic blood pressure 68 mm[Hg] Harshad Spaulding MD Work Phone: [employer].; [employer]. Comment on above: Patient Position: Sitting; Cuff Location : Left Arm; Cuff Size: Standard 04-18-2018 09:54-0500 Heart rate 65 /min Harshad Spaulding MD Work Phone: [employer].; [employer]. Comment on above: Pattern: Regular 04-18-2018 09:54-0500 Systolic blood pressure 146 mm[Hg] Harshad Spaulding MD Work Phone: [employer].; [employer]. Comment on above: Patient Position: Sitting; Cuff Location : Left Arm; Cuff Size: Standard 11-08-2017 10:18-0400 Body height 185.42 cm Harshad Spaulding MD Work Phone: [employer].; [employer]. 11-08-2017 10:18-0400 Body mass index (BMI) [Ratio] 38.17 kg/m2 Harshad Spaulding MD Work Phone: [employer].; [employer]. 11-08-2017 10:18-0400 Body surface area Derived from formula 2.52 m2 Harshad Spaulding MD Work Phone: [employer].; [employer]. 11-08-2017 10:18-0400 Body weight 131.23 kg Harshad Spaulding MD Work Phone: [employer].; [employer]. 11-08-2017 10:18-0400 Diastolic blood pressure 68 mm[Hg] Harshad Spaulding MD Work Phone: [employer].; [employer]. Comment on above: Patient Position: Sitting; Cuff Location : Left Arm; Cuff Size: Standard 11-08-2017 10:18-0400 Heart rate 65 /min Harshad Spaulding MD Work Phone: [employer]; [employer]. Comment on above: Pattern: Regular 11-08-2017 10:18-0400 Systolic blood pressure 138 mm[Hg] Harshad Spaulding MD Work Phone: [employer].; [employer]. Comment on above: Patient Position: Sitting; Cuff Location : Left Arm; Cuff Size: Standard 07-12-2017 10:110500 Body height 185.42 cm Lori Paredes [facility] [employer].; [employer]. 07-12-2017 10:110500 Body mass index (BMI) [Ratio] 39.32 kg/m2 Lori Paredes LPN [employer].; [employer]. 07-12-2017 10:110500 Body surface area Derived from formula 2.55 m2 Lori Paredes [employer].; [employer]. 07-12-2017 10:110500 Body weight 135.17 kg Lori Gray Reggie [facility], [employer], [employer].; [employer]. 07-12-2017 10:11-0500 Diastolic blood pressure 77 mm[Hg] Lori Gray Reggie RIZZO [employer]. Comment on above: Patient Position: Sitting; Cuff Location : Left Arm; Cuff Size: Standard 07-12-2017 10:11-0500 Heart rate 72 /min Lori Gray Reggie [facility], Inc[employer], Inc.; [employer]. Comment on above: Pattern: Regular 07-12-2017 10:11-0500 Systolic blood pressure 147 mm[Hg] Lori Gray Reggie [employer].; [employer]. Comment on above: Patient Position: Sitting; Cuff Location : Left Arm; Cuff Size: Standard 03-08-2017 09:12-0400 Body height 185.42 cm Harshad Spaulding MD Work Phone: [employer].; [employer]. 03-08-2017 09:12-0400 Body mass index (BMI) [Ratio] 42.14 kg/m2 Harshad Spaulding MD Work Phone: [employer].; [employer]. 03-08-2017 09:120400 Body surface area Derived from formula 2.63 m2 Harshad Spaulding MD Work Phone: [employer].; [employer]. 03-08-2017 09:120400 Body weight 144.88 kg Harshad Spaulding MD Work Phone: [employer].; [employer]. 03-08-2017 09:12-0400 Diastolic blood pressure 74 mm[Hg] Harshad Spaulding MD Work Phone: [employer].; [employer]. Comment on above: Patient Position: Sitting; Cuff Location : Right Arm; Cuff Size: Standard 03-08-2017 09:12-0400 Heart rate 73 /min Harshad Spaulding MD Work Phone: [employer].; [employer]. Comment on above: Pattern: Regular 03-08-2017 09:12-0400 Systolic blood pressure 152 mm[Hg] Harshad Spaulding MD Work Phone: [employer].; [employer]. Comment on above: Patient Position: Sitting; Cuff Location : Right Arm; Cuff Size: Standard 06-22-2016 10:06-0500 Body height 185.42 cm Harshad Spaulding MD Work Phone: [employer].; [employer]. 06-22-2016 10:06-0500 Body mass index (BMI) [Ratio] 50.23 kg/m2 Harshad Spaulding MD Work Phone: [employer].; [employer]. 06-22-2016 10:06-0500 Body surface area Derived from formula 2.83 m2 Harshad Spaulding MD Work Phone: [employer] [place]; [employer]. 06-22-2016 10:06-0500 Body weight 172.69 kg Harshad Spaulding MD Work Phone: [employer].; [employer]. 06-22-2016 10:06-0500 Diastolic blood pressure 70 mm[Hg] Harshad Spaulding MD Work Phone: [employer].; [employer]. Comment on above: Patient Position: Sitting; Cuff Location : Left Arm; Cuff Size: Standard 06-22-2016 10:06-0500 Heart rate 74 /min Harshad Spaulding MD Work Phone: [employer].; [employer]. Comment on above: Pattern: Regular 06-22-2016 10:06-0500 Systolic blood pressure 142 mm[Hg] Harshad Spaulding MD Work Phone: [employer].; [employer]. Comment on above: Patient Position: Sitting; Cuff Location : Left Arm; Cuff Size: Standard 03-09-2016 10:14-0400 Body height 185.42 cm Lori Paredes [facility] [employer] [facility], Inc.; [employer], [employer]. 03-09-2016 10:140400 Body mass index (BMI) [Ratio] 51.45 kg/m2 Lori Paredes [facility], Inc.; [employer], [employer] 03-09-2016 10:140400 Body surface area Derived from formula 2.86 m2 Lori Shiach [facility] [employer], [employer].; [employer], [employer]. 03-09-2016 10:140400 Body weight 176.9 kg Lori Paredes [facility], [employer], [employer].; [employer]. 03-09-2016 10:140400 Diastolic blood pressure 85 mm[Hg] Lori Paredes [facility] [employer] [facility], Inc.; [employer]. Comment on above: Patient Position: Sitting; Cuff Location : Left Arm; Cuff Size: Standard 03-09-2016 10:140400 Heart rate 75 /min Lori Paredes [facility] [employer] [facility], Inc.; [employer]. Comment on above: Pattern: Regular 03-09-2016 10:140400 Systolic blood pressure 171 mm[Hg] Lori Paredes [facility] [employer] [facility], Inc.; [employer]. Comment on above: Patient Position: Sitting; Cuff Location : Left Arm; Cuff Size: Standard 11-11-2015 10:140400 Body height 185.42 cm Lori Paredes [facility] [employer] [facility], Inc.; [employer], [employer]. 11-11-2015 10:140400 Body mass index (BMI) [Ratio] 50.66 kg/m2 Lori Paredes [facility] [employer].; [employer]. 11-11-2015 10:140400 Body surface area Derived from formula 2.84 m2 Lori Paredes [facility] [employer].; [employer], [employer]. 11-11-2015 10:140400 Body weight 174.18 kg Lori Paredes [facility], Inc[employer].; [employer]. 11-11-2015 10:140400 Diastolic blood pressure 77 mm[Hg] Lori Paredes [employer].; [employer]. Comment on above: Patient Position: Sitting; Cuff Location : Left Arm; Cuff Size: Standard 11-11-2015 10:140400 Heart rate 69 /min Lori Paredes [employer].; [employer]. Comment on above: Pattern: Regular 11-11-2015 10:140400 Systolic blood pressure 146 mm[Hg] Lori Shiach [employer]. Comment on above: Patient Position: Sitting; Cuff Location : Left Arm; Cuff Size: Standard 08-12-2015 11:29-0400 Body height 185.42 cm Lori Paredes [employer].; [employer]. 08-12-2015 11:29-0400 Body mass index (BMI) [Ratio] 48.83 kg/m2 Lori Paredes [employer], [employer].; [employer], [employer]. 08-12-2015 11:29-0400 Body surface area Derived from formula 2.8 m2 Lori Shiach [facility], Inc[employer], Inc.; [employer], [employer]. 08-12-2015 11:29-0400 Body weight 167.88 kg Lori Paredes [employer]. 08-12-2015 11:29-0400 Diastolic blood pressure 82 mm[Hg] Lori Paredes [employer].; [employer]. Comment on above: Patient Position: Sitting; Cuff Location : Left Arm; Cuff Size: Standard 08-12-2015 11:29-0400 Heart rate 68 /min oLri Shiach [employer], [employer].; [employer]. Comment on above: Pattern: Regular 08-12-2015 11:29-0400 Systolic blood pressure 163 mm[Hg] Lori Vanglabach [employer].; [employer]. Comment on above: Patient Position: Sitting; Cuff Location : Left Arm; Cuff Size: Standard 06-24-2015 10:24-0500 Body height 185.42 cm Lori Shiach [employer], [employer].; [employer]. 06-24-2015 10:24-0500 Body mass index (BMI) [Ratio] 48.6 kg/m2 Lori M Reggie [employer].; [employer]. 06-24-2015 10:24-0500 Body surface area Derived from formula 2.79 m2 Lori Isaac Reggie [employer].; [employer]. 06-24-2015 10:24-0500 Body weight 167.11 kg Lori Gray Reggie [employer].; [employer]. 06-24-2015 10:24-0500 Diastolic blood pressure 75 mm[Hg] Lori M Reggie [employer], [employer].; [employer]. Comment on above: Patient Position: Sitting; Cuff Location : Left Arm; Cuff Size: Standard 06-24-2015 10:24-0500 Heart rate 87 /min Lori Shiach [employer], [employer].; [employer]. Comment on above: Pattern: Regular 06-24-2015 10:24-0500 Systolic blood pressure 140 mm[Hg] Lori Gray Reggie [employer], [employer].; [employer]. Comment on above: Patient Position: Sitting; Cuff Location : Left Arm; Cuff Size: Standard 05-27-2015 10:38-0500 Body height 185.42 cm Lori Shiach [employer], [employer].; [employer]. 05-27-2015 10:38-0500 Body mass index (BMI) [Ratio] 51.08 kg/m2 Lori M Reggie [employer].; [employer]. 05-27-2015 10:38-0500 Body surface area Derived from formula 2.85 m2 Lori Gray Reggie [employer].; [employer]. 05-27-2015 10:38-0500 Body weight 175.63 kg Lori Isaac Paredes LPN [place] [employer] [facility] [employer] [employer] [facility].; [employer]. 05-27-2015 10:38-0500 Diastolic blood pressure 74 mm[Hg] Lori Isaac Paredes LPN [place] [facility] [employer]. Comment on above: Patient Position: Sitting; Cuff Location : Left Arm; Cuff Size: Standard 05-27-2015 10:38-0500 Heart rate 86 /min Lorisujey Paredes LPN [place] [facility].; [employer]. Comment on above: Pattern: Regular 05-27-2015 10:38-0500 Systolic blood pressure 139 mm[Hg] Lorisujey Paredes LPDr. [facility].; [employer]. Comment on above: Patient Position: Sitting; Cuff Location : Left Arm; Cuff Size: Standard 04-16-2015 09:49-0500 Body height 171.45 cm Harshad Spaulding MD Work Phone: [facility]. 04-16-2015 09:49-0500 Body mass index (BMI) [Ratio] 60.03 kg/m2 Harshad Spaulding MD Work Phone: [facility]. 04-16-2015 09:49-0500 Body surface area Derived from formula 2.7 m2 Harshad Spaulding MD Work Phone: [employer]. 04-16-2015 09:49-0500 Body weight 176.45 kg Harshad Spaulding MD Work Phone: [facility]. 04-16-2015 09:49-0500 Diastolic blood pressure 68 mm[Hg] Harshad Spaulding MD Work Phone: [employer]. Comment on above: Patient Position: Sitting; Cuff Location : Right Arm; Cuff Size: Large 04-16-2015 09:49-0500 Heart rate 80 /min Harshad Spaulding MD Work Phone: [employer]. Comment on above: Pattern: Regular 04-16-2015 09:49-0500 Systolic blood pressure 146 mm[Hg] Harshad Spaulding MD Work Phone: [place] [facility] [employer]. Comment on above: Patient Position: Sitting; Cuff Location : Right Arm; Cuff Size: Large 12-15-2014 09:09-0400 Body height 171.45 cm Pat Dunia Knox [employer] [place] [facility], [employer]. 12-15-2014 09:09-0400 Body mass index (BMI) [Ratio] 58.64 kg/m2 Pat Dunia Knox [employer] 12-15-2014 09:09-0400 Body surface area Derived from formula 2.67 m2 Pat Dunia Knox [employer]PERVIS[employer] 12-15-2014 09:09-0400 Body weight 172.37 kg Pat Dunia Knox SUPERVIS[employer]. 12-15-2014 09:09-0400 Diastolic blood pressure 77 mm[Hg] Pat N Lenore SUPERVISOR [employer]. Comment on above: Patient Position: Sitting; Cuff Location : Left Arm; Cuff Size: Large 12-15-2014 09:09-0400 Heart rate 74 /min Pat Dunia Knox SUPERVISOR [employer] [facility] [employer]. Comment on above: Pattern: Regular 12-15-2014 09:09-0400 Systolic blood pressure 143 mm[Hg] Pat N Lisette SUPERVISOR [employer]. Comment on above: Patient Position: Sitting; Cuff Location : Left Arm; Cuff Size: Large 08-12-2014 13:08-0400 Body height 171.45 cm Pat Dunia Knox LPN [employer]. 08-12-2014 13:08-0400 Body mass index (BMI) [Ratio] 58.02 kg/m2 Pat N Lisette SUPERVISOR [employer] [facility]. 08-12-2014 13:08-0400 Body surface area Derived from formula 2.66 m2 Pat Knox SUPERVISOR COL[employer] [facility].; [facility] 08-12-2014 13:08-0400 Body weight 170.55 kg Pat Knox LPN [facility], [facility].; [place] [facility], [facility]. 08-12-2014 13:08-0400 Diastolic blood pressure 74 mm[Hg] Pat Knox LPN [facility], [facility].; [facility], [facility]. Comment on above: Patient Position: Sitting; Cuff Location : Right Arm; Cuff Size: Large 08-12-2014 13:08-0400 Heart rate 86 /min Pat Knox LPN [facility], [facility].; [facility] Comment on above: Pattern: Regular 08-12-2014 13:08-0400 Systolic blood pressure 148 mm[Hg] Pat Knox LPN [facility], [facility].; [place] [facility], [facility]. Comment on above: Patient Position: Sitting; Cuff Location : Right Arm; Cuff Size: Large Encounters Encounter Date Encounter Type Care Provider Facility Start: 01-17-2025 End: 01-17-[address] Josiah Christine MD Work Phone: [facility] Start: 01-17-2025 End: 01-17-[address] Montse Haynes MD [facility] Work Phone: Start: 01-17-2025 End: 01-17-2025 ambulatory Montse Haynes Facility:[facility] Start: 11-25-2024 End: 11-25-2024 Patient encounter procedure Josiah Christine MD Work Phone: [facility], [facility].; [place] [facility], [employer]. Start: 11-25-2024 End: 11-25-2024 Periodic preventive med est patient 65yrs& older Josiah Christine MD Work Phone: [facility], [facility]. Start: 11-18-2024 End: 11-18-2024 Orders [facility] Start: 11-13-2024 End: 11-13-2024 Historical Summary [facility]iah Christine MD [facility] Start: 10-25-2024 End: 10-25-2024 ambulatory MONTSE HENRIQUEZ [facility] Start: 09-18-2024 End: 09-18-2024 Orders Josiah Christine MD Work Phone[facility] Start: 07-26-2024 End: 07-26-2024 ambulatory MONTSE HENRIQUEZ [facility] Start: 07-15-2024 End: 07-15-2024 Office outpatient visit 15 minutes [facility] MD [facility] Start: 06-25-2024 End: 06-25-2024 ambulatory [facility] Facility[facility] Start: 06-07-2024 End: 06-07-2024 ambulatory MONTSE HENRIQUEZ [facility] Start: 05-23-2024 Follow-up encounter Josiah moore MD Work Phone: [facility] Start: 05-23-2024 End: 05-23-2024 Office outpatient visit 15 minutes [facility] Christine MD [facility] Start: 04-23-2024 ambulatory KHARI CAMERON [facility] Start: 04-04-2024 End: 04-04-2024 ambulatory MONTSE HENRIQUEZ [facility] Start: 03-07-2024 End: 03-07-2024 Orders Josiah Christine MD Work Phone: [facility] [employer] [employer] [facility] Start: 03-05-2024 End: 03-05-2024 ambulatory JOSIAH CHRISTINE [facility] Start: 02-23-2024 End: 02-23-2024 Orders Josiah Christine MD [facility] Start: 02-22-2024 End: 02-22-2024 ambulatory [facility] Start: 02-22-2024 End: 02-22-2024 Office outpatient visit 15 minutes Josiah Christine MD Work Phone: [facility] Start: 02-20-2024 End: 04-30-2024 ambulatory [facility] Start: 02-05-2024 End: 02-05-2024 ambulatory MONTSE HENRIQUEZ [facility] Start: 02-02-2024 End: 02-02-2024 Orders Josiah Christine MD Work Phone: [facility] Start: 02-01-2024 ambulatory [facility] Start: 02-01-2024 End: 02-01-2024 Office outpatient visit 15 minutes Josiah Christine MD Work Phone: [facility] Start: 11-24-2023 End: 11-24-2023 ambulatory MONTSE HENRIQUEZ [facility] Start: 11-21-2023 End: 11-21-2023 Patient encounter procedure Josiah Christine MD Work Phone: [employer] [place]; [employer] Start: 11-21-2023 End: 11-21-2023 Periodic preventive med est patient 65yrs& older Josiah Christine MD Work Phone: [employer]. Start: 09-01-2023 End: 09-01-2023 Orders Josiah Christine MD Work Phone: [employer] Start: 08-31-2023 End: 08-31-2023 Office outpatient visit 15 minutes Josiah Christine MD Work Phone: [employer] Start: 04-24-2023 End: 04-24-[address] Josiah Christine Work Phone: [facility] Work Phone: Start: 04-18-2023 End: 04-18-[address] Josiah Christine Work Phone: [facility] Work Phone: Start: 04-18-2023 End: 04-18-[address] Josiah Christine Work Phone: [facility] Work Phone: Start: 01-26-2023 End: 01-26-2023 ambulatory [facility] Work Phone: Start: 01-26-2023 End: 01-26-2023 Patient encounter procedure [facility] Work Phone: Start: 11-23-2022 End: 11-23-[address] Josiah Christine Work Phone: [facility] Work Phone: Start: 11-23-2022 End: 11-23-[address] Josiah Christine Work Phone: [facility] Work Phone: Start: 10-27-2022 End: 10-27-2022 Patient encounter procedure Elisha Ramesh LPN [facility] Start: 10-27-2022 End: 10-27-2022 Periodic preventive med est patient 65yrs& older Josiah Christine MD Work Phone: [facility], [facility] Start: 10-13-2022 End: 10-13-2022 Orders Josiah [facility] MD [facility] Start: 09-23-2022 End: 09-23-[address] Josiah Christine Work Phone: [facility] Work Phone: Start: 07-18-2022 End: 07-18-[address] Josiah Christine Work Phone: [facility] Work Phone: Start: 07-18-2022 End: 07-18-[address] Josiah Christine Work Phone: [facility] Start: 06-20-2022 End: 06-20-[address] Josiah Christine Work Phone: [facility] Start: 05-19-2022 End: 05-19-2022 Office outpatient visit 25 minutes [facility]iah Christine MD [facility] Start: 02-15-2022 End: 02-15-2022 ambulatory [facility] Work Phone: Start: 02-15-2022 End: 02-15-2022 Patient encounter procedure [facility] Start: 11-17-2021 End: 11-17-2021 Patient encounter procedure [facility] Start: 10-28-2021 End: 10-28-2021 Patient encounter procedure Josiah Christine MD Work Phone: [facility] [employer]; [employer] Start: 10-28-2021 End: 10-28-2021 Periodic preventive med est patient 65yrs& older Josiah Christine MD [facility] Start: 10-19-2021 End: 10-19-2021 Orders [facility] Christine MD [facility] Start: 09-15-2021 End: 09-15-2021 Orders Josiah Christine MD Work Phone: [place] [employer] Start: 08-17-2021 End: 08-17-[address] Harshad Spaulding Work Phone: [facility] Start: 06-29-2021 End: 06-29-[address] Harshad Spaulding Work Phone: [facility] Start: 09-03-2020 End: 09-03-2020 Telephone follow-up Josiah Christine MD Work Phone: [employer] Start: 09-02-2020 End: 09-02-2020 Office outpatient visit 25 minutes Josiah Christine MD Work Phone: [employer] Start: 05-28-2020 End: 05-28-2020 Follow-up encounter Josiah Christine MD Work Phone: [employer] Start: 03-05-2020 End: 03-05-2020 Patient encounter procedure Elda Mondragon RN [employer]; [employer]. Start: 03-05-2020 End: 03-05-2020 Periodic preventive med est patient 65yrs& older Josiah Christine MD Work Phone: [employer]. Start: 02-27-2020 End: 02-27-2020 Orders Josiah Christine MD Work Phone: [employer] Start: 01-02-2020 End: 01-02-2020 Follow-up encounter Josiah Christine MD Work Phone: [employer] Start: 12-23-2019 End: 12-23-2019 Follow-up encounter Josiah Christine MD Work Phone: [employer]. Start: 11-01-2019 End: 11-01-2019 Medication Josiah Christine MD Work Phone: [employer]. Start: 09-26-2019 End: 09-26-2019 Follow-up encounter Josiah Christine MD Work Phone: [employer] Start: 09-26-2019 End: 09-26-2019 Office outpatient visit 25 minutes Josiah Christine MD Work Phone: [employer]. Start: 09-09-2019 End: 09-09-2019 Office outpatient visit 15 minutes Josiah Christine MD Work Phone: [employer] Start: 04-23-2019 End: 04-23-2019 Subsequent hospital visit by physician Choco Mendoza MD Work Phone: [facility] Start: 04-17-2019 End: 04-17-2019 Follow-up encounter Josiah Christine MD Work Phone: [employer] Start: 04-03-2019 End: 04-03-2019 Follow-up encounter Josiah Christine MD Work Phone: [employer] Start: 03-28-2019 End: 03-28-2019 Office outpatient visit 25 minutes Josiah Christine MD Work Phone: [employer] Start: 02-28-2019 End: 02-28-2019 Nursing evaluation of patient and report Josiah Christine MD Work Phone: [employer] Start: 01-22-2019 End: 01-22-2019 Follow-up encounter Josiah Christine MD Work Phone: [employer] Start: 11-07-2018 End: 11-07-2018 Follow-up encounter Josiah Christine MD Work Phone: [employer] Start: 09-25-2018 End: 09-25-2018 Patient encounter procedure Josiah Christine MD Work Phone: [employer]; [employer]. Start: 09-25-2018 End: 09-25-2018 Periodic preventive med est patient 65yrs& older Josiah Christine MD Work Phone: [employer] Start: 09-20-2018 Patient encounter procedure UNKNOWN PROVIDER [facility] Start: 09-19-2018 End: 09-19-2018 Follow-up encounter oJsiah Christine MD Work Phone: [employer] Start: 08-06-2018 End: 08-06-2018 Follow-up encounter Josiah Christine MD Work Phone: [employer] Start: 07-18-2018 End: 07-18-2018 Orders Josiah Christine MD Work Phone: [employer] Start: 07-11-2018 End: 07-11-2018 Follow-up encounter Josiah Christine MD Work Phone: [employer] Start: 06-06-2018 End: 06-06-2018 Follow-up encounter Josiah Christine MD Work Phone: [employer]. Start: 04-25-2018 End: 04-25-2018 Follow-up encounter Josiah Christine MD Work Phone: [employer]. Start: 04-18-2018 End: 04-20-2018 Office outpatient visit 25 minutes Josiah Christine MD Work Phone: [employer] Start: 04-12-2018 Patient encounter procedure UNKNOWN PROVIDER [facility] Start: 03-21-2018 End: 03-21-2018 Follow-up encounter Josiah Christine MD Work Phone: [employer]. Start: 02-28-2018 End: 02-28-2018 Follow-up encounter Josiah Christine MD Work Phone: [employer]. Start: 02-14-2018 End: 02-14-2018 Follow-up encounter Josiah Christine MD Work Phone: [employer]. Start: 11-08-2017 End: 11-09-2017 Office outpatient visit 25 minutes Josiah Christine MD Work Phone: [employer]. Start: 09-26-2017 Patient encounter procedure UNKNOWN PROVIDER [facility] Start: 09-21-2017 End: 09-21-2017 Medication Josiah Christine MD Work Phone: [employer]. Start: 07-12-2017 End: 07-12-2017 Office outpatient visit 25 minutes Josiah Christine MD Work Phone: [employer]. Start: 07-12-2017 End: 07-12-2017 Preoperative state Josiah Christine MD Work Phone: [employer] Start: 03-08-2017 End: 03-09-2017 Office outpatient visit 15 minutes Josiah Christine MD Work Phone: [employer]. Start: 06-22-2016 End: 06-23-2016 Patient encounter procedure Josiah Christine MD Work Phone: [employer]. Start: 03-09-2016 End: 03-10-2016 Patient encounter procedure Josiah Christine MD Work Phone: [employer]. Start: 11-11-2015 End: 11-12-2015 Office outpatient visit 25 minutes Josiah Christine MD Work Phone: [employer]. Start: 09-25-2015 End: 09-25-2015 Historical Summary Josiah Crhistine MD Work Phone: [employer]. Start: 08-12-2015 End: 08-13-2015 Office outpatient visit 15 minutes Josiah Christine MD Work Phone: [employer]. Start: 06-24-2015 End: 06-24-2015 Office outpatient visit 25 minutes Josiah Christine MD Work Phone: [employer]. Start: 05-27-2015 End: 05-28-2015 Office outpatient visit 15 minutes Josiah Christine MD Work Phone: [employer]. Start: 05-27-2015 End: 05-27-2015 Medication Josiah Christine MD Work Phone: [employer]. Start: 04-16-2015 End: 04-16-2015 Office outpatient visit 25 minutes Josiah Christine MD Work Phone: [employer] Start: 02-19-2015 End: 02-19-2015 Nursing evaluation of patient and report Josiah Christine MD Work Phone: [employer]. Start: 12-15-2014 End: 12-16-2014 Office outpatient visit 25 minutes Josiah Christine MD Work Phone: [employer]. Start: 12-15-2014 End: 12-16-2014 Preoperative state Josiah Christine MD Work Phone: [employer]; [employer]. Start: 12-15-2014 End: 12-15-2014 Historical Summary Josiah Christine MD Work Phone: [employer] Start: 08-12-2014 End: 08-14-2014 Office outpatient new 30 minutes Josiah Christine MD Work Phone: [employer] Start: 08-08-2014 End: 08-08-2014 Historical Summary Josiah Christine MD Work Phone: [facility] Start: 07-09-2014 End: 07-09-2014 Medication Josiah Christine MD Work Phone: [facility] Start: 05-12-2014 End: 05-12-2014 Historical Summary Josiah Christine MD Work Phone: [facility] Patient encounter procedure Elda Mondragon RN [facility]; [facility] Patient encounter procedure Josiah Christine MD Work Phone: [facility]; [facility] Patient encounter procedure Erickson Gresham LPN [facility]; [facility] Patient encounter procedure Elisha Ramesh LPN [facility].; [facility] Preoperative state Elisha Ramesh SUPERVISOR [employer] [facility]; [facility] Procedures Date Procedure Procedure Detail Performing Clinician Start: 11-25-2024 End: 11-22-2024 Adv care pln tlkd & alt dcsn maker docd Josiah Christine MD Work Phone: Start: 11-25-2024 End: 11-22-2024 Depression screening Josiah Christine MD Work Phone: Start: 11-25-2024 End: 11-22-2024 Falls risk assessment documented Josiah Christine MD Work Phone: Start: 11-25-2024 End: 11-22-2024 PPPS, subseq visit Josiah Christine MD Work Phone: Start: 11-25-2024 End: 11-22-2024 Pt falls assess docd 2/> falls/fall w/injury/yr Josiah Christine MD Work Phone: Start: 11-25-2024 End: 11-22-2024 Scr dep neg, no plan reqd Josiah Christine MD Work Phone: Start: 11-18-2024 End: 11-18-2024 Lab findings surveillance Erickson Vazquez PN Comment on above: Results:. CMP 91 Start: 11-18-2024 End: 11-18-2024 Lipid panel Erickson Gresham [employer] Comment on above: TC 139, HDL 76, TRI 51, LDL 50 Start: 11-18-2024 End: 11-18-2024 Prostate specific antigen measurement Erickson Gresham [employer] Comment on above: 1.88 Start: 06-25-2024 End: 06-25-2024 Most Recent Cardio Report Erickson Vazquez PN Start: 02-23-2024 End: 03-07-2024 Mri spinal canal lumbar w/o contrast material Josiah Christine MD Work Phone: Comment on above: Clinical Indications : Lumbar radiculopathy, symptoms persist with conservative treatment Start: 02-22-2024 End: 02-23-2024 Radex spine lumbosacral minimum 4 views Josiah Christine MD Work Phone: Start: 02-01-2024 End: 02-02-2024 Radex hip unilateral with pelvis 2-3 views Josiah Christine MD Work Phone: Start: 11-24-2023 PSA screening MONTSE SHYLA LANKI Comment on above: Performed By: #### [id number] #### [facility],[address] [place] [address] Start: 11-21-2023 End: 11-21-2023 Adv care pln tlkd & alt dcsn maker docd Josiah Christine MD Work Phone: Start: 11-21-2023 End: 11-21-2023 Depression screening Josiah Christine MD Work Phone: Start: 11-21-2023 End: 11-21-2023 Falls risk assessment documented Josiah Christine MD Work Phone: Start: 11-21-2023 End: 11-21-2023 PPPS, subseq visit Josiah Christine MD Work Phone: Start: 11-21-2023 End: 11-21-2023 Pt falls assess docd 2/> falls/fall w/injury/yr Josiah Christine MD Work Phone: Start: 11-21-2023 End: 11-21-2023 Scr dep neg, no plan reqd Josiah Christine MD Work Phone: Start: 10-27-2022 End: 10-27-2022 Adv care pln/ no alt dcsn mkr docd or refusal Josiah Christine MD Work Phone: Start: 10-27-2022 End: 10-27-2022 Depression screening Josiah Christine MD Work Phone: Start: 10-27-2022 End: 10-27-2022 Falls risk assessment documented Josiah Christine MD Work Phone: Start: 10-27-2022 End: 10-27-2022 PPPS, subseq visit Josiah Christine MD Work Phone: Start: 10-27-2022 End: 10-27-2022 Pt falls assess docd w/o fall/injury past year Josiah Christine MD Work Phone: Start: 10-27-2022 End: 10-27-2022 Scr dep neg, no plan reqd Josiah Christine MD Work Phone: Start: 10-13-2022 End: 10-13-2022 Lab findings surveillance Elisha Ramesh LPN Comment on above: Results:. 96 in CMP Start: 10-13-2022 End: 10-13-2022 Lipid panel Elisha Ramesh LPN Start: 10-13-2022 End: 10-13-2022 Prostate specific antigen measurement Elisha Ramesh LPN Comment on above: 2.06 Start: 05-19-2022 End: 05-19-2022 Chest x-ray Ulises Delong PA-C Work Phone: Start: 10-28-2021 End: 10-28-2021 Adv care pln/ no alt dcsn mkr docd or refusal Josiah Christine MD Work Phone: Start: 10-28-2021 End: 10-28-2021 Depression screening Josiah Christine MD Work Phone: Start: 10-28-2021 End: 10-28-2021 Falls risk assessment documented Josiah Christine MD Work Phone: Start: 10-28-2021 End: 10-28-2021 PPPS, subseq visit Josiah Christine MD Work Phone: Start: 10-28-2021 End: 10-28-2021 Pt falls assess docd w/o fall/injury past year Josiah Christine MD Work Phone: Start: 10-28-2021 End: 10-28-2021 Scr dep neg, no plan reqd Josiah Christine MD Work Phone: Start: 03-05-2020 End: 03-05-2020 Depression screening Harshad Spaulding MD Work Phone: Start: 03-05-2020 End: 03-05-2020 Falls risk assessment documented Harshad Spaulding MD Work Phone: Start: 03-05-2020 End: 03-05-2020 PPPS, subseq visit Harshad Spaulding MD Work Phone: Start: 03-05-2020 End: 03-05-2020 Pt falls assess docd w/o fall/injury past year Harshad Spaulding MD Work Phone: Start: 03-05-2020 End: 03-05-2020 Scr dep neg, no plan reqd Harshad Spaulding MD Work Phone: Start: 03-05-2020 End: 03-18-2020 Ecg routine ecg w/least 12 lds i&r only Harshad Spaulding MD Work Phone: Start: 05-27-2019 End: 05-27-2019 Colonoscopy Nikkie Squires MA Comment on above: Within Normal Limits . Dr. Gross Start: 02-28-2019 End: 02-28-2019 Flu immunize order/admin FLOAT NURSE Start: 09-25-2018 End: 09-25-2018 Depression screening Harshad Spaulding MD Work Phone: Start: 09-25-2018 End: 09-25-2018 Falls risk assessment documented Harshad Spaulding MD Work Phone: Start: 09-25-2018 End: 09-25-2018 PPPS, subseq visit Harshad Spaulding MD Work Phone: Start: 09-25-2018 End: 09-25-2018 Pt falls assess docd w/o fall/injury past year Harshad Spaulding MD Work Phone: Start: 09-25-2018 End: 09-25-2018 Scr dep neg, no plan reqd Harshad Spaulding MD Work Phone: Start: 11-08-2017 End: 11-08-2017 Depression screen annual Harshad Adams Work Phone: Start: 11-08-2017 End: 11-08-2017 Falls risk assessment documented Harshad Spaulding MD Work Phone: Start: 07-12-2017 End: 07-12-2017 Body mass index documented Harshad Spaulding MD Work Phone: Start: 02-20-2017 End: 02-20-2017 Gastric Bypass Nikkie Squires MA Comment on above: [employer] Start: 12-15-2014 End: 12-18-2014 Ecg routine ecg w/least 12 lds i&r only Harshad Spaulding MD Work Phone: Start: 05-15-2014 End: 05-15-2014 Nasoseptoplasty: Submucosa resection turbinate Nikkie Squires MA Comment on above: [facility] Start: 05-15-2010 End: 05-15-2010 Cardiac Stress Test Nikkie Squires MA Comment on above: [facility] Start: 05-15-2010 End: 05-15-2010 Replacement of total knee joint Nikkie Squires MA Comment on above: Left. Right done 201 8 [facility] [facility] Start: 05-15-2004 End: 05-15-2004 Cholecystectomy Nikkie Squires MA Comment on above: [facility] Start: 05-15-2003 End: 05-15-2003 Cardiac Catherization Nikkie Squires MA Comment on above: [facility] Start: 05-15-1990 End: 05-15-1990 Sphincterotomy Nikkie Squires MA Start: 05-15-1985 End: 05-15-1985 Hemorrhoidectomy Nikkie Squires MA Start: 05-15-1973 End: 05-15-1973 Vasectomy Nikkie Squires MA Start: 05-15-1966 End: 05-15-1966 Appendectomy Nikkie Squires MA Start: 05-15-1951 End: 05-15-1951 Hydrocele Repair Nikkie Squires MA Fracture repair Nikkie Squires MA Comment on above: Right metacarpal-197 9 and 1981 Fracture repair Judy Miller [employer] Comment on above: Right metacarpal-197 9 and 1981 Fracture repair Erickson Mp [employer] Comment on above: Right metacarpal-197 9 and 1981 Screening colonoscopy Gerber Mccain [employer] Comment on above: Dr. Gross [facility] [place], repeat every 5yr. due to family hx. Screening colonoscopy Judy Solano [employer] Comment on above: Dr. Gross [facility] [place], repeat every 5yr. due to family hx. Screening colonoscopy Gerber Mccain [employer] Comment on above: Dr. Gross [facility] [place], repeat every 5yr. due to family hx. Screening colonoscopy Erickson Gresham [employer] Comment on above: Dr. Gross [facility] [place], repeat every 5yr. due to family hx. Plan of Treatment Date Care Activity Detail Author Start: 04-26-2028 DTaP/Tdap/Td vaccine (2 - Td) DTaP/Tdap/Td vaccine (2 - Td) [facility] Work Phone: Start: 05-27-2025 Patient encounter procedure Medical; RTN OFFICE VISIT - 6 MO RTN [employer]. Start: 27-May-2025 10:00-05:00 MD Josiah Christine Appointment Request [employer]. Start: 11-25-2024 Patient encounter procedure Medical; PHYSICAL - annual AWV [employer]. Start: 25-Nov-2024 10:10-04:00 MD Josiah Christine Appointment Request [employer]. Start: 11-18-2024 Comprehensive metabo lic panel CMP w/ GFR* (17992) Start: 18-Nov-2024 13:52-04:00 Request [employer]. Start: 11-18-2024 Lipid panel LIPID PANEL (8 0061) Start: 18-Nov-2024 13:52-04:00 Request [employer].; [employer]. Start: 11-18-2024 Assay of prostate specific antigen total PSA TOTAL (PROSTATE SPECIFIC ANTIGEN) ([id number]) Start: 18-Nov-2024 13:52-04:00 [address] [employer]. Start: 11-18-2024 Nursing evaluation o f patient and report [employer]. Start: 11-18-2024 Assay of prostate specific antigen total PSA TOTAL (PROSTATE SPECIFIC ANTIGEN) ([id number]) Start: 18-Nov-2024 09:36-04:00 Request [employer]. Start: 11-18-2024 Comprehensive metabo lic panel CMP w/ GFR* ([id number]) Start: 18-Nov-2024 09:36-04:00 Request [employer].; [employer]. Start: 11-18-2024 Lipid panel LIPID PANEL (8 0061) Start: 18-Nov-2024 09:36-04:00 Request [employer].; [employer]. Start: 05-23-2024 Patient encounter procedure [employer]. Start: 02-23-2024 End: 02-23-2024 Mri spinal canal lumbar w/o contrast material [employer].; [employer]. Comment on above: Clinical Indications : Lumbar radiculopathy, symptoms persist with conservative treatment Start: 02-22-2024 [facility] spine lumbosac ral minimum 4 views Lumbar Spine x-ray (91541) Start: 22-Feb-2024 Intent [employer].; [employer]. Start: 02-01-2024 [facility] hip unilateral with pelvis 2-3 views Hip/pelvis x-ray, left (36208) Start: 01-Feb-2024 Intent [employer].; [employer], [employer]. Start: 11-21-2023 Lipid panel LIPID PANEL (8 0061) Start: 21-Nov-2023 11:10-04:00 Request [employer], [employer]. Start: 11-21-2023 Assay of prostate specific antigen total PSA TOTAL (PROSTATE SPECIFIC ANTIGEN) (51733) Start: 21-Nov-2023 10:57-04:00 [address] [employer] [employer]. Start: 11-21-2023 Assay of folic acid serum MARK TE (56774) Start: 21-Nov-2023 10:56-04:00 Request [employer].; [employer], [employer]. Start: 11-21-2023 Assay of iron IRON TOTAL (83 540) Start: 21-Nov-2023 10:56-04:00 Request [employer].; [employer], [employer]. Start: 11-21-2023 Assay of magnesium MAGNESIUM ( 14010) Start: 21-Nov-2023 10:56-04:00 Request [employer].; [employer], [employer]. Start: 11-21-2023 Patient encounter procedure Medical; PHYSICAL - awv [employer]. Start: 21-Nov-2023 10:50-04:00 MD Josiah Christine Appointment Request [employer]. Start: 09-01-2023 Assay of prostate specific antigen total PSA TOTAL (PROSTATE SPECIFIC ANTIGEN) ([id number]) Start: 01-Sep-2023 09:11-04:00 Request [employer].; [employer]. Start: 09-01-2023 Lipid panel LIPID PANEL (8 0061) Start: 01-Sep-2023 09:11-04:00 Request [employer].; [employer], [employer]. Start: 09-01-2023 Assay of iron IRON TOTAL (83 540) Start: 01-Sep-2023 09:09-04:00 Request [employer].; [employer], [employer]. Start: 09-01-2023 Assay of magnesium MAGNESIUM ( 25989) Start: 01-Sep-2023 09:09-04:00 Request [employer].; [employer], [employer]. Start: 09-01-2023 Assay of folic acid serum MARK TE (11740) Start: 01-Sep-2023 09:09-04:00 Request [employer].; [employer], [employer]. Start: 09-01-2023 Cyanocobalamin vitam in b-12 VITAMIN B-12 SERUM (53025) Start: 01-Sep-2023 09:09-04:00 [facility] [employer]. Start: 01-13-2019 Influenza vaccination Flu vaccine (# 1) [facility] Work Phone: Start: 11-04-2018 Annual Wellness Visi t (AWV) Annual Wellness Visit (AWV) [facility] Work Phone: Start: 02-22-2018 Creatinine monitoring Creatinine mon itoring [facility] Work Phone: Start: 02-22-2018 Potassium monitoring Potassium monit oring [facility] Work Phone: Start: 05-17-2017 Lipid screen Lipid screen [facility] Work Phone: Start: 01-01-2012 Pneumococcal 65+ yea rs Vaccine (1 of 1 - PPSV23) Pneumococcal 65+ years Vaccine (1 of 1 - PPSV23) [facility] Work Phone: Start: 1996 Colon cancer screen colonoscopy Colon cancer screen colonoscopy [facility] Work Phone: Start: 1956 A1C test (Diabetic o r Prediabetic) A1C test (Diabetic or Prediabetic) [facility] Work Phone: Start: 1946 AAA screen AAA screen [facility] Work Phone: Start: 1945 Hepatitis C screen Hepatitis C scree n [facility] Work Phone: Blood chemistry [facility] Immunizations Immunization Date Immunization Notes Care Provider Fa cility 01-14-2024 influenza, injectabl e, quadrivalent, contains preservative Josiah Christine MD Work Phone: [facility] [facility], [facility]. 09-12-2021 COVID-Pfizer (30 MCG /0.3 ML) Joisah Christine MD Work Phone: [employer] [employer], [employer]. 02-10-2021 COVID-Pfizer (30 MCG /0.3 ML) Josiah Christine MD [facility]; [facility] [employer] [facility] 07-16-2020 COVID-Pfizer (30 MCG /0.3 ML) Josiah Christine MD [facility]; [facility] 06-18-2020 COVID-Pfizer (30 MCG /0.3 ML) Josiah Christine MD Work Phone: [facility]; [place] [employer] 02-03-2020 influenza, high dose seasonal, preservative-free Josiah Christine MD Work Phone: [facility]; [place] [employer]. Comment on above: w/m 02-28-2019 influenza, injectabl e, quadrivalent, contains preservative Josiah Christine MD [facility]: [facility]; [employer]. Comment on above: Site: Left DeltoidVI S Given: * Influenza - Inactivated (12/19/14) 04-26-2018 tetanus toxoid, redu amie diphtheria toxoid, and acellular pertussis vaccine, adsorbed Josiah Christine MD Work Phone: [facility]; [place] [employer]. Comment on above: Joie Li 12-26-2017 zoster vaccine recombinant Josiah Christine MD Work Phone: [facility]; [employer]. Comment on above: Site: Left Arm 10-11-2017 zoster vaccine recombinant Josiah Christine MD Work Phone: [facility] [employer]; [place] [employer]. 09-21-2017 Shingrix 50 MCG/0.5M L Intramuscular Suspension Reconstituted Josiah Christine MD Work [facility]: [facility]; [place] [facility] 03-09-2016 unknown vaccine or i mmune globulin Josiah Christine MD Work Phone: [facility]; [employer]. 03-09-2016 influenza, injectabl e, quadrivalent, contains preservative Josiah Christine MD Work Phone: [facility]; [employer] [place] Comment on above: Site: Deltoid (Left) VIS Given: * Influenza - Inactivated (12/19/14) 02-19-2015 influenza, seasonal, injectable Josiah Christine MD Work Phone: [facility]; [employer] [place] Comment on above: Site: Deltoid (Left) VIS Given: * Inactivated Influenza (12/19/2014) 02-19-2015 ADMINISTRATION OF INFLUENZA VIRUS VACCINE (G0008) Josiah Christine MD Work Phone: [facility]; [employer] [place] 12-15-2014 pneumococcal conjuga te vaccine, 13 valent Josiah Christine MD Work Phone: [facility] [employer]; [employer]. Comment on above: Site: Deltoid (Right )VIS Given: * Pneumococcal Conjugate (PCV13) (07/11/12) 05-15-2013 influenza, seasonal, injectable Josiah Christine MD Work Phone: [facility]; [employer] [place] 05-15-2012 zoster vaccine, live Josiah kamara MD Work Phone: [facility] [employer]; [employer] [place] 05-15-2011 pneumococcal polysaccharide vaccine, 23 valent Josiah Christine MD Work Phone: [place] [employer]; [employer] [place] 05-15-2004 TD(adult) unspecifie d formulation Josiah Christine MD Work Phone: [place] [employer]; [employer] [place] Payers Date Payer Category Payer Self-pay [id number] 2023 Department of [facility] ( and others) [id number] 2023 Medicare [id number] 2018 Medicare MEDICARE MEDICAR E PART A AND B xxxxxxxxxxx 2018-Present [phone] [place] [address] xxxxxxxxxxx [id number] 2016 [employer] ( and others) FOR LIFE MEDICARE SUPP xxxxxxxxx 2016-Present C/O [employer]/ [address] [place] [address] xxxxxxxxx [id number] 2011 Medicare 1945 Unknown [id number] .668 1945 Unknown [id number] 2.16.840.1.147234.3.579.2 .1946 Unknown [id number] 2.16.840.1.375957.3.579.2 .8 1946 Unknown [id number] 2.16.840.1.638869.3.579.2 .1946 Unknown [id number] 2.16.840.1.349854.3.579.2 .1946 Unknown [id number] 2.16.840.1.228346.3.579.2 .1946 Unknown [id number] 2.16.840.1.578767.3.579.2 .65 1945 Unknown [id number] 2.16.840.1.682324.3.579.2 .1946 Unknown [id number] 2.16.840.1.176669.3.579.2 .65 1946 Unknown [id number] 2.16.840.1.470020.3.579.2 .651 1946 Unknown [id number] 2.16.840.1.700643.3.579.2 .651 1946 Unknown [id number] 2.16.840.1.327024.3.579.2 .651 1946 Unknown [id number] 2.16.840.1.428937.3.579.2 .651 1946 Unknown [id number] 2.16.840.1.514974.3.579.2 .651 [employer] ( and others) [employer] ( and others) [id number] Unknown [id number] Unknown Unknown [id number] 2.16.840.1.466821.3.579.2 .462 Unknown [id number] [id number] .462 Social History Date Type Detail Facility Start: 04-23-2019 End: 04-24-2023 Tobacco smoking status NYIS Former smoker [facility] End: 05-15-1984 History of tobacco use Current smoker [facility] End: 05-15-1984 History of tobacco use Cigarette Smoker [facility] Start: 04-23-2019 Cigarettes smoked current (pack per day) - Reported [facility] [employer] [facility] End: 05-15-1980 History of tobacco use Chews Tobacco [facility] Start: 04-23-2019 Alcohol intake Current drinke r of alcohol (finding) [facility] Work Phone: Start: 04-14-2016 Alcohol Comment very rare [facility] Work Phone: Sex Assigned At Not on file [facility] Work Phone: Start: 06-29-2021 End: 04-24-2023 Tobacco smoking status NYIS Unknown if ever smoked [facility] Start: 1945 Sex Assigned At Male [facility] Alcohol Use: Alcohol Use: ; Occasional alcohol use. [facility] Current Work/Study Status: Current Work/Study Status: ; Retired. [employer] Tobacco Use: Tobacco Use: ; F ormer smoker. [employer]; [employer] Occasional alcohol use [employer]; [employer] Work Phone: Retired [employer]; [employer] Work Phone: Sex Male [facility] NEGATED: Highlighted row No Social History Information Available No Social History Information Available [employer]; [employer] Work Phone: Goals Date Patient Goal Desired Activity /State 02-14-2018 Evaluation note Note Date & Type Note Facility Evaluation note Diagnosis Onset Date Essential hypertension chron ic Hyperlipidemia chronic Persistent atrial fibrillation chronic [facility] Work Phone: Evaluation note Note Date & Type Note Facility Evaluation note No assessment information availa ble [facility] Work Phone: Reason for referral (narrative) Note Date & Type Note Facility Reason for referral (narrative) No reason for referral information available [facility] Work Phone: Summary Purpose Family History Relationship Condition Age at Onset Recorded Date/T yamileth father Disorder of thyroid Unknown Coronary artery disease Unknown Hypertension Unknown Diabetes mellitus Unknown Osteoarthritis Unknown mother Malignant neoplasm Unknown Malignant neoplasm of colon Unknown Bleeding disorder Status:Active Comments:Son. Cerebrovascular Accident Status:Active Comment s:Paternal Uncle. Colon Cancer Status:Active Comments:Mother. Coronary Artery Disease Status:Active Comments :Father. Diabetes Mellitus Type II Status:Active Commen ts:Father. Hypertension Status:Active Comments:Father. Hypothyroidism Status:Active Comments:Father. Osteoarthritis Status:Active Comments:Father. Ovarian Cancer Status:Active Comments:Mother. Bleeding disorder Status:Active Comments:Son. Cerebrovascular Accident Status:Active Comment s:Paternal Uncle. Colon Cancer Status:Active Comments:Mother. Coronary Artery Disease Status:Active Comments :Father. Diabetes Mellitus Type II Status:Active Commen ts:Father. Hypertension Status:Active Comments:Father. Hypothyroidism Status:Active Comments:Father. Osteoarthritis Status:Active Comments:Father. Ovarian Cancer Status:Active Comments:Mother. Bleeding disorder Status:Active Comments:Son. Cerebrovascular Accident Status:Active Comment s:Paternal Uncle. Colon Cancer Status:Active Comments:Mother. Coronary Artery Disease Status:Active Comments :Father. Diabetes Mellitus Type II Status:Active Commen ts:Father. Hypertension Status:Active Comments:Father. Hypothyroidism Status:Active Comments:Father. Osteoarthritis Status:Active Comments:Father. Ovarian Cancer Status:Active Comments:Mother. Bleeding disorder Status:Active Comments:Son. Cerebrovascular Accident Status:Active Comment s:Paternal Uncle. Colon Cancer Status:Active Comments:Mother. Coronary Artery Disease Status:Active Comments :Father. Diabetes Mellitus Type II Status:Active Commen ts:Father. Hypertension Status:Active Comments:Father. Hypothyroidism Status:Active Comments:Father. Osteoarthritis Status:Active Comments:Father. Ovarian Cancer Status:Active Comments:Mother. Bleeding disorder Status:Active Comments:Son. Cerebrovascular Accident Status:Active Comment s:Paternal Uncle. Colon Cancer Status:Active Comments:Mother. Coronary Artery Disease Status:Active Comments :Father. Diabetes Mellitus Type II Status:Active Commen ts:Father. Hypertension Status:Active Comments:Father. Hypothyroidism Status:Active Comments:Father. Osteoarthritis Status:Active Comments:Father. Ovarian Cancer Status:Active Comments:Mother. Bleeding disorder Status:Active Comments:Son. Cerebrovascular Accident Status:Active Comment s:Paternal Uncle. Colon Cancer Status:Active Comments:Mother. Coronary Artery Disease Status:Active Comments :Father. Diabetes Mellitus Type II Status:Active Commen ts:Father. Hypertension Status:Active Comments:Father. Hypothyroidism Status:Active Comments:Father. Osteoarthritis Status:Active Comments:Father. Ovarian Cancer Status:Active Comments:Mother. Bleeding disorder Status:Active Comments:Son. Cerebrovascular Accident Status:Active Comment s:Paternal Uncle. Colon Cancer Status:Active Comments:Mother. Coronary Artery Disease Status:Active Comments :Father. Diabetes Mellitus Type II Status:Active Commen ts:Father. Hypertension Status:Active Comments:Father. Hypothyroidism Status:Active Comments:Father. Osteoarthritis Status:Active Comments:Father. Ovarian Cancer Status:Active Comments:Mother. Bleeding disorder Status:Active Comments:Son. Cerebrovascular Accident Status:Active Comment s:Paternal Uncle. Colon Cancer Status:Active Comments:Mother. Coronary Artery Disease Status:Active Comments :Father. Diabetes Mellitus Type II Status:Active Commen ts:Father. Hypertension Status:Active Comments:Father. Hypothyroidism Status:Active Comments:Father. Osteoarthritis Status:Active Comments:Father. Ovarian Cancer Status:Active Comments:Mother. Bleeding disorder Status:Active Comments:Son. Cerebrovascular Accident Status:Active Comment s:Paternal Uncle. Colon Cancer Status:Active Comments:Mother. Coronary Artery Disease Status:Active Comments :Father. Diabetes Mellitus Type II Status:Active Commen ts:Father. Hypertension Status:Active Comments:Father. Hypothyroidism Status:Active Comments:Father. Osteoarthritis Status:Active Comments:Father. Ovarian Cancer Status:Active Comments:Mother. Bleeding disorder Status:Active Comments:Son. Cerebrovascular Accident Status:Active Comment s:Paternal Uncle. Colon Cancer Status:Active Comments:Mother. Coronary Artery Disease Status:Active Comments :Father. Diabetes Mellitus Type II Status:Active Commen ts:Father. Hypertension Status:Active Comments:Father. Hypothyroidism Status:Active Comments:Father. Osteoarthritis Status:Active Comments:Father. Ovarian Cancer Status:Active Comments:Mother. Bleeding disorder Status:Active Comments:Son. Cerebrovascular Accident Status:Active Comment s:Paternal Uncle. Colon Cancer Status:Active Comments:Mother. Coronary Artery Disease Status:Active Comments :Father. Diabetes Mellitus Type II Status:Active Commen ts:Father. Hypertension Status:Active Comments:Father. Hypothyroidism Status:Active Comments:Father. Osteoarthritis Status:Active Comments:Father. Ovarian Cancer Status:Active Comments:Mother. Bleeding disorder Status:Active Comments:Son. Cerebrovascular Accident Status:Active Comment s:Paternal Uncle. Colon Cancer Status:Active Comments:Mother. Coronary Artery Disease Status:Active Comments :Father. Diabetes Mellitus Type II Status:Active Commen ts:Father. Hypertension Status:Active Comments:Father. Hypothyroidism Status:Active Comments:Father. Osteoarthritis Status:Active Comments:Father. Ovarian Cancer Status:Active Comments:Mother. Bleeding disorder Status:Active Comments:Son. Cerebrovascular Accident Status:Active Comment s:Paternal Uncle. Colon Cancer Status:Active Comments:Mother. Coronary Artery Disease Status:Active Comments :Father. Diabetes Mellitus Type II Status:Active Commen ts:Father. Hypertension Status:Active Comments:Father. Hypothyroidism Status:Active Comments:Father. Osteoarthritis Status:Active Comments:Father. Ovarian Cancer Status:Active Comments:Mother. Bleeding disorder Status:Active Comments:Son. Cerebrovascular Accident Status:Active Comment s:Paternal Uncle. Colon Cancer Status:Active Comments:Mother. Coronary Artery Disease Status:Active Comments :Father. Diabetes Mellitus Type II Status:Active Commen ts:Father. Hypertension Status:Active Comments:Father. Hypothyroidism Status:Active Comments:Father. Osteoarthritis Status:Active Comments:Father. Ovarian Cancer Status:Active Comments:Mother. Bleeding disorder Status:Active Comments:Son. Cerebrovascular Accident Status:Active Comment s:Paternal Uncle. Colon Cancer Status:Active Comments:Mother. Coronary Artery Disease Status:Active Comments :Father. Diabetes Mellitus Type II Status:Active Commen ts:Father. Hypertension Status:Active Comments:Father. Hypothyroidism Status:Active Comments:Father. Osteoarthritis Status:Active Comments:Father. Ovarian Cancer Status:Active Comments:Mother. Bleeding disorder Status:Active Comments:Son. Cerebrovascular Accident Status:Active Comment s:Paternal Uncle. Colon Cancer Status:Active Comments:Mother. Coronary Artery Disease Status:Active Comments :Father. Diabetes Mellitus Type II Status:Active Commen ts:Father. Hypertension Status:Active Comments:Father. Hypothyroidism Status:Active Comments:Father. Osteoarthritis Status:Active Comments:Father. Ovarian Cancer Status:Active Comments:Mother. Bleeding disorder Status:Active Comments:Son. Cerebrovascular Accident Status:Active Comment s:Paternal Uncle. Colon Cancer Status:Active Comments:Mother. Coronary Artery Disease Status:Active Comments :Father. Diabetes Mellitus Type II Status:Active Commen ts:Father. Hypertension Status:Active Comments:Father. Hypothyroidism Status:Active Comments:Father. Osteoarthritis Status:Active Comments:Father. Ovarian Cancer Status:Active Comments:Mother. Bleeding disorder Status:Active Comments:Son. Cerebrovascular Accident Status:Active Comment s:Paternal Uncle. Colon Cancer Status:Active Comments:Mother. Coronary Artery Disease Status:Active Comments :Father. Diabetes Mellitus Type II Status:Active Commen ts:Father. Hypertension Status:Active Comments:Father. Hypothyroidism Status:Active Comments:Father. Osteoarthritis Status:Active Comments:Father. Ovarian Cancer Status:Active Comments:Mother. Bleeding disorder Status:Active Comments:Son. Cerebrovascular Accident Status:Active Comment s:Paternal Uncle. Colon Cancer Status:Active Comments:Mother. Coronary Artery Disease Status:Active Comments :Father. Diabetes Mellitus Type II Status:Active Commen ts:Father. Hypertension Status:Active Comments:Father. Hypothyroidism Status:Active Comments:Father. Osteoarthritis Status:Active Comments:Father. Ovarian Cancer Status:Active Comments:Mother. Bleeding disorder Status:Active Comments:Son. Cerebrovascular Accident Status:Active Comment s:Paternal Uncle. Colon Cancer Status:Active Comments:Mother. Coronary Artery Disease Status:Active Comments :Father. Diabetes Mellitus Type II Status:Active Commen ts:Father. Hypertension Status:Active Comments:Father. Hypothyroidism Status:Active Comments:Father. Osteoarthritis Status:Active Comments:Father. Ovarian Cancer Status:Active Comments:Mother. Bleeding disorder Status:Active Comments:Son. Cerebrovascular Accident Status:Active Comment s:Paternal Uncle. Colon Cancer Status:Active Comments:Mother. Coronary Artery Disease Status:Active Comments :Father. Diabetes Mellitus Type II Status:Active Commen ts:Father. Hypertension Status:Active Comments:Father. Hypothyroidism Status:Active Comments:Father. Osteoarthritis Status:Active Comments:Father. Ovarian Cancer Status:Active Comments:Mother. Bleeding disorder Status:Active Comments:Son. Cerebrovascular Accident Status:Active Comment s:Paternal Uncle. Colon Cancer Status:Active Comments:Mother. Coronary Artery Disease Status:Active Comments :Father. Diabetes Mellitus Type II Status:Active Commen ts:Father. Hypertension Status:Active Comments:Father. Hypothyroidism Status:Active Comments:Father. Osteoarthritis Status:Active Comments:Father. Ovarian Cancer Status:Active Comments:Mother. Bleeding disorder Status:Active Comments:Son. Cerebrovascular Accident Status:Active Comment s:Paternal Uncle. Colon Cancer Status:Active Comments:Mother. Coronary Artery Disease Status:Active Comments :Father. Diabetes Mellitus Type II Status:Active Commen ts:Father. Hypertension Status:Active Comments:Father. Hypothyroidism Status:Active Comments:Father. Osteoarthritis Status:Active Comments:Father. Ovarian Cancer Status:Active Comments:Mother. Bleeding disorder Status:Active Comments:Son. Cerebrovascular Accident Status:Active Comment s:Paternal Uncle. Colon Cancer Status:Active Comments:Mother. Coronary Artery Disease Status:Active Comments :Father. Diabetes Mellitus Type II Status:Active Commen ts:Father. Hypertension Status:Active Comments:Father. Hypothyroidism Status:Active Comments:Father. Osteoarthritis Status:Active Comments:Father. Ovarian Cancer Status:Active Comments:Mother. Bleeding disorder Status:Active Comments:Son. Cerebrovascular Accident Status:Active Comment s:Paternal Uncle. Colon Cancer Status:Active Comments:Mother. Coronary Artery Disease Status:Active Comments :Father. Diabetes Mellitus Type II Status:Active Commen ts:Father. Hypertension Status:Active Comments:Father. Hypothyroidism Status:Active Comments:Father. Osteoarthritis Status:Active Comments:Father. Ovarian Cancer Status:Active Comments:Mother. Bleeding disorder Status:Active Comments:Son. Cerebrovascular Accident Status:Active Comment s:Paternal Uncle. Colon Cancer Status:Active Comments:Mother. Coronary Artery Disease Status:Active Comments :Father. Diabetes Mellitus Type II Status:Active Commen ts:Father. Hypertension Status:Active Comments:Father. Hypothyroidism Status:Active Comments:Father. Osteoarthritis Status:Active Comments:Father. Ovarian Cancer Status:Active Comments:Mother. Bleeding disorder Status:Active Comments:Son. Cerebrovascular Accident Status:Active Comment s:Paternal Uncle. Colon Cancer Status:Active Comments:Mother. Coronary Artery Disease Status:Active Comments :Father. Diabetes Mellitus Type II Status:Active Commen ts:Father. Hypertension Status:Active Comments:Father. Hypothyroidism Status:Active Comments:Father. Osteoarthritis Status:Active Comments:Father. Ovarian Cancer Status:Active Comments:Mother. Bleeding disorder Status:Active Comments:Son. Cerebrovascular Accident Status:Active Comment s:Paternal Uncle. Colon Cancer Status:Active Comments:Mother. Coronary Artery Disease Status:Active Comments :Father. Diabetes Mellitus Type II Status:Active Commen ts:Father. Hypertension Status:Active Comments:Father. Hypothyroidism Status:Active Comments:Father. Osteoarthritis Status:Active Comments:Father. Ovarian Cancer Status:Active Comments:Mother. Bleeding disorder Status:Active Comments:Son. Cerebrovascular Accident Status:Active Comment s:Paternal Uncle. Colon Cancer Status:Active Comments:Mother. Coronary Artery Disease Status:Active Comments :Father. Diabetes Mellitus Type II Status:Active Commen ts:Father. Hypertension Status:Active Comments:Father. Hypothyroidism Status:Active Comments:Father. Osteoarthritis Status:Active Comments:Father. Ovarian Cancer Status:Active Comments:Mother. Bleeding disorder Status:Active Comments:Son. Cerebrovascular Accident Status:Active Comment s:Paternal Uncle. Colon Cancer Status:Active Comments:Mother. Coronary Artery Disease Status:Active Comments :Father. Diabetes Mellitus Type II Status:Active Commen ts:Father. Hypertension Status:Active Comments:Father. Hypothyroidism Status:Active Comments:Father. Osteoarthritis Status:Active Comments:Father. Ovarian Cancer Status:Active Comments:Mother. Bleeding disorder Status:Active Comments:Son. Cerebrovascular Accident Status:Active Comment s:Paternal Uncle. Colon Cancer Status:Active Comments:Mother. Coronary Artery Disease Status:Active Comments :Father. Diabetes Mellitus Type II Status:Active Commen ts:Father. Hypertension Status:Active Comments:Father. Hypothyroidism Status:Active Comments:Father. Osteoarthritis Status:Active Comments:Father. Ovarian Cancer Status:Active Comments:Mother. Bleeding disorder Status:Active Comments:Son. Cerebrovascular Accident Status:Active Comment s:Paternal Uncle. Colon Cancer Status:Active Comments:Mother. Coronary Artery Disease Status:Active Comments :Father. Diabetes Mellitus Type II Status:Active Commen ts:Father. Hypertension Status:Active Comments:Father. Hypothyroidism Status:Active Comments:Father. Osteoarthritis Status:Active Comments:Father. Ovarian Cancer Status:Active Comments:Mother. Bleeding disorder Status:Active Comments:Son. Cerebrovascular Accident Status:Active Comment s:Paternal Uncle. Colon Cancer Status:Active Comments:Mother. Coronary Artery Disease Status:Active Comments :Father. Diabetes Mellitus Type II Status:Active Commen ts:Father. Hypertension Status:Active Comments:Father. Hypothyroidism Status:Active Comments:Father. Osteoarthritis Status:Active Comments:Father. Ovarian Cancer Status:Active Comments:Mother. Bleeding disorder Status:Active Comments:Son. Cerebrovascular Accident Status:Active Comment s:Paternal Uncle. Colon Cancer Status:Active Comments:Mother. Coronary Artery Disease Status:Active Comments :Father. Diabetes Mellitus Type II Status:Active Commen ts:Father. Hypertension Status:Active Comments:Father. Hypothyroidism Status:Active Comments:Father. Osteoarthritis Status:Active Comments:Father. Ovarian Cancer Status:Active Comments:Mother. Bleeding disorder Status:Active Comments:Son. Cerebrovascular Accident Status:Active Comment s:Paternal Uncle. Colon Cancer Status:Active Comments:Mother. Coronary Artery Disease Status:Active Comments :Father. Diabetes Mellitus Type II Status:Active Commen ts:Father. Hypertension Status:Active Comments:Father. Hypothyroidism Status:Active Comments:Father. Osteoarthritis Status:Active Comments:Father. Ovarian Cancer Status:Active Comments:Mother. Bleeding disorder Status:Active Comments:Son. Cerebrovascular Accident Status:Active Comment s:Paternal Uncle. Colon Cancer Status:Active Comments:Mother. Coronary Artery Disease Status:Active Comments :Father. Diabetes Mellitus Type II Status:Active Commen ts:Father. Hypertension Status:Active Comments:Father. Hypothyroidism Status:Active Comments:Father. Osteoarthritis Status:Active Comments:Father. Ovarian Cancer Status:Active Comments:Mother. Bleeding disorder Status:Active Comments:Son. Cerebrovascular Accident Status:Active Comment s:Paternal Uncle. Colon Cancer Status:Active Comments:Mother. Coronary Artery Disease Status:Active Comments :Father. Diabetes Mellitus Type II Status:Active Commen ts:Father. Hypertension Status:Active Comments:Father. Hypothyroidism Status:Active Comments:Father. Osteoarthritis Status:Active Comments:Father. Ovarian Cancer Status:Active Comments:Mother. Bleeding disorder Status:Active Comments:Son. Cerebrovascular Accident Status:Active Comment s:Paternal Uncle. Colon Cancer Status:Active Comments:Mother. Coronary Artery Disease Status:Active Comments :Father. Diabetes Mellitus Type II Status:Active Commen ts:Father. Hypertension Status:Active Comments:Father. Hypothyroidism Status:Active Comments:Father. Osteoarthritis Status:Active Comments:Father. Ovarian Cancer Status:Active Comments:Mother. Bleeding disorder Status:Active Comments:Son. Cerebrovascular Accident Status:Active Comment s:Paternal Uncle. Colon Cancer Status:Active Comments:Mother. Coronary Artery Disease Status:Active Comments :Father. Diabetes Mellitus Type II Status:Active Commen ts:Father. Hypertension Status:Active Comments:Father. Hypothyroidism Status:Active Comments:Father. Osteoarthritis Status:Active Comments:Father. Ovarian Cancer Status:Active Comments:Mother. Bleeding disorder Status:Active Comments:Son. Cerebrovascular Accident Status:Active Comment s:Paternal Uncle. Colon Cancer Status:Active Comments:Mother. Coronary Artery Disease Status:Active Comments :Father. Diabetes Mellitus Type II Status:Active Commen ts:Father. Hypertension Status:Active Comments:Father. Hypothyroidism Status:Active Comments:Father. Osteoarthritis Status:Active Comments:Father. Ovarian Cancer Status:Active Comments:Mother. Bleeding disorder Status:Active Comments:Son. Cerebrovascular Accident Status:Active Comment s:Paternal Uncle. Colon Cancer Status:Active Comments:Mother. Coronary Artery Disease Status:Active Comments :Father. Diabetes Mellitus Type II Status:Active Commen ts:Father. Hypertension Status:Active Comments:Father. Hypothyroidism Status:Active Comments:Father. Osteoarthritis Status:Active Comments:Father. Ovarian Cancer Status:Active Comments:Mother. Bleeding disorder Status:Active Comments:Son. Cerebrovascular Accident Status:Active Comment s:Paternal Uncle. Colon Cancer Status:Active Comments:Mother. Coronary Artery Disease Status:Active Comments :Father. Diabetes Mellitus Type II Status:Active Commen ts:Father. Hypertension Status:Active Comments:Father. Hypothyroidism Status:Active Comments:Father. Osteoarthritis Status:Active Comments:Father. Ovarian Cancer Status:Active Comments:Mother. Bleeding disorder Status:Active Comments:Son. Cerebrovascular Accident Status:Active Comment s:Paternal Uncle. Colon Cancer Status:Active Comments:Mother. Coronary Artery Disease Status:Active Comments :Father. Diabetes Mellitus Type II Status:Active Commen ts:Father. Hypertension Status:Active Comments:Father. Hypothyroidism Status:Active Comments:Father. Osteoarthritis Status:Active Comments:Father. Ovarian Cancer Status:Active Comments:Mother. Bleeding disorder Status:Active Comments:Son. Cerebrovascular Accident Status:Active Comment s:Paternal Uncle. Colon Cancer Status:Active Comments:Mother. Coronary Artery Disease Status:Active Comments :Father. Diabetes Mellitus Type II Status:Active Commen ts:Father. Hypertension Status:Active Comments:Father. Hypothyroidism Status:Active Comments:Father. Osteoarthritis Status:Active Comments:Father. Ovarian Cancer Status:Active Comments:Mother. Bleeding disorder Status:Active Comments:Son. Cerebrovascular Accident Status:Active Comment s:Paternal Uncle. Colon Cancer Status:Active Comments:Mother. Coronary Artery Disease Status:Active Comments :Father. Diabetes Mellitus Type II Status:Active Commen ts:Father. Hypertension Status:Active Comments:Father. Hypothyroidism Status:Active Comments:Father. Osteoarthritis Status:Active Comments:Father. Ovarian Cancer Status:Active Comments:Mother. Bleeding disorder Status:Active Comments:Son. Cerebrovascular Accident Status:Active Comment s:Paternal Uncle. Colon Cancer Status:Active Comments:Mother. Coronary Artery Disease Status:Active Comments :Father. Diabetes Mellitus Type II Status:Active Commen ts:Father. Hypertension Status:Active Comments:Father. Hypothyroidism Status:Active Comments:Father. Osteoarthritis Status:Active Comments:Father. Ovarian Cancer Status:Active Comments:Mother. Bleeding disorder Status:Active Comments:Son. Cerebrovascular Accident Status:Active Comment s:Paternal Uncle. Colon Cancer Status:Active Comments:Mother. Coronary Artery Disease Status:Active Comments :Father. Diabetes Mellitus Type II Status:Active Commen ts:Father. Hypertension Status:Active Comments:Father. Hypothyroidism Status:Active Comments:Father. Osteoarthritis Status:Active Comments:Father. Ovarian Cancer Status:Active Comments:Mother. Bleeding disorder Status:Active Comments:Son. Cerebrovascular Accident Status:Active Comment s:Paternal Uncle. Colon Cancer Status:Active Comments:Mother. Coronary Artery Disease Status:Active Comments :Father. Diabetes Mellitus Type II Status:Active Commen ts:Father. Hypertension Status:Active Comments:Father. Hypothyroidism Status:Active Comments:Father. Osteoarthritis Status:Active Comments:Father. Ovarian Cancer Status:Active Comments:Mother. Bleeding disorder Status:Active Comments:Son. Cerebrovascular Accident Status:Active Comment s:Paternal Uncle. Colon Cancer Status:Active Comments:Mother. Coronary Artery Disease Status:Active Comments :Father. Diabetes Mellitus Type II Status:Active Commen ts:Father. Hypertension Status:Active Comments:Father. Hypothyroidism Status:Active Comments:Father. Osteoarthritis Status:Active Comments:Father. Ovarian Cancer Status:Active Comments:Mother. Bleeding disorder Status:Active Comments:Son. Cerebrovascular Accident Status:Active Comment s:Paternal Uncle. Colon Cancer Status:Active Comments:Mother. Coronary Artery Disease Status:Active Comments :Father. Diabetes Mellitus Type II Status:Active Commen ts:Father. Hypertension Status:Active Comments:Father. Hypothyroidism Status:Active Comments:Father. Osteoarthritis Status:Active Comments:Father. Ovarian Cancer Status:Active Comments:Mother. Bleeding disorder Status:Active Comments:Son. Cerebrovascular Accident Status:Active Comment s:Paternal Uncle. Colon Cancer Status:Active Comments:Mother. Coronary Artery Disease Status:Active Comments :Father. Diabetes Mellitus Type II Status:Active Commen ts:Father. Hypertension Status:Active Comments:Father. Hypothyroidism Status:Active Comments:Father. Osteoarthritis Status:Active Comments:Father. Ovarian Cancer Status:Active Comments:Mother. Bleeding disorder Status:Active Comments:Son. Cerebrovascular Accident Status:Active Comment s:Paternal Uncle. Colon Cancer Status:Active Comments:Mother. Coronary Artery Disease Status:Active Comments :Father. Diabetes Mellitus Type II Status:Active Commen ts:Father. Hypertension Status:Active Comments:Father. Hypothyroidism Status:Active Comments:Father. Osteoarthritis Status:Active Comments:Father. Ovarian Cancer Status:Active Comments:Mother. Bleeding disorder Status:Active Comments:Son. Cerebrovascular Accident Status:Active Comment s:Paternal Uncle. Colon Cancer Status:Active Comments:Mother. Coronary Artery Disease Status:Active Comments :Father. Diabetes Mellitus Type II Status:Active Commen ts:Father. Hypertension Status:Active Comments:Father. Hypothyroidism Status:Active Comments:Father. Osteoarthritis Status:Active Comments:Father. Ovarian Cancer Status:Active Comments:Mother. Bleeding disorder Status:Active Comments:Son. Cerebrovascular Accident Status:Active Comment s:Paternal Uncle. Colon Cancer Status:Active Comments:Mother. Coronary Artery Disease Status:Active Comments :Father. Diabetes Mellitus Type II Status:Active Commen ts:Father. Hypertension Status:Active Comments:Father. Hypothyroidism Status:Active Comments:Father. Osteoarthritis Status:Active Comments:Father. Ovarian Cancer Status:Active Comments:Mother. Advance Directives Documents on File Type Date Recorded Patient Director Clinical Pharmacology Expl anation Advance Directives and Livin g Will Advance Directives and Livin g Will 02/24/2017 10:36 AM Power of [employer] Latest Code Status on File Code Status Date Activated Date Inactivated Comments Full Code 02/21/2017 9:24 AM 02/22/2017 3:14 PM Full Code 02/20/2017 12:20 PM 02/21/2017 9:24 AM Full Code 02/20/2017 5:31 AM 02/20/2017 11:48 AM Living Will - Effective on . Expiration date unspecified. Scanned Document is available upon request. Effective:17-Aug-2015 Living Will - Effective on . Expiration date unspecified. Scanned Document is available upon request. Effective:17-Aug-2015 Living Will - Effective on . Expiration date unspecified. Scanned Document is available upon request. Effective:17-Aug-2015 Living Will - Effective on . Expiration date unspecified. Scanned Document is available upon request. Effective:17-Aug-2015 Living Will - Effective on . Expiration date unspecified. Scanned Document is available upon request. Effective:17-Aug-2015 Living Will - Effective on . Expiration date unspecified. Scanned Document is available upon request. Effective:17-Aug-2015 Living Will - Effective on . Expiration date unspecified. Scanned Document is available upon request. Effective:17-Aug-2015 Living Will - Effective on . Expiration date unspecified. Scanned Document is available upon request. Effective:17-Aug-2015 Living Will - Effective on . Expiration date unspecified. Scanned Document is available upon request. Effective:17-Aug-2015 Living Will - Effective on . Expiration date unspecified. Scanned Document is available upon request. Effective:17-Aug-2015 Living Will - Effective on . Expiration date unspecified. Scanned Document is available upon request. Effective:17-Aug-2015 Living Will - Effective on . Expiration date unspecified. Scanned Document is available upon request. Effective:17-Aug-2015 Living Will - Effective on . Expiration date unspecified. Scanned Document is available upon request. Effective:17-Aug-2015 Living Will - Effective on . Expiration date unspecified. Scanned Document is available upon request. Effective:17-Aug-2015 Living Will - Effective on . Expiration date unspecified. Scanned Document is available upon request. Effective:17-Aug-2015 Living Will - Effective on . Expiration date unspecified. Scanned Document is available upon request. Effective:17-Aug-2015 Living Will - Effective on . Expiration date unspecified. Scanned Document is available upon request. Effective:17-Aug-2015 Living Will - Effective on . Expiration date unspecified. Scanned Document is available upon request. Effective:17-Aug-2015 Living Will - Effective on . Expiration date unspecified. Scanned Document is available upon request. Effective:17-Aug-2015 Living Will - Effective on . Expiration date unspecified. Scanned Document is available upon request. Effective:17-Aug-2015 Living Will - Effective on . Expiration date unspecified. Scanned Document is available upon request. Effective:17-Aug-2015 Living Will - Effective on . Expiration date unspecified. Scanned Document is available upon request. Effective:17-Aug-2015 Living Will - Effective on . Expiration date unspecified. Scanned Document is available upon request. Effective:17-Aug-2015 Living Will - Effective on . Expiration date unspecified. Scanned Document is available upon request. Effective:17-Aug-2015 Living Will - Effective on . Expiration date unspecified. Scanned Document is available upon request. Effective:17-Aug-2015 Living Will - Effective on . Expiration date unspecified. Scanned Document is available upon request. Effective:17-Aug-2015 Living Will - Effective on . Expiration date unspecified. Scanned Document is available upon request. Effective:17-Aug-2015 Living Will - Effective on . Expiration date unspecified. Scanned Document is available upon request. Effective:17-Aug-2015 Living Will - Effective on . Expiration date unspecified. Scanned Document is available upon request. Effective:17-Aug-2015 Living Will - Effective on . Expiration date unspecified. Scanned Document is available upon request. Effective:17-Aug-2015 Living Will - Effective on . Expiration date unspecified. Scanned Document is available upon request. Effective:17-Aug-2015 Living Will - Effective on . Expiration date unspecified. Scanned Document is available upon request. Effective:17-Aug-2015 Living Will - Effective on . Expiration date unspecified. Scanned Document is available upon request. Effective:17-Aug-2015 Living Will - Effective on . Expiration date unspecified. Scanned Document is available upon request. Effective:17-Aug-2015 Living Will - Effective on . Expiration date unspecified. Scanned Document is available upon request. Effective:17-Aug-2015 Living Will - Effective on . Expiration date unspecified. Scanned Document is available upon request. Effective:17-Aug-2015 Living Will - Effective on . Expiration date unspecified. Scanned Document is available upon request. Effective:17-Aug-2015 Living Will - Effective on . Expiration date unspecified. Scanned Document is available upon request. Effective:17-Aug-2015 Living Will - Effective on . Expiration date unspecified. Scanned Document is available upon request. Effective:17-Aug-2015 Living Will - Effective on . Expiration date unspecified. Scanned Document is available upon request. Effective:17-Aug-2015 Living Will - Effective on . Expiration date unspecified. Scanned Document is available upon request. Effective:17-Aug-2015 Living Will - Effective on . Expiration date unspecified. Scanned Document is available upon request. Effective:17-Aug-2015 Living Will - Effective on . Expiration date unspecified. Scanned Document is available upon request. Effective:17-Aug-2015 Living Will - Effective on . Expiration date unspecified. Scanned Document is available upon request. Effective:17-Aug-2015 Living Will - Effective on . Expiration date unspecified. Scanned Document is available upon request. Effective:17-Aug-2015 Living Will - Effective on . Expiration date unspecified. Scanned Document is available upon request. Effective:17-Aug-2015 Living Will - Effective on . Expiration date unspecified. Scanned Document is available upon request. Effective:17-Aug-2015 Living Will - Effective on . Expiration date unspecified. Scanned Document is available upon request. Effective:17-Aug-2015 Living Will - Effective on . Expiration date unspecified. Scanned Document is available upon request. Effective:17-Aug-2015 Living Will - Effective on . Expiration date unspecified. Scanned Document is available upon request. Effective:17-Aug-2015 Living Will - Effective on . Expiration date unspecified. Scanned Document is available upon request. Effective:17-Aug-2015 Living Will - Effective on . Expiration date unspecified. Scanned Document is available upon request. Effective:17-Aug-2015 Living Will - Effective on . Expiration date unspecified. Scanned Document is available upon request. Effective:17-Aug-2015 Living Will - Effective on . Expiration date unspecified. Scanned Document is available upon request. Effective:17-Aug-2015 Procedure Findings Note HNO ID: [id number] Author: Dunia Gross Service: Gastroenterology Author Type: Physician Type: Brief Op Note Filed: 05/27/2019 2:39 PM Note Text: BRIEF OPERATIVE NOTE PATIENT NAME: Heriberto Huynh LOG ID: [id number] Surgery Date: 05/27/2019 Surgeon(s) and Supervisor Gear Repair(s): Heriberto Gross MD -Primary Procedure(s): Procedure(s) (LRB): COLONOSCOPY (N/A) Anesthesia: Procedural Sedation Findings: Normal exam Estimated Blood Loss: 0 ml Specimens: None Preop Diagnosis: History of colonic polyps [Z86.010] Family history of colon cancer in mother [Z80.0] Postop Diagnosis: History of colonic polyps [Z86.010] Family history of colon cancer in mother [Z80.0] SIGNATURE: Heriberto Gross MD DATE: May 27, 2019 TIME: 2:39 PM Chief Complaint and Reason for Visit Chief Complaint 9 m fu (MOVED FROM [facility]) S/O- PAIN- COPY PCP Reason for Visit Essential hypertensi on Hyperlipidemia Persistent atrial fibrillation Chief Complaint S/O- PAIN- COPY PCP STANDING ORDER Chief Complaint STANDING ORDER [id number]- PAIN COPY PCP Chief Complaint Elevated BTNP, abn C XR per PCP Reason for Visit Essential hypertensi on Hyperlipidemia Persistent atrial fibrillation 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 [facility] PAIN- COPY PCP Reason for Visit Essential hypertensi on Hyperlipidemia Persistent atrial fibrillation Chief Complaint PAIN- COPY PCP COPY PCP Chief Complaint COPY PCP S/O-PAIN- COPY PCP 7 M FU Reason for Visit Essential hypertensi on Hyperlipidemia Persistent atrial fibrillation Chief Complaint Admit Date PAIN- COPY PCP January 17, 2025 12:39pm Additional Source Comments (unrecognized sect ion and content) No Status Records FoundNo Status Records FoundNo Status Records FoundNo Status Records FoundNo Status Records FoundNo Status Records FoundNo Status Records Found INFORMATION SOURCE (unrecogn ized section and content) DATE CREATED AUTHOR 11/03/2017 [facility] ([place]) DATE CREATED AUTHOR AUTHOR'S ORGANIZ ATION 08/17/2018 [facility] DATE CREATED AUTHOR AUTHOR'S ORGANIZ ATION 03/19/2019 [facility] DATE CREATED AUTHOR AUTHOR'S ORGANIZ ATION 05/27/2019 [facility] DATE CREATED AUTHOR AUTHOR'S ORGANIZ ATION 10/28/2024 [facility] DATE CREATED AUTHOR AUTHOR'S ORGANIZ ATION 11/23/2024 [facility] DATE CREATED AUTHOR AUTHOR'S ORGANIZ ATION 02/04/2025 [facility] Goals (unrecognized section and content) Goals may be documented in a n alternate sectionGoals may be documented in an alternate sectionGoals may be documented in an alternate sectionGoals may be documented in an alternate sectionGoals may be documented in an alternate sectionGoals may be documented in an alternate sectionGoals may be documented in an alternate sectionGoals may be documented in an alternate section Care Teams (unrecognized sec tion and content) Team Status: Active Member Role Status Dates Dr. Liz Hearn MD Family Provider Active Dr. Josiah Christine MD Primary Care Provider Active Team Status: Inactive Member Role Status Dates Dr. Josiah Christine MD Primary Care Provider, Referring Provider Active Jem Pathak WILDLIFE TECHNICIAN, WILDLIFE TECHNICIAN-C Attending Provider Active Team Status: Inactive Member Role Status Dates Dr. Josiah Christine MD Primary Care Provider Active Dr. Montse Haynes MD Attending Provider, Referring Provider Active Team Status: Inactive Member Role Status Dates Dr. Josiah Christine MD Primary Care Provider, Referring Provider Active Dr. Jayden Rodrigues MD Attending Provider Active Team Status: Inactive Member Role Status Dates Dr. Josiah Christine MD Primary Care Provider Active Dr. Montse Haynes MD Attending Provider Active Team Status: Active Member Role/Relationship Status Dates Dr. Liz Hearn MD Primary care physician Active Dr. Josiah Christine MD Primary care physician Active Team Status: Inactive Member Role/Relationship Status Dates Dr. Josiah Christine MD Primary care physician Active Start: January 17, 2025 End: January 17, 2025 Dr. Montse Haynes MD Attending physician Active Start: January 17, 2025 End: January 17, 2025 Dr. Montse Haynes MD Referring Provider Active Start: January 17, 2025 End: January 17, 2025 FOR RECORDS PERTAINING TO PATIENTS WHO ARE OR HAVE BEEN ENROLLED IN A CHEMICAL DEPENDENCY/SUBSTANCEABUSE PROGRAM, SOME INFORMATION MAY BE OMITTED. This clinical summary was aggregated from multiple sources. Caution should be exercised in using it in the provision of clinical care. This summary normalizes information from multiple sources, and as a consequence, information in this document may materially change the coding, format and clinical context of patient data. In addition, data may be omitted in some cases. CLINICAL DECISIONS SHOULD BE BASED ON THE PRIMARY CLINICAL RECORDS. [facility] [employer] provides no warranty or guarantee of the accuracy or completeness of information in this document.
[2025-04-12 10:54] LABS: Hematocrit 37.1 % (40-54); Hemoglobin 11.8 g/dL (13.0-16.5); Immature Granulocytes Count 0.020 X10^3/uL (0.0-0.0); Mean Corp Hgb Conc 31.8 g/dL (32-36); Mean Corpuscular Volume 103.6 fL (80-94); Mean Platelet Vol. 9.7 fl (6.2-12.0); NRBC Flagged by Analyzer 0 % (0-5); Platelet Count 260 K/mm3 (150-450); RBC Distribution Width CV 14.0 % (11.6-14.6); RBC Distribution Width SD 53.0 fl (35.1-43.9); Red Blood Count 3.58 M/mm3 (4.6-6.2); White Blood Count 6.9 K/mm3 (4.4-11.0)
[2025-04-12 11:04] LABS: Albumin, Serum 4.3 g/dL (3.4-4.8); BUN 21 mg/dL (4-19); BUN/Creat Ratio 14.5 RATIO (10-20); Glucose 75 mg/dL (70-99)
[2025-04-12 11:05] LABS: AST(SGOT) 38 U/L (<=37); Alanine Aminotransfer ALT/SGPT 25 U/L (<=46); Alkaline Phosphatase 64 U/L (40-129); Anion Gap 12 (5-15); Calcium,Total 9.1 mg/dL (7.6-11.0); Carbon Dioxide 21.0 mmol/L (21.0-32.0); Chloride 110 mmol/L (98-108); Globulin 3.1 g/dL (2.2-4.2); Potassium 4.5 mmol/L (3.3-5.1)
== END | disposition home or self-care (01) ==
LOC: LAB 09:52
PROVIDERS: PCP Family Medicine; Referring Provider Internal Medicine Rheumatology; Visit Provider Internal Medicine Rheumatology
DX: M06.4 Inflammatory polyarthropathy (principal); Z79.899 Other long term (current) drug therapy
CPT/HCPCS: 36415; 80053; 85025